=== PATIENT | female | born 2000 | race Caucasian/White ===

== ENCOUNTER 2025-01-06 15:44 | Emergency (ER) | payer MEDICAID, SELFPAY ==
[2025-01-06 15:45] VITALS: BP 147/84; PULSE 90; RESP 16; TEMP 36.6; O2SAT 100; BMI 34.5
--- NOTE | 2025-01-06 15:54 | EDS_ITS ---
HPI History of Present Illness Chief Complaint: Shortness of Breath PFSH PFSH Home Medications ?Medication ?Instructions ?Recorded ?Last Taken ?Type enoxaparin 40 mg/0.4 mL 40 mg (0.4 mL) subcut DAILY 30 01/06/25 Unknown Rx subcutaneous syringe (Lovenox) days #12 mL Allergy/AdvReac Type Severity Reaction Status Date / Time No Known Allergies Allergy Verified 01/06/25 15:45 Social History Smoking Status: Current every day smoker tobacco type: cigarettes and e- cigarettes EXAM Physical Exam Const Vital Signs: 01/06/25 15:45 01/06/25 16:28 01/06/25 16:30 Temperature 97.8 F Temperature Source Temporal Pulse Rate 90 75 Respiratory Rate 16 12 Respiratory Effort Normal Non-Labored Respiratory Depth Normal Respiratory Pattern Normal Blood Pressure 147/84 H 97/56 L Blood Pressure Mean 105 68 Pulse Ox 100 100 Oxygen Delivery Method Room Air Room Air 01/06/25 17:00 01/06/25 17:00 01/06/25 18:00 Temperature Temperature Source Pulse Rate 79 84 Respiratory Rate 21 H 14 Respiratory Effort Respiratory Depth Respiratory Pattern Blood Pressure 101/49 L 101/49 L Blood Pressure Mean 64 64 Pulse Ox 100 100 Oxygen Delivery Method 01/06/25 18:48 Temperature 97.5 F L Temperature Source Pulse Rate 72 Respiratory Rate 18 Respiratory Effort Respiratory Depth Respiratory Pattern Blood Pressure 98/62 Blood Pressure Mean 74 Pulse Ox 100 Oxygen Delivery Method MDM MDM MDM Narrative Medical decision making narrative: HISTORY OF PRESENT ILLNESS: Chief complaint: Shortness of breath 24-year-old female (G4, P3) who is approximately 6 weeks who presents with shortness of breath and dizziness for past 2 to 3 days. She notes shortness breath and dizziness is worse when she is at work. She notes symptoms are worse with exertion. She states has a history of a blood clot. She states has been prescribed Lovenox but has not taken it for last several days secondary to complication with refills. She denies chest pain. No leg swelling. No dizziness currently. Denies vaginal bleeding, passing tissue, leakage of fluid or severe abdominal pain. REVIEW OF SYSTEMS: Pertinent positives: Shortness of breath, dizziness Pertinent negatives: Vomiting, fever, bleeding diathesis PHYSICAL EXAM: Nursing triage notes reviewed, Vital signs reviewed Constitutional: please see mdm HENT: MMM Eyes: Pupils equal round and reactive to light, Extraocular muscles intact Neck: No stridor, no JVD, full neck ROM Lungs: Clear to auscultation, No wheezing or rales. No increased work of breathing, no conversational dyspnea, no accessory muscle use, no nasal flaring. No respiratory distress noted Heart: Regular rate and rhythm, No murmurs, No rubs and No gallops, 2+ distal pulses (radial, femoral, posterior tibial) in all extremities Abdomen: Soft, there is no tenderness, rigidity, rebound or guarding, no obvious peritoneal signs, no palpable pulsatile abdominal masses, no auscultated abdominal bruit : No CVAT Extremities: No edema Neuro: No n alert and oriented x3, neuro exam at baseline, cranial nerves II through XII are intact. No pain with extraocular muscle movement. There is negative test of skew. 5 of 5 strength in upper and lower extremities in flexion extension. Intact sensation to light touch in upper and lower extremity dermatomes. No truncal or extremity ataxia. No dysdiadochokinesia. Normal gait. 2+ reflexes in upper and lower extremities. No meningeal signs. Negative Babinski. NIH of 0. Skin: No rash or lesions noted MEDICAL DECISION MAKING: Chief Complaint: please see HPI External records reviewed: Reviewed prior imaging studies Factors affecting care: VTE, Social determinants of health: currently History obtained from others: Consults: none MDM Narrative: The patient was initially hemodynamically stable, afebrile and nontoxic- appearing. Exam without focal cardiopulmonary abnormalities. No focal neurologic deficits. While I considered posterior circulation CVA, cerebral vein thrombosis given report of dizziness the patient's neurologic exam was not consistent with intracranial emergency. I considered the following differential diagnosis: Viral illness, PE, arrhythmia, anemia, electrolyte disturbance, ACS I obtained a broad lab and imaging workup to further determine if the patient was suffering from a life-threatening etiology. ALL IMAGES (IF OBTAINED) HAVE BEEN PERSONALLY REVIEWED AND INTERPRETED BY MYSELF. EKG showed normal sinus rhythm rate of 68, normal axis, normal intervals, no STEMI, no obvious right heart strain, no right bundle branch block, right axis deviation or [id number]. CT of the chest showed no evidence of pneumonia or PE High-sensitivity troponin is negative, no evidence of myocardial ischemia (single troponin should suffice for ruling out ACS given patient's of having symptoms for 2 to 3 days and she had no chest pain) CBC with no leukocytosis, mild anemia, no thrombocytopenia CMP significant [place] abnormalities, no acute kidney injury, slight elevation in ALT and alk phos this is not clinically significant as patient had no upper quad abdominal pain scleral icterus or jaundice noted. The synthesis of the patient's history, physical exam, labs images suggest no acute life-limiting etiology specifically no sign of VTE, viral infection or bacterial infection. The etiology of patient's presentation is unclear however does not appear to be life-threatening. She is appropriate discharge home with close COMMISSIONS COORDINATOR follow-up. A dose of Lovenox was given here prior to the patient's discharge. Prescription for Lovenox was written. She is encouraged to fill this immediately and start taking medicine immediately. The patient and/or family, caregivers express understanding. The patient and/or family, caregivers agrees with the plan. Shared decision making: I will have a discussion with the patient and or visitors regarding risk/benefits of further testing or admission. They will be made aware of of the risk/benefits inherent in this decision they will be given the opportunity to voice understanding. Total critical care time today provided was at least 0 minutes. This excludes separately billable procedures. Critical care time (if documented) is secondary to the patient having high probability of clinically significant/life threatening deterioration in the patient's condition which required my urgent intervention. Impression: 1. Dyspnea 2. Dizziness 3. First trimester Dispo: Discharge home This note was generated with [employer] dictation software. It may contain incorrect words, spelling, and punctuation that were not noted in review of the chart prior to signing. Lab Data Labs: Laboratory Results - last 24 hr 01/06/25 16:02 WBC 11.6 H RBC 4.27 Hgb 12.8 Hct 37.1 MCV 86.9 MCH 30.0 MCHC 34.5 RDW Std Deviation 42.0 RDW Coeff of Maya 13.2 Plt Count 228 MPV 10.7 Immature Gran % (Auto) 0.400 Neut % (Auto) 78.7 H Lymph % (Auto) 14.7 L Humphreys % (Auto) 5.6 Eos % (Auto) 0.3 Baso % (Auto) 0.3 Absolute Neuts (auto) 9.1 H Absolute Lymphs (auto) 1.70 Nucleated RBC % 0 Sodium 134 Potassium 3.8 Chloride 104 Carbon Dioxide 17.3 L Anion Gap 13 BUN 10 Creatinine 0.57 L Estim Creat Clear Calc 146.11 Est GFR (MDRD) Non-Af 129 BUN/Creatinine Ratio 17.4 Glucose 94 Calcium 9.1 Total Bilirubin 0.20 AST 32 ALT 53 H Alkaline Phosphatase 113 H Troponin T High Sens < 6 Total Protein 6.5 Albumin 3.9 Globulin 2.6 Albumin/Globulin Ratio 1.5 Radiography Diagnostic Testing: Clinical Impression(s) from Imaging Studies Chest CTA 01/06/25 16:02 IMPRESSION: Negative exam Reading Location: [facility] Discharge Plan Triage Chief Complaint: Shortness of Breath ED Provider: Cecil Potts Dx/Rx/DC Orders Instructions: ED Dyspnea Prescriptions: New enoxaparin [Lovenox] 40 mg/0.4 mL syringe 40 mg subcut DAILY 30 Days Qty: 12 3RF Primary Care Provider: Amanda Roldan NP Referrals: Amanda Roldan NP, DIRECTOR OF [employer] [Primary Care Provider, Family Practice] Activity Restrictions/Additional Instructions: Thank you for trusting us with your care today! Your labs images are reassuring. Please take Tylenol (2 pills, 650 mg) every 6 hours as needed for pain and fever control. Please take Lovenox as prescribed. Please return to the emergency department if your symptoms change or worsen. Please follow with COMMISSIONS COORDINATOR for further outpatient evaluation and management. Print Language: Taiwanese Disposition Disposition: Home, Self Care Discharge Date/Time: 01/06/25 19:00
--- NOTE | 2025-01-06 16:02 | CT_ITS ---
PROCEDURE: CTA CHEST W/WO CONTRAST 01/06/2025 REASON FOR EXAM: SOB, HX OF PE TECHNIQUE: Procedure Code: [id number] Modality: CT Procedure: CTA CHEST W/WO CONTRAST Multiplanar Sagittal and Coronal images were obtained. 3D reconstructions CONTRAST: Isovue 370 VOLUME: 100 mL One or more dose reduction techniques were used (e.g., Automated exposure control, adjustment of the mA and/or kV according to patient size, use of iterative reconstruction technique). RADIATION DOSE SUMMARY: . FINDINGS: Normal aortic caliber. No aortic dissection. No coronary artery calcification. No visible pulmonary emboli. No mediastinal mass. No pericardial fluid. The upper abdomen is unremarkable. There is no pericardial effusion. There is no adenopathy. Inspection of the lung parenchyma demonstrates no mass, consolidation or fibrosis. CT/CTA Chest W/WO Contrast IMPRESSION: Negative exam Reading [facility]
--- NOTE | 2025-01-06 16:03 | EKG12_ITS ---
Test Reason : SOB Blood Pressure : */* mmHG Vent. Rate : 68 BPM Atrial Rate : 68 BPM P-R Int : 136 ms QRS Dur : 92 ms QT Int : 386 ms P-R-T Axes : 18 69 39 degrees QTcB Int : 410 ms Normal sinus rhythm with sinus arrhythmia RSR' or QR pattern in V1 suggests right ventricular conduction delay Borderline ECG Confirmed by SAMUEL ENCISO, PAULETTE ([id number]), order editor MACK FRAGOSO ([id number]) on 01/08/2025 8:35:03 AM Referred By: MOY Confirmed By: PAULETTE BAKER MD
[2025-01-06 16:17] LABS: Hematocrit 37.1 % (37-47); Hemoglobin 12.8 g/dL (12.0-15.0); Immature Granulocytes Count 0.050 X10^3/uL (0.0-0.0); Mean Corp Hgb Conc 34.5 g/dL (32-36); Mean Corpuscular Volume 86.9 fL (81-99); Mean Platelet Vol. 10.7 fl (6.2-12.0); NRBC Flagged by Analyzer 0 % (0-5); Platelet Count 228 K/mm3 (150-450); RBC Distribution Width CV 13.2 % (11.6-14.6); RBC Distribution Width SD 42.0 fl (35.1-43.9); Red Blood Count 4.27 M/mm3 (4.2-5.4); White Blood Count 11.6 K/mm3 (4.4-11.0)
--- OUTSIDE RECORDS SUMMARY | 2025-01-06 16:26 | XMS RPT_ITS | CCD ---
Author Organization [facility] Care Team Providers Care Flow Match Sofa Cutter Name Role Phone SHIVANI BARROS Unavailable Unavailable SHIVANI BARROS Unavailable Unavailable CONI EDEN Unavailable Unavailable [employer] MINER-TRANSPORTATION SOLUTIONS MANAGER, AMANDA S Primary Care Physicia n Amanda Roldan Primary Care Provider [phone] AMANDA ROLDAN S Primary Care Unavailable MARYBETH, CINTHYA E Referring Unavailable KELLEY POLK Attending Unavailable KELLEY POLK Attending Unavailable YULI, AMANDA S Primary Care Unavailable MARYBETH, CINTHYA E Referring Unavailable JAD CARBAJAL Attending Unavailable YULI, AMANDA S Primary Care Unavailable MARYBETH, CINTHYA E Referring Unavailable JAD CARBAJAL Attending Unavailable YULI, AMANDA S Primary Care Unavailable MARYBETH, CINTHYA E Referring Unavailable MARYBETH, CINTHYA E Referring Unavailable YULI, AMANDA S Primary Care Unavailable HANNAH PRABHCHARAN P Attending Unavailable MARYBETH, CINTHYA E Referring Unavailable YULI, AMANDA S Primary Care Unavailable HANNAH PRABHBREANNE P Attending Unavailable YULI, AMANDA S Primary Care Unavailable MARYBETH, CINTHYA E Referring Unavailable HANNAH PRABHBREANNE P Attending Unavailable [employer] MINER-TRANSPORTATION SOLUTIONS MANAGER, AMANDA S Primary Care Unava ilable Marybeth, Cinthya Attending Unavailable [employer] MINER-TRANSPORTATION SOLUTIONS MANAGER, AMANDA S Primary Care Unava ilable [employer] MINER-[employer], AMANDA R Attending Unav ailable [employer] MINER-TRANSPORTATION SOLUTIONS MANAGER, AMANDA S Primary Care Unava ilable [employer] MINER[employer], AMANDA R Attending Unav ailable [employer] MINER-TRANSPORTATION SOLUTIONS MANAGER, AMANDA S Primary Care Unava ilable Marybeth, Cinthya Attending Unavailable [employer] MINER-TRANSPORTATION SOLUTIONS MANAGER, AMANDA S Primary Care Unava ilable HANS ENCISO, DR MOON Attending Unavailabl e [employer] MINER-TRANSPORTATION SOLUTIONS MANAGER, AMANDA S Primary Care Unava ilable Marybeth, Cinthya Attending Unavailable [employer] MINER-TRANSPORTATION SOLUTIONS MANAGER, AMANDA S Primary Care Unava ilable [employer] MINER[employer], AMANDA R Attending Unav ailable [employer] MINER-TRANSPORTATION SOLUTIONS MANAGER, AMANDA S Primary Care Unava ilable [employer] MINER[employer], AMANDA R Attending Unav ailable [employer] MINER[employer], AMANDA R Attending Unav ailable [employer] MINER-TRANSPORTATION SOLUTIONS MANAGER, AMANDA S Primary Care Unava ilable [employer] MINER-TRANSPORTATION SOLUTIONS MANAGER, ZARINA Attending Unavail able [employer] MINER-TRANSPORTATION SOLUTIONS MANAGER, AMANDA S Primary Care Unava ilable [employer] MINER-TRANSPORTATION SOLUTIONS MANAGER, ZARINA Attending Unavail able [employer] MINER-TRANSPORTATION SOLUTIONS MANAGER, AMANDA S Primary Care Unava ilable [employer] MINER-TRANSPORTATION SOLUTIONS MANAGER, AMANDA S Primary Care Unava anayeli POLK MD, DR KELLEY Ortiz Attending Unavai lable [employer] MINER-TRANSPORTATION SOLUTIONS MANAGER, AMANDA S Primary Care Unava ilable CHRISTI ENCISO, SRI Tadeo Consulting Unavailable CHRISTI ENCISO, SRI Tadeo Attending Unavailable [employer] MINER[employer], AMANDA Bell Attending Unav ailable [employer] MINER-TRANSPORTATION SOLUTIONS MANAGER, AMANDA S Primary Care Unava ilable [employer] MINER[employer], AMANDA Bell Attending Unav ailable [employer] MINER-TRANSPORTATION SOLUTIONS MANAGER, AMANDA S Primary Care Unava ilable [employer] MINER[employer]M, AMANDA R Attending Unav ailable [employer] MINER-TRANSPORTATION SOLUTIONS MANAGER, AMANDA S Primary Care Unava ilable [employer] MINER-TRANSPORTATION SOLUTIONS MANAGER, AMANDA S Primary Care Unava ilable Marybeth, Cinthya Attending Unavailable [employer] MINER-TRANSPORTATION SOLUTIONS MANAGER, AMANDA S Primary Care Unava ilable Marybeth, Cinthya Attending Unavailable [employer] MINER-TRANSPORTATION SOLUTIONS MANAGER, AMANDA S Primary Care Unava ilable Marybeth, Cinthya Attending Unavailable [employer] MINER-TRANSPORTATION SOLUTIONS MANAGER, AMANDA S Primary Care Unava ilable Marybeth, Cinthya Attending Unavailable [employer] MINER[employer], AMANDA Bell Attending Unav ailable [employer] MINER-TRANSPORTATION SOLUTIONS MANAGER, AMANDA S Primary Care Unava ilable [employer] MINER-TRANSPORTATION SOLUTIONS MANAGER, ZARINA Attending Unavail able [employer] MINER-TRANSPORTATION SOLUTIONS MANAGER, AMANDA S Primary Care Unava ilable [employer] MINER-TRANSPORTATION SOLUTIONS MANAGER, AMANDA S Primary Care Unava ilable Marybeth, Cinthya Attending Unavailable [employer] MINER-TRANSPORTATION SOLUTIONS MANAGER, AMANDA S Primary Care Unava ilable [employer] MINER-TRANSPORTATION SOLUTIONS MANAGER, ZARINA Attending Unavail able CHRISTI ENCISO, SRI Tadeo Attending Unavailable CHRISTI ENCISO, SRI Tadeo Consulting Unavailable [employer] MINER-TRANSPORTATION SOLUTIONS MANAGER, AMANDA S Primary Care Unava ilable [employer] MINER[employer], AMANDA R Attending Unav ailable [employer] MINER-TRANSPORTATION SOLUTIONS MANAGER, AMANDA S Primary Care Unava ilable [employer] MINER[employer], AMANDA R Attending Unav ailable [employer] MINER-TRANSPORTATION SOLUTIONS MANAGER, AMANDA S Primary Care Unava ilable [employer] MINER-TRANSPORTATION SOLUTIONS MANAGER, AMANDA S Primary Care Unava ilable [employer] MINER[employer]CNM, AMANDA R Attending Unav ailable [employer] MINER[employer]CNM, AMANDA R Attending Unav ailable [employer] MINER-TRANSPORTATION SOLUTIONS MANAGER, AMANDA S Primary Care Unava ilable [employer] MINER-TRANSPORTATION SOLUTIONS MANAGER, AMANDA S Primary Care Unava ilable MARYAN PLUNKETT MD Attending Unavailable [employer] MINER[employer], AMANDA Ray Attending Unav ailable [employer] MINER-TRANSPORTATION SOLUTIONS MANAGER, AMANDA S Primary Care Unava ilable [employer] MINER[employer]CNM, AMANDA R Attending Unav ailable [employer] MINER-TRANSPORTATION SOLUTIONS MANAGER, AMANDA S Primary Care Unava ilable [employer] MINER-TRANSPORTATION SOLUTIONS MANAGER, AMANDA S Primary Care Unava ilable MARYAN PLUNKETT MD Attending Unavailable [employer] MINER[employer]CNM, AMANDA Ray Attending Unav ailable [employer] MINER-TRANSPORTATION SOLUTIONS MANAGER, AMANDA S Primary Care Unava ilable [employer] MINER[employer]CNM, AMANDA Ray Attending Unav ailable [employer] MINER-TRANSPORTATION SOLUTIONS MANAGER, AMANDA S Primary Care Unava ilable [employer] MINER[employer]CNM, AMANDA R Attending Unav ailable [employer] MINER-TRANSPORTATION SOLUTIONS MANAGER, AMANDA S Primary Care Unava ilable CHRISTI ENCISO, SRI Tadeo Attending Unavailable [employer] MINER-TRANSPORTATION SOLUTIONS MANAGER, AMANDA S Primary Care Unava ilable [employer] MINER-TRANSPORTATION SOLUTIONS MANAGER, AMANDA S Primary Care Unava ilable CHRISTI ENCISO, SRI Tadeo Attending Unavailable [employer] MINER-TRANSPORTATION SOLUTIONS MANAGER, AMANDA S Primary Care Unava ilable Cinthya Rueda Attending Unavailable [employer] MINER[employer]CNM, AMANDA R Admitting Unav ailable HENAO DO, DR MO Guidry Attending Unavailable [employer] MINER-TRANSPORTATION SOLUTIONS MANAGER, AMANDA S Primary Care Unava ilable [employer] MINER-TRANSPORTATION SOLUTIONS MANAGER, AMANDA S Primary Care Unava ilable [employer] MINER-TRANSPORTATION SOLUTIONS MANAGER, ZARINA Attending Unavail polo PLUNKETT MD, MARYAN Attending Unavailable [employer] MINER-TRANSPORTATION SOLUTIONS MANAGER, AMANDA S Primary Care Unava ilable HANNAH ENCISO, DR KELLEY Ortiz Attending Unavai lable [employer] MINER-TRANSPORTATION SOLUTIONS MANAGER, AMANDA S Primary Care Unava ilable [employer] MINER[employer]CNM, AMANDA Bell Attending Unav ailable [employer] MINER-TRANSPORTATION SOLUTIONS MANAGER, AMANDA S Primary Care Unava ilable [employer] MINER[employer]CNM, MAANDA R Attending Unav ailable [employer] MINER-TRANSPORTATION SOLUTIONS MANAGER, AMANDA S Primary Care Unava ilable [place] TRANSPORTATION SOLUTIONS MANAGER, Amanda S Primary Care Provider [place] [employer] WINDOW TINTER, Amanda Primary Care Unavailable Yuli AUTOMOTIVE WINDOW TINTER, Amanda Referring Unavailable Patricio Peters Attending Unavailable Patricio Peters Attending Unavailable Patricio Peters Attending Unavailable Patricio Peters Referring Unavailable [place] [employer]OM[employer] WINDOW TINTER, Amanda Primary Care Unavailable Patricio Peters Attending Unavailable Yuli AUTOMOTIVE WINDOW TINTER, Amanda Primary Care Unavailable Yuli AUTOMOTIVE WINDOW TINTER, Amanda Referring Unavailable Patricio Peters Attending Unavailable YULI, AMANDA S Primary Care Unavailable MARA DAVIS Attending Unavailable YULI, AMANDA S Primary Care Unavailable RUPERT MANSFIELD Attending Unavailable YULI, AMANDA S Primary Care Unavailable YULI, AMANDA S Primary Care Unavailable RUPERT MANSFIELD Referring Unavailable [employer] MINER-TRANSPORTATION SOLUTIONS MANAGER, AMANDA S Primary Care Unava ilable [employer] MINER-TRANSPORTATION SOLUTIONS MANAGER, AMANDA Dennis Attending Unava ilable [employer] MINER-TRANSPORTATION SOLUTIONS MANAGER, AMANDA S Primary Care Unava ilable [employer] MINER-TRANSPORTATION SOLUTIONS MANAGER, AMANDA Dennis Attending Krystyna HAYDEN, ZARINA Attending Ciara HAYDEN, AMANDA Dennis Primary Care Lupeva anayeli HAYDEN, ZARINA Attending Ciara HAYDEN, AMANDA Dennis Primary Care Unava ilpolo Medications Current Medications Medication Drug Class(es) Dates Sig (Normalized) Sig (Original) [id number] 200 actuat albuterol 0.09 mg/actuat metered dose inhaler (3 sources) beta2-Adrenergic Agonist Start: 10-27-2024 take 2 puff(s) by inhalation every four hours as needed for wheezing albuterol HFA (PROVENTIL HFA, VENTOLIN HFA) 90 mcg/actuation inhaler Inhale 2 puffs as instructed every 4 hours as needed for wheezing/shortnes s of breath. 6.7 g 10/27/2024 Active Alive Gummies oral tablet, chewable (20 sources) Start: 01-26-2023 take 1 tablet by mouth once daily Alive Gummies oral tablet, chewable Dose = 2 tab(s), Chewed, qDay, # 90 EA, 9 Refill(s), Pharmacy: [facility], 62.5, cm, 01/26/23 12:44:00 EDT, Height, kg, 01/26/23 12:42:00 EDT, Dosing Weight Start Date: 01/26/23 Status: Ordered Medication Dispense Status: Completed Quantity: 90.0 Unit: EA Total Allowed Fills: 10 Fills Dispensed: 0 Start: 01-26-2023 take 1 tablet by lori th once daily Alive Gummies oral tablet, chewable Dose = 2 tab(s), Chewed, qDay, # 90 EA, 9 Refill(s), Pharmacy: [facility], 62.5, cm, 01/26/23 12:44:00 EDT, Height, kg, 01/26/23 12:42:00 EDT, Dosing Weight Start Date: 01/26/23 Status: Ordered Quantity: 90.0 Unit: EA Repeat number: 10 Start: 01-26-2023 take 1 tablet by lori th once daily Alive Gummies oral tablet, chewable Dose = 2 tab(s), Chewed, qDay, # 90 EA, 9 Refill(s), Pharmacy: [facility], 62.5, cm, 01/26/23 12:44:00 EDT, Height, kg, 01/26/23 12:42:00 EDT, Dosing Weight Start Date: 01/26/23 Status: Ordered amoxicillin 875 mg oral tablet (2 sources) Penicillin-class Antibacterial Start: 11-16-2024 End: 11-23-2024 take 1 tablet by mouth twice daily amoxicillin (AMOXIL) 875 mg tablet Indications: Tooth pain Take 1 tablet by mouth two times a day for 7 days. 14 tablet 11/16/2024 11/23/2024 Active Start: 02-28-2024 End: 03-06-2024 take 2 capsules by mouth twice daily amoxicillin (AMOXIL) 500 mg capsule Indications: Acute otitis media, left Take 2 capsules by mouth two times a day for 7 days. 28 capsule 02/28/2024 03/06/2024 Active aspirin 81 mg oral tablet (20 sources) Platelet Aggregation Inhibitor, Nonsteroidal Anti-inflammatory Drug Start: 05-18-2023 take 1 tablet by mouth once daily Aspirin Low Dose 81 mg oral tablet 1 tab, qDay, 0 Refill(s) Start Date: 05/18/23 Status: Ordered Repeat number: 1 End: 02-28-2024 take 1 tablet by mouth once daily aspirin 81 mg chewable tablet Take 81 mg by mouth once daily. 02/28/2024 Discontinued Comment on above: Take 81 mg by mouth once daily. benzonatate 100 mg oral capsule (1 source) Non-narcotic Antitussive Start: End: take 1 capsule by mouth every eight hours as needed benzonatate (TESSALON PERLE) 100 mg capsule Take 1 capsule by mouth three times a day as needed for cough for up to 7 days. 21 capsule 10/27/2024 11/03/2024 Active betamethasone 3 mg/ml / betamethasone acetate 3 mg/ml injectable suspension (2 sources) Corticosteroid Start: 024 Celestone Soluspan 6 mg/mL injectable suspension 2 mL, Intramuscular, q24h, Total of 2 doses 24 hours apart, # 2 mL, 0 Refill(s) Start Date: 08/25/23 Status: Ordered cyclobenzaprine hydrochloride 10 mg oral tablet (1 source) Muscle Relaxant Start: End: cyclobenzaprine 10 mg oral tablet Dose : 10 mg = 1 tab(s), Oral, TID, PRN for muscle spasm, X 10 day(s), # 30 tab(s), 0 Refill(s), 09/14/21 14:52:00 EDT, Pharmacy: [facility], 158.5, cm, 09/04/21 8:53:00 EDT, Height Start Date: 09/04/21 Stop Date: 09/14/21 Status: Ordered diphenhydrAMINE hydrochloride 25 mg oral tablet (7 sources) Histamine-1 Receptor Antagonist Start: Unisom 25mg oral tablet Dose : 25 mg = 1 tab(s), Oral, qHS, PRN as needed for insomnia, # 30 tab(s), 5 Refill(s), Pharmacy: [facility], 62.5, cm, 01/26/23 12:44:00 EDT, Height, kg, 01/26/23 12:42:00 EDT, Dosing Weight Start Date: 01/26/23 Status: Ordered ferrous gluconate 324 mg oral tablet (6 sources) Start: End: ferrous gluconate 324 mg (38 mg elemental iron) oral tablet Dose : 324 mg = 1 tab(s), Oral, Daily, X 90 day(s), # 90 tab(s), 1 Refill(s), 05/16/22 12:09:00 EST, Pharmacy: [facility], 158.5, cm, 09/04/21 8:53:00 EDT, Height Start Date: 11/17/21 Stop Date: 05/16/22 Status: Ordered Start: 12-16-2020 End: 05-15-2021 ferrous gluconate 324 mg (37 .5 mg elemental iron) oral tablet Dose : 324 mg = 1 tab(s), Oral, BID, # 60 tab(s), 4 Refill(s), Pharmacy: [facility], 158, cm, 12/16/20 12:19:00 EDT, Height, kg, 10/17/20 7:08:00 EDT, Dosing Weight Start Date: 12/16/20 Stop Date: 05/15/21 Status: Ordered FLUoxetine 20 mg oral tablet (1 source) Serotonin Reuptake Inhibitor Start: 01-20-2022 FLUoxetine 20 mg oral tablet Dose : 20 mg = 1 tab(s), Oral, qDay, # 30 tab(s), 11 Refill(s), Pharmacy: [facility], 157, cm, 01/20/22 14:05:00 EDT, Height Start Date: 01/20/22 Status: Ordered heparin 5000 units/mL injectable solution (3 sources) Start: 01-09-2021 End: 03-10-2021 inject 1 dose by subcutaneous injection every twelve hours heparin 5000 units/mL injectable solution Dose : 5,000 unit(s) =, Subcutaneous, q12h, Please supply sufficient quantity of needles, syringes, alcohol swabs and a sharps container, # 60 mL, 1 Refill(s), 157, cm, 01/09/21 11:34:00 EDT, Height, kg, 12/19/20 11:48:00 EDT, Dosing Weight Start Date: 01/09/21 Stop Date: 03/10/21 Status: Ordered Start: 01-09-2021 End: 03-10-2021 inject 1 dose by subcutaneous injection every twelve hours heparin 5000 units/mL injectable solution Dose : 5,000 unit(s) =, Subcutaneous, q12h, Please supply sufficient quantity of needles, syringes, alcohol swabs and a sharps container, # 60 mL, 1 Refill(s), Pharmacy: [facility]/pharmacy #[id number], 157, cm, 01/09/21 11:34:00 EDT, Height, kg, 12/19/20 11:48:00... Start Date: 01/09/21 Stop Date: 03/10/21 Status: Ordered hydrOXYzine hydrochloride 25 mg oral tablet (7 sources) Antihistamine Start: 05-10-2023 End: 08-08-2023 hydrOXYzine hydrochloride 25 mg oral tablet Dose : 25 mg = 1 tab(s), Oral, QID, PRN as needed for anxiety, X 30 day(s), # 40 tab(s), 2 Refill(s), 08/08/23 10:51:00 AM EDT, Pharmacy: [facility], 157.5, cm, 05/10/23 10:23:00 EST, Height, kg, 01/26/23 12:42:00 EDT, Dosing Weight Start Date: 05/10/23 Stop Date: 08/08/23 Status: Ordered Start: 01-20-2022 hydrOXYzine hy drochloride 25 mg oral tablet Dose : 25 mg = 1 tab(s), Oral, QID, PRN as needed for anxiety, # 40 tab(s), 0 Refill(s), Pharmacy: [facility], 157, cm, 01/20/22 14:05:00 EDT, Height Start Date: 01/20/22 Status: Ordered Start: 12-20-2020 Vistaril 25 mg oral capsule Dose : 25 mg = 1 cap(s), Oral, qHS, PRN as needed for anxiety, # 40 cap(s), 0 Refill(s), Pharmacy: [facility], Third trimester Itching, 157, cm, 12/19/20 11:48:00 EDT, Height, kg, 12/19/20 11:48:00 EDT, Dosing Weight Start Date: 12/20/20 Status: Ordered ibuprofen 600 mg oral tablet (2 sources) Nonsteroidal Anti-inflammatory Drug Start: 09-02-2023 End: 10-06-2023 IBU 600 mg oral tablet Dose : 600 mg = 1 tab(s), Oral, QID, # 40 tab(s), 0 Refill(s), 10/06/23 7:29:00 AM EDT, Pharmacy: [facility], 155, cm, 09/01/23 5:56:00 EDT, Height, kg, 09/01/23 5:56:00 EDT, Dosing Weight Start Date: 09/02/23 Stop Date: 10/06/23 Status: Ordered Start: 01-27-2021 End: 02-06-2021 ibuprofen 600 mg oral tablet Dose : 600 mg = 1 tab(s), Oral, q6h, PRN for pain, Take with food or milk., X 10 day(s), # 40 tab(s), 0 Refill(s), 02/06/21 15:54:00 EDT, Pharmacy: [facility]/pharmacy #[id number], 155, cm, 01/27/21 6:04:00 EDT, Height, kg, 01/27/21 6:04:00 EDT, Dosing Weight Start Date: 01/27/21 Stop Date: 02/06/21 Status: Ordered lidocaine 0.05 mg/mg medicated patch (2 sources) Antiarrhythmic, Amide Local Anesthetic Start: 10-07-2023 End: 10-17-2023 lidocaine 5% topical patch Apply 1 patch(es), Topical, Daily, X 10 day(s), # 10 patch(es), 0 Refill(s), 78.9 Start Date: 10/07/23 Stop Date: 10/17/23 Status: Ordered Start: 07-07-2018 End: 06-14-2023 lidocaine viscous (LIDOCAINE VISCOUS) 2 % solution Indications: Aphthous ulcer of pharynx or hypopharynx Apply to oral ulcer as needed. 15 mL 0 07/07/2018 06/14/2023 Discontinued Comment on above: Apply to oral ulcer as needed. 24 hr nicotine 0.875 mg/hr transdermal system (1 source) Cholinergic Nicotinic Agonist Start: End: apply 1 dose transdermal route once daily NicoDerm CQ 21 mg/24 hr transdermal patch Dose = 1 patch(es), Transdermal, Daily, X 6 week(s), # 42 patch(es), 0 Refill(s), Pharmacy: [facility], 157.4, cm, 03/24/22 9:25:00 EST, Height Start Date: 03/24/22 Stop Date: 05/05/22 Status: Ordered pantoprazole 40 mg delayed release oral tablet (4 sources) Proton Pump Inhibitor Start: End: Protonix 40 mg oral enteric coated tablet Dose : 40 mg = 1 tab(s), Oral, qDay, # 30 tab(s), 3 Refill(s), Pharmacy: [facility], 157, cm, 12/26/20 10:03:00 EDT, Height, kg, 12/19/20 11:48:00 EDT, Dosing Weight Start Date: 12/26/20 Stop Date: 04/20/22 Status: Ordered predniSONE 10 mg oral tablet (1 source) Start: End: take 4 tablets by mouth once daily, then take 2 tablets by mouth once daily, then take 1 tablet by mouth once daily predniSONE (DELTASONE) 10 mg tablet Take 4 tablets by mouth once daily for 3 days, THEN 2 tablets once daily for 3 days, THEN 1 tablet once daily for 3 days. 21 tablet 10/27/2024 11/05/2024 Active Multivitamins with Vitamin B Complex, Vitamin C, Minerals and L-Methylfolate oral capsule (4 sources) Start: take 1 capsule by mouth once daily Multivitamins with Vitamin B Complex, Vitamin C, Minerals and L-Methylfolate oral capsule Dose = 1 cap(s), Oral, Daily, 0 Refill(s) Start Date: 10/31/20 Status: Ordered pyridoxine hydrochloride 25 mg oral tablet (7 sources) Start: pyridoxine 25 mg oral tablet Dose : 25 mg = 1 tab(s), Oral, q6hr, # 100 tab(s), 5 Refill(s), Pharmacy: [facility], 62.5, cm, 01/26/23 12:44:00 EDT, Height, kg, 01/26/23 12:42:00 EDT, Dosing Weight Start Date: 01/26/23 Status: Ordered traMADol hydrochloride 50 mg oral tablet (1 source) Opioid Agonist Start: 024 End: traMADol 50 mg oral tablet Dose : 50 mg = 1 tab(s), Oral, q6h, PRN for pain, X 7 day(s), # 20 tab(s), 0 Refill(s), 04/15/23 11:24:00 AM EST, Pharmacy: [facility], Sciatica, 157.5, cm, 04/08/23 10:52:00 EST, Height, 65.8, kg, 01/26/23 12:42:00 EDT, Dosing Weight Start Date: 04/08/23 Stop Date: 04/15/23 Status: Ordered ursodiol 300 mg oral capsule (14 sources) Bile Acid Start: ursodiol 300 mg oral capsule Dose : 300 mg = 1 cap(s), Oral, TID, # 45 cap(s), 2 Refill(s), Pharmacy: [facility], 155, cm, 07/22/23 10:02:00 EDT, Height, kg, 07/06/23 14:43:00 EDT, Dosing Weight Start Date: 08/03/23 Status: Ordered Start: 12-30-2020 End: 02-28-2021 ursodiol 300 mg oral capsule Dose : 300 mg = 1 cap(s), Oral, BID, # 120 cap(s), 0 Refill(s), Pharmacy: [facility], 157, cm, 12/26/20 10:03:00 EDT, Height, kg, 12/19/20 11:48:00 EDT, Dosing Weight Start Date: 12/30/20 Stop Date: 02/28/21 Status: Ordered zolpidem tartrate 5 mg oral tablet (3 sources) gamma-Aminobutyric Acid-ergic Agonist Start: 01-02-2021 End: 02-13-2021 Ambien 5 mg oral tablet Dose : 5 mg = 1 tab(s), Oral, qHS, PRN for sleep, X 14 day(s), # 12 tab(s), 2 Refill(s), 02/13/21 12:04:00 EST, Pharmacy: [facility], Insomnia, 157, cm, 01/02/21 10:57:00 EDT, Height, 82.2, kg, 12/19/20 11:48:00 EDT, Dosing Weight Start Date: 01/02/21 Stop Date: 02/13/21 Status: Ordered Completed/Discontinued Medications Medication Drug Class(es) Dates Sig (Normalized) Sig (Original) apixaban 5 mg oral tablet (1 source) Factor Xa Inhibitor Start: 04-13-2019 End: 06-14-2023 take 1 tablet by mouth twice daily ELIQUIS 5 mg tab(s) Take 5 mg by mouth twice daily. 0 04/13/2019 06/14/2023 Discontinued Comment on above: Take 5 mg by mouth t wice daily. docusate sodium 100 mg oral capsule (1 source) Start: 01-15-2018 End: 06-14-2023 docusate sodium (COLACE) 100 mg capsule DAILY 0 01/15/2018 06/14/2023 Discontinued Comment on above: DAILY 0.4 ml enoxaparin sodium 100 mg/ml prefilled syringe (20 sources) Low Molecular Weight Heparin Start: 12-11-2024 End: 02-09-2025 inject 0.4 mL by subcutaneous injection once daily Lovenox 40 mg/0.4 mL injectable solution Dose : 40 mg = 0.4 mL, Subcutaneous, qDay, X 30 day(s), # 12 mL, 1 Refill(s), 02/09/25 1:50:00 PM EST, Pharmacy: [facility], Secondary amenorrhea History of blood clots, 157.6, cm, 12/11/24 13:17:00 EDT, Height, kg, 12/11/24 13:17:00 EDT, Dosing Weight Start Date: 12/11/24 Stop Date: 02/09/25 Status: Ordered Medication Dispense Status: Completed Quantity: 12.0 Unit: mL Total Allowed Fills: 2 Fills Dispensed: 0 Indications: Personal history of other venous thrombosis and embolism; Secondary amenorrhea; Start: 01-26-2023 End: 08-04-2024 inject 0.4 mL by subcutaneous injection once daily Lovenox 40 mg/0.4 mL injectable solution Dose : 40 mg = 0.4 mL, Subcutaneous, qDay, X 6 week(s), # 16.8 mL, 8 Refill(s), 08/04/24 12:08:44 PM EDT, Pharmacy: [facility], 62.5, cm, 01/26/23 12:44:00 EDT, Height, kg, 01/26/23 12:42:00 EDT, Dosing Weight Start Date: 01/26/23 Stop Date: 08/04/24 Status: Ordered Quantity: 16.8 Unit: mL Repeat number: 9 Start: 02-13-2021 End: 03-15-2021 inject 0.4 mL by subcutaneous injection once daily Lovenox 40 mg/0.4 mL injectable solution Dose : 40 mg = 0.4 mL, Subcutaneous, qDay, X 30 day(s), # 12 mL, 0 Refill(s), 03/15/21 11:24:00 EST, Pharmacy: [facility], 155, cm, 01/27/21 6:04:00 EDT, Height, kg, 02/13/21 11:03:00 EST, Dosing Weight Start Date: 02/13/21 Stop Date: 03/15/21 Status: Ordered Start: 01-27-2021 End: 02-06-2021 inject 0.4 mL by subcutaneous injection once daily enoxaparin 40 mg/0.4 mL injectable solution Dose : 40 mg = 0.4 mL, Subcutaneous, qDay, X 10 day(s), # 4 mL, 0 Refill(s), 02/06/21 15:54:00 EDT, Pharmacy: [facility]/pharmacy #[id number], 155, cm, 01/27/21 6:04:00 EDT, Height, kg, 01/27/21 6:04:00 EDT, Dosing Weight Start Date: 01/27/21 Stop Date: 02/06/21 Status: Ordered End: 02-28-2024 enoxaparin sodium (LOVENOX SUBCUTANEOUS) Inject subcutaneously. 02/28/2024 Discontinued enoxaparin sodiu m (LOVENOX SUBCUTANEOUS) Inject subcutaneously. 0 Active Comment on above: Inject subcutaneousl y. Naproxen (1 source) Nonsteroidal Anti-inflammatory Drug End: 06-14-19 NAPROXEN ORAL Take by mouth. 0 06/14/2023 Discontinued Comment on above: Take by mouth. omeprazole 20 mg delayed release oral capsule (1 source) Proton Pump Inhibitor Start: 09-22-19 End: 06-14-19 take 1 capsule by mouth once daily before breakfast omeprazole (PRILOSEC) 20 mg capsule Take 1 capsule by mouth daily before breakfast. 1/2 hr before meal. 30 capsule 0 09/21/2017 06/14/2023 Discontinued Comment on above: Take 1 capsule by mo uth daily before breakfast. 1/2 hr before meal. [id number] ps-folate 1 29 mg iron- 1 mg chew (3 sources) Start: 09-27-19 End: 02-28-20 [id number] ps-folate 1 29 mg iron- 1 mg chew Indications: Amenorrhea , Incidental confirmed Take one tablet daily 1 Bottle 3 09/26/2017 02/28/2024 Discontinued Start: 09-26-2017 no13- iron ps-folate 1 29 mg iron- 1 mg chew Indications: Amenorrhea , Incidental confirmed Take one tablet daily 1 Bottle 3 09/26/2017 Active Comment on above: Take one tablet kameron y sucralfate 1000 mg oral tablet (1 source) Aluminum Complex Start: 09-21-2017 End: 06-14-2023 take 1 tablet by mouth at bedtime sucralfate (CARAFATE) 1 gram tablet Take 1 tablet by mouth before meals and at bedtime. 30 tablet 0 09/21/2017 06/14/2023 Discontinued Comment on above: Take 1 tablet by lori th before meals and at bedtime. Problems Active Problems Problem Classification Problem Date Documented Da te Episodic/Chronic Abdominal pain (20 sources) Abdominal pain 11-01-2019 Episodic Anxiety disorders (20 sources) Anxiety; Translations: [Mixed anxiety and depressive disorder] 12-09-2018 Chronic Asthma (20 sources) Asthma 12-09-2018 Chronic Chronic obstructive pulmonary disease and bronchiectasis (2 sources) Bronchitis; Translations: [Bronchitis, not specified as acute or chronic] Onset: 5 10-27-2024 Episodic Coagulation and hemorrhagic disorders (20 sources) Antiphospholipid syndrome; Translations: [Antiphospholipid syndrome] Onset: 4 05-11-2023 Chronic Contraceptive and procreative management (5 sources) Depot contraceptive status 02-07-2019 Episodic Deficiency and other anemia (20 sources) Anemia 03-24-2022 Episodic Developmental disorders (20 sources) 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 Disorders of teeth and jaw (20 sources) Dental caries; Translations: [Infection of tooth] Onset: 5 05-18-2019 Episodic Esophageal disorders (20 sources) Gastroesophageal reflux disease 12-09-2018 Chronic Headache; including migraine (20 sources) Migraine without aura 12-09-2018 Chronic Malaise and fatigue (20 sources) Fatigue 11-17-2021 Episodic Menstrual disorders (3 sources) Secondary physiologic amenorrhea; 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] Onset: 5 Chronic Mood disorders (20 sources) Depression 12-09-2018 Chronic Nonspecific chest pain (20 sources) Chest pain 09-04-2021 Episodic Other and unspecified benign neoplasm (20 sources) Hemangioma of liver 12-14-2019 Episodic Other bone disease and musculoskeletal deformities (6 sources) Mickey Schlatter disease; 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] Onset: 6 06-17-2015 Chronic Other circulatory disease (5 sources) Easy bruising 07-27-2024 Episodic Other complications of (2 sources) Liver disorder in ; Translations: [Liver and biliary tract disorders in , unspecified trimester] Onset: 1 Episodic Other complications of (6 sources) Cholestasis of ; Translations: [Intrahepatic cholestasis of , third trimester] Onset: 4 01-27-2021 Episodic Other complications of (1 source) Complication of , childbirth and/or the puerperium; Translations: [Other diseases of the blood and blood-forming organs and certain disorders involving the immune mechanism complicating , unspecified trimester] Onset: 4 Episodic Other gastrointestinal disorders (20 sources) Heartburn 12-26-2020 Episodic Other inflammatory condition of skin (20 sources) Itching of skin 12-19-2020 Episodic Other liver diseases (20 sources) Elevated liver enzymes level 03-24-2022 Episodic Other lower respiratory disease (20 sources) Dyspnea; Translations: [Shortness of breath] 09-04-2021 Episodic Other lower respiratory disease (1 source) Cough; Translations: [Acute cough] 11-16-2024 Episodic Other and delivery including normal (20 sources) Normal ; Translations: [] Onset: 1 10-31-2020 Episodic Comment on above: visit. Other upper respiratory infections (7 sources) Acute maxillary sinusitis; Translations: [Acute upper respiratory infection] 05-18-2019 Episodic Otitis media and related conditions (1 source) Acute left otitis media; Translations: [Otitis media, unspecified, left ear] 02-28-2024 Episodic Pulmonary heart disease (20 sources) H/O: pulmonary embolus; Translations: [Personal history of pulmonary embolism] Onset: 3 10-31-2020 Episodic Residual codes; unclassified (20 sources) Insomnia 12-09-2018 Episodic Residual codes; unclassified (2 sources) 21 weeks gestation of ; Translations: [21 weeks gestation of ] Onset: 4 Episodic Residual codes; unclassified (1 source) Gestation period, 32 weeks; Translations: [32 weeks gestation of ] Episodic Screening and history of mental health and substance abuse codes (20 sources) Tobacco use and exposure - finding 03-24-2022 Chronic Spondylosis; intervertebral disc disorders; other back problems (20 sources) Sciatica; Translations: [Dorsalgia, unspecified] Onset: 3 04-08-2023 Episodic Superficial injury; contusion (1 source) Contusion of chest; Translations: [Contusion of unspecified front wall of thorax, initial encounter] Onset: 4 Episodic Unclassified (20 sources) Patient encounter status 11-01-2019 Unclassified (1 source) Intrahepatic cholestasis of , third trimester; Translations: [Intrahepatic cholestasis of , third trimester] Onset: 4 Unclassified (5 sources) Residence and accommodation circumstances - finding 07-27-2024 Unclassified (1 source) Acute cough; Translations: [Acute cough] Onset: 5 Past or Other Problems Problem Classification Problem Date Documented Date Episodic/Chronic Administrative/social admission (1 source) Encounter for pre-employment examination; Translations: [Encounter for pre-employment examination] Onset: 01-13-2024 Episodic Immunizations and screening for infectious disease (2 sources) Encounter for screening for infections with a predominantly sexual mode of transmission; Translations: [Encounter for screening for infections with a predominantly sexual mode of transmission] Onset: 07-27-2024 Episodic Other female genital disorders (2 sources) Other specified noninflammatory disorders of vagina; Translations: [OTHER SPECIFIED NONINFLAMMATORY DISORDERS OF VAGINA] Onset: 10-15-2016 Episodic Residual codes; unclassified (2 sources) 30 weeks gestation of ; Translations: [30 weeks gestation of ] Onset: 07-22-2023 Episodic Residual codes; unclassified (2 sources) 12 weeks gestation of ; Translations: [12 weeks gestation of ] Onset: 03-15-2023 Episodic Unclassified (1 source) Intrahepatic cholestasis of , third trimester; Translations: [Intrahepatic cholestasis of , third trimester] Onset: 09-01-2023 Results Test Name Value Interpretation Reference Range Facility DRUGUon 12-11-2024 Amphetamine (u) Negative Normal Negative [facility] Comment on above: Performed By: #### A JADA, HIVRP, MORPH, ADIFF, CBC, GFR, CMP #### [place] [address] #### HBSAB, RPR #### [place] [id number] Barbiturate (u) Negative Normal Negative [facility] Comment on above: Performed By: #### A JADA, HIVRP, MORPH, ADIFF, CBC, GFR, CMP #### [place] [address] #### HBSAB, RPR #### [place] [id number] Benzodiazepine (u) Negative Normal Negative [facility] Comment on above: Performed By: #### A JADA, HIVRP, MORPH, ADIFF, CBC, GFR, CMP #### [place] [address] #### HBSAB, RPR #### [place] [id number] Cannabinoid (u) Negative [place] Negative [facility] Comment on above: Performed By: #### A JADA, HIVRP, MORPH, ADIFF, CBC, GFR, CMP #### [place] [address] #### HBSAB, RPR #### [place] [id number] Cocaine Ql (U) Negative Normal Negative [facility] Comment on above: Performed By: #### A JADA, HIVRP, MORPH, ADIFF, CBC, GFR, CMP #### [place] [address] #### HBSAB, RPR #### [place] [id number] Fentanyl (u) Negative Normal Negative [facility] Comment on above: Result Comment: Test ing has been performed FOR MEDICAL PURPOSES ONLY. Performed By: #### A JADA, HIVRP, MORPH, ADIFF, CBC, GFR, CMP #### [address] [address] #### HBSAB, RPR #### [address] [address] Methadone Ql (U) Negative Normal [facility] Comment on above: Performed By: #### A JADA, HIVRP, MORPH, ADIFF, CBC, GFR, CMP #### [place] [address] #### HBSAB, RPR #### [address] [address] Opiate (u) Negative [place] Negative [facility] Comment on above: Performed By: #### A JADA, HIVRP, MORPH, ADIFF, CBC, GFR, CMP #### [place] [address] #### HBSAB, RPR #### [place] [id number] Oxycodone (u) Negative [facility] Comment on above: Result Comment: Test ing has been performed FOR MEDICAL PURPOSES ONLY. Performed By: #### A JADA, HIVRP, MORPH, ADIFF, CBC, GFR, CMP #### [place] [address] #### HBSAB, RPR #### [address] [address] PCP (u) Negative [facility] Comment on above: Performed By: #### A JADA, HIVRP, MORPH, ADIFF, CBC, GFR, CMP #### [address] [address] #### HBSAB, RPR #### [place] [id number] Propoxyphene (u) Negative Normal [facility] Comment on above: Performed By: #### A JADA, HIVRP, MORPH, ADIFF, CBC, GFR, CMP #### [place] [address] #### HBSAB, RPR #### [address] [address] U pH Drug Scrn 6.5 Normal 5.0-8.0 [facility] Comment on above: Performed By: #### A JADA, HIVRP, MORPH, ADIFF, CBC, GFR, CMP #### [address] [address] #### HBSAB, RPR #### [place] [address] Urine Drugs screened: See Below Normal [facility] Comment on above: Result Comment: This drug screen is a presumptive screening only. No confirmation will be performed unless requested. Drugs screened include: Threshold Amphetamines/Methamphetamines 1,000 ng/mL Barbiturates 200 ng/mL Benzodiazepine metabolites 200 ng/mL Cannabinoids (THC metabolites) 50 ng/mL Benzoylecognine (Cocaine metab) 300 ng/mL Opiates 300 ng/mL Phencyclidine (PCP) 25 ng/mL Methadone 300 ng/mL Propoxyphene 300 ng/mL Fentanyl 1.0 ng/mL Oxycodone 100 ng/mL Testing has been performed FOR MEDICAL PURPOSES ONLY. Performed By: #### A JADA, HIVRP, MORPH, ADIFF, CBC, GFR, CMP #### [address] [address] #### HBSAB, RPR #### [place] [address] LABORATORYOrdered By: Gabbi Rucker on 12-11-2024 Amphetamines Screen Ql (U) Negative *NA* (12/11/24 3:59 PM) Invalid Interpretation Code Negative AH ADM SS Barbiturates Screen Ql (U) Negative *NA* (12/11/24 3:59 PM) Invalid Interpretation Code Negative AH ADM SS Benzodiazepines Ql (U) Negative *NA* (12/11/24 3:59 PM) Invalid Interpretation Code Negative AH ADM SS Benzoylecgonine Screen Ql (U) Negative *NA* (12/11/24 3:59 PM) Invalid Interpretation Code Negative AH ADM SS Cannabinoids Screen Ql (U) Negative *NA* (12/11/24 3:59 PM) Invalid Interpretation Code Negative AH ADM SS fentaNYL Screen Ql (U) Negative 1 *NA* (12/11/24 3:59 PM) Invalid Interpretation Code Negative AH ADM SS Comment on above: Interpretive Data: T esting has been performed FOR MEDICAL PURPOSES ONLY. Methadone Screen Ql (U) Negative *NA* (12/11/24 3:59 PM) Invalid Interpretation Code Negative AH ADM SS Opiates Screen Ql (U) Negative *NA* (12/11/24 3:59 PM) Invalid Interpretation Code Negative AH ADM SS oxyCODONE Ql (U) Negative 2 *NA* (12/11/24 3:59 PM) Invalid Interpretation Code Negative AH ADM SS Comment on above: Interpretive Data: T esting has been performed FOR MEDICAL PURPOSES ONLY. pH (U) 6.5 [pH] Normal 5.0 - 8.0 AH Chemistry S Phencyclidine Ql (U) Negative *NA* (12/11/24 3:59 PM) Invalid Interpretation Code Negative AH ADM SS Propoxyphene Screen Ql (U) Negative *NA* (12/11/24 3:59 PM) Invalid Interpretation Code Negative AH ADM SS Urine Drugs screened: See Below 3 (12/11/24 3:59 PM) Normal AH Chemistry S Comment on above: Interpretive Data: T his drug screen is a presumptive screening only. No confirmation will be performed unless requested. Drugs screened include: Threshold Amphetamines/Methamphetamines 1,000 ng/mL Barbiturates 200 ng/mL Benzodiazepine metabolites 200 ng/mL Cannabinoids (THC metabolites) 50 ng/mL Benzoylecognine (Cocaine metab) 300 ng/mL Opiates 300 ng/mL Phencyclidine (PCP) 25 ng/mL Methadone 300 ng/mL Propoxyphene 300 ng/mL Fentanyl 1.0 ng/mL Oxycodone 100 ng/mL Testing has been performed FOR MEDICAL PURPOSES ONLY. No Panel Informationon 12-11 Culture Urine 10,000 - 50,000 cfu/ ml Mixed growth consistent with normal urogenital wandy. [facility] Work Phone: CNOVon 11-16-2024 CNOV Office Visit ([facility]) SONIYA HAYS ([id number]) 2000 F Date Time Provider Department 11/16/24 8:15 AM RUPERT MANSFIELD During your visit today, we recorded the following information about you: Temperature Pulse Respiration Blood pressure 97.4 degrees 58/minute 18/minute 119/83 Weight 79.6 kg Rupert Mansfield APRN.TRANSPORTATION SOLUTIONS MANAGER 11/16/2024 10:03 AM Signed [facility] Subjective HPI HPI Soniya Hays is a 24 year old female who presents today for CC of tooth pain. This started 2 days ago. Has tried otc medication for relief. Symptoms are worsened by nothing. Risk factors has poor dental health. Cough for 1 month, seen in 10/27, steroids ordered, no improvement. Denies cp/sob. Current smoker. Denies possibility of being . .Patient presents with: Dental Problem: R lower tooth infection x2 days Cough: Has not resolved from 10/27, finished prednisone PAST MEDICAL HISTORY Diagnosis Date History of pulmonary embolus (PE) lups anticoagulant No past surgical history on file. ALLERGIES Patient has no known allergies. MEDICATIONS amoxicillin (AMOXIL) 875 mg tablet Take 1 tablet by mouth two times a day for 7 days. albuterol HFA (PROVENTIL HFA, VENTOLIN HFA) 90 mcg/actuation inhaler Inhale 2 puffs as instructed every 4 hours as needed for wheezing/shortness of breath. (Patient not taking: Reported on 11/16/2024) No family history on file. SOCIAL HISTORY[1] Review of Systems Constitutional: Negative for chills, fatigue and fever. HENT: Negative for ear discharge, ear pain, rhinorrhea, sinus pressure, sinus pain and sore throat. Eyes: Negative for discharge and redness. Respiratory: Positive for cough. Negative for shortness of breath and wheezing. Cardiovascular: Negative for chest pain. Skin: Negative for rash. Objective BP 119/83 Pulse (!) 58 Temp 36.3 ?C (97.4 ?F) Resp 18 Wt 79.6 kg (175 lb 7.8 oz) LMP 08/03/2017 (Approximate) SpO2 100% Physical Exam Constitutional: General: She is not in acute distress. Appearance: She is not toxic-appearing or diaphoretic. HENT: Head: Normocephalic and atraumatic. Right Ear: Hearing and external ear normal. Left Ear: Hearing and external ear normal. Mouth/Throat: Lips: [place]. Mouth: Mucous membranes are moist. Pharynx: Oropharynx is clear. Uvula midline. Cardiovascular: Rate and Rhythm: Normal rate and regular rhythm. Heart sounds: Normal heart sounds, S1 normal and S2 normal. Pulmonary: Effort: Pulmonary effort is normal. Breath sounds: Normal breath sounds. Lymphadenopathy: Cervical: No cervical adenopathy. Right cervical: No superficial cervical adenopathy. Left cervical: No superficial cervical adenopathy. Neurological: Mental Status: She is alert and oriented to person, place, and time. {ASSESSMENT/PLAN: 1. Tooth pain - ICD9: 525.9, ICD10: K08.89 (primary diagnosis) Take medication as ordered See dentist carlos enrique Follow up if signs of infection worsen - AMOXICILLIN 875 MG TABLET 2. Acute cough - ICD9: 786.2, ICD10: R05.1 Xray negative Suspect post viral cough Smoking cessation advised F/u with pcp for continued s/s -If you experience chest pain/shortness of breath go to ER - XR CHEST 2V FRONTAL/LAT IMPRESSION: No acute radiographic abnormality. 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 Disposition The patient was discharged. OTC Medications were advised: Otc pain relief. Procedures [1] Social History Tobacco Use Smoking status: Former Smokeless tobacco: Never Allergies As of Date: 11/16/2024 (No Known Allergies) Date Reviewed: 11/16/2024 Reviewed by: Ruth Knapp MA - Fully Assessed Reason for Visit: Dental Problem [31] Cmt: R lower tooth infection x2 days Cough [28] Cmt: Has not resolved from 10/27, finished prednisone Primary Visit Diagnosis:Tooth pain [K08.89] Other Visit Diagnosis:Acute cough [R05.1] Order(s):XR CHEST 2V FRONTAL/LAT [[id number]] Order #: [id number]. #:[id number] amoxicillin (AMOXIL) 875 mg tabletTake 1 tablet by mouth two times a day for 7 days.Disp: 14 tabletRfl: 0 Prescriptions as of 11/16/2024 - amoxicillin (AMOXIL) 875 mg tablet Take 1 tablet by mouth two times a day for 7 days. - albuterol HFA (PROVENTIL HFA, VENTOLIN HFA) 90 mcg/actuation inhaler Inhale 2 puffs as instructed every 4 hours as needed for wheezing/shortness of breath. Problem List As Of Date 11/16/2024 Noted Resolved Hamilton-Schlatter's disease [M92.529] 06/17/2015 Prescriptions ordered this encounter Disp Refills Start End AMOXICILLIN 875 MG TABLET 14 t* 0 11/16/2024 11/23/2024 Route: PO Sig: Take 1 tablet by mouth two times a day for 7 days. Encounter Status:Closed by RUPERT MANSFIELD on 11/16/24 Normal [facility] XR CHEST 2V FRONTAL/LATon XR CHEST 2V FRONTAL/LAT * * *Final Report* * * DATE OF EXAM: Nov 16 2024 8:38AM WOX [id number] - XR CHEST 2V FRONTAL/LAT / PROCEDURE REASON: Acute cough * * * * Physician Interpretation * * * * EXAMINATION: CHEST RADIOGRAPH (2 VIEW FRONTAL and LATERAL) CLINICAL HISTORY: Acute cough MQ: XC2_6 EXAM DATE/TIME: 11/16/2024 8:38 AM COMPARISON: No relevant prior studies available. RESULT: Lines, tubes, and devices: None. Lungs and pleura: No consolidation. No lung mass. No pleural effusion. No pneumothorax. Cardiomediastinal silhouette: Normal cardiomediastinal silhouette. Bones and soft tissues: Unremarkable. IMPRESSION: No acute radiographic abnormality. Systems Specialist: SALIMA Transcribe Date/Time: Nov 16 2024 8:39A Dictated by : DENG MCCLELLAN MD This examination was interpreted and the report reviewed and electronically signed by: DENG MCCLELLAN MD on Nov 16 2024 8:39AM EST [id number] Normal [facility] XR Chest PA and Lateralon IMPRESSION: No acute radiographic abnormality. Systems Specialist: PSCB Transcribe Date/Time: Nov 16 2024 8:39A Dictated by : DENG MCCLELLAN MD This examination was interpreted and the report reviewed and electronically signed by: DENG MCCLELLAN MD on Nov 16 2024 8:39AM EST DIVISION OF RADIOLOGY * * *Final Report* * * DATE OF EXAM: Nov 16 2024 8:38AM WOX [id number] - XR CHEST 2V FRONTAL/LAT / PROCEDURE REASON: Acute cough * * * * Physician Interpretation * * * * EXAMINATION: CHEST RADIOGRAPH (2 VIEW FRONTAL & LATERAL) CLINICAL HISTORY: Acute cough MQ: XC2_6 EXAM DATE/TIME: 11/16/2024 8:38 AM COMPARISON: No relevant prior studies available. RESULT: Lines, tubes, and devices: None. Lungs and pleura: No consolidation. No lung mass. No pleural effusion. No pneumothorax. Cardiomediastinal silhouette: Normal cardiomediastinal silhouette. Bones and soft tissues: Unremarkable. DIVISION OF RADIOLOGY Provider, [facility] - 11/16/2024 * * *Final Report* * * DATE OF EXAM: Nov 16 2024 8:38AM WOX [id number] - XR CHEST 2V FRONTAL/LAT / PROCEDURE REASON: Acute cough * * * * Physician Interpretation * * * * EXAMINATION: CHEST RADIOGRAPH (2 VIEW FRONTAL & LATERAL) CLINICAL HISTORY: Acute cough MQ: XC2_6 EXAM DATE/TIME: 11/16/2024 8:38 AM COMPARISON: No relevant prior studies available. RESULT: Lines, tubes, and devices: None. Lungs and pleura: No consolidation. No lung mass. No pleural effusion. No pneumothorax. Cardiomediastinal silhouette: Normal cardiomediastinal silhouette. Bones and soft tissues: Unremarkable. IMPRESSION IMPRESSION: No acute radiographic abnormality. Systems Specialist: [facility] Transcribe Date/Time: Nov 16 2024 8:39A Dictated by : DENG MCCLELLAN MD This examination was interpreted and the report reviewed and electronically signed by: DENG MCCLELLAN MD on Nov 16 2024 8:39AM EST [facility] Radiology Study observation (narrative) [facility] XR Chest PA and LateralOrder ed By: [facility] Provider on 11-16-2024 [facility] 10-27-2024 CNOV Office Visit ([facility]) SONIYA HAYS ([id number]) 2000 F Date Time Provider Department 10/27/24 10:30 AM MARA DAVIS [facility] During your visit today, we recorded the following information about you: Temperature Pulse Respiration Blood pressure 98.4 degrees 87/minute 18/minute 100/60 Weight 76.3 kg Mara Davis PA 10/27/2024 10:33 AM Signed [facility] Subjective Soniya Hays is a 24 year old female. Patient presents with: Cough: Chest congestion, wheezing x 1 week HPI Cough and Chest Congestion: - Had a cold x1 week; most symptoms have resolved except for cough and chest congestion. - Cough is constant, sometimes productive but often feels unable to expectorate. - Noticed wheezing, especially when lying down or going to sleep. - Denies current use of inhalers. - Denies chest pain, dyspnea, or fevers. - Took DayQuil and NyQuil for congestion, but reports they did not help with the cough. - Denies or . Review of Systems Constitutional: (-) fever Cardiovascular: (-) chest pain Respiratory: (+) chest congestion, (+) wheezing when supine, (+) cough, (+) sputum production, (-) shortness of breath Objective BP 100/60 Pulse 87 Temp 36.9 ?C (98.4 ?F) Resp 18 Wt 76.3 kg (168 lb 3.4 oz) LMP 08/03/2017 (Approximate) SpO2 97% Physical Exam Vitals and nursing note reviewed. Constitutional: General: She is not in acute distress. Appearance: Normal appearance. She is not toxic-appearing. HENT: Right Ear: Tympanic membrane and ear canal normal. Left Ear: Tympanic membrane and ear canal normal. Nose: Nose normal. Mouth/Throat: Mouth: Mucous membranes are moist. Pharynx: No oropharyngeal exudate or posterior oropharyngeal erythema. Eyes: Conjunctiva/sclera: Conjunctivae normal. Cardiovascular: Rate and Rhythm: Normal rate and regular rhythm. Pulmonary: Effort: Pulmonary effort is normal. Breath sounds: Wheezing present. No rhonchi or rales. Neurological: Mental Status: She is alert. General: No acute distress. HEENT: Oropharynx clear. Resp: Wheezing, no crackles. { 1. Bronchitis (J40) - Likely post-viral bronchitis; no evidence of pneumonia on exam. - Start inhaler: 2 puffs every 4 hours as needed. - Start steroid - Start cough suppressant TID. - Advised to return if symptoms do not improve; chest X-ray may be considered if no improvement. Recording using [employer] software for draft documentation of the visit was discussed with the patient/authorized safety representative; all questions welcomed and answered. Patient/authorized safety representative agreed to proceed History and Record Review External record(s) reviewed: prior outpatient record. Differential Diagnoses - Bronchitis is more likely for the following reason(s): suggested by HANDP - Pneumonia is less likely for the following reason(s): HANDP not suggestive Disposition The patient was discharged. Procedures Allergies As of Date: 10/27/2024 (No Known Allergies) Date Reviewed: 10/27/2024 Reviewed by: Martha Larsen MA - Fully Assessed Reason for Visit: Cough [28] Cmt: Chest congestion, wheezing x 1 week Primary Visit Diagnosis:Bronchitis [J40] Order(s):predniSONE (DELTASONE) 10 mg tabletTake 4 tablets by mouth once daily for 3 days, THEN 2 tablets once daily for 3 days, THEN 1 tablet once daily for 3 days.Disp: 21 tabletRfl: 0 benzonatate (TESSALON PERLE) 100 mg capsuleTake 1 capsule by mouth three times a day as needed for cough for up to 7 days.Disp: 21 capsuleRfl: 0 albuterol HFA (PROVENTIL HFA, VENTOLIN HFA) 90 mcg/actuation inhalerInhale 2 puffs as instructed every 4 hours as needed for wheezing/shortness of breath.Disp: 6.7 gRfl: 0 Prescriptions as of 10/27/2024 - predniSONE (DELTASONE) 10 mg tablet Take 4 tablets by mouth once daily for 3 days, THEN 2 tablets once daily for 3 days, THEN 1 tablet once daily for 3 days. - benzonatate (TESSALON PERLE) 100 mg capsule Take 1 capsule by mouth three times a day as needed for cough for up to 7 days. - albuterol HFA (PROVENTIL HFA, VENTOLIN HFA) 90 mcg/actuation inhaler Inhale 2 puffs as instructed every 4 hours as needed for wheezing/shortness of breath. Problem List As Of Date 10/27/2024 Noted Resolved Hamilton-Schlatter's disease [M92.529] 06/17/2015 Prescriptions ordered this encounter Disp Refills Start End PREDNISONE 10 MG TABLET 21 t* 0 10/27/2024 11/05/2024 Route: PO Sig: Take 4 tablets by mouth once daily for 3 days, THEN 2 tablets once daily for 3 days, THEN 1 tablet once daily for 3 days. BENZONATATE 100 MG CAPSULE 21 c* 0 10/27/2024 11/03/2024 Route: PO Sig: Take 1 capsule by mouth three times a day as needed for cough for up to 7 days. ALBUTEROL SULFATE HFA 90 MCG/ACTUATI* 6.7 g 0 10/27/2024 Cmt: Generic or brand: dispense inhaler preferred by moises (more content not included)... 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 It converts to positive generally within 2 weeks after the appearance of a lesion. This test is also useful for monitoring response to antibiotic therapy. A positive RPR screening test will be followed by the FTA ABS test. False positive RPR tests may occur in 1) patients with underlying autoimmune disorders, 2) elderly patients, 3) , and 4) other conditions with abnormal serum globulins. Performed By: #### A JADA, HIVRP, MORPH, ADIFF, CBC, GFR, CMP #### [place] [address] #### HBSAB, RPR #### [place] [address] CTPCRon 07-28-2024 C. trachomatis Interp Normal See CT Interp N [facility] Comment on above: Result Comment: C. t rachomatis DNA not detected. Specimen is presumptive negative for C. trachomatis. A negative result does not preclude C. trachomatis infection because results depend on adequate specimen collection, absence of inhibitors, and sufficient DNA to be detected. See CT Interp N Performed By: #### A JADA, HIVRP, MORPH, ADIFF, CBC, GFR, CMP #### [place] [address] #### HBSAB, RPR #### [place] [address] C.trachomatis PCR Negative Normal Negative [facility] Comment on above: Result Comment: Mole cular (PCR) assay performed on the Shyam Williams 4800 system. Performed By: #### A JADA, HIVRP, MORPH, ADIFF, CBC, GFR, CMP #### [place] [address] #### HBSAB, RPR #### [address] [address] Chlam Source Cervix Normal [facility] Comment on above: Result Comment: Stevenson sport tube received with two swabs. Review collection procedure. Inappropriate collection may cause aberrant results. Performed By: #### A JADA, HIVRP, MORPH, ADIFF, CBC, GFR, CMP #### [place] [address] #### HBSAB, RPR #### [place] [address] [id number] 07-28-2024 GC PCR Source Cervix Normal [facility] Comment on above: Result Comment: Stevenson sport tube received with two swabs. Review collection procedure. Inappropriate collection may cause aberrant results. Performed By: #### A JADA, HIVRP, MORPH, ADIFF, CBC, GFR, CMP #### [place] [address] #### HBSAB, RPR #### [place] [address] N. gonorrhoeae (PCR) Negative Normal Negative [facility] Comment on above: Result Comment: Mole cular (PCR) assay performed on the Shyam Williams 4800 System. Performed By: #### A JADA, HIVRP, MORPH, ADIFF, CBC, GFR, CMP #### [place] [address] #### HBSAB, RPR #### [place] [address] N. gonorrhoeae Interp Normal See NG Interp N [facility] Comment on above: Result Comment: N. g onorrhoeae DNA not detected. Specimen is presumptive negative for N. gonorrhoeae. A negative result does not preclude Neisseria gonorrhoeae infection because results depend on adequate specimen collection, absence of inhibitors, and sufficient DNA to be detected. See NG Interp N Performed By: #### A JADA, HIVRP, MORPH, ADIFF, CBC, GFR, CMP #### [place] [address] #### HBSAB, RPR #### [address] [address] .Auto Diffon 07-27-2024 Basophil, Absolute 0.0 10 3/mcL Normal 0.0-0.3 [facility] Comment on above: Performed By: #### A JADA, HIVRP, MORPH, ADIFF, CBC, GFR, CMP #### [address] [address] #### HBSAB, RPR #### [address] [address] Basophils/100 WBC (Bld) 0.3 % Normal 0.0-2.5 [facility] Comment on above: Performed By: #### A JADA, HIVRP, MORPH, ADIFF, CBC, GFR, CMP #### [address] [address] #### HBSAB, RPR #### [address] [address] Eosinophil, Absolute 0.1 10 3/mcL Normal 0.0-0.7 [facility] Comment on above: Performed By: #### A JADA, HIVRP, MORPH, ADIFF, CBC, GFR, CMP #### [address] [address] #### HBSAB, RPR #### [address] [address] Eosinophils/100 WBC (Bld) 0.6 % Normal 0.0-6.0 [facility] Comment on above: Performed By: #### A JADA, HIVRP, MORPH, ADIFF, CBC, GFR, CMP #### [address] [address] #### HBSAB, RPR #### [address] [address] Lymphocyte, Absolute 1.6 10 3/mcL Normal 0.9-4.3 [facility] Comment on above: Performed By: #### A JADA, HIVRP, MORPH, ADIFF, CBC, GFR, CMP #### [place] [address] #### HBSAB, RPR #### [address] [address] Lymphocytes/100 WBC (Bld) 16.6 % Low 20.0-40.0 [facility] Comment on above: Performed By: #### A JADA, HIVRP, MORPH, ADIFF, CBC, GFR, CMP #### [place] [address] #### HBSAB, RPR #### [address] [address] Monocyte, Absolute 0.5 10 3/mcL Normal 0.1-1.4 [facility] Comment on above: Performed By: #### A JADA, HIVRP, MORPH, ADIFF, CBC, GFR, CMP #### [place] [address] #### HBSAB, RPR #### [address] [address] Monocytes/100 WBC (Bld) 5.3 % Normal 2.0-13.0 [facility] Comment on above: Performed By: #### A JADA, HIVRP, MORPH, ADIFF, CBC, GFR, CMP #### [place] [address] #### HBSAB, RPR #### [address] [address] Neutrophils/100 WBC (Bld) 77.2 % High 50.0-75.0 [facility] Comment on above: Performed By: #### A JADA, HIVRP, MORPH, ADIFF, CBC, GFR, CMP #### [place] [address] #### HBSAB, RPR #### [address] [address] .GFRon 07-27-2024 Estimated Glomerular Filtration Rate 94 ml/min/1.73sqm Normal [facility] Comment on above: Result Comment: Stages of Chronic Kidney Disease (CKD) Stage Description eGFR(ml/min/1.73 sq.m.) CKD 1 Normal kidney function or >=90 normal kindney function with possible kidney damage (ex. Proteinuria) CKD 2 Kidney damage with mild loss 60-89 of kidney function CKD 3a Mild to moderate loss of kidney 45-59 function CKD 3b Moderate to severe loss of 30-44 of kindey function CKD 4 Severe loss of kidney function 15-29 CKD 5 Kidney failure <15 Note: (go live 2024) the eGFR calculation was updated to the 2020 CKD-EPI creatinine equation without a race factor to calculate the eGFR results. Performed By: #### A JADA, HIVRP, MORPH, ADIFF, CBC, GFR, CMP #### [place] [address] #### HBSAB, RPR #### [place] [address] .Morphon 07-27-2024 Platelet Estimate Normal Normal [facility] Comment on above: Performed By: #### A JADA, HIVRP, MORPH, ADIFF, CBC, GFR, CMP #### [place] [address] #### HBSAB, RPR #### [place] [address] .NEUABSon 07-27-2024 Neutrophil, Absolute 7.4 10 3/mcL Normal 2.3-8.1 [facility] Comment on above: Performed By: #### A JADA, HIVRP, MORPH, ADIFF, CBC, GFR, CMP #### [place] [address] #### HBSAB, RPR #### [place] [address] CBCon 07-27-2024 Erythrocyte distribution width (RBC) [Ratio] 13.8 % Normal 11.5-15.5 [facility] Comment on above: Performed By: #### A JADA, HIVRP, MORPH, ADIFF, CBC, GFR, CMP #### [place] [address] #### HBSAB, RPR #### [place] [address] Hematocrit (Bld) [Volume fraction] 41.3 % Normal 34.0-46.0 [facility] Comment on above: Performed By: #### A JADA, HIVRP, MORPH, ADIFF, CBC, GFR, CMP #### [place] [address] #### HBSAB, RPR #### [place] [address] Hgb 13.5 G/dL Normal 12.0-16.0 [facility] Comment on above: Performed By: #### A JADA, HIVRP, MORPH, ADIFF, CBC, GFR, CMP #### [place] [address] #### HBSAB, RPR #### [place] [address] MCH (RBC) [Entitic mass] 28.6 pg Normal 27.0-33.0 [facility] Comment on above: Performed By: #### A JADA, HIVRP, MORPH, ADIFF, CBC, GFR, CMP #### [place] [address] #### HBSAB, RPR #### [place] [address] MCHC 32.7 G/dL Normal 32.0-36.0 [facility] Comment on above: Performed By: #### A JADA, HIVRP, MORPH, ADIFF, CBC, GFR, CMP #### [place] [address] #### HBSAB, RPR #### [place] [address] MCV (RBC) [Entitic vol] 87.4 fL Normal 80.0-99.0 [facility] Comment on above: Performed By: #### A JADA, HIVRP, MORPH, ADIFF, CBC, GFR, CMP #### [place] [address] #### HBSAB, RPR #### [place] [address] Platelet 235 10 3/mcL Normal 150-450 [facility] Comment on above: Performed By: #### A JADA, HIVRP, MORPH, ADIFF, CBC, GFR, CMP #### [place] [address] #### HBSAB, RPR #### [place] [address] Platelet mean volume (Bld) [Entitic vol] 9.3 fL Normal 6.6-10.5 [facility] Comment on above: Performed By: #### A JADA, HIVRP, MORPH, ADIFF, CBC, GFR, CMP #### [place] [address] #### HBSAB, RPR #### [place] [address] RBC 4.72 10 6/mcL Normal 4.10-5.30 [facility] Comment on above: Performed By: #### A JADA, HIVRP, MORPH, ADIFF, CBC, GFR, CMP #### [place] [address] #### HBSAB, RPR #### [place] [address] WBC 9.6 10 3/mcL Normal 4.5-10.8 [facility] Comment on above: Performed By: #### A JADA, HIVRP, MORPH, ADIFF, CBC, GFR, CMP #### [place] [address] #### HBSAB, RPR #### [place] [address] CMPon 07-27-2024 Albumin Level 3.7 G/dL Normal 3.5-5.0 [facility] Comment on above: Performed By: #### A JADA, HIVRP, MORPH, ADIFF, CBC, GFR, CMP #### [place] [address] #### HBSAB, RPR #### [place] [address] Albumin/Globulin [Mass ratio] 1.0 {ratio} Low 1.1-2.5 [facility] Comment on above: Performed By: #### A JADA, HIVRP, MORPH, ADIFF, CBC, GFR, CMP #### [place] [address] #### HBSAB, RPR #### [place] [address] ALP [Catalytic activity/Vol] 118 U/L Normal 40-135 [facility] Comment on above: Performed By: #### A JADA, HIVRP, MORPH, ADIFF, CBC, GFR, CMP #### [place] [address] #### HBSAB, RPR #### [place] [address] ALT [Catalytic activity/Vol] 61 U/L High 14-59 [facility] Comment on above: Performed By: #### A JADA, HIVRP, MORPH, ADIFF, CBC, GFR, CMP #### [place] [address] #### HBSAB, RPR #### [place] [address] AST [Catalytic activity/Vol] 40 U/L Normal 10-40 [facility] Comment on above: Performed By: #### A JADA, HIVRP, MORPH, ADIFF, CBC, GFR, CMP #### [place] [address] #### HBSAB, RPR #### [place] [address] Bili Total 0.5 mg/dL Normal 0.2-1.0 [facility] Comment on above: Result Comment: Use of this assay is not recommended for patients undergoing treatment with eltrombopag due to the potential for falsely elevated results. Performed By: #### A JADA, HIVRP, MORPH, ADIFF, CBC, GFR, CMP #### [address] [place] [address] #### HBSAB, RPR #### [address] [address] BUN/Creatinine Ratio 11 ratio Normal 7-27 [facility] Comment on above: Performed By: #### A JADA, HIVRP, MORPH, ADIFF, CBC, GFR, CMP #### [address] [address] #### HBSAB, RPR #### [address] [address] Calcium [Mass/Vol] 9.2 mg/dL Normal 8.4-10.2 [facility] Comment on above: Performed By: #### A JADA, HIVRP, MORPH, ADIFF, CBC, GFR, CMP #### [place] [address] #### HBSAB, RPR #### [address] [address] Chloride [Moles/Vol] 102 mmol/L Normal 98-107 [facility] Comment on above: Performed By: #### A JADA, HIVRP, MORPH, ADIFF, CBC, GFR, CMP #### [place] [address] #### HBSAB, RPR #### [address] [address] CO2 [Moles/Vol] 27 mmol/L Normal 22-29 [facility] Comment on above: Performed By: #### A JADA, HIVRP, MORPH, ADIFF, CBC, GFR, CMP #### [place] [address] #### HBSAB, RPR #### [address] [address] Creatinine [Mass/Vol] 0.87 mg/dL Normal 0.51-0.95 [facility] Comment on above: Performed By: #### A JADA, HIVRP, MORPH, ADIFF, CBC, GFR, CMP #### [place] [address] #### HBSAB, RPR #### [address] [address] Electrolyte Balance 9.0 mEq/L Normal 4.0-15.0 [facility] Comment on above: Performed By: #### A JADA, HIVRP, MORPH, ADIFF, CBC, GFR, CMP #### [place] [address] #### HBSAB, RPR #### [place] [address] Globulin 3.6 G/dL Normal 1.5-3.8 [facility] Comment on above: Performed By: #### A JADA, HIVRP, MORPH, ADIFF, CBC, GFR, CMP #### [place] [address] #### HBSAB, RPR #### [place] [address] Glucose [Mass/Vol] 81 mg/dL Normal 70-105 [facility] Comment on above: Performed By: #### A JADA, HIVRP, MORPH, ADIFF, CBC, GFR, CMP #### [place] [address] #### HBSAB, RPR #### [place] [address] Potassium [Moles/Vol] 4.2 mmol/L Normal 3.5-5.1 [facility] Comment on above: Performed By: #### A JADA, HIVRP, MORPH, ADIFF, CBC, GFR, CMP #### [place] [address] #### HBSAB, RPR #### [place] [id number] Sodium [Moles/Vol] 138 mmol/L Normal 136-145 [facility] Comment on above: Performed By: #### A JADA, HIVRP, MORPH, ADIFF, CBC, GFR, CMP #### [place] [address] #### HBSAB, RPR #### [place] [address] Total Protein 7.3 G/dL Normal 6.4-8.2 [facility] Comment on above: Performed By: #### A JADA, HIVRP, MORPH, ADIFF, CBC, GFR, CMP #### [address] [address] #### HBSAB, RPR #### [place] [address] Urea nitrogen [Mass/Vol] 10 mg/dL Normal 7-18 [facility] Comment on above: Performed By: #### A JADA, HIVRP, MORPH, ADIFF, CBC, GFR, CMP #### [place] [address] #### HBSAB, RPR #### [place] [address] HBSABon 07-27-2024 Hep B Surf Ab <3.1 Low >=10.0 [facility] Comment on above: Result Comment: 0 to < 10.0 mIU/mL Nonreactive Patient is considered not to have protective immunity to HBV infection >/= 10.0 mIU/mL Reactive Patient is considered to have protective immunity to HBV infection. This assay is traceable to the World Health Organization (WHO) Hepatitis B Immunoglobulin 1st International Reference Preparation (1976). The accepted criteria for immunity to HBV is anti-HBs activity >/= 10.0 mIU/mL, as defined by the WHO International Reference Preparation. Performed By: #### A JADA, HIVRP, MORPH, ADIFF, CBC, GFR, CMP #### [place] [address] #### HBSAB, RPR #### [place] [address] HIVRPon 07-27-2024 HIV p24 Antigen Non-Reactive Normal Non-Reactive [facility] Comment on above: Result Comment: Dete ction of p24 may be inhibited by biotin in the sample, causing false negative results in acute infection. Therefore do not test samples from patients who are taking biotin. Performed By: #### A JADA, HIVRP, MORPH, ADIFF, CBC, GFR, CMP #### [place] [address] #### HBSAB, RPR #### [place] [address] HIV P24 Int Non-Reactive Invalid Interpretation Code [facility] Comment on above: Performed By: #### A JADA, HIVRP, MORPH, ADIFF, CBC, GFR, CMP #### [place] [address] #### HBSAB, RPR #### [place] [address] Rapid HIV 1/2 Antibody Non-Reactive Normal Non-Reactive [facility] Comment on above: Performed By: #### A JADA, HIVRP, MORPH, ADIFF, CBC, GFR, CMP #### [place] [address] #### HBSAB, RPR #### [place] [address] RHIV 1/2 Ab Int Non-Reactive Invalid Interpretation Code [facility] Comment on above: Performed By: #### A JADA, HIVRP, MORPH, ADIFF, CBC, GFR, CMP #### [place] [address] #### HBSAB, RPR #### [place] [address] LABORATORYOrdered By: Loreta Elder on 07-27-2024 C. trachomatis DNA DAHIANA+probe Ql (Unsp spec) Negative 2 (07/27/24 1:29 PM) Normal AH Auto Viro/Sero SS Comment on above: Interpretive Data: Honorio jones (PCR) assay performed on the Shyam Williams 4800 system. C. trachomatis DNA DAHIANA+probe Ql (Unsp spec) C. trachomatis DNA not detected. Specimen is presumptive negative for C. trachomatis. A negative result does not preclude C. trachomatis infection because results depend on adequate specimen collection, absence of inhibitors, and sufficient DNA to be detected. Normal See CT Interp N AH Auto Viro/Sero SS N. gonorrhoeae DNA DAHIANA+probe Ql (Unsp spec) Negative 1 (07/27/24 1:29 PM) Normal AH Auto Viro/Sero SS Comment on above: Interpretive Data: M olecular (PCR) assay performed on the Shyam Williams 4800 System. N. gonorrhoeae DNA DAHIANA+probe Ql (Unsp spec) N. gonorrhoeae DNA not detected. Specimen is presumptive negative for N. gonorrhoeae. A negative result does not preclude Neisseria gonorrhoeae infection because results depend on adequate specimen collection, absence of inhibitors, and sufficient DNA to be detected. Normal See NG Interp N AH Auto Viro/Sero SS Specimen source Nom (Unsp spec) Cervix 4 (07/27/24 1:29 PM) Normal AH Auto Viro/Sero SS Comment on above: Result Comment: Stevenson sport tube received with two swabs. Review collection procedure. Inappropriate collection may cause aberrant results. Specimen source Nom (Unsp spec) Cervix 3 (07/27/24 1:29 PM) Normal AH Auto Viro/Sero SS Comment on above: Result Comment: Stevenson sport tube received with two swabs. Review collection procedure. Inappropriate collection may cause aberrant results. LABORATORYOrdered By: SYSTEM SYSTEM on 07-27-2024 Albumin BCP dye [Mass/Vol] 3.7 G/dL Normal 3.5 - 5.0 G/dL AO ADM SS Albumin/Globulin [Mass ratio] 1.0 {ratio} Low 1.1 - 2.5 ratio AO ADM SS ALP [Catalytic activity/Vol] 118 U/L Normal 40 - 135 U/L AO ADM SS ALT With P-5'-P [Catalytic activity/Vol] 61 U/L High 14 - 59 U/L AO ADM SS AST With P-5'-P [Catalytic activity/Vol] 40 U/L Normal 10 - 40 U/L AO ADM SS Basophils (Bld) [#/Vol] 0.0 103/mcL Normal 0.0 - 0.3 10^3/mcL AO Workflow SS Basophils/100 WBC (Bld) 0.3 % Normal 0.0 - 2.5 % AO Workflow SS Bilirubin [Mass/Vol] 0.5 mg/dL Normal 0.2 - 1 .0 mg/dL AO ADM SS Comment on above: Interpretive Data: U se of this assay is not recommended for patients undergoing treatment with eltrombopag due to the potential for falsely elevated results. Calcium [Mass/Vol] 9.2 mg/dL Normal 8.4 - 10. 2 mg/dL AO ADM SS Chloride [Moles/Vol] 102 mmol/L Normal 98 - 10 7 mmol/L AO ADM SS CO2 [Moles/Vol] 27 mmol/L Normal 22 - 29 mmol/L AO ADM SS Creatinine [Mass/Vol] 0.87 mg/dL Normal 0.51 - 0.95 mg/dL AO ADM SS Electrolyte Balance 9.0 mEq/L Normal 4.0 - 15 .0 mEq/L AO ADM SS Eosinophil, Absolute 0.1 103/mcL Normal 0.0 - 0 .7 10^3/mcL AO Workflow SS Eosinophils/100 WBC (Bld) 0.6 % Normal 0.0 - 6.0 % AO Workflow SS Erythrocyte distribution width (RBC) [Ratio] 13.8 % Normal 11.5 - 15.5 % AO Workflow SS Estimated Glomerular Filtration Rate 94 ml/min/1.73sqm Invalid Interpretation Code AO Chemistry S Comment on above: Interpretive Data: Stages of Chronic Kidney Disease (CKD) Stage Description eGFR(ml/min/1.73 sq.m.) CKD 1 Normal kidney function or >=90 normal kindney function with possible kidney damage (ex. Proteinuria) CKD 2 Kidney damage with mild loss 60-89 of kidney function CKD 3a Mild to moderate loss of kidney 45-59 function CKD 3b Moderate to severe loss of 30-44 of kindey function CKD 4 Severe loss of kidney function 15-29 CKD 5 Kidney failure <15 Note: (go live 2024) the eGFR calculation was updated to the 2020 CKD-EPI creatinine equation without a race factor to calculate the eGFR results. Globulin 3.6 G/dL Normal 1.5 - 3.8 G/dL AO ADM SS Glucose [Mass/Vol] 81 mg/dL Normal 70 - 105 mg/dL AO ADM SS Hematocrit (Bld) [Volume fraction] 41.3 % Normal 34.0 - 46.0 % AO Workflow SS Hemoglobin (Bld) [Mass/Vol] 13.5 G/dL Normal 12.0 - 16.0 G/dL AO Workflow SS Lymphocytes (Bld) [#/Vol] 1.6 103/mcL Normal 0.9 - 4.3 10^3/mcL AO Workflow SS Lymphocytes/100 WBC (Bld) 16.6 % Low 20.0 - 40.0 % AO Workflow SS MCH (RBC) [Entitic mass] 28.6 pg Normal 27.0 - 33.0 pg AO Workflow SS MCHC 32.7 G/dL Normal 32.0 - 36.0 G/dL AO Workflow SS MCV (RBC) [Entitic vol] 87.4 fL Normal 80.0 - 99.0 fL AO Workflow SS Monocytes (Bld) [#/Vol] 0.5 103/mcL Normal 0.1 - 1.4 10^3/mcL AO Workflow SS Monocytes/100 WBC (Bld) 5.3 % Normal 2.0 - 13.0 % AO Workflow SS Neutrophils (Bld) [#/Vol] 7.4 103/mcL Normal 2.3 - 8.1 10^3/mcL AO Workflow SS Neutrophils/100 WBC (Bld) 77.2 % High 50.0 - 75.0 % AO Workflow SS Platelet mean volume (Bld) [Entitic vol] 9.3 fL Normal 6.6 - 10.5 fL AO Workflow SS Platelets (Bld) [#/Vol] 235 103/mcL Normal 150 - 450 10^3/mcL AO Workflow SS Potassium [Moles/Vol] 4.2 mmol/L Normal 3.5 - 5.1 mmol/L AO ADM SS Protein [Mass/Vol] 7.3 G/dL Normal 6.4 - 8.2 G/dL AO ADM SS RBC (Bld) [#/Vol] 4.72 106/mcL Normal 4.10 - 5.3 0 10^6/mcL AO Workflow SS Sodium [Moles/Vol] 138 mmol/L Normal 136 - 145 mmol/L AO ADM SS Urea nitrogen [Mass/Vol] 10 mg/dL Normal 7 - 18 mg/dL AO ADM SS Urea nitrogen/Creatinine [Mass ratio] 11 ratio Normal 7 - 27 ratio AO ADM SS WBC (Bld) [#/Vol] 9.6 103/mcL Normal 4.5 - 10.8 10^3/mcL AO Workflow SS LABORATORYOrdered By: Karan spears on 07-27-2024 HBV surface Ab Qn (S) mIU/mL Low >=10.0mIU/mL A H ADM SS Comment on above: Interpretive Data: 0 to < 10.0 mIU/mL Nonreactive Patient is considered not to have protective immunity to HBV infection >/= 10.0 mIU/mL Reactive Patient is considered to have protective immunity to HBV infection. This assay is traceable to the World Health Organization (WHO) Hepatitis B Immunoglobulin 1st International Reference Preparation (1976). The accepted criteria for immunity to HBV is anti-HBs activity >/= 10.0 mIU/mL, as defined by the WHO International Reference Preparation. LABORATORYOrdered By: Alyssa Eckert on 07-27-2024 HIV 1 p24 Ab Ql (S) Non-Reactive 3 (07/27/24 12:11 PM) Normal Non-Reactive AO Rapid Testing SS Comment on above: Interpretive Data: D etection of p24 may be inhibited by biotin in the sample, causing false negative results in acute infection. Therefore do not test samples from patients who are taking biotin. HIV 1 p24 Ab Ql (S) Non-Reactive Invalid Interpretation Code AO Rapid Testing SS HIV 1+2 Ab IA Ql Non-Reactive Invalid Interpretation Code AO Rapid Testing SS HIV 1+2 Ab IA.rapid Ql (Unsp spec) Non-Reactive (07/27/24 12:11 PM) Normal Non-Reactive AO Rapid Testing SS LABORATORYOrdered By: Radha Thorpe on 07-27-2024 Platelets LM Ql (Bld) Normal (07/27/24 12:11 PM) Normal AO Hematology S CNOVon 02-28-2024 CNOV Office Visit (UCTR ) SONIYA HAYS ([id number]) 2000 F Date Time Provider Department 02/28/24 10:00 AM ROBBY MCDANIELS [facility] During your visit today, we recorded the following information about you: Temperature Pulse Respiration Blood pressure 98.1 degrees 80/minute 16/minute 122/70 Weight 77 kg Robby Mcdaniels MD 02/28/2024 9:52 AM Signed Patient presents with: Ear Pain: bilateral left worse x 3 days HPI: Feeling left ear pain starting 3 days ago. Right side of the head/ear is starting to feel a little uncomfortable also. Positive symptoms: Earache, change in hearing, Negative symptoms: Cough, Sore throat, Nasal Congestion, Rhinorrhea, Fever, OTC: Tylenol Used a qtip in the meatus to remove wax without known injury. MEDICATIONS: ALLERGIES: ALLERGIES No Known Allergies VITALS: BP 122/70 Pulse 80 Temp 36.7 ?C (98.1 ?F) Resp 16 Wt 77 kg (169 lb 12.1 oz) LMP 08/03/2017 (Approximate) SpO2 97% PHYSICAL EXAM: GEN: Pleasant, in no acute distress. HEENT: PERRL, EOMI, conjunctiva clear Ears: canals clear. RTM without erythema, bulge, or effusion. LTM with erythema, bulge, and effusion. Sinuses: non-tender frontal sinus, non-tender maxillary sinuses Throat: moist mucous membranes, no erythema, no exudate Neck: supple, no thyromegaly, no lymphadenopathy HEART: regular rate and rhythm, no murmurs LUNGS: clear to auscultation, no wheezes or crackles, no increased WOB ASSESSMENT/PLAN: 1. Acute otitis media, left - ICD9: 382.9, ICD10: H66.92 - AMOXICILLIN 500 MG CAPSULE (has difficulty swallowing large capsules). Follow-up with worsening pain or failure to improve. Effusion may take a couple weeks to resolve. Robby Mcdaniels MD Allergies As of Date: 02/28/2024 (No Known Allergies) Date Reviewed: 02/28/2024 Reviewed by: Georgette Figueroa MA - Fully Assessed Reason for Visit: Ear Pain [817] Cmt: bilateral left worse x 3 days Primary Visit Diagnosis:Acute otitis media, left [H66.92] Order(s):amoxicillin (AMOXIL) 500 mg capsuleTake 2 capsules by mouth two times a day for 7 days.Disp: 28 capsuleRfl: 0 Prescriptions as of 02/28/2024 - amoxicillin (AMOXIL) 500 mg capsule Take 2 capsules by mouth two times a day for 7 days. Problem List As Of Date 02/28/2024 Noted Resolved Hamilton-Schlatter's disease [M92.529] 06/17/2015 Prescriptions ordered this encounter Disp Refills Start End AMOXICILLIN 500 MG CAPSULE 28 c* 0 02/28/2024 03/06/2024 Route: ORAL Sig: Take 2 capsules by mouth two times a day for 7 days. Medications Discontinued During This Encounter Prescriptions - aspirin 81 mg chewable tablet (Discontinued) Reported on 02/28/2024 - enoxaparin sodium (LOVENOX SUBCUTANEOUS) (Discontinued) Reported on 02/28/2024 - [id number] ps-folate 1 29 mg iron- 1 mg chew (Discontinued) Reported on 04/18/2019 Level of Service: OFFICE/OUTPATIENT ESTABLISHED MOD [facility] 30 MIN [[id number]] Encounter Status:Closed by ROBBY MCDANIELS on 02/28/24 Normal [facility] Office Visit Reporton 2023 Office Visit Report [facility] [address] [place] [address] OFFICE VISIT Date of Service: 01/13/24 MR#: [id number] Acct: [id number] Patient: SONIYA IGLESIAS Rep #: [id number] : 2000 Provider: TOBY Martinez Age/Sex: 23/F Location: [facility] Status: Signed Intake Intake Visit Reasons: QUANTIFERON, FIT TEST / [place] Office Procedures Now Clinic Billing Sheet Testing Respirator Fit Testing: Yes Occquant-Quantiferon: Yes 01/28/24 0749 Date Patricio LUIS [place] Signature: Date (if applicable) CC: Normal [facility] Quantiferon TB-Gold+on 01-17 QFT MITOGEN TONIO > 10.00 Normal . [facility]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 used to confirm the negative result. This test is not intended to differentiate carriers of Group B Streptococcus from those with Streptococcus disease. See Below Performed By: #### A DIFF, CBC, ABSGEL, ANEU, ABOGEL #### [address] [address] #### RPR #### [place] [id number] 08-20-2023 GC PCR Source Vaginal Normal [facility] ([place] Comment on above: Performed By: #### A DIFF, CBC, ABSGEL, ANEU, ABOGEL #### [place] [address] #### RPR #### [place] [address] N. gonorrhoeae (PCR) Negative Normal Negative [facility] ([place]) Comment on above: Result Comment: Mole cular (PCR) assay performed on the Shy[employer] Williams 4800 System. Performed By: #### A DIFF, CBC, ABSGEL, ANEU, ABOGEL #### [place] [address] #### RPR #### [place] [address] N. gonorrhoeae Interp Normal See NG Interp N [facility] ([place] Comment on above: Result Comment: N. g onorrhoeae DNA not detected. Specimen is presumptive negative for N. gonorrhoeae. A negative result does not preclude Neisseria gonorrhoeae infection because results depend on adequate specimen collection, absence of inhibitors, and sufficient DNA to be detected. See NG Interp N Performed By: #### A DIFF, CBC, ABSGEL, ANEU, ABOGEL #### [place] [address] #### RPR #### [place] [id number] LABORATORYOrdered By: Alexa Gallegos on 08-19-2023 C. trachomatis DNA DAHIANA+probe Ql (Unsp spec) Negative 2 (08/19/23 1:57 PM) Normal Negative AH Auto Viro/Sero SS Comment on above: Interpretive Data: M olecular (PCR) assay performed on the Shyam Williams 4800 system. C. trachomatis DNA DAHIANA+probe Ql (Unsp spec) C. trachomatis DNA not detected. Specimen is presumptive negative forC. trachomatis.A negative result does not preclude C. trachomatis infection becauseresults depend on adequate specimen collection, absence of inhibitors,and sufficient DNA to be detected. Normal See CT Interp N AH Auto Viro/Sero SS N. gonorrhoeae DNA DAHIANA+probe Ql (Unsp spec) Negative 1 (08/19/23 1:57 PM) Normal Negative AH Auto Viro/Sero SS Comment on above: Interpretive Data: M olecular (PCR) assay performed on the Shyam Williams 4800 System. N. gonorrhoeae DNA DAHIANA+probe Ql (Unsp spec) N. gonorrhoeae DNA not detected. Specimen is presumptive negative forN. gonorrhoeae. A negative result does not preclude Neisseria gonorrhoeaeinfection because results depend on adequate specimen collection, absenceof inhibitors, and sufficient DNA to be detected. Normal See NG Interp N AH Auto Viro/Sero SS LABORATORYOrdered By: Magdy Vela on 08-19-2023 Group B Strep PCR Int Group B Streptococ cus DNA not detected by Real-Time Polymerase Chain Reaction (PCR). A negative result does rule out the possibility of Group B Streptococcus concentration is below the level of detection. If the patient has signs or symptoms of infection, other laboratory tests and clinical information should be used to confirm the negative result. This test is not intended to differentiate carriers of Group B Streptococcus from those with Streptococcus disease. Invalid Interpretation Code AO Auto Urine SS S. agalactiae DNA DAHIANA+probe Ql (Vag+Rectum) Negative (08/19/23 1:57 PM) Normal Negative AO Auto Urine SS Laboratory - Specimen inform ationOrdered By: Dameon Gallegos on 08-19-2023 Specimen source Nom (Unsp spec) Vaginal (08/19/23 1:57 PM) Normal AH Auto Viro/Sero SS No Panel Informationon 08-18 Culture Urine 10,000 - 50,000 cfu/ ml Multiple bacterial morphotypes present. Probable Contamination. Suggest recollection if clinically indicated. [facility] Work Phone: BILEon 08-16-2023 Chenodeoxycholate 14 umol/l [facility] ([place]) Comment on above: Result Comment: Conf irmed by dilution. Reference Range: All Ages: <5.8 Performed By: #### G LU1P, CBC, ADIFF, ANEU #### [address] [address] #### RPR #### [address] [address] Cholate 41 umol/l [facility] ([place]) Comment on above: Result Comment: Conf irmed by dilution. Reference Range: All Ages: <2.2 Performed By: #### G LU1P, CBC, ADIFF, ANEU #### [address] [address] #### RPR #### [address] [address] Deoxycholate 2.4 umol/l [facility] ([place]) Comment on above: Result Comment: Refe rence Range: All Ages: <3.3 Performed By: #### G LU1P, CBC, ADIFF, ANEU #### [address] [address] #### RPR #### [address] [address] Total Bile Acids 58 umol/l [facility] ([place]) Comment on above: Result Comment: This test was developed and its performance characteristics determined by [facility]. It has not been cleared or approved by the Food and Drug Administration. Reference Range: All Ages: <9.2 Performed At: [employer] [address] [place] [address] [id number] Nam Crook MD Ph:[phone] Performed By: #### G LU1P, CBC, ADIFF, ANEU #### [address] [address] #### RPR #### [address] [address] Ursodeoxycholate 0.20 umol/l Normal [facility] ([place]) Comment on above: Result Comment: Refe rence Range: All Ages: <1.9 Performed By: #### G LU1P, CBC, ADIFF, ANEU #### Kayla [address] [address] #### RPR #### [address] [address] LABORATORYOrdered By: LABCOR P CONTRIBUTOR_SYSTEM on 08-11-2023 Chenodeoxycholate (LC) 14 umol/l High AO Sendouts SS Comment on above: Result Comment: Conf irmed by dilution. Reference Range: All Ages: <5.8 Cholate (LC) 41 umol/l High AO Sendouts SS Comment on above: Result Comment: Conf irmed by dilution. Reference Range: All Ages: <2.2 Deoxycholate (LC) 2.4 umol/l Invalid Interpretation Code AO Sendouts SS Comment on above: Result Comment: Refe rence Range: All Ages: <3.3 Total Bile Acids (LC) 58 umol/l High AO Sendouts SS Comment on above: Result Comment: This test was developed and its performance characteristics determined by [facility]. It has not been cleared or approved by the Food and Drug Administration. Reference Range: All Ages: <9.2 Performed At: [facility] [address] [place] [address] [id number] Nam Crook MD Ph:[phone] Ursodeoxycholate (LC) 0.20 umol/l Invalid Interpretation Code AO Sendouts SS Comment on above: Result Comment: Refe rence Range: All Ages: <1.9 BILEon 08-01-2023 Chenodeoxycholate 7.5 umol/l High [facility] ([place]) Comment on above: Result Comment: Refe rence Range: All Ages: <5.8 Performed By: #### A DIFF, CBC, ABSGEL, ANEU, ABOGEL #### Kayla [address] [address] #### RPR #### [place] [id number] Cholate 10 umol/l [facility] ([place]) Comment on above: Result Comment: Refe rence Range: All Ages: <2.2 Performed By: #### A DIFF, CBC, ABSGEL, ANEU, ABOGEL #### [address] [address] #### RPR #### [address] [address] Deoxycholate 1.2 umol/l [facility] ([place]) Comment on above: Result Comment: Refe rence Range: All Ages: <3.3 Performed By: #### A DIFF, CBC, ABSGEL, ANEU, ABOGEL #### [place] [address] #### RPR #### [place] [address] Total Bile Acids 19 umol/l [facility] ([place]) Comment on above: Result Comment: This test was developed and its performance characteristics determined by [facility]. It has not been cleared or approved by the Food and Drug Administration. Reference Range: All Ages: <9.2 Performed At: [facility] [address] [place] [address] [id number] Nam Crook MD Ph:[phone] Performed By: #### A DIFF, CBC, ABSGEL, ANEU, ABOGEL #### [address] [address] #### RPR #### [place] [address] Ursodeoxycholate <0.10 [facility] ([place]) Comment on above: Result Comment: Refe rence Range: All Ages: <1.9 Performed By: #### A DIFF, CBC, ABSGEL, ANEU, ABOGEL #### [place] [address] #### RPR #### [address] [address] .GFRon 07-26-2023 GFR 154 ml/min/1.73sqm [facility] ([place]) Comment on above: Result Comment: GFR Population mean for , Non- Americans Ages 20-29 = 116 mL/min/1.73 sq.m. Ages 30-39 = 107 mL/min/1.73 sq.m. Ages 40-49 = 99 mL/min/1.73 sq.m. Ages 50-59 = 93 mL/min/1.73 sq.m. Ages 60-69 = 85 mL/min/1.73 sq.m. Ages 70+ = 75 mL/min/1.73 sq.m. Chronic Kidney Disease: Less than 60 mL/min/1.73 square meters End Stage Renal Disease: Less than 15 mL/min/1.73 square meters Performed By: #### G LU1P, CBC, ADIFF, ANEU #### [address] [address] #### RPR #### [address] [address] GFR Non- 127 ml/min/1.73sqm Normal [facility] ([place] Comment on above: Result Comment: GFR Population mean for , Non- Americans Ages 20-29 = 116 mL/min/1.73 sq.m. Ages 30-39 = 107 mL/min/1.73 sq.m. Ages 40-49 = 99 mL/min/1.73 sq.m. Ages 50-59 = 93 mL/min/1.73 sq.m. Ages 60-69 = 85 mL/min/1.73 sq.m. Ages 70+ = 75 mL/min/1.73 sq.m. Chronic Kidney Disease: Less than 60 mL/min/1.73 square meters End Stage Renal Disease: Less than 15 mL/min/1.73 square meters Performed By: #### G LU1P, CBC, ADIFF, ANEU #### [address] [address] #### RPR #### [address] [address] [facility] Albumin Level 2.4 G/dL Low 3.5-5.0 [facility] ([place] Comment on above: Performed By: #### G LU1P, CBC, ADIFF, ANEU #### [place] [address] #### RPR #### [address] [address] Albumin/Globulin [Mass ratio] 0.6 {ratio} Low 1.1-2.5 [facility] ([place] Comment on above: Performed By: #### G LU1P, CBC, ADIFF, ANEU #### [place] [address] #### RPR #### [address] [address] ALP [Catalytic activity/Vol] 248 U/L High 40-135 [facility] ([place]) Comment on above: Performed By: #### G LU1P, CBC, ADIFF, ANEU #### [place] [address] #### RPR #### [address] [address] ALT [Catalytic activity/Vol] 37 U/L Normal 14-59 [facility] ([place]) Comment on above: Performed By: #### G LU1P, CBC, ADIFF, ANEU #### [place] [address] #### RPR #### [address] [address] AST [Catalytic activity/Vol] 27 U/L Normal 10-40 [facility] ([place] Comment on above: Performed By: #### G LU1P, CBC, ADIFF, ANEU #### [place] [address] #### RPR #### [address] [address] Bili Total 0.4 mg/dL Normal 0.2-1.0 [facility] ([place]) Comment on above: Result Comment: Use of this assay is not recommended for patients undergoing treatment with eltrombopag due to the potential for falsely elevated results. Performed By: #### G LU1P, CBC, ADIFF, ANEU #### [place] [id number] #### RPR #### [address] [address] BUN/Creatinine Ratio 9 ratio Normal 7-27 [facility] ([place] Comment on above: Performed By: #### G LU1P, CBC, ADIFF, ANEU #### [address] [address] #### RPR #### [address] [address] Calcium [Mass/Vol] 8.3 mg/dL Low 8.4-10.2 [facility] ([place]) Comment on above: Performed By: #### G LU1P, CBC, ADIFF, ANEU #### [place] [address] #### RPR #### [address] [address] Chloride [Moles/Vol] 104 mmol/L Normal 98-107 [facility] ([place] Comment on above: Performed By: #### G LU1P, CBC, ADIFF, ANEU #### [place] [address] #### RPR #### [address] [address] CO2 [Moles/Vol] 22 mmol/L Normal 22-29 [facility] ([place] Comment on above: Performed By: #### G LU1P, CBC, ADIFF, ANEU #### [place] [address] #### RPR #### [address] [address] Creatinine [Mass/Vol] 0.58 mg/dL Normal 0.55-1.02 [facility] ([place]) Comment on above: Performed By: #### G LU1P, CBC, ADIFF, ANEU #### [address] [address] #### RPR #### [address] [address] Electrolyte Balance 11.0 mEq/L Normal 4.0-15.0 [facility] ([place]) Comment on above: Performed By: #### G LU1P, CBC, ADIFF, ANEU #### [address] [address] #### RPR #### [address] [address] Globulin 3.7 G/dL Normal [facility] ([place] Comment on above: Performed By: #### G LU1P, CBC, ADIFF, ANEU #### [address] [address] #### RPR #### [address] [address] Glucose [Mass/Vol] 101 mg/dL Normal 70-105 [facility] ([place] Comment on above: Performed By: #### G LU1P, CBC, ADIFF, ANEU #### [address] [address] #### RPR #### [address] [address] Potassium [Moles/Vol] 4.1 mmol/L Normal 3.5-5.1 [facility] ([place]) Comment on above: Performed By: #### G LU1P, CBC, ADIFF, ANEU #### [address] [address] #### RPR #### [address] [address] Sodium [Moles/Vol] 137 mmol/L Normal 136-145 [facility] ([place] Comment on above: Performed By: #### G LU1P, CBC, ADIFF, ANEU #### [address] [address] #### RPR #### [address] [address] Total Protein 6.1 G/dL Low 6.4-8.2 [facility] ([place] Comment on above: Performed By: #### G LU1P, CBC, ADIFF, ANEU #### [place] [id number] #### RPR #### [place] [id number] [address] [place] [address] Urea nitrogen [Mass/Vol] 5 mg/dL Low 7-18 [facility] ([place] Comment on above: Performed By: #### G LU1P, CBC, ADIFF, ANEU #### [place] [address]2292 [place], [place] [address] #### RPR #### [address] [address] LABORATORYOrdered By: SYSTEM SYSTEM on 07-26-2023 Albumin BCP dye [Mass/Vol] 2.4 G/dL Low 3.5 - 5.0 G/dL AO ADM SS Albumin/Globulin [Mass ratio] 0.6 {ratio} Low 1.1 - 2.5 ratio AO ADM SS ALP [Catalytic activity/Vol] 248 U/L High 40 - 135 U/L AO ADM SS ALT With P-5'-P [Catalytic activity/Vol] 37 U/L Normal 14 - 59 U/L AO ADM SS AST With P-5'-P [Catalytic activity/Vol] 27 U/L Normal 10 - 40 U/L AO ADM SS Bilirubin [Mass/Vol] 0.4 mg/dL Normal 0.2 - 1 .0 mg/dL AO ADM SS Comment on above: Interpretive Data: U se of this assay is not recommended for patients undergoing treatment with eltrombopag due to the potential for falsely elevated results. Calcium [Mass/Vol] 8.3 mg/dL Low 8.4 - 10. 2 mg/dL AO ADM SS Chloride [Moles/Vol] 104 mmol/L Normal 98 - 10 7 mmol/L AO ADM SS CO2 [Moles/Vol] 22 mmol/L Normal 22 - 29 mmol/L AO ADM SS Creatinine [Mass/Vol] 0.58 mg/dL Normal 0.55 - 1.02 mg/dL AO ADM SS Electrolyte Balance 11.0 mEq/L Normal 4.0 - 15 .0 mEq/L AO ADM SS GFR/1.73 sq M.predicted among blacks MDRD (S/P/Bld) [Vol rate/Area] 154 ml/min/1.73sqm Invalid Interpretation Code AO Chemistry S Comment on above: Interpretive Data: GFR Population mean for , Non- Americans Ages 20-29 = 116 mL/min/1.73 sq.m. Ages 30-39 = 107 mL/min/1.73 sq.m. Ages 40-49 = 99 mL/min/1.73 sq.m. Ages 50-59 = 93 mL/min/1.73 sq.m. Ages 60-69 = 85 mL/min/1.73 sq.m. Ages 70+ = 75 mL/min/1.73 sq.m. Chronic Kidney Disease: Less than 60 mL/min/1.73 square meters End Stage Renal Disease: Less than 15 mL/min/1.73 square meters GFR/1.73 sq M.predicted among non-blacks MDRD (S/P/Bld) [Vol rate/Area] 127 ml/min/1.73sqm Invalid Interpretation Code AO Chemistry S Comment on above: Interpretive Data: GFR Population mean for , Non- Americans Ages 20-29 = 116 mL/min/1.73 sq.m. Ages 30-39 = 107 mL/min/1.73 sq.m. Ages 40-49 = 99 mL/min/1.73 sq.m. Ages 50-59 = 93 mL/min/1.73 sq.m. Ages 60-69 = 85 mL/min/1.73 sq.m. Ages 70+ = 75 mL/min/1.73 sq.m. Chronic Kidney Disease: Less than 60 mL/min/1.73 square meters End Stage Renal Disease: Less than 15 mL/min/1.73 square meters Globulin 3.7 G/dL Invalid Interpretation Code AO ADM SS Glucose [Mass/Vol] 101 mg/dL Normal 70 - 105 mg/dL AO ADM SS Potassium [Moles/Vol] 4.1 mmol/L Normal 3.5 - 5.1 mmol/L AO ADM SS Protein [Mass/Vol] 6.1 G/dL Low 6.4 - 8.2 G/dL AO ADM SS Sodium [Moles/Vol] 137 mmol/L Normal 136 - 145 mmol/L AO ADM SS Urea nitrogen [Mass/Vol] 5 mg/dL Low 7 - 18 mg/dL AO ADM SS Urea nitrogen/Creatinine [Mass ratio] 9 ratio Normal 7 - 27 ratio AO ADM SS No Panel InformationOrdered By: Douglas Raygoza on 07-22-2023 Affirm Pathogens DNA Direct Probe Gardnerella vaginalis DNA Probe Negative Trichomonas vaginalis DNA Probe Negative Beatriz species DNA Probe Negative [facility] BILEon 07-15-2023 Chenodeoxycholate 5.8 umol/l [facility] ([place]) Comment on above: Result Comment: Refe rence Range: All Ages: <5.8 Performed By: #### A DIFF, CBC, ABSGEL, ANEU, ABOGEL #### [place] [address] #### RPR #### [place] [address] Cholate 14 umol/l [facility] ([place]) Comment on above: Result Comment: Refe rence Range: All Ages: <2.2 Performed By: #### A DIFF, CBC, ABSGEL, ANEU, ABOGEL #### [place] [address] #### RPR #### [place] [address] Deoxycholate 1.6 umol/l [facility] ([place]) Comment on above: Result Comment: Refe rence Range: All Ages: <3.3 Performed By: #### A DIFF, CBC, ABSGEL, ANEU, ABOGEL #### [place] [address] #### RPR #### [place] [address] Total Bile Acids 21 umol/l [facility] ([place]) Comment on above: Result Comment: This test was developed and its performance characteristics determined by [facility]. It has not been cleared or approved by the Food and Drug Administration. Reference Range: All Ages: <9.2 Performed At: [facility] [address] [place] [address] [id number] Nam Crook MD Ph:[phone] Performed By: #### A DIFF, CBC, ABSGEL, ANEU, ABOGEL #### [place] [address] #### RPR #### [place] [address] Ursodeoxycholate <0.10 Normal [facility] ([place]) Comment on above: Result Comment: Luis vázquez Range: All Ages: <1.9 Performed By: #### A DIFF, CBC, ABSGEL, ANEU, ABOGEL #### [place] [address] #### RPR #### [place] [address] RPRon 07-10-2023 Reagin Ab RPR Ql (S) Non-Reactive Normal Non-Reactive [facility] ([place]) Comment on above: Result Comment: The RPR test is a non-treponemal assay useful as an aid in the diagnosis of primary and secondary syphilis. It converts to positive generally within 2 weeks after the appearance of a lesion. This test is also useful for monitoring response to antibiotic therapy. A positive RPR screening test will be followed by the FTA ABS test. False positive RPR tests may occur in 1) patients with underlying autoimmune disorders, 2) elderly patients, 3) , and 4) other conditions with abnormal serum globulins. Performed By: #### G LU1P, CBC, ADIFF, ANEU #### [place] [address] #### RPR #### [place] [address] .Auto Diffon 07-09-2023 Basophil, Absolute 0.0 10 3/mcL Normal 0.0-0.2 [facility] ([place] Comment on above: Performed By: #### G LU1P, CBC, ADIFF, ANEU #### [place] [address] #### RPR #### [place] [address] Basophils/100 WBC (Bld) 0.2 % Normal 0.0-2.5 [facility] ([place]) Comment on above: Performed By: #### G LU1P, CBC, ADIFF, ANEU #### [place] [address] #### RPR #### [address] [address] Eosinophil, Absolute 0.0 10 3/mcL Normal 0.0-0.4 [facility] ([place]) Comment on above: Performed By: #### G LU1P, CBC, ADIFF, ANEU #### [address] [address] #### RPR #### [address] [address] Eosinophils/100 WBC (Bld) 0.5 % Normal 0.0-7.0 [facility] ([place]) Comment on above: Performed By: #### G LU1P, CBC, ADIFF, ANEU #### [address] [address] #### RPR #### [address] [address] Lymphocyte, Absolute 1.3 10 3/mcL Normal 0.8-3.9 [facility] ([place]) Comment on above: Performed By: #### G LU1P, CBC, ADIFF, ANEU #### [address] [address] #### RPR #### [address] [address] Lymphocytes/100 WBC (Bld) 13.6 % Normal 10.0-50.0 [facility] ([place]) Comment on above: Performed By: #### G LU1P, CBC, ADIFF, ANEU #### [address] [address] #### RPR #### [address] [address] Monocyte, Absolute 0.5 10 3/mcL Normal 0.2-1.0 [facility], [facility] ([place]) Comment on above: Performed By: #### G LU1P, CBC, ADIFF, ANEU #### [address] [address] #### RPR #### [address] [address] Monocytes/100 WBC (Bld) 5.1 % Normal 1.7-13.0 [facility] ([place] Comment on above: Performed By: #### G LU1P, CBC, ADIFF, ANEU #### [address] [address] #### RPR #### [address] [address] Neutrophils/100 WBC (Bld) 80.6 % High 37.0-80.0 [facility] ([place] Comment on above: Performed By: #### G LU1P, CBC, ADIFF, ANEU #### [place] [address] #### RPR #### [address] [address] .NEUABSon 07-09-2023 Neutrophil, Absolute 7.7 10 3/mcL High 2.9-6.2 [facility] ([place] Comment on above: Performed By: #### Ric LU1P, CBC, ADIFF, ANEU #### [place] [address] #### RPR #### [address] [address] CBCon 07-09-2023 Erythrocyte distribution width (RBC) [Ratio] 12.9 % Normal 11.5-14.5 [facility] ([place] Comment on above: Performed By: #### G LU1P, CBC, ADIFF, ANEU #### [place] [address] #### RPR #### [address] [address] Hematocrit (Bld) [Volume fraction] 30.3 % Low 37.0-47.0 [facility] ([place] Comment on above: Performed By: #### G LU1P, CBC, ADIFF, ANEU #### [place] [address] #### RPR #### [place] [address] Hgb 10.3 G/dL Low 12.0-16.0 [facility] ([place] Comment on above: Performed By: #### G LU1P, CBC, ADIFF, ANEU #### [place] [address] #### RPR #### [address] [address] MCH (RBC) [Entitic mass] 28.3 pg Normal 27.0-31.2 [facility] ([place] Comment on above: Performed By: #### G LU1P, CBC, ADIFF, ANEU #### [place] [address] #### RPR #### [place] [address] MCHC 34.0 G/dL Normal 33.0-37.0 [facility] ([place] Comment on above: Performed By: #### G LU1P, CBC, ADIFF, ANEU #### [place] [address] #### RPR #### [address] [address] MCV (RBC) [Entitic vol] 83.2 fL Normal 80.0-94.0 [facility] ([place] Comment on above: Performed By: #### G LU1P, CBC, ADIFF, ANEU #### [place] [address] #### RPR #### [place] [address] Platelet 240 10 3/mcL Normal 130-400 [facility] ([place] Comment on above: Performed By: #### G LU1P, CBC, ADIFF, ANEU #### [place] [address] #### RPR #### [address] [address] Platelet mean volume (Bld) [Entitic vol] 8.7 fL Normal 7.4-10.4 [facility] ([place] Comment on above: Performed By: #### G LU1P, CBC, ADIFF, ANEU #### [address] [address] #### RPR #### [address] [address] RBC 3.64 10 6/mcL Low 4.20-5.40 [facility] ([place] Comment on above: Performed By: #### G LU1P, CBC, ADIFF, ANEU #### [address] [address] #### RPR #### [address] [address] WBC 9.6 10 3/mcL Normal 4.6-10.8 [facility] ([place]) Comment on above: Performed By: #### G LU1P, CBC, ADIFF, ANEU #### [address] [address] #### RPR #### [address] [address] MLY4Avs 07-09-2023 Glucose [Mass/Vol] 99 mg/dL Normal 70-140 [facility] ([place]) Comment on above: Performed By: #### G LU1P, CBC, ADIFF, ANEU #### [place] [address] #### RPR #### [address] [address] STREP A MOLECULAR (POC)on Procedural Control Valid [facility] Strep A (POCT) Negative Negative [facility] Progress Noteon 05-12-2023 [employer] Authentication Interface Message Text Pt called in concerning questions about labs results she was notified about on 05/11. 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 She is POS for lupus anticoagulant. She was informed of APLS. I discussed that this can increase risk for blood clots. We discussed Dr Polk recommending she continue with the Lovenox and to add ASA 81mg daily. I called this into the pharmacy for pt as she was concerned what to purchase over the counter. I also told her that smoking increasing her risk and with the , and APLS that she should discontinue immediately. She statesshe google searched her results and it scared her and that she will no longer be smoking. I updated her chart. We discussed she will need ultrasound for growth @ 28/32/36 wks and well as twice weekly testing. She stated understanding. She is also aware she can call in with further questions or can send a message through my chart. Normal [facility] MISCon 05-10-2023 Misc. Send Out See Comments Normal [facility] ([place]) Comment on above: Order Comment: Total Protein S [facility] Result Comment: Comp lete reference lab report scanned to EMR. Performed By: #### G LU1P, CBC, ADIFF, ANEU #### [place] [address] #### RPR #### [place] [address] CIRANon 05-05-2023 Dil Mak Viper Venom 42.4 seconds High 30.0-42.0 [facility] ([place]) Comment on above: Result Comment: DRVV T Confirmation Test Performed: POSITIVE Performed By: #### G LU1P, CBC, ADIFF, ANEU #### [place] [address] #### RPR #### [place] [address] [place] Interpretation See Below [facility] ([place]) Comment on above: Result Comment: Lupu s anticoagulant detected by DRVVT method Performed By: #### G LU1P, CBC, ADIFF, ANEU #### [place] [address] #### RPR #### [place] [address] Platelet neutraliz. Not Done Normal [facility] ([place]) Comment on above: Performed By: #### G LU1P, CBC, ADIFF, ANEU #### [place] [address] #### RPR #### [place] [id number] Progress Noteon 05-05-2023 [employer] Authentication Interface Message Text [facility] - at [address] POLK OFFICE VISIT NOTE DOS: 05/05/2023 05/05/2023 Chief Complaint She presents for review of progress in thus far and for comprehensive review of her maternal -obstetric- risks in this . The reasons for the visit are as highlighted in the concluding summary communication to sourcing engineer which is my problem-based office review. History of Present Illness Soniya is a 23 y.o. female at 19w5d. Here for an office visit with was multifaceted and the history of present illness is itemized/organized under applicable individualized problem list assessments as listed below. Obstetric History OB History Para Term AB Living 3 2 2 2 SAB IAB Ectopic Multiple Live Births 2 # Outcome Date GA Lbr Eliseo/2nd Weight Sex Delivery Anes PTL Lv 3 Current 2 Term 01/27/21 37w0d 3.11 kg M Vag-Spont EPI YENI Comments: iol due to cholestasis, nicu in [place] x 3 days 1 Term 04/18/18 40w0d 3.714 kg M Vag-Spont EPI YENI Comments: [facility] - I reviewed it at patient encounter and pertinent aspects are integrated into the below problem list-based assessment Past Medical History Past Medical History: Diagnosis Date Pulmonary embolism Uncomplicated asthma - I reviewed it at patient encounter and pertinent aspects are integrated into the below problem list-based assessment Social History - I reviewed it at patient encounter and pertinent aspects are integrated into the below problem list-based assessment Family History - I reviewed it at patient encounter, including screening genetic pedigree as available, and pertinent aspects are integrated into the below problem list-based assessment Medications and Allergies . No Known Allergies - I reviewed it at patient encounter and are integrated into the below problem list-based assessment. Allergies were reviewed Laboratory Studies and Imaging studies - I reviewed it at patient encounter and pertinent aspects are integrated into assessments. Vitals BP (!) 88/49 Pulse 69 Resp 18 Wt 75.6 kg (166 lb 9.6 oz) LMP 12/18/2022 SpO2 98% BMI 31.48 kg/m - heart rate as per imaging report today, as applicable and available. ASSESSMENT AND PLAN After integrating maternal and obstetric and considerations, my recommendations are as assembled. Active Non-Hospital Problems Diagnosis Date Noted Pulmonary embolism 03/24/2023 History of bilateral pulmonary embolism- Today we reviewed and discussed: History-in February 2019 approximately 9 months after her delivery she developed bilateral pulmonary embolism and was on Depo-Provera at the time and had smoking as an additional risk factor. She was in ICU setting for 24 hours and thereafter discharged on medications. In the current she was started appropriately on 40 mg of Lovenox daily. I reviewed the thrombophilia workup thus far concluded and it is incomplete for some elements for congenital and acquired thrombophilia which were ordered today as per care plan. 05/05/2023 - Office Visit - MD Elder: 19w5d . History of pulmonary embolism- Today we reviewed and discussed: She remains compliant with 40 mg Lovenox daily. I reviewed her serum failure workup and is concluded as negative except for lupus anticoagulant which unfortunately did not get drawn. Recommendations for Lovenox and delivery are as per care plan. care, antepartum 03/24/2023 Care: = Maternal aspects- BMI 29. She smokes 6 cigarettes a day and is making an effort to discontinue. She is in excellent general health. = Obstetric Aspects- Her BP is 101/62. Labs-blood type O+. Hemoglobin 12.9 g/dL. Low risk NIPT. Negative Horizon 14 screening.. She presently has no complaint. She provides no history of cramping, bleeding, excessive nausea or vomiting. 05/05/2023 - Office Visit - MD Elder: 19w5d . Care: Her BP is 88/49. She presently has no complaint. She provides no history of uterine contractions/cramping, leakage of fluid, or vaginal bleeding. At high risk for infection 03/24/2023 Risk for Infectious Diseases: We reviewed prevention strategies for maternal- protection against infectious illnesses. Covid infection risk- vaccination, including Boosters if not already concluded is recommended. She decided against it. Seasonal Flu: Vaccination in available in Dec-May window and is recommended. She decided against it. We reviewed that an early diagnosis for these viral illnesses should be sought, as a brief outpatient oral treatment enables recovery and reduces hospitalization risk. High risk , antepartum 03/24/20232020 she was delivered at 37 weeks due to cholestasis of and was on ursodiol and was in NICU for 3 days. = Summary Risks: Is a recurrence risk for cholestasis of and thus far she is doing w (more content not included)... Normal [facility] AT3on 05-04-2023 Anti-Thrombin III 90 % Normal 84-126 [facility] ([place]) Comment on above: Performed By: #### G LU1P, CBC, ADIFF, ANEU #### [address] [address] #### RPR #### [place] [address] PROTCon 05-04-2023 Protein C 135 % Normal >=80 [facility] ([place]) Comment on above: Performed By: #### G LU1P, CBC, ADIFF, ANEU #### [place] [address] #### RPR #### [place] [address] PRSFAon 05-04-2023 Protein S Free Antigen 54 % Low 55-124 [facility] ([place]) Comment on above: Performed By: #### G LU1P, CBC, ADIFF, ANEU #### [place] [address] #### RPR #### [place] [address] BILEon 05-02-2023 Chenodeoxycholate 1.1 umol/l Normal [facility] ([place]) Comment on above: Result Comment: Refe rence Range: All Ages: <5.8 Performed By: #### G LU1P, CBC, ADIFF, ANEU #### [place] [address] #### RPR #### [place] [address] Cholate 0.90 umol/l Normal [facility] ([place]) Comment on above: Result Comment: Refe rence Range: All Ages: <2.2 Performed By: #### G LU1P, CBC, ADIFF, ANEU #### [place] [address] #### RPR #### [place] [address] Deoxycholate 1.3 umol/l Normal [facility] ([place]) Comment on above: Result Comment: Refe rence Range: All Ages: <3.3 Performed By: #### G LU1P, CBC, ADIFF, ANEU #### [place] [address] #### RPR #### [place] [address] Total Bile Acids 3.3 umol/l Normal [facility] ([place]) Comment on above: Result Comment: This test was developed and its performance characteristics determined by [facility]. It has not been cleared or approved by the Food and Drug Administration. Reference Range: All Ages: <9.2 Performed At: [facility] [address] [place] [id number] Nam Crook MD Ph:[phone] Performed By: #### G LU1P, CBC, ADIFF, ANEU #### [place] [address] #### RPR #### [place] [address] Ursodeoxycholate <0.10 Normal [facility] ([place]) Comment on above: Result Comment: Refe rence Range: All Ages: <1.9 Performed By: #### G LU1P, CBC, ADIFF, ANEU #### [place] [address] #### RPR #### [place] [address] [id number] 04-30-2023 B2 Glyco I IgG Ab <9 Normal 0-20 [facility] ([place]) Comment on above: Result Comment: The reference interval reflects a 3SD or 99th percentile interval, which is thought to represent a potentially clinically significant result in accordance with the International Consensus Statement on the classification criteria for definitive antiphospholipid syndrome (APS). J Thromb Haem 2006;4:295-306. Performed By: #### G LU1P, CBC, ADIFF, ANEU #### [place] [address] #### RPR #### [address] [address] B2 Glyco I IgM Ab <9 Normal 0-32 [facility] ([place]) Comment on above: Result Comment: The reference interval reflects a 3SD or 99th percentile interval, which is thought to represent a potentially clinically significant result in accordance with the International Consensus Statement on the classification criteria for definitive antiphospholipid syndrome (APS). J Thromb Haem 2006;4:295-306. Performed At: [address] [id number] Matias Hanson MD Ph:[phone] Performed By: #### G CHRISTIANO1P, CBC, ADIFF, ANEU #### [address] [address] #### RPR #### [place] [address] BETAAon 04-30-2023 B2 Glyco I IgA <9 Normal 0-25 [facility] ([place]) Comment on above: Result Comment: The reference interval reflects a 3SD or 99th percentile interval, which is thought to represent a potentially clinically significant result in accordance with the International Consensus Statement on the classification criteria for definitive antiphospholipid syndrome (APS). J Thromb Haem 2006;4:295-306. Performed At: [address] [id number] Matias Hanson MD Ph:[phone] Performed By: #### Ric ALVARADO1P, CBC, ADIFF, ANEU #### [address] [address] #### RPR #### [place] [address] CARDIGon 04-29-2023 Cardiolipin IgG <9 Normal 0-14 [facility] ([place]) Comment on above: Result Comment: Nega tive: <15 Indeterminate: 15 - 20 Low-Med Positive: >20 - 80 High Positive: >80 Performed At: [address] [id number] Fab Salcedo PhD Ph:[phone] Performed By: #### G LU1P, CBC, ADIFF, ANEU #### [address] [address] #### RPR #### [address] [address] CARDIMon 04-29-2023 Cardiolipin IgM <9 Normal 0-12 [facility] ([place]) Comment on above: Result Comment: Nega tive: <13 Indeterminate: 13 - 20 Low-Med Positive: >20 - 80 High Positive: >80 Performed At: [facility] [address] [id number] Fab Salcedo PhD Ph:[phone] Performed By: #### G LU1P, CBC, ADIFF, ANEU #### [address] [address] #### RPR #### [address] [address] .GFRon 04-28-2023 GFR Non- 147 ml/min/1.73sqm Normal [facility] ([place]) Comment on above: Result Comment: GFR Population mean for , Non- Americans Ages 20-29 = 116 mL/min/1.73 sq.m. Ages 30-39 = 107 mL/min/1.73 sq.m. Ages 40-49 = 99 mL/min/1.73 sq.m. Ages 50-59 = 93 mL/min/1.73 sq.m. Ages 60-69 = 85 mL/min/1.73 sq.m. Ages 70+ = 75 mL/min/1.73 sq.m. Chronic Kidney Disease: Less than 60 mL/min/1.73 square meters End Stage Renal Disease: Less than 15 mL/min/1.73 square meters Performed By: #### G LU1P, CBC, ADIFF, ANEU #### [address] [address] #### RPR #### [address] [address] GFR 178 ml/min/1.73sqm Normal [facility] ([place]) Comment on above: Result Comment: GFR Population mean for , Non- Americans Ages 20-29 = 116 mL/min/1.73 sq.m. Ages 30-39 = 107 mL/min/1.73 sq.m. Ages 40-49 = 99 mL/min/1.73 sq.m. Ages 50-59 = 93 mL/min/1.73 sq.m. Ages 60-69 = 85 mL/min/1.73 sq.m. Ages 70+ = 75 mL/min/1.73 sq.m. Chronic Kidney Disease: Less than 60 mL/min/1.73 square meters End Stage Renal Disease: Less than 15 mL/min/1.73 square meters Performed By: #### G LU1P, CBC, ADIFF, ANEU #### [place] [address] #### RPR #### [place] [address] CMPon 04-28-2023 Albumin Level 2.7 G/dL Low 3.5-5.0 [facility] ([place]) Comment on above: Performed By: #### Ric LU1P, CBC, ADIFF, ANEU #### [place] [address] #### RPR #### [place] [id number] Albumin/Globulin [Mass ratio] 0.7 {ratio} Low 1.1-2.5 [facility] ([place]) Comment on above: Performed By: #### Ric LU1P, CBC, ADIFF, ANEU #### [place] [address] #### RPR #### [address] [address] ALP [Catalytic activity/Vol] 82 U/L Normal 40-135 [facility] ([place]) Comment on above: Performed By: #### Ric LU1P, CBC, ADIFF, ANEU #### [place] [address] #### RPR #### [address] [address] ALT [Catalytic activity/Vol] 19 U/L Normal 14-59 [facility] ([place]) Comment on above: Performed By: #### G LU1P, CBC, ADIFF, ANEU #### [place] [address] #### RPR #### [address] [address] AST [Catalytic activity/Vol] 14 U/L Normal 10-40 [facility] ([place]) Comment on above: Performed By: #### G LU1P, CBC, ADIFF, ANEU #### [place] [address] #### RPR #### [address] [address] Bili Total 0.3 mg/dL Normal 0.2-1.0 [facility] ([place]) Comment on above: Result Comment: Use of this assay is not recommended for patients undergoing treatment with eltrombopag due to the potential for falsely elevated results. Performed By: #### Ric LU1P, CBC, ADIFF, ANEU #### [place] [address] #### RPR #### [address] [address] BUN/Creatinine Ratio 12 ratio Normal 7-27 [facility] ([place]) Comment on above: Performed By: #### Ric LU1P, CBC, ADIFF, ANEU #### [place] [address] #### RPR #### [address] [address] Calcium [Mass/Vol] 9.0 mg/dL Normal 8.4-10.2 [facility] ([place]) Comment on above: Performed By: #### G LU1P, CBC, ADIFF, ANEU #### [place] [address] #### RPR #### [place] [id number] Chloride [Moles/Vol] 105 mmol/L Normal 98-107 [facility] ([place] Comment on above: Performed By: #### G LU1P, CBC, ADIFF, ANEU #### [address] [address] #### RPR #### [address] [address] CO2 [Moles/Vol] 24 mmol/L Normal 22-29 [facility] ([place]) Comment on above: Performed By: #### G LU1P, CBC, ADIFF, ANEU #### [address] [address] #### RPR #### [address] [address] Creatinine [Mass/Vol] 0.51 mg/dL Low 0.55-1.02 [facility] ([place]) Comment on above: Performed By: #### G LU1P, CBC, ADIFF, ANEU #### [address] [address] #### RPR #### [address] [address] Electrolyte Balance 10.0 mEq/L Normal 4.0-15.0 [facility] ([place]) Comment on above: Performed By: #### G LU1P, CBC, ADIFF, ANEU #### [address] [address] #### RPR #### [address] [address] Globulin 3.7 G/dL Normal [facility] ([place]) Comment on above: Performed By: #### G LU1P, CBC, ADIFF, ANEU #### [address] [address] #### RPR #### [address] [address] Glucose [Mass/Vol] 86 mg/dL Normal 70-105 [facility] ([place]) Comment on above: Performed By: #### G LU1P, CBC, ADIFF, ANEU #### [address] [address] #### RPR #### [address] [address] Potassium [Moles/Vol] 3.8 mmol/L Normal 3.5-5.1 [facility] ([place]) Comment on above: Performed By: #### G LU1P, CBC, ADIFF, ANEU #### [address] [address] #### RPR #### [facility] [address] [place] [address] Sodium [Moles/Vol] 139 mmol/L Normal 136-145 [facility] ([place] Comment on above: Performed By: #### G LU1P, CBC, ADIFF, ANEU #### [address] [address] #### RPR #### [address] [address] Total Protein 6.4 G/dL Normal 6.4-8.2 [facility] ([place]) Comment on above: Performed By: #### G LU1P, CBC, ADIFF, ANEU #### [address] [address] #### RPR #### [address] [address] Urea nitrogen [Mass/Vol] 6 mg/dL Low 7-18 [facility] ([place] Comment on above: Performed By: #### G LU1P, CBC, ADIFF, ANEU #### [address] [address] #### RPR #### [address] [address] LABORATORYOrdered By: SYSTEM SYSTEM on 04-28-2023 Albumin BCP dye [Mass/Vol] 2.7 G/dL Low 3.5 - 5.0 G/dL AO ADM SS Albumin/Globulin [Mass ratio] 0.7 {ratio} Low 1.1 - 2.5 ratio AO ADM SS ALP [Catalytic activity/Vol] 82 U/L Normal 40 - 135 U/L AO ADM SS ALT With P-5'-P [Catalytic activity/Vol] 19 U/L Normal 14 - 59 U/L AO ADM SS AST With P-5'-P [Catalytic activity/Vol] 14 U/L Normal 10 - 40 U/L AO ADM SS Bilirubin [Mass/Vol] 0.3 mg/dL Normal 0.2 - 1 .0 mg/dL AO ADM SS Comment on above: Interpretive Data: U se of this assay is not recommended for patients undergoing treatment with eltrombopag due to the potential for falsely elevated results. Calcium [Mass/Vol] 9.0 mg/dL Normal 8.4 - 10. 2 mg/dL AO ADM SS Chloride [Moles/Vol] 105 mmol/L Normal 98 - 10 7 mmol/L AO ADM SS CO2 [Moles/Vol] 24 mmol/L Normal 22 - 29 mmol/L AO ADM SS Creatinine [Mass/Vol] 0.51 mg/dL Low 0.55 - 1.02 mg/dL AO ADM SS Electrolyte Balance 10.0 mEq/L Normal 4.0 - 15 .0 mEq/L AO ADM SS GFR/1.73 sq M.predicted among blacks MDRD (S/P/Bld) [Vol rate/Area] 178 ml/min/1.73sqm Invalid Interpretation Code AO Chemistry S Comment on above: Interpretive Data: GFR Population mean for , Non- Americans Ages 20-29 = 116 mL/min/1.73 sq.m. Ages 30-39 = 107 mL/min/1.73 sq.m. Ages 40-49 = 99 mL/min/1.73 sq.m. Ages 50-59 = 93 mL/min/1.73 sq.m. Ages 60-69 = 85 mL/min/1.73 sq.m. Ages 70+ = 75 mL/min/1.73 sq.m. Chronic Kidney Disease: Less than 60 mL/min/1.73 square meters End Stage Renal Disease: Less than 15 mL/min/1.73 square meters GFR/1.73 sq M.predicted among non-blacks MDRD (S/P/Bld) [Vol rate/Area] 147 ml/min/1.73sqm Invalid Interpretation Code AO Chemistry S Comment on above: Interpretive Data: GFR Population mean for , Non- Americans Ages 20-29 = 116 mL/min/1.73 sq.m. Ages 30-39 = 107 mL/min/1.73 sq.m. Ages 40-49 = 99 mL/min/1.73 sq.m. Ages 50-59 = 93 mL/min/1.73 sq.m. Ages 60-69 = 85 mL/min/1.73 sq.m. Ages 70+ = 75 mL/min/1.73 sq.m. Chronic Kidney Disease: Less than 60 mL/min/1.73 square meters End Stage Renal Disease: Less than 15 mL/min/1.73 square meters Globulin 3.7 G/dL Invalid Interpretation Code AO ADM SS Glucose [Mass/Vol] 86 mg/dL Normal 70 - 105 mg/dL AO ADM SS Potassium [Moles/Vol] 3.8 mmol/L Normal 3.5 - 5.1 mmol/L AO ADM SS Protein [Mass/Vol] 6.4 G/dL Normal 6.4 - 8.2 G/dL AO ADM SS Sodium [Moles/Vol] 139 mmol/L Normal 136 - 145 mmol/L AO ADM SS Urea nitrogen [Mass/Vol] 6 mg/dL Low 7 - 18 mg/dL AO ADM SS Urea nitrogen/Creatinine [Mass ratio] 12 ratio Normal 7 - 27 ratio AO ADM SS Progress Noteon 03-24-2023 [employer] Authentication Interface Message Text [facility] - at [address] [address] POLK OFFICE VISIT NOTE DOS: 03/24/2023 03/24/2023 Chief Complaint She presents for review of progress in thus far and for comprehensive review of her maternal -obstetric- risks in this . The reasons for the visit are as highlighted in the concluding summary communication to sourcing engineer which is my problem-based office review. History of Present Illness Soniya is a 22 y.o. female at 13w5d. Here for an office visit with was multifaceted and the history of present illness is itemized/organized under applicable individualized problem list assessments as listed below. Obstetric History OB History Para Term AB Living 3 2 2 2 SAB IAB Ectopic Multiple Live Births 2 # Outcome Date GA Lbr Eliseo/2nd Weight Sex Delivery Anes PTL Lv 3 Current 2 Term 01/27/21 37w0d 3.11 kg M Vag-Spont EPI YENI Comments: iol due to cholestasis, nicu in [place] x 3 days 1 Term 04/18/18 40w0d 3.714 kg M Vag-Spont EPI YENI Comments: [facility] - I reviewed it at patient encounter and pertinent aspects are integrated into the below problem list-based assessment Past Medical History No past medical history on file. - I reviewed it at patient encounter and pertinent aspects are integrated into the below problem list-based assessment Social History - I reviewed it at patient encounter and pertinent aspects are integrated into the below problem list-based assessment Family History - I reviewed it at patient encounter, including screening genetic pedigree as available, and pertinent aspects are integrated into the below problem list-based assessment Medications and Allergies . No Known Allergies - I reviewed it at patient encounter and are integrated into the below problem list-based assessment. Allergies were reviewed Laboratory Studies and Imaging studies - I reviewed it at patient encounter and pertinent aspects are integrated into assessments. Vitals BP 101/62 Pulse 87 Resp 18 Ht (!) 154.9 cm Wt 71 kg (156 lb 8 oz) LMP 12/18/2022 SpO2 98% BMI 29.57 kg/m - heart rate as per imaging report today, as applicable and available. ASSESSMENT AND PLAN After integrating maternal and obstetric and considerations, my recommendations are as assembled. Active Non-Hospital Problems Diagnosis Date Noted Pulmonary embolism 03/24/2023 History of bilateral pulmonary embolism- Today we reviewed and discussed: History-in February 2019 approximately 9 months after her delivery she developed bilateral pulmonary embolism and was on Depo-Provera at the time and had smoking as an additional risk factor. She was in ICU setting for 24 hours and thereafter discharged on medications. In the current she was started appropriately on 40 mg of Lovenox daily. I reviewed the thrombophilia workup thus far concluded and it is incomplete for some elements for congenital and acquired thrombophilia which were ordered today as per care plan. care, antepartum 03/24/2023 Care: = Maternal aspects- BMI 29. She smokes 6 cigarettes a day and is making an effort to discontinue. She is in excellent general health. = Obstetric Aspects- Her BP is 101/62. Labs-blood type O+. Hemoglobin 12.9 g/dL. Low risk NIPT. Negative Horizon 14 screening.. She presently has no complaint. She provides no history of cramping, bleeding, excessive nausea or vomiting. At high risk for infection 03/24/2023 Risk for Infectious Diseases: We reviewed prevention strategies for maternal- protection against infectious illnesses. Covid infection risk- vaccination, including Boosters if not already concluded is recommended. She decided against it. Seasonal Flu: Vaccination in available in Dec-May window and is recommended. She decided against it. We reviewed that an early diagnosis for these viral illnesses should be sought, as a brief outpatient oral treatment enables recovery and reduces hospitalization risk. High risk , antepartum 03/24/20232020 she was delivered at 37 weeks due to cholestasis of and was on ursodiol and infant was in NICU for 3 days. = Summary Risks: Is a recurrence risk for cholestasis of and thus far she is doing well. Baseline AST/ALT are normal at . Care plan discussed with patient 03/24/2023 CARE PLAN Medications: She is on daily PNV and Lovenox 40 mg daily. Option to switch it to SQ heparin 10,000 units twice daily at 36 weeks or he may stay on Lovenox 40 mg daily. Labs ordered today by us: She will skip her evening dose of Lovenox today on March 24, 2023 and first thing in the morning on Wednesday, March 26, 2023 he will obtain the listed labs at [facility] and take her morning dose of Lovenox 40 mg daily and thereafter stick to a morning daily dose with option to a p.m. schedule after (more content not included)... Normal [facility] No Panel Informationon 03-22 Culture Urine >100,000 cfu/ml Mixe d growth consistent with normal urogenital wandy. [facility] Work Phone: No Panel Informationon 03-15 Culture Urine 10,000 - 50,000 cfu/ ml Mixed growth consistent with normal urogenital wandy. [facility] Work Phone: RPRon 03-02-2023 Reagin Ab RPR Ql (S) Non-Reactive Normal Non-Reactive [facility] ([place]) Comment on above: Result Comment: The RPR test is a non-treponemal assay useful as an aid in the diagnosis of primary and secondary syphilis. It converts to positive generally within 2 weeks after the appearance of a lesion. This test is also useful for monitoring response to antibiotic therapy. A positive RPR screening test will be followed by the FTA ABS test. False positive RPR tests may occur in 1) patients with underlying autoimmune disorders, 2) elderly patients, 3) , and 4) other conditions with abnormal serum globulins. Performed By: #### G LU1P, CBC, ADIFF, ANEU #### [address] [address] #### RPR #### [address] [address] RUBISon 03-02-[address] Positive Normal Positive [facility] ([place]) Comment on above: Result Comment: This immune status assay detects IgM and/or IgG antibody to Rubella. Interpret results in conjunction with clinical history. POS: Antibody detected; exposure at undetermined recent or distant time. If clinically indicated, order Rubella IGM to rule out recent infection. NEG: No antibody detected. Performed By: #### G LU1P, CBC, ADIFF, ANEU #### [place] [address] #### RPR #### [place] [id number] VARISon 03-02-[address] Negative Normal [facility] ([place]) Comment on above: Result Comment: INTE RPRETATION OF VARICELLA IMMUNE STATUS IgG BY EIA: Negative: No detectable VZV IgG antibody. Positive: VZV IgG antibody Detected. If clinically indicated, order Varicella IgM to rule out recent infection. Equivocal: Equivocal for antibodies to VZV. Suggest repeat testing in 10-14 days. Performed By: #### G LU1P, CBC, ADIFF, ANEU #### [place] [address] #### RPR #### [address] [address] .Auto Diffon 03-01-2023 Basophil, Absolute 0.0 10 3/mcL Normal 0.0-0.2 [facility] ([place]) Comment on above: Performed By: #### G LU1P, CBC, ADIFF, ANEU #### [place] [address] #### RPR #### [place] [id number] Basophils/100 WBC (Bld) 0.4 % Normal 0.0-2.5 [facility] ([place] Comment on above: Performed By: #### G LU1P, CBC, ADIFF, ANEU #### [address] [address] #### RPR #### [address] [address] Eosinophil, Absolute 0.1 10 3/mcL Normal 0.0-0.4 [facility] ([place]) Comment on above: Performed By: #### G LU1P, CBC, ADIFF, ANEU #### [address] [address] #### RPR #### [address] [address] Eosinophils/100 WBC (Bld) 0.5 % Normal 0.0-7.0 [facility] ([place] Comment on above: Performed By: #### G LU1P, CBC, ADIFF, ANEU #### [place] [address] #### RPR #### [address] [address] Lymphocyte, Absolute 1.3 10 3/mcL Normal 0.8-3.9 [facility] ([place] Comment on above: Performed By: #### G LU1P, CBC, ADIFF, ANEU #### [address] [address] #### RPR #### [address] [address] Lymphocytes/100 WBC (Bld) 12.9 % Normal 10.0-50.0 [facility] ([place] Comment on above: Performed By: #### G LU1P, CBC, ADIFF, ANEU #### [address] [address] #### RPR #### [address] [address] Monocyte, Absolute 0.5 10 3/mcL Normal 0.2-1.0 [facility] ([place] Comment on above: Performed By: #### G LU1P, CBC, ADIFF, ANEU #### [address] [address] #### RPR #### [address] [address] Monocytes/100 WBC (Bld) 4.7 % Normal 1.7-13.0 [facility] ([place] Comment on above: Performed By: #### G LU1P, CBC, ADIFF, ANEU #### [address] [address] #### RPR #### [address] [address] Neutrophils/100 WBC (Bld) 81.5 % High 37.0-80.0 [facility] ([place]) Comment on above: Performed By: #### G LU1P, CBC, ADIFF, ANEU #### [address] [address] #### RPR #### [address] [address] .GFRon 03-01-2023 GFR Non- 142 ml/min/1.73sqm Normal [facility] ([place]) Comment on above: Result Comment: GFR Population mean for , Non- Americans Ages 20-29 = 116 mL/min/1.73 sq.m. Ages 30-39 = 107 mL/min/1.73 sq.m. Ages 40-49 = 99 mL/min/1.73 sq.m. Ages 50-59 = 93 mL/min/1.73 sq.m. Ages 60-69 = 85 mL/min/1.73 sq.m. Ages 70+ = 75 mL/min/1.73 sq.m. Chronic Kidney Disease: Less than 60 mL/min/1.73 square meters End Stage Renal Disease: Less than 15 mL/min/1.73 square meters Performed By: #### G LU1P, CBC, ADIFF, ANEU #### [address] [address] #### RPR #### [address] [address] GFR 172 ml/min/1.73sqm Normal [facility] ([place] Comment on above: Result Comment: GFR Population mean for , Non- Americans Ages 20-29 = 116 mL/min/1.73 sq.m. Ages 30-39 = 107 mL/min/1.73 sq.m. Ages 40-49 = 99 mL/min/1.73 sq.m. Ages 50-59 = 93 mL/min/1.73 sq.m. Ages 60-69 = 85 mL/min/1.73 sq.m. Ages 70+ = 75 mL/min/1.73 sq.m. Chronic Kidney Disease: Less than 60 mL/min/1.73 square meters End Stage Renal Disease: Less than 15 mL/min/1.73 square meters Performed By: #### G LU1P, CBC, ADIFF, ANEU #### [place] [address] #### RPR #### [place] [address] .NEUABSon 03-01-2023 Neutrophil, Absolute 8.4 10 3/mcL High 2.9-6.2 [facility] ([place] Comment on above: Performed By: #### Ric LU1P, CBC, ADIFF, ANEU #### [place] [address] #### RPR #### [place] [address] A1Con 03-01-2023 HbA1c (Bld) [Mass fraction] 4.9 % Normal 4.3-6.4 [facility] ([place] Comment on above: Performed By: #### G LU1P, CBC, ADIFF, ANEU #### [place] [address] #### RPR #### [place] [address] CBC 03-01-2023 Erythrocyte distribution width (RBC) [Ratio] 13.2 % Normal 11.5-14.5 [facility] ([place] Comment on above: Performed By: #### G LU1P, CBC, ADIFF, ANEU #### [address] [address] #### RPR #### [address] [address] Hematocrit (Bld) [Volume fraction] 38.1 % Normal 37.0-47.0 [facility] ([place] Comment on above: Performed By: #### G LU1P, CBC, ADIFF, ANEU #### [place] [address] #### RPR #### [address] [address] Hgb 12.9 G/dL Normal 12.0-16.0 [facility] ([place] Comment on above: Performed By: #### G LU1P, CBC, ADIFF, ANEU #### [place] [address] #### RPR #### [address] [address] MCH (RBC) [Entitic mass] 30.2 pg Normal 27.0-31.2 [facility] ([place] Comment on above: Performed By: #### G LU1P, CBC, ADIFF, ANEU #### [place] [address] #### RPR #### [address] [address] MCHC 33.8 G/dL Normal 33.0-37.0 [facility] ([place] Comment on above: Performed By: #### G LU1P, CBC, ADIFF, ANEU #### [place] [address] #### RPR #### [address] [address] MCV (RBC) [Entitic vol] 89.2 fL Normal 80.0-94.0 [facility] ([place] Comment on above: Performed By: #### G LU1P, CBC, ADIFF, ANEU #### [place] [address] #### RPR #### [address] [address] Platelet 196 10 3/mcL Normal 130-400 [facility] ([place] Comment on above: Performed By: #### Ric LU1P, CBC, ADIFF, ANEU #### [address] [address] #### RPR #### [address] [address] Platelet mean volume (Bld) [Entitic vol] 9.4 fL Normal 7.4-10.4 [facility] ([place] Comment on above: Performed By: #### Ric LU1P, CBC, ADIFF, ANEU #### [place] [address] #### RPR #### [place] [address] RBC 4.27 10 6/mcL Normal 4.20-5.40 [facility] ([place] Comment on above: Performed By: #### Ric LU1P, CBC, ADIFF, ANEU #### [place] [address] #### RPR #### [place] [address] WBC 10.3 10 3/mcL Normal 4.6-10.8 [facility] ([place] Comment on above: Performed By: #### Ric LU1P, CBC, ADIFF, ANEU #### [place] [address] #### RPR #### [place] [address] CMPon 03-01-2023 Albumin Level 3.3 G/dL Low 3.5-5.0 [facility] ([place] Comment on above: Performed By: #### Ric LU1P, CBC, ADIFF, ANEU #### [place] [address] #### RPR #### [place] [address] Albumin/Globulin [Mass ratio] 0.9 {ratio} Low 1.1-2.5 [facility] ([place] Comment on above: Performed By: #### G LU1P, CBC, ADIFF, ANEU #### [address] [address] #### RPR #### [address] [address] ALP [Catalytic activity/Vol] 92 U/L Normal 40-135 [facility] ([place] Comment on above: Performed By: #### G LU1P, CBC, ADIFF, ANEU #### [place] [address] #### RPR #### [address] [address] ALT [Catalytic activity/Vol] 26 U/L Normal 14-59 [facility] ([place] Comment on above: Performed By: #### G LU1P, CBC, ADIFF, ANEU #### [place] [address] #### RPR #### [place] [address] AST [Catalytic activity/Vol] 21 U/L Normal 10-40 [facility] ([place] Comment on above: Performed By: #### Ric LU1P, CBC, ADIFF, ANEU #### [place] [address] #### RPR #### [address] [address] Bili Total 0.2 mg/dL Normal 0.2-1.0 [facility] ([place] Comment on above: Result Comment: Use of this assay is not recommended for patients undergoing treatment with eltrombopag due to the potential for falsely elevated results. Performed By: #### G LU1P, CBC, ADIFF, ANEU #### [place] [address] #### RPR #### [address] [address] BUN/Creatinine Ratio 11 ratio Normal 7-27 [facility] ([place] Comment on above: Performed By: #### G LU1P, CBC, ADIFF, ANEU #### [address] [address] #### RPR #### [address] [address] Calcium [Mass/Vol] 9.0 mg/dL Normal 8.4-10.2 [facility] ([place]) Comment on above: Performed By: #### G LU1P, CBC, ADIFF, ANEU #### [place] [address] #### RPR #### [address] [address] Chloride [Moles/Vol] 100 mmol/L Normal 98-107 [facility] ([place] Comment on above: Performed By: #### G LU1P, CBC, ADIFF, ANEU #### [address] [address] #### RPR #### [address] [address] CO2 [Moles/Vol] 23 mmol/L Normal 22-29 [facility] ([place] Comment on above: Performed By: #### G LU1P, CBC, ADIFF, ANEU #### [place] [address] #### RPR #### [address] [address] Creatinine [Mass/Vol] 0.53 mg/dL Low 0.55-1.02 [facility] ([place]) Comment on above: Performed By: #### G LU1P, CBC, ADIFF, ANEU #### [address] [address] #### RPR #### [address] [address] Electrolyte Balance 13.0 mEq/L Normal 4.0-15.0 [facility] ([place]) Comment on above: Performed By: #### G LU1P, CBC, ADIFF, ANEU #### [place] [address] #### RPR #### [address] [address] Globulin 3.7 G/dL Normal [facility] ([place] Comment on above: Performed By: #### G LU1P, CBC, ADIFF, ANEU #### [address] [address] #### RPR #### [address] [address] Glucose [Mass/Vol] 82 mg/dL Normal 70-105 [facility] ([place] Comment on above: Performed By: #### G LU1P, CBC, ADIFF, ANEU #### [address] [address] #### RPR #### [address] [address] Potassium [Moles/Vol] 4.1 mmol/L Normal 3.5-5.1 [facility] ([place]) Comment on above: Performed By: #### G LU1P, CBC, ADIFF, ANEU #### [address] [address] #### RPR #### [address] [address] Sodium [Moles/Vol] 136 mmol/L Normal 136-145 [facility] ([place] Comment on above: Performed By: #### G LU1P, CBC, ADIFF, ANEU #### [address] [address] #### RPR #### [address] [address] Total Protein 7.0 G/dL Normal 6.4-8.2 [facility] ([place] Comment on above: Performed By: #### G LU1P, CBC, ADIFF, ANEU #### [address] [address] #### RPR #### [address] [address] Urea nitrogen [Mass/Vol] 6 mg/dL Low 7-18 [facility] ([place] Comment on above: Performed By: #### G LU1P, CBC, ADIFF, ANEU #### [address] [address] #### RPR #### [address] [address] Gel ABOon 03-01-2023 ABO/Rh Interp Positive Invalid Interpretation Code [facility] ([place] Comment on above: Performed By: #### G LU1P, CBC, ADIFF, ANEU #### [address] [address] #### RPR #### [address] [address] Gel ABSon 03-01-2023 Antibody Screen Gel Negative Normal [facility] ([place]) Comment on above: Performed By: #### G LU1P, CBC, ADIFF, ANEU #### [address] [address] #### RPR #### [place] [id number] HBSAGon 03-01-2023 Hep B Surf Ag Non-Reactive Normal Non-Reactive [facility] ([place] Comment on above: Performed By: #### G LU1P, CBC, ADIFF, ANEU #### [address] [address] #### RPR #### [place] [id number] HCVon 03-01-2023 Hep C Ab Non-Reactive Normal Non-Reactive [facility] ([place] Comment on above: Performed By: #### G LU1P, CBC, ADIFF, ANEU #### [address] [address] #### RPR #### [place] [address] Hep C Ab Int Normal [facility] ([place] Comment on above: Result Comment: Nonr eactive: Samples with a value < 0.80 are considered nonreactive (negative) for antibodies to HCV. A negative test result does not exclude the possibility of exposure to or infection with HCV. HCV antibodies may be undetectable in some stages of the infection and in some clinical conditions. See Interp Performed By: #### G LU1P, CBC, ADIFF, ANEU #### [place] [address] #### RPR #### [place] [id number] HIVRPon 03-01-2023 HIV p24 Antigen Non-Reactive Normal Non-Reactive [facility] ([place]) Comment on above: Result Comment: Dete ction of p24 may be inhibited by biotin in the sample, causing false negative results in acute infection. Therefore do not test samples from patients who are taking biotin. Performed By: #### G LU1P, CBC, ADIFF, ANEU #### [place] [address] #### RPR #### [place] [address] HIV P24 Int Non-Reactive Invalid Interpretation Code [facility] ([place] Comment on above: Performed By: #### G LU1P, CBC, ADIFF, ANEU #### [place] [address] #### RPR #### [place] [address] Rapid HIV 1/2 Antibody Non-Reactive Normal Non-Reactive [facility] ([place] Comment on above: Performed By: #### G LU1P, CBC, ADIFF, ANEU #### [place] [address] #### RPR #### [place] [address] RHIV 1/2 Ab Int Non-Reactive Invalid Interpretation Code [facility] ([place] Comment on above: Performed By: #### G LU1P, CBC, ADIFF, ANEU #### [place] [address] #### RPR #### [place] [address] LABORATORYOrdered By: Alison Griffith on 03-01-2023 ABO/Rh Interp Positive Invalid Interpretation Code AO BB SS Antibody Screen Gel Negative ABSC (03/01/23 10:11 AM) Normal AO BB SS LABORATORYOrdered By: Magdy Vela on 03-01-2023 HIV 1 p24 Ab Ql (S) Non-Reactive 2 (03/01/23 10:11 AM) Normal Non-Reactive AO Rapid Testing SS Comment on above: Interpretive Data: D etection of p24 may be inhibited by biotin in the sample, causing false negative results in acute infection. Therefore do not test samples from patients who are taking biotin. HIV 1 p24 Ab Ql (S) Non-Reactive Invalid Interpretation Code AO Rapid Testing SS HIV 1+2 Ab IA Ql Non-Reactive Invalid Interpretation Code AO Rapid Testing SS HIV 1+2 Ab IA.rapid Ql (Unsp spec) Non-Reactive (03/01/23 10:11 AM) Normal Non-Reactive AO Rapid Testing SS LABORATORYOrdered By: [employer] on 03-01-2023 Albumin BCP dye [Mass/Vol] 3.3 G/dL Low 3.5 - 5.0 G/dL AO ADM SS Albumin/Globulin [Mass ratio] 0.9 {ratio} Low 1.1 - 2.5 ratio AO ADM SS ALP [Catalytic activity/Vol] 92 U/L Normal 40 - 135 U/L AO ADM SS ALT With P-5'-P [Catalytic activity/Vol] 26 U/L Normal 14 - 59 U/L AO ADM SS AST With P-5'-P [Catalytic activity/Vol] 21 U/L Normal 10 - 40 U/L AO ADM SS Basophil, Absolute 0.0 103/mcL Normal 0.0 - 0.2 10^3/mcL AO Workflow SS Basophils/100 WBC (Bld) 0.4 % Normal 0.0 - 2.5 % AO Workflow SS Bilirubin [Mass/Vol] 0.2 mg/dL Normal 0.2 - 1 .0 mg/dL AO ADM SS Comment on above: Interpretive Data: U se of this assay is not recommended for patients undergoing treatment with eltrombopag due to the potential for falsely elevated results. Calcium [Mass/Vol] 9.0 mg/dL Normal 8.4 - 10. 2 mg/dL AO ADM SS Chloride [Moles/Vol] 100 mmol/L Normal 98 - 10 7 mmol/L AO ADM SS CO2 [Moles/Vol] 23 mmol/L Normal 22 - 29 mmol/L AO ADM SS Creatinine [Mass/Vol] 0.53 mg/dL Low 0.55 - 1.02 mg/dL AO ADM SS Electrolyte Balance 13.0 mEq/L Normal 4.0 - 15 .0 mEq/L AO ADM SS Eosinophil, Absolute 0.1 103/mcL Normal 0.0 - 0 .4 10^3/mcL AO Workflow SS Eosinophils/100 WBC (Bld) 0.5 % Normal 0.0 - 7.0 % AO Workflow SS Erythrocyte distribution width (RBC) [Ratio] 13.2 % Normal 11.5 - 14.5 % AO Workflow SS GFR/1.73 sq M.predicted among blacks MDRD (S/P/Bld) [Vol rate/Area] 172 ml/min/1.73sqm Invalid Interpretation Code AO Chemistry S Comment on above: Interpretive Data: GFR Population mean for , Non- Americans Ages 20-29 = 116 mL/min/1.73 sq.m. Ages 30-39 = 107 mL/min/1.73 sq.m. Ages 40-49 = 99 mL/min/1.73 sq.m. Ages 50-59 = 93 mL/min/1.73 sq.m. Ages 60-69 = 85 mL/min/1.73 sq.m. Ages 70+ = 75 mL/min/1.73 sq.m. Chronic Kidney Disease: Less than 60 mL/min/1.73 square meters End Stage Renal Disease: Less than 15 mL/min/1.73 square meters GFR/1.73 sq M.predicted among non-blacks MDRD (S/P/Bld) [Vol rate/Area] 142 ml/min/1.73sqm Invalid Interpretation Code AO Chemistry S Comment on above: Interpretive Data: GFR Population mean for , Non- Americans Ages 20-29 = 116 mL/min/1.73 sq.m. Ages 30-39 = 107 mL/min/1.73 sq.m. Ages 40-49 = 99 mL/min/1.73 sq.m. Ages 50-59 = 93 mL/min/1.73 sq.m. Ages 60-69 = 85 mL/min/1.73 sq.m. Ages 70+ = 75 mL/min/1.73 sq.m. Chronic Kidney Disease: Less than 60 mL/min/1.73 square meters End Stage Renal Disease: Less than 15 mL/min/1.73 square meters Globulin 3.7 G/dL Invalid Interpretation Code AO ADM SS Glucose [Mass/Vol] 82 mg/dL Normal 70 - 105 mg/dL AO ADM SS HbA1c (Bld) [Mass fraction] 4.9 % Normal 4.3 - 6.4 % AO ADM SS HBV surface Ag IA Ql Non-Reactive (03/01/23 10:10 AM) Normal Non-Reactive AH ADM SS Hematocrit (Bld) [Volume fraction] 38.1 % Normal 37.0 - 47.0 % AO Workflow SS Hemoglobin (Bld) [Mass/Vol] 12.9 G/dL Normal 12.0 - 16.0 G/dL AO Workflow SS Lymphocyte, Absolute 1.3 103/mcL Normal 0.8 - 3 .9 10^3/mcL AO Workflow SS Lymphocytes/100 WBC (Bld) 12.9 % Normal 10.0 - 50.0 % AO Workflow SS MCH (RBC) [Entitic mass] 30.2 pg Normal 27.0 - 31.2 pg AO Workflow SS MCHC 33.8 G/dL Normal 33.0 - 37.0 G/dL AO Workflow SS MCV (RBC) [Entitic vol] 89.2 fL Normal 80.0 - 94.0 fL AO Workflow SS Monocyte, Absolute 0.5 103/mcL Normal 0.2 - 1.0 10^3/mcL AO Workflow SS Monocytes/100 WBC (Bld) 4.7 % Normal 1.7 - 13.0 % AO Workflow SS Neutrophil, Absolute 8.4 103/mcL High 2.9 - 6 .2 10^3/mcL AO Workflow SS Neutrophils/100 WBC (Bld) 81.5 % High 37.0 - 80.0 % AO Workflow SS Platelet mean volume (Bld) [Entitic vol] 9.4 fL Normal 7.4 - 10.4 fL AO Workflow SS Platelets (Bld) [#/Vol] 196 103/mcL Normal 130 - 400 10^3/mcL AO Workflow SS Potassium [Moles/Vol] 4.1 mmol/L Normal 3.5 - 5.1 mmol/L AO ADM SS Protein [Mass/Vol] 7.0 G/dL Normal 6.4 - 8.2 G/dL AO ADM SS RBC (Bld) [#/Vol] 4.27 106/mcL Normal 4.20 - 5.4 0 10^6/mcL AO Workflow SS Sodium [Moles/Vol] 136 mmol/L Normal 136 - 145 mmol/L AO ADM SS Urea nitrogen [Mass/Vol] 6 mg/dL Low 7 - 18 mg/dL AO ADM SS Urea nitrogen/Creatinine [Mass ratio] 11 ratio Normal 7 - 27 ratio AO ADM SS WBC (Bld) [#/Vol] 10.3 103/mcL Normal 4.6 - 10.8 10^3/mcL AO Workflow SS LABORATORYOrdered By: Rashel Loredo on 03-01-2023 HCV Ab IA Ql Non-Reactive (03/01/23 10:10 AM) Normal Non-Reactive ADM SS HCV Ab IA Ql Nonreactive: Samples with a value < 0.80 are considered nonreactive (negative) for antibodies to HCV.A negative test result does not exclude the possibility of exposure to or infection with HCV. HCV antibodies may be undetectable in some stages of the infection and in some clinical conditions. Invalid Interpretation Code Chemistry S CTPCRon 02-24-2023 C. trachomatis Interp Normal See CT Interp N [facility] ([place]) Comment on above: Result Comment: C. t rachomatis DNA not detected. Specimen is presumptive negative for C. trachomatis. A negative result does not preclude C. trachomatis infection because results depend on adequate specimen collection, absence of inhibitors, and sufficient DNA to be detected. See CT Interp N Performed By: #### A DIFF, CBC, ABSGEL, ANEU, ABOGEL #### [place] [address] #### RPR #### [place] [address] C.trachomatis PCR Negative Normal Negative [facility] ([place]) Comment on above: Result Comment: Mole cular (PCR) assay performed on the Shyam Williams 4800 system. Performed By: #### A DIFF, CBC, ABSGEL, ANEU, ABOGEL #### [address] [address] #### RPR #### [address] [address] Chlam Source Cervix Normal [facility] ([place]) Comment on above: Performed By: #### A DIFF, CBC, ABSGEL, ANEU, ABOGEL #### [address] [address] #### RPR #### [address] [address] [id number] 02-24-2023 GC PCR Source Cervix Normal [facility] ([place]) Comment on above: Performed By: #### A DIFF, CBC, ABSGEL, ANEU, ABOGEL #### [place] [address] #### RPR #### [place] [address] N. gonorrhoeae (PCR) Negative Normal Negative [facility] ([place]) Comment on above: Result Comment: Danae ojeda (PCR) assay performed on the Shy[employer] Williams 4800 System. Performed By: #### A DIFF, CBC, ABSGEL, ANEU, ABOGEL #### [place] [address] #### RPR #### [place] [address] N. gonorrhoeae Interp Normal See NG Interp N [facility] ([place]) Comment on above: Result Comment: N. g onorrhoeae DNA not detected. Specimen is presumptive negative for N. gonorrhoeae. A negative result does not preclude Neisseria gonorrhoeae infection because results depend on adequate specimen collection, absence of inhibitors, and sufficient DNA to be detected. See NG Interp N Performed By: #### A DIFF, CBC, ABSGEL, ANEU, ABOGEL #### [place] [address] #### RPR #### [place] [id number] LABORATORYOrdered By: Loreta Elder on 02-23-2023 C. trachomatis DNA DAHIANA+probe Ql (Unsp spec) Negative 2 (02/23/23 1:54 PM) Normal Negative [facility] Auto Viro/Sero SS Comment on above: Interpretive Data: M robert (PCR) assay performed on the Shy[employer] Williams 4800 system. C. trachomatis DNA DAHIANA+probe Ql (Unsp spec) C. trachomatis DNA not detected. Specimen is presumptive negative forC. trachomatis.A negative result does not preclude C. trachomatis infection becauseresults depend on adequate specimen collection, absence of inhibitors,and sufficient DNA to be detected. Normal See CT Interp N AH Auto Viro/Sero SS N. gonorrhoeae DNA DAHIANA+probe Ql (Unsp spec) Negative 1 (02/23/23 1:54 PM) Normal Negative AH Auto Viro/Sero SS Comment on above: Interpretive Data: M robert (PCR) assay performed on the [employer] 4800 System. N. gonorrhoeae DNA DAHIANA+probe Ql (Unsp spec) N. gonorrhoeae DNA not detected. Specimen is presumptive negative forN. gonorrhoeae. A negative result does not preclude Neisseria gonorrhoeaeinfection because results depend on adequate specimen collection, absenceof inhibitors, and sufficient DNA to be detected. Normal See NG Interp N AH Auto Viro/Sero SS Laboratory - Specimen inform ationOrdered By: Loreta Elder on 02-23-2023 Specimen source Nom (Unsp spec) Cervix (02/23/23 1:54 PM) Normal Auto Viro/Sero SS HCGQon 01-21-2023 hCG, quantitative 812.8 mIU/mL Normal [facility] ([place]) Comment on above: Result Comment: HCG Levels with Gestation age: 0.2- 1 week. . . . . . . . . . . . . . . 5 - 50 mIU/mL 1-2 weeks . . . . . . . . . . . . . . . 50 - 500 mIU/mL 2-3 weeks . . . . . . . . . . . . . . . 100 - 5,000 mIU/ml 3-4 weeks . . . . . . . . . . . . . . . 500 - 10,000 mIU/mL 4-5 weeks . . . . . . . . . . . . . . . 1,000 - 5,000 mIU/mL 5-6 weeks . . . . . . . . . . . . . . . 10,000 - 100,000 mIU/mL 6-8 weeks . . . . . . . . . . . . . . . 15,000 - 200,000 mIU/mL 2-3 months . . . . . . . . . . . . . . . 10,000 - 100,000 mIU/mL Performed By: #### G LU1P, CBC, DEVORAH JAMIL #### [address] [place] [address] [place], [place] [address] #### RPR #### [facility] [address] [place] [id number] LABORATORYOrdered By: SYSTEM SYSTEM on 01-21-2023 HCG Qn 812.8 m[IU]/mL Invalid Interpretation Code AO ADM SS Comment on above: Interpretive Data: H CG Levels with Gestation age: 0.2- 1 week. . . . . . . . . . . . . . . 5 - 50 mIU/mL 1-2 weeks . . . . . . . . . . . . . . . 50 - 500 mIU/mL 2-3 weeks . . . . . . . . . . . . . . . 100 - 5,000 mIU/ml 3-4 weeks . . . . . . . . . . . . . . . 500 - 10,000 mIU/mL 4-5 weeks . . . . . . . . . . . . . . . 1,000 - 5,000 mIU/mL 5-6 weeks . . . . . . . . . . . . . . . 10,000 - 100,000 mIU/mL 6-8 weeks . . . . . . . . . . . . . . . 15,000 - 200,000 mIU/mL 2-3 months . . . . . . . . . . . . . . . 10,000 - 100,000 mIU/mL HCGQon 01-18-2023 hCG, quantitative 290.8 mIU/mL Normal [facility] ([place]) Comment on above: Result Comment: HCG Levels with Gestation age: 0.2- 1 week. . . . . . . . . . . . . . . 5 - 50 mIU/mL 1-2 weeks . . . . . . . . . . . . . . . 50 - 500 mIU/mL 2-3 weeks . . . . . . . . . . . . . . . 100 - 5,000 mIU/ml 3-4 weeks . . . . . . . . . . . . . . . 500 - 10,000 mIU/mL 4-5 weeks . . . . . . . . . . . . . . . 1,000 - 5,000 mIU/mL 5-6 weeks . . . . . . . . . . . . . . . 10,000 - 100,000 mIU/mL 6-8 weeks . . . . . . . . . . . . . . . 15,000 - 200,000 mIU/mL 2-3 months . . . . . . . . . . . . . . . 10,000 - 100,000 mIU/mL Performed By: #### G LU1P, CBC, ADIFF, ANEU #### [address] [address] #### RPR #### [facility] [address] [place] [id number] LABORATORYOrdered By: SYSTEM SYSTEM on 01-18-2023 HCG Qn 290.8 m[IU]/mL Invalid Interpretation Code AO ADM SS Comment on above: Interpretive Data: H CG Levels with Gestation age: 0.2- 1 week. . . . . . . . . . . . . . . 5 - 50 mIU/mL 1-2 weeks . . . . . . . . . . . . . . . 50 - 500 mIU/mL 2-3 weeks . . . . . . . . . . . . . . . 100 - 5,000 mIU/ml 3-4 weeks . . . . . . . . . . . . . . . 500 - 10,000 mIU/mL 4-5 weeks . . . . . . . . . . . . . . . 1,000 - 5,000 mIU/mL 5-6 weeks . . . . . . . . . . . . . . . 10,000 - 100,000 mIU/mL 6-8 weeks . . . . . . . . . . . . . . . 15,000 - 200,000 mIU/mL 2-3 months . . . . . . . . . . . . . . . 10,000 - 100,000 mIU/mL HCGQon 11-24-2022 hCG, quantitative <1.0 Normal [facility] ([place]) Comment on above: Result Comment: HCG Levels with Gestation age: 0.2- 1 week. . . . . . . . . . . . . . . 5 - 50 mIU/mL 1-2 weeks . . . . . . . . . . . . . . . 50 - 500 mIU/mL 2-3 weeks . . . . . . . . . . . . . . . 100 - 5,000 mIU/ml 3-4 weeks . . . . . . . . . . . . . . . 500 - 10,000 mIU/mL 4-5 weeks . . . . . . . . . . . . . . . 1,000 - 5,000 mIU/mL 5-6 weeks . . . . . . . . . . . . . . . 10,000 - 100,000 mIU/mL 6-8 weeks . . . . . . . . . . . . . . . 15,000 - 200,000 mIU/mL 2-3 months . . . . . . . . . . . . . . . 10,000 - 100,000 mIU/mL Performed By: #### G LU1P, CBC, ADIFF, ANEU #### [address] [address] #### RPR #### [place] [address] LABORATORYOrdered By: Jasiel Nava on 09-01-2022 Fibrin D-dimer DDU (PPP) [Mass/Vol] ng/mL D-DU Invalid Interpretation Code 0 - 230 ng/mL D-DU AO [employer] SS LABORATORYOrdered By: SYSTEM SYSTEM on 03-24-2022 Albumin BCP dye [Mass/Vol] 3.8 G/dL Invalid Interpretation Code 3.5 - 5.0 G/dL AO ADM SS Albumin/Globulin [Mass ratio] 1.2 {ratio} Invalid Interpretation Code 1.1 - 2.5 ratio AO ADM SS ALP [Catalytic activity/Vol] 148 U/L Invalid Interpretation Code 40 - 135 U/L AO ADM SS ALT With P-5'-P [Catalytic activity/Vol] 58 U/L Invalid Interpretation Code 14 - 59 U/L AO ADM SS AST With P-5'-P [Catalytic activity/Vol] 25 U/L Invalid Interpretation Code 10 - 40 U/L AO ADM SS Bilirubin [Mass/Vol] 0.3 mg/dL Invalid Interpretation Code 0.2 - 1.0 mg/dL AO ADM SS Calcium [Mass/Vol] 9.5 mg/dL Invalid Interpretation Code 8.4 - 10.2 mg/dL AO ADM SS Chloride [Moles/Vol] 103 mmol/L Invalid Interpretation Code 98 - 107 mmol/L AO ADM SS CO2 [Moles/Vol] 26 mmol/L Invalid Interpretation Code 22 - 29 mmol/L AO ADM SS Creatinine [Mass/Vol] 0.68 mg/dL Invalid Interpretation Code 0.55 - 1.02 mg/dL AO ADM SS Electrolyte Balance 10.0 mEq/L Invalid Interpretation Code 4.0 - 15.0 mEq/L AO ADM SS Free T4 [Mass/Vol] 1.02 ng/dL Invalid Interpretation Code 0.76 - 1.46 ng/dL AO ADM SS GFR 130 ml/min/1.73sqm Invalid Interpretation Code AO Chemistry S GFR Non- 107 ml/min/1.73sqm Invalid Interpretation Code AO Chemistry S Globulin 3.1 G/dL Invalid Interpretation Code AO ADM SS Glucose [Mass/Vol] 88 mg/dL Invalid Interpretation Code 70 - 105 mg/dL AO ADM SS Iron [Mass/Vol] 50 ug/dL Invalid Interpretation Code 50 - 170 mcg/dL AO ADM SS Potassium [Moles/Vol] 4.5 mmol/L Invalid Interpretation Code 3.5 - 5.1 mmol/L AO ADM SS Protein [Mass/Vol] 6.9 G/dL Invalid Interpretation Code 6.4 - 8.2 G/dL AO ADM SS Sodium [Moles/Vol] 139 mmol/L Invalid Interpretation Code 136 - 145 mmol/L AO ADM SS TSH Qn 1.64 m[IU]/L Invalid Interpretation Code 0.36 - 3.74 mcIU/mL AO ADM SS Urea nitrogen [Mass/Vol] 8 mg/dL Invalid Interpretation Code 7 - 18 mg/dL AO ADM SS Urea nitrogen/Creatinine [Mass ratio] 12 ratio Invalid Interpretation Code 7 - 27 ratio AO ADM SS Vit. D 25-Hydroxy 35.5 ng/mL Invalid Interpretation Code AO ADM SS LABORATORYOrdered By: Jasiel Nava on 03-24-2022 Basophil, Absolute 0.0 103/mcL Invalid Interpretation Code 0.0 - 0.2 10^3/mcL AO Workflow SS Basophils/100 WBC (Bld) 0.2 % Invalid Interpretation Code 0.0 - 2.5 % AO Workflow SS Eosinophil, Absolute 0.0 103/mcL Invalid Interpretation Code 0.0 - 0.4 10^3/mcL AO Workflow SS Eosinophils/100 WBC (Bld) 0.6 % Invalid Interpretation Code 0.0 - 7.0 % AO Workflow SS Erythrocyte distribution width (RBC) [Ratio] 13.4 % Invalid Interpretation Code 11.5 - 14.5 % AO Workflow SS Hematocrit (Bld) [Volume fraction] 39.5 % Invalid Interpretation Code 37.0 - 47.0 % AO Workflow SS Hemoglobin (Bld) [Mass/Vol] 13.3 G/dL Invalid Interpretation Code 12.0 - 16.0 G/dL AO Workflow SS Lymphocyte, Absolute 1.7 103/mcL Invalid Interpretation Code 0.8 - 3.9 10^3/mcL AO Workflow SS Lymphocytes/100 WBC (Bld) 23.2 % Invalid Interpretation Code 10.0 - 50.0 % AO Workflow SS MCH (RBC) [Entitic mass] 29.4 pg Invalid Interpretation Code 27.0 - 31.2 pg AO Workflow SS MCHC 33.6 G/dL Invalid Interpretation Code 33.0 - 37.0 G/dL AO Workflow SS MCV (RBC) [Entitic vol] 87.5 fL Invalid Interpretation Code 80.0 - 94.0 fL AO Workflow SS Monocyte, Absolute 0.4 103/mcL Invalid Interpretation Code 0.2 - 1.0 10^3/mcL AO Workflow SS Monocytes/100 WBC (Bld) 5.7 % Invalid Interpretation Code 1.7 - 13.0 % AO Workflow SS Neutrophil, Absolute 5.2 103/mcL Invalid Interpretation Code 2.9 - 6.2 10^3/mcL AO Workflow SS Neutrophils/100 WBC (Bld) 70.3 % Invalid Interpretation Code 37.0 - 80.0 % AO Workflow SS Platelet mean volume (Bld) [Entitic vol] 9.2 fL Invalid Interpretation Code 7.4 - 10.4 fL AO Workflow SS Platelets (Bld) [#/Vol] 220 103/mcL Invalid Interpretation Code 130 - 400 10^3/mcL AO Workflow SS RBC (Bld) [#/Vol] 4.51 106/mcL Invalid Interpretation Code 4.20 - 5.40 10^6/mcL AO Workflow SS WBC (Bld) [#/Vol] 7.5 103/mcL Invalid Interpretation Code 4.6 - 10.8 10^3/mcL AO Workflow SS LABORATORYOrdered By: Alison Griffith on 02-05-2022 HCG Qn mIU/mL Invalid Interpretation Code AO ADM SS LABORATORYOrdered By: Alison Griffith on 09-04-2021 Basophil, Absolute 0.0 103/mcL Invalid Interpretation Code 0.0 - 0.2 10^3/mcL AO Workflow SS Basophils/100 WBC (Bld) 0.2 % Invalid Interpretation Code 0.0 - 2.5 % AO Workflow SS Eosinophil, Absolute 0.1 103/mcL Invalid Interpretation Code 0.0 - 0.4 10^3/mcL AO Workflow SS Eosinophils/100 WBC (Bld) 1.1 % Invalid Interpretation Code 0.0 - 7.0 % AO Workflow SS Erythrocyte distribution width (RBC) [Ratio] 13.8 % Invalid Interpretation Code 11.5 - 14.5 % AO Workflow SS Hematocrit (Bld) [Volume fraction] 40.4 % Invalid Interpretation Code 37.0 - 47.0 % AO Workflow SS Hgb 13.3 G/dL Invalid Interpretation Code 12.0 - 16.0 G/dL AO Workflow SS Lymphocyte, Absolute 1.9 103/mcL Invalid Interpretation Code 0.8 - 3.9 10^3/mcL AO Workflow SS Lymphocytes/100 WBC (Bld) 21.4 % Invalid Interpretation Code 10.0 - 50.0 % AO Workflow SS MCH (RBC) [Entitic mass] 27.8 pg Invalid Interpretation Code 27.0 - 31.2 pg AO Workflow SS MCHC 32.9 G/dL Invalid Interpretation Code 33.0 - 37.0 G/dL AO Workflow SS MCV (RBC) [Entitic vol] 84.7 fL Invalid Interpretation Code 80.0 - 94.0 fL AO Workflow SS Monocyte, Absolute 0.5 103/mcL Invalid Interpretation Code 0.2 - 1.0 10^3/mcL AO Workflow SS Monocytes/100 WBC (Bld) 5.9 % Invalid Interpretation Code 1.7 - 13.0 % AO Workflow SS Neutrophil, Absolute 6.3 103/mcL Invalid Interpretation Code 2.9 - 6.2 10^3/mcL AO Workflow SS Neutrophils/100 WBC (Bld) 71.4 % Invalid Interpretation Code 37.0 - 80.0 % AO Workflow SS Platelet 252 103/mcL Invalid Interpretation Code 130 - 400 10^3/mcL AO Workflow SS Platelet mean volume (Bld) [Entitic vol] 9.2 fL Invalid Interpretation Code 7.4 - 10.4 fL AO Workflow SS RBC 4.78 106/mcL Invalid Interpretation Code 4.20 - 5.40 10^6/mcL AO Workflow SS WBC 8.8 103/mcL Invalid Interpretation Code 4.6 - 10.8 10^3/mcL AO Workflow SS LABORATORYOrdered By: Tonja Dos Santos on 09-04-2021 Fibrin D-dimer DDU (PPP) [Mass/Vol] ng/mL D-DU Invalid Interpretation Code 0 - 230 ng/mL D-DU AO Coag SS LABORATORYOrdered By: SYSTEM SYSTEM on 09-04-2021 Monocyte distribution width Auto (Bld) [Entitic vol] Not Performed 1 *NA* (09/04/21 9:51 AM) Invalid Interpretation Code 0.00 - 20.00 AO Hematology S Comment on above: Result Comment: MDW testing performed only on adult ER patients between the ages of 18-89 years. No Panel Informationon 03-06 Culture Urine 10,000 - 50,000 cfu/ ml Mixed growth consistent with normal urogenital wandy. [facility] Work Phone: LABORATORYOrdered By: Viridiana Ring on 01-27-2021 ABO/Rh Interp Positive Invalid Interpretation Code AO BB SS Antibody Screen Gel Negative ABSC (01/27/21 6:23 AM) Invalid Interpretation Code AO BB SS Basophil, Absolute 0.00 103/mcL Invalid Interpretation Code 0.00 - 0.19 10^3/mcL AO Auto Heme SS Basophils/100 WBC (Bld) 0.4 % Invalid Interpretation Code 0.0 - 2.5 % AO Auto Heme SS Eosinophil, Absolute 0.00 103/mcL Invalid Interpretation Code 0.00 - 0.40 10^3/mcL AO Auto Heme SS Eosinophils/100 WBC (Bld) 0.3 % Invalid Interpretation Code 0.0 - 7.0 % AO Auto Heme SS Erythrocyte distribution width (RBC) [Ratio] 14.2 % Invalid Interpretation Code 11.5 - 14.5 % AO Auto Heme SS Hematocrit (Bld) [Volume fraction] 29.9 % Invalid Interpretation Code 37.0 - 47.0 % AO Auto Heme SS Hemoglobin (Bld) [Mass/Vol] 10.0 G/dL Invalid Interpretation Code 12.0 - 16.0 G/dL AO Auto Heme SS Lymphocyte, Absolute 1.80 103/mcL Invalid Interpretation Code 0.77 - 3.85 10^3/mcL AO Auto Heme SS Lymphocytes/100 WBC (Bld) 19.6 % Invalid Interpretation Code 10.0 - 50.0 % AO Auto Heme SS MCH (RBC) [Entitic mass] 26.3 pg Invalid Interpretation Code 27.0 - 31.2 pg AO Auto Heme SS MCHC (RBC) [Mass/Vol] 33.4 G/dL Invalid Interpretation Code 33.0 - 37.0 G/dL AO Auto Heme SS MCV (RBC) [Entitic vol] 78.7 fL Invalid Interpretation Code 80.0 - 94.0 fL AO Auto Heme SS Monocyte, Absolute 0.40 103/mcL Invalid Interpretation Code 0.15 - 1.00 10^3/mcL AO Auto Heme SS Monocytes/100 WBC (Bld) 4.3 % Invalid Interpretation Code 1.7 - 13.0 % AO Auto Heme SS Neutrophil, Absolute 6.80 103/mcL Invalid Interpretation Code 2.85 - 6.16 10^3/mcL AO Auto Heme SS Neutrophils/100 WBC (Bld) 75.4 % Invalid Interpretation Code 37.0 - 80.0 % AO Auto Heme SS Platelet mean volume (Bld) [Entitic vol] 8.7 fL Invalid Interpretation Code 7.4 - 10.4 fL AO Auto Heme SS Platelets (Bld) [#/Vol] 241 103/mcL Invalid Interpretation Code 130 - 400 10^3/mcL AO Auto Heme SS RBC (Bld) [#/Vol] 3.79 106/mcL Invalid Interpretation Code 4.20 - 5.40 10^6/mcL AO Auto Heme SS WBC (Bld) [#/Vol] 9.00 103/mcL Invalid Interpretation Code 4.60 - 10.80 10^3/mcL AO Auto Heme SS LABORATORYOrdered By: Jasiel Nava on 01-24-2021 Albumin BCP dye [Mass/Vol] 2.3 G/dL Invalid Interpretation Code 3.5 - 5.0 G/dL AO ADM SS Albumin/Globulin [Mass ratio] 0.6 {ratio} Invalid Interpretation Code 1.1 - 2.5 ratio AO ADM SS ALP [Catalytic activity/Vol] 329 U/L Invalid Interpretation Code 40 - 135 U/L AO ADM SS ALT With P-5'-P [Catalytic activity/Vol] 49 U/L Invalid Interpretation Code 14 - 59 U/L AO ADM SS AST With P-5'-P [Catalytic activity/Vol] 27 U/L Invalid Interpretation Code 10 - 40 U/L AO ADM SS Bilirubin [Mass/Vol] 0.4 mg/dL Invalid Interpretation Code 0.2 - 1.0 mg/dL AO ADM SS Calcium [Mass/Vol] 8.3 mg/dL Invalid Interpretation Code 8.4 - 10.2 mg/dL AO ADM SS Chloride [Moles/Vol] 104 mmol/L Invalid Interpretation Code 98 - 107 mmol/L AO ADM SS CO2 [Moles/Vol] 21 mmol/L Invalid Interpretation Code 22 - 29 mmol/L AO ADM SS Creatinine [Mass/Vol] 0.51 mg/dL Invalid Interpretation Code 0.55 - 1.02 mg/dL AO ADM SS Electrolyte Balance 11.0 mEq/L Invalid Interpretation Code AO ADM SS Globulin 3.8 G/dL Invalid Interpretation Code AO ADM SS Glucose [Mass/Vol] 63 mg/dL Invalid Interpretation Code 70 - 105 mg/dL AO ADM SS Potassium [Moles/Vol] 4.5 mmol/L Invalid Interpretation Code 3.5 - 5.1 mmol/L AO ADM SS Protein [Mass/Vol] 6.1 G/dL Invalid Interpretation Code 6.4 - 8.2 G/dL AO ADM SS Sodium [Moles/Vol] 136 mmol/L Invalid Interpretation Code 136 - 145 mmol/L AO ADM SS Urea nitrogen [Mass/Vol] 5 mg/dL Invalid Interpretation Code 7 - 18 mg/dL AO ADM SS Urea nitrogen/Creatinine [Mass ratio] 10 ratio Invalid Interpretation Code 7 - 27 ratio AO ADM SS LABORATORYOrdered By: SYSTEM SYSTEM on 01-24-2021 GFR 183 ml/min/1.73sqm Invalid Interpretation Code AO Chemistry S GFR Non- 151 ml/min/1.73sqm Invalid Interpretation Code AO Chemistry S Chart Updateon 01-29-2020 Chart Update Chart Update The patient was a no-show for her scheduled telemedicine today Signatures Electronically signed by : Alanna Velasco DO; Jan 29 2020 8:40AM EST (Author) Normal [facility] Chlamydia trachomatis PCRon 10-15-2016 Chlamydia trachomatis PCR Name: SONIYA HAYS Haylee Knight: 2000 Sex: Rodas# Loc [facility] Site [id number] [facility] GENTF 10/15/16NTIBIOTICS AT COL.:[facility] [address] [place], [place] [id number] trachomatis PCR FINALC. trachomatis DNA not detected. Specimen is presumptivenegative for C. trachomatis. A negative result does notpreclude C. trachomatis infection because results dependon adequate specimen collection, absence of inhibitors, andsufficient DNA to be detected.OCHOA FOR RESULTS: - NEW RESULTATT.PHYS.: SHIVANI BARROS LOCATION: [facility].DATE: 10/15/16 PATIENT : SONIYA HAYS LEONACROBIOLOGYPRINTED: 10/16/16 06:56 REGULAR 2 PAGE: 2 of 1 1 Normal [facility] Culture Genital Femaleon Culture Genital Female Name: SAÚL SONIYAJOSE E Leach D.o.b.: 2000 Sex: Rodas# Loc [facility] Site [id number] [facility] GENTF 10/15/16NTIBIOTICS AT COL.:[facility] [address] [place], [place] [id number] Microscopic FINALTrichomonas: NegativeYeast: NegativeCulture Genital Female FINALTESTING CURRENTLY IN PROGRESS.THIS ORDER FINALIZED DUE TO CONVERSION TO NEWDataiumORATORY INFORMATION SYSTEM.TEST WILL BE REORDERED AND RESULTED IN NEWLABORATORY INFORMATION SYSTEM.PATIENT WILL NOT INCUR DUPLICATE CHARGING.OCHOA FOR RESULTS: - NEW RESULTATT.PHYS.: SHIVANI BARROS LOCATION: [facility].DATE: 10/15/16 PATIENT : SONIYA HAYSCROBIOLOGYPRINTED: 10/16/16 17:41 REGULAR 2 PAGE: 2 of 1 1 Normal [facility] N. gonorrhoeae PCRon 017 N. gonorrhoeae PCR Name : SAÚLSONIYA D.o.b.: 2000 Sex: Rodas# Loc [facility] Site [id number] [facility] GENTF 10/15/16NTIBIOTICS AT COL.:[facility] [address], [place] [address]Y. gonorrhoeae PCR FINALN. gonorrhoeae DNA not detected. Specimen is presumptivenegative for N. gonorrhoeae. A negative result does notpreclude Neisseria gonorrhoeae infection because resultsdepend on adequate specimen collection, absence ofinhibitors, and sufficient DNA to be detected.OCHOA FOR RESULTS: - NEW RESULTATT.PHYS.: SHIVANI BARROS LOCATION: [facility]--ADM.DATE: 10/15/16 PATIENT : SONIYA HAYS AMICROBIOLOGYPRINTED: 10/16/16 06:57 REGULAR 2 PAGE: 2 of 1 1 [facility] Vital Signs Date Time Vital Sign Value Performing Clinician Facility 11-16-2024 08:13-0400 Body temperature 97.39 [degF] Rupert Mansfield APRN.TRANSPORTATION SOLUTIONS MANAGER Work Phone: [facility] 11-16-2024 08:13-0400 Body weight 79.6 kg Rupert Mansfield APRN.TRANSPORTATION SOLUTIONS MANAGER Work Phone: [facility] 11-16-2024 08:13-0400 Diastolic blood pressure 83 mm[Hg] Rupert Mansfield APRN.TRANSPORTATION SOLUTIONS MANAGER Work Phone: [facility] 11-16-2024 08:13-0400 Heart rate 58 /min Rupert Mansfield APRN.TRANSPORTATION SOLUTIONS MANAGER Work Phone: [facility] 11-16-2024 08:13-0400 Respiratory rate 18 /min Rupert Mansfield APRN.TRANSPORTATION SOLUTIONS MANAGER Work Phone: [facility] 11-16-2024 08:13-0400 SaO2% (BldA) [Mass fraction] 100 % Rupert Mansfield APRN.TRANSPORTATION SOLUTIONS MANAGER Work Phone: [facility] 11-16-2024 08:13-0400 Systolic blood pressure 119 mm[Hg] Rupert Mansfield APRN.TRANSPORTATION SOLUTIONS MANAGER Work Phone: [facility] 10-27-2024 10:20-0400 Body temperature 98.4 [degF] Krislyn Aberegg PA Work Phone: [facility] 10-27-2024 10:20-0400 Body weight 76.3 kg Krislyn Aberegg PA Work Phone: [facility] 10-27-2024 10:20-0400 Diastolic blood pressure 60 mm[Hg] Krislyn Aberegg PA Work Phone: [facility] 10-27-2024 10:20-0400 Heart rate 87 /min Krislyn Aberegg PA Work Phone: [facility] 10-27-2024 10:20-0400 Respiratory rate 18 /min Krislyn Aberegg PA Work Phone: [facility] 10-27-2024 10:20-0400 SaO2% (BldA) [Mass fraction] 97 % Krislyn Aberegg PA Work Phone: [facility] 10-27-2024 10:20-0400 Systolic blood pressure 100 mm[Hg] Krislyn Aberegg PA Work Phone: [facility] 02-28-2024 09:35-0500 Body temperature 98.1 [degF] Robby Mcdaniels MD Work Phone: [facility] 02-28-2024 09:35-0500 Body weight 77 kg Robby Mcdaniels MD Work Phone: [facility] 02-28-2024 09:35-0500 Diastolic blood pressure 70 mm[Hg] Robby Mcdaniels MD Work Phone: [facility] 02-28-2024 09:35-0500 Heart rate 80 /min Robby Mcdaniels MD Work Phone: [facility] 02-28-2024 09:35-0500 Respiratory rate 16 /min Robby Mcdaniels MD Work Phone: [facility] 02-28-2024 09:35-0500 SaO2% (BldA) [Mass fraction] 97 % Robby Mcadniels MD Work Phone: [facility] 02-28-2024 09:35-0500 Systolic blood pressure 122 mm[Hg] Robby Mcdaniels MD Work Phone: [facility] 10-07-2023 20:57-0400 Diastolic Blood Pressure Non-Invasive 61 mm[Hg] DR SARAI MAXWELL MD [facility] 10-07-2023 20:57-0400 Heart rate 54 /min DR SARAI MAXWELL MD [facility] 10-07-2023 20:57-0400 Mean blood pressure 74 mm[Hg] DR SARAI MAXWELL MD [facility] 10-07-2023 20:57-0400 Respiratory rate 16 /min DR SARAI MAXWELL MD [facility] 10-07-2023 20:57-0400 Systolic Blood Pressure Non-Invasive 101 mm[Hg] DR SARAI MAXWELL MD [facility] 10-07-2023 18:29-0400 Body height [address] SARAI MAXWELL MD [facility] 10-07-2023 18:29-0400 Body temperature 97.16 [degF] DR SARAI MAXWELL MD [facility] 10-07-2023 18:29-0400 Body weight 78.[address] SARAI MAXWELL MD [facility] 10-07-2023 18:29-0400 Diastolic Blood Pressure Non-Invasive 74 mm[Hg] DR SARAI MAXWELL MD [facility] 10-07-2023 18:29-0400 Heart rate 74 /min DR SARAI MAXWELL MD [facility] 10-07-2023 18:29-0400 Respiratory rate 18 /min DR SARAI MAXWELL MD [facility] 10-07-2023 18:29-0400 Systolic Blood Pressure Non-Invasive 104 mm[Hg] DR SARAI MAXWELL MD [facility] 09-03-2023 08:41-0400 Body temperature 98.42 [degF] AMANDA BEITLER [employer] [facility] 09-03-2023 08:41-0400 Diastolic Blood Pressure Non-Invasive 63 mm[Hg] AMANDA BEITLER [employer] [facility] 09-03-2023 08:41-0400 Heart rate 66 /min AMANDA BEITLER [employer] [facility] 09-03-2023 08:41-0400 Respiratory rate 18 /min AMANDA BEITLER [employer] [facility] 09-03-2023 08:41-0400 Systolic Blood Pressure Non-Invasive 103 mm[Hg] AMANDA BEITLER [employer] [facility] 09-02-2023 23:38-0400 Body temperature 98.06 [degF] AMANDA BEITLER [employer] [facility] 09-02-2023 23:38-0400 Diastolic Blood Pressure Non-Invasive 60 mm[Hg] AMANDA BEITLER [employer] [facility] 09-02-2023 23:38-0400 Heart rate 72 /min AMANDA BEITLER [employer] [facility] 09-02-2023 23:38-0400 Respiratory rate 18 /min AMANDA BEITLER [employer] [facility] 09-02-2023 23:38-0400 Systolic Blood Pressure Non-Invasive 113 mm[Hg] AMANDA BEITLER [employer] [facility] 09-02-2023 18:00-0400 Body temperature 97.7 [degF] AMANDA BEITLER [employer] [facility] 09-02-2023 18:00-0400 Diastolic Blood Pressure Non-Invasive 55 mm[Hg] AMANDA BEITLER [employer] [facility] 09-02-2023 18:00-0400 Respiratory rate 16 /min AMANDA BEITLER [employer] [facility] 09-01-2023 23:22-0400 Body temperature 98.24 [degF] AMANDA BEITLER [employer] [facility] 09-01-2023 18:00-0400 Body temperature 98.06 [degF] AMANDA BEIT[employer]ER [employer] [facility] 09-01-2023 16:45-0400 Body temperature 97.88 [degF] AMANDA BEITLER [employer] [facility] 09-01-2023 06:01-0400 Reason For Taking VItal Signs AMANDA BEITLER [employer] [facility] 09-01-2023 05:56-0400 Body height 155 cm AMANDA BEITLER [employer] [facility] 09-01-2023 05:56-0400 Body weight 89 kg AMANDA BEITLER [employer] [facility] 09-01-2023 05:56-0400 Body weight 37.04 kg/m2 AMANDA BEITLER [employer] [facility] 08-26-2023 12:54-0400 Body temperature 97.88 [degF] AMANDA BEITLER [employer] [facility] 08-26-2023 12:54-0400 Diastolic Blood Pressure Non-Invasive 71 mm[Hg] AMANDA BEITLER [employer] [facility] 08-26-2023 12:54-0400 Heart rate 91 /min AMANDA BEITLER [employer] [facility] 08-26-2023 12:54-0400 Reason For Taking VItal Signs AMANDA BEITLER [employer] [facility] 08-26-2023 12:54-0400 Respiratory rate 16 /min AMANDA BEITLER [employer] [facility] 08-26-2023 12:54-0400 Systolic Blood Pressure Non-Invasive 106 mm[Hg] AMANDA BEIT[employer]ER [employer] [facility] 08-25-2023 12:55-0400 Body temperature 97.52 [degF] AMANDA BEIT[employer]ER [employer] [facility] 08-25-2023 12:55-0400 Diastolic Blood Pressure Non-Invasive 79 mm[Hg] AMANDA BEITLER [employer] [facility] 08-25-2023 12:55-0400 Heart rate 99 /min AMANDA BEITLER [employer] [facility] 08-25-2023 12:55-0400 Respiratory rate 18 /min AMANDA BEITLER [employer] [facility] 08-25-2023 12:55-0400 Systolic Blood Pressure Non-Invasive 117 mm[Hg] AMANDA BEITLER [employer] [facility] 08-25-2023 12:03-0400 Body temperature 97.88 [degF] AMANDA BEIT[employer]ER [employer] [facility] 08-25-2023 12:03-0400 Diastolic Blood Pressure Non-Invasive 77 mm[Hg] AMANDA BEITLER [employer] [facility] 08-25-2023 12:03-0400 Heart rate 96 /min AMANDA BEITLER [employer] [facility] 08-25-2023 12:03-0400 Respiratory rate 16 /min AMANDA BEITLER [employer] [facility] 08-25-2023 12:03-0400 Systolic Blood Pressure Non-Invasive 118 mm[Hg] AMANDA [employer]IT[employer]ER [employer] [facility] 08-24-2023 10:59-0400 Body temperature 97.7 [degF] AMANDA [employer]IT[employer]ER [employer] [facility] 08-24-2023 10:59-0400 Diastolic Blood Pressure Non-Invasive 70 mm[Hg] AMANDA BEIT[employer]ER [employer] [facility] 08-24-2023 10:59-0400 Heart rate 89 /min AMANDA BEITLER [employer] [facility] 08-24-2023 10:59-0400 Respiratory rate 16 /min AMANDA BEITLER [employer] [facility] 08-24-2023 10:59-0400 Systolic Blood Pressure Non-Invasive 116 mm[Hg] AMANDA [employer]IT[employer]ER [employer] [facility] 08-17-2023 10:17-0400 Body temperature 98.6 [degF] AMANDA BEIT[employer]ER [employer] [facility] 08-17-2023 10:17-0400 Diastolic Blood Pressure Non-Invasive 66 mm[Hg] AMANDA BEIT[employer]ER [employer] [facility] 08-17-2023 10:17-0400 Heart rate 89 /min AMANDA BEITLER [employer] [facility] 08-17-2023 10:17-0400 Respiratory rate 16 /min AMANDA BEITLER [employer] [facility] 08-17-2023 10:17-0400 Systolic Blood Pressure Non-Invasive 102 mm[Hg] AMANDA BEIT[employer]ER [employer] [facility] 08-13-2023 09:40-0400 Body temperature 98.06 [degF] AMANDA BEIT[employer]ER [employer] [facility] 08-13-2023 09:40-0400 Diastolic Blood Pressure Non-Invasive 63 mm[Hg] AMANDA BEIT[employer]ER [employer] [facility] 08-13-2023 09:40-0400 Heart rate 100 /min AMANDA BEITLER [employer] [facility] 08-13-2023 09:40-0400 Respiratory rate 14 /min AMANDA BEITLER [employer] [facility] 08-13-2023 09:40-0400 Systolic Blood Pressure Non-Invasive 97 mm[Hg] AMANDA [employer]IT[employer]ER [employer] [facility] 08-03-2023 11:26-0400 Body temperature 98.24 [degF] AMANDA [employer] [facility] 08-03-2023 11:26-0400 Diastolic Blood Pressure Non-Invasive 62 mm[Hg] AMANDA [employer]IT[employer]ER [employer] [facility] 08-03-2023 11:26-0400 Heart rate 101 /min AMANDA BEITLER [employer] [facility] 08-03-2023 11:26-0400 Respiratory rate 18 /min AMANDA BEITLER [employer] [facility] 08-03-2023 11:26-0400 Systolic Blood Pressure Non-Invasive 99 mm[Hg] AMANDA [employer] [facility] 07-30-2023 13:10-0400 Body temperature 97.88 [degF] MARYAN PLUNKETT MD [facility] 07-30-2023 13:10-0400 Diastolic Blood Pressure Non-Invasive 61 mm[Hg] MARYAN PLUNKETT MD [facility] 07-30-2023 13:10-0400 Heart rate 91 /min MARYAN PLUNKETT MD [facility] 07-30-2023 13:10-0400 Respiratory rate 16 /min MARYAN PLUNKETT MD [facility] 07-30-2023 13:10-0400 Systolic Blood Pressure Non-Invasive 110 mm[Hg] MARYAN PLUNKETT MD [facility] 07-27-2023 13:35-0400 Body temperature 97.7 [degF] AMANDA [employer] [facility] 07-27-2023 13:35-0400 Diastolic Blood Pressure Non-Invasive 55 mm[Hg] AMANDA [employer] [facility] 07-27-2023 13:35-0400 Heart rate 78 /min AMANDA [employer]IT[employer]ER [employer] [facility] 07-27-2023 13:35-0400 Respiratory rate 16 /min AMANDA BEIT[employer]ER [employer] [facility] 07-27-2023 13:35-0400 Systolic Blood Pressure Non-Invasive 96 mm[Hg] AMANDA [employer]IT[employer] [facility] 07-23-2023 12:40-0400 Body temperature 98.06 [degF] AMANDA [employer] [facility] 07-23-2023 12:40-0400 Diastolic Blood Pressure Non-Invasive 61 mm[Hg] AMANDA [employer] [facility] 07-23-2023 12:40-0400 Heart rate 98 /min AMANDA [employer]IT[employer]ER [employer] [facility] 07-23-2023 12:40-0400 Reason For Taking VItal Signs AMANDA [employer]IT[employer]ER [employer] [facility] 07-23-2023 12:40-0400 Respiratory rate 18 /min AMANDA BEIT[employer]ER [employer] [facility] 07-23-2023 12:40-0400 Systolic Blood Pressure Non-Invasive 100 mm[Hg] AMANDA [employer] [facility] 07-20-2023 12:07-0400 Body temperature 98.06 [degF] AMANDA [employer] [facility] 07-20-2023 12:07-0400 Diastolic Blood Pressure Non-Invasive 61 mm[Hg] AMANDA [employer] [facility] 07-20-2023 12:07-0400 Heart rate 77 /min AMANDA [employer]IT[employer] [facility] 07-20-2023 12:07-0400 Reason For Taking VItal Signs AMANDA [employer]IT[employer] [facility] 07-20-2023 12:07-0400 Respiratory rate 18 /min AMANDA [employer]IT[employer]ER [employer] [facility] 07-20-2023 12:07-0400 Systolic Blood Pressure Non-Invasive 106 mm[Hg] AMANDA GREENWOOD [employer] [facility] 07-16-2023 16:39-0400 Body temperature 98.6 [degF] MARYAN PLUNKETT MD [facility] 07-16-2023 16:39-0400 Diastolic Blood Pressure Non-Invasive 60 mm[Hg] MARYAN PLUNKETT MD [facility] 07-16-2023 16:39-0400 Heart rate 73 /min MARYAN PLUNKETT MD [facility] 07-16-2023 16:39-0400 Respiratory rate 16 /min MARYAN PLUNKETT MD [facility] 07-16-2023 16:39-0400 Systolic Blood Pressure Non-Invasive 103 mm[Hg] MARYAN PLUNKETT MD [facility] 06-14-2023 09:35-0400 Body temperature 97.9 [degF] Robby Mcdaniels MD Work Phone: [facility] 06-14-2023 09:35-0400 Body weight 82.7 kg Robby Mcdaniels MD Work Phone: [facility] 06-14-2023 09:35-0400 Diastolic blood pressure 82 mm[Hg] Robby Mcdaniels MD Work Phone: [facility] 06-14-2023 09:35-0400 Heart rate 78 /min Robby Mcdaniels MD Work Phone: [facility] 06-14-2023 09:35-0400 Respiratory rate 18 /min Robby Mcdaniels MD Work Phone: [facility] 06-14-2023 09:35-0400 SaO2% (BldA) [Mass fraction] 97 % Robby Mcdaniels MD Work Phone: [facility] 06-14-2023 09:35-0400 Systolic blood pressure 130 mm[Hg] Robby Mcdaniels MD Work Phone: [facility] 06-02-2023 14:08-0500 Body height 155 cm CINTHYA RUEDA MD [facility] 06-02-2023 14:08-0500 Body temperature 97.88 [degF] CINTHYA RUEDA MD [facility] 06-02-2023 14:08-0500 Body weight 72.7 kg CINTHYA RUEDA MD [facility] 06-02-2023 14:08-0500 Body weight 30.26 kg/m2 CINTHYA RUEDA MD [facility] 06-02-2023 14:08-0500 Diastolic Blood Pressure Non-Invasive 56 mm[Hg] CINTHYA RUEDA MD [facility] 06-02-2023 14:08-0500 Heart rate 74 /min CINTHYA RUEDA MD [facility] 06-02-2023 14:08-0500 Respiratory rate 16 /min CINTHYA RUEDA MD [facility] 06-02-2023 14:08-0500 Systolic Blood Pressure Non-Invasive 107 mm[Hg] CINTHYA RUEDA MD [facility] 01-28-2021 00:47-0400 Body temperature 97.7 [degF] SRI BARRAZA MD [facility] 01-28-2021 00:47-0400 Diastolic blood pressure 61 mm[Hg] SRI BARRAZA MD [facility] 01-28-2021 00:47-0400 Heart rate 82 /min SRI BARRAZA MD [facility] 01-28-2021 00:47-0400 Reason For Taking VItal Signs SRI BARRAZA MD [facility] 01-28-2021 00:47-0400 Respiratory rate 16 /min SRI BARRAZA MD [facility] 01-28-2021 00:47-0400 Systolic blood pressure 98 mm[Hg] SRI BARRAZA MD [facility] 01-27-2021 21:36-0400 Body temperature 98.24 [degF] SRI BARRAZA MD [facility] 01-27-2021 21:36-0400 Diastolic blood pressure 65 mm[Hg] SRI BARRAZA MD [facility] 01-27-2021 21:36-0400 Heart rate 90 /min SRI BARRAZA MD [facility] 01-27-2021 21:36-0400 Reason For Taking VItal Signs SRI BARRAZA MD [facility] 01-27-2021 21:36-0400 Systolic blood pressure 101 mm[Hg] SRI BARRAZA MD [facility] 01-27-2021 16:30-0400 Diastolic blood pressure 67 mm[Hg] SRI BARRAZA MD [facility] 01-27-2021 16:30-0400 Heart rate 85 /min SRI BARRAZA MD [facility] 01-27-2021 16:30-0400 Mean blood pressure 72 mm[Hg] SRI BARRAZA MD [facility] 01-27-2021 16:30-0400 Respiratory rate 18 /min SRI BARRAZA MD [facility] 01-27-2021 16:30-0400 Systolic blood pressure 82 mm[Hg] SRI BARRAZA MD [facility] 01-27-2021 16:15-0400 Mean blood pressure 63 mm[Hg] SRI BARRAZA MD [facility] 01-27-2021 16:15-0400 Respiratory rate 20 /min SRI BARRAZA MD [facility] 01-27-2021 16:00-0400 Mean blood pressure 67 mm[Hg] SRI BARRAZA MD [facility] 01-27-2021 15:00-0400 Body temperature 97.88 [degF] SRI BARRAZA MD [facility] 01-27-2021 13:30-0400 Body temperature 97.7 [degF] SRI BARRAZA MD [facility] 01-27-2021 06:04-0400 Body height 155 cm SRI BARRAZA MD [facility] 01-27-2021 06:04-0400 Body temperature 96.98 [degF] SRI BARRAZA MD [facility] 01-27-2021 06:04-0400 Body weight 85 kg SRI BARRAZA MD [facility] 01-27-2021 06:04-0400 Body weight 35.38 kg/m2 SRI BARRAZA MD [facility] Encounters Encounter Date Encounter Type Care Provider Facility Start: 01-02-2025 End: 01-02-2025 Patient encounter procedure ZARINA RUSSELL [employer] MANAGER [facility] Start: 12-11-2024 End: 12-15-2024 ambulatory ZARINA RUSSELL [employer] MANAGER Facility:[facility] Start: 12-11-2024 End: 12-15-2024 Outreach Lab ZARINA RUSSELL [employer] MANAGER [facility] Start: 12-11-2024 ambulatory ZARINA RUSSELL [employer]ATION [employer]UT[employer] MANAGER Facility:[facility] Start: 11-16-2024 End: 11-16-2024 Subsequent hospital visit by physician Tejal [facility] Work Phone: Radiology Comment on above: Acute cough [R05.1] Start: 11-16-2024 End: 11-16-2024 Patient encounter procedure Rupert Mansfield APRN.TRANSPORTATION SOLUTIONS MANAGER Work Phone: [facility] Comment on above: Tooth pain (Primary Dx); Acute cough Start: 11-16-2024 End: 11-16-2024 ambulatory RUPERT MANSFIELD Facility:[facility] Start: 10-27-2024 End: 10-27-2024 Patient encounter procedure Mara Davis PA Work Phone: [facility] Comment on above: Bronchitis (Primary Dx) Start: 10-27-2024 End: 10-27-2024 ambulatory MARA Ortiz ABSANTANA Facility:[facility] Start: 08-04-2024 End: 08-04-2024 ambulatory Amanda Roldan [employer] Facility:[facility] Start: 07-27-2024 End: 07-31-2024 ambulatory AMANDAJAX RODLAN [employer]ATION [employer] MANAGER Facility:[facility] Start: 07-27-2024 End: 07-31-2024 Outreach Lab AMANDA Dennis YULI [employer]ATION [employer]UT[employer] MANAGER [facility] Start: 07-27-2024 End: 07-27-2024 ambulatory AMANDA Jeannie YULI [employer]SP[employer]ATION [employer]UT[employer] MANAGER Facility:[facility] Start: 07-27-2024 End: 07-27-2024 Patient encounter procedure AMANDA ZHONGMER [employer]UT[employer] MANAGER [facility] Start: 02-28-2024 End: 02-28-2024 Office outpatient visit 25 minutes Robby Mcdaniels MD Work Phone: [facility] Comment on above: Acute otitis media, left (Primary Dx) Start: 02-28-2024 End: 02-28-2024 ambulatory AMANDA ROLDAN Facility:[facility] Start: 01-13-2024 ambulatory Patricio Avila PA Facility :[facility] Start: 01-13-2024 End: 01-13-2024 ambulatory Patricio ULIS Facility:[facility] Start: 10-07-2023 End: 10-07-2023 Emergency department patient visit DR SARAI MAXWELL MD [facility] Start: 09-03-2023 ambulatory AMANDA SAL ER [employer] MANAGER Facility:[facility] Start: 09-01-2023 End: 09-03-2023 Evaluation and management of inpatient AMANDA Ray MARLINITROHAN [employer] [facility] Start: 08-31-2023 End: 08-31-2023 ambulatory AMANDA ZHONGMER [facility] Start: 08-26-2023 End: 08-26-2023 SAME DAY STAY AMANDA Ray MARLINITLER [employer] [facility] Start: 08-26-2023 End: 08-26-2023 ambulatory MARYAN PLUNKETT MD Facility:[facility] Start: 08-25-2023 End: 08-25-2023 ambulatory AMANDA Ray ISAACITROHAN [employer] Facility:[facility] Start: 08-25-2023 End: 08-25-2023 SAME DAY STAY AMANDA Ray MARLINITLER [employer] [facility] Start: 08-24-2023 End: 08-24-2023 SAME DAY STAY AMANDA Ray MARLINITLER [employer] [facility] Start: 08-24-2023 End: 08-24-2023 ambulatory AMANDA Ray BEIT[employer]ER [employer] Facility:[facility] Start: 08-24-2023 End: 08-24-2023 Patient encounter procedure AMANDA Ray MARLINITROHAN [employer] [facility] Start: 08-19-2023 End: 08-23-2023 ambulatory AMANDA R [employer]IT[employer] Facility:[facility] Start: 08-19-2023 End: 08-23-2023 Outreach Lab AMANDA Ray ISAACITROHAN [employer] [facility] Start: 08-17-2023 End: 08-17-2023 SAME DAY STAY AMANDA Ray ISAACITLER [employer] [facility] Start: 08-17-2023 End: 08-17-2023 ambulatory AMANDA Ray [employer] Facility:[facility] Start: 08-17-2023 End: 08-17-2023 Patient encounter procedure AMANDA Ray BEIT[employer] [facility] Start: 08-13-2023 End: 08-13-2023 ambulatory AMANDA Ray [employer]IT[employer] Facility:[facility] Start: 08-13-2023 End: 08-13-2023 SAME DAY STAY AMANDAJAX ISAACITLER [employer] [facility] Start: 08-11-2023 ambulatory AMANDA S WITM ER [employer]SP[employer]ATION [employer]UT[employer] MANAGER Facility:[facility] Start: 08-11-2023 End: 09-04-2024 Lab-Standing Order CINTHYA RUEDA MD [facility] Start: 08-10-2023 End: 08-10-2023 ambulatory AMANDA Ray [employer]IT[employer] Facility:[facility] Start: 08-10-2023 End: 08-10-2023 Patient encounter procedure AMANDA Bell [employer]IT[employer] [facility] Start: 08-05-2023 ambulatory AMANDA S WITM ER [employer]SP[employer]ATION [employer]UT[employer] MANAGER Facility:[facility] Start: 08-03-2023 End: 08-03-2023 SAME DAY STAY AMANDA Ray [employer] [facility] Start: 08-03-2023 End: 08-03-2023 ambulatory AMANDA ROLDAN [employer]SP[employer]ATION [employer]UTIONS MANAGER Facility:[facility] Start: 08-03-2023 End: 08-03-2023 Patient encounter procedure CINTHYA RUEDA MD [facility] Start: 08-02-2023 End: 08-02-2023 ambulatory JAD Leach [facility] Start: 07-30-2023 End: 07-30-2023 ambulatory AMANDA ROLDAN [employer]SP[employer]ATION [employer]UTIONS MANAGER Facility:[facility] Start: 07-30-2023 End: 07-30-2023 SAME DAY STAY MARYAN PLUNKETT MD [facility] Start: 07-29-2023 ambulatory AMANDACHINA SAL ER [employer]SP[employer]ATION [employer]UTIONS MANAGER Facility:[facility] Start: 07-27-2023 End: 07-27-2023 ambulatory AMANDA Ray [employer]IT[employer] Facility:[facility] Start: 07-27-2023 End: 07-27-2023 SAME DAY STAY AMANDA R [employer]IT[employer] [facility] Start: 07-27-2023 End: 07-27-2023 ambulatory AMANDA Dennis YULI [employer]SP[employer]ATION SOLUTIONS MANAGER Facility:[facility] Start: 07-26-2023 End: 07-26-2023 ambulatory ZARINA RUSSELL [employer]TRANSP[employer]ATION SOLUTIONS MANAGER Facility:[facility] Start: 07-26-2023 End: 07-26-2023 Patient encounter procedure ZARINA RUSSELL [employer]TRANSP[employer]ATION [employer]UTIONS MANAGER [facility] Start: 07-23-2023 End: 07-23-2023 ambulatory AMANDA Dennis YULI [employer]TRANSP[employer]ATION SOLUTIONS MANAGER Facility:[facility] Start: 07-23-2023 End: 07-23-2023 SAME DAY STAY AMANDA Ray [employer] [facility] Start: 07-22-2023 End: 07-26-2023 ambulatory ZARINA RUSSELL [employer]ATION SOLUTIONS MANAGER Facility:B Start: 07-22-2023 End: 07-26-2023 Outreach Lab ZARINA RUSSELL [employer]SPORTATION SOLUTIONS MANAGER [facility] Start: 07-20-2023 End: 07-20-2023 SAME DAY STAY AMANDA ABDIROHAN [employer] [facility] Start: 07-20-2023 End: 07-20-2023 ambulatory AMANDA ZHONGMER [employer]SPORTATION SOLUTIONS MANAGER Facility:B Start: 07-20-2023 End: 07-20-2023 Patient encounter procedure CINTHYA RUEDA MD [facility] Start: 07-16-2023 End: 07-16-2023 ambulatory AMANDA Dennis YULI [employer]SPORTATION SOLUTIONS MANAGER Facility:B Start: 07-16-2023 End: 07-16-2023 SAME DAY STAY MARYAN PLUNKETT MD [facility] Start: 07-09-2023 End: 07-09-2023 ambulatory AMANDA ROLDAN [employer]-TRANSPORTATION SOLUTIONS MANAGER Facility:B Start: 07-05-2023 End: 07-05-2023 ambulatory ENRIQUE [facility] Start: 06-15-2023 Telephone encounter Mara LUIS Work Phone: [facility] Comment on above: Results Start: 06-14-2023 End: 06-14-2023 Patient encounter procedure Robby Mcdaniels MD Work Phone: [facility] Comment on above: URI, acute (Primary Dx); Sore throat Start: 06-02-2023 End: 06-02-2023 ambulatory AMANDA ZHONGMER [employer]-TRANSPORTATION SOLUTIONS MANAGER Facility:B Start: 06-02-2023 End: 06-02-2023 SAME DAY STAY CINTHYA RUEDA MD [facility] Start: 05-21-2023 ambulatory AMANDA Jeannie CRENSHAW [employer]-TRANSPORTATION SOLUTIONS MANAGER Facility:B Start: 05-05-2023 End: 05-05-2023 ambulatory CINTHYA Tadeo MARYBETH [facility] Start: 04-28-2023 End: 04-28-2023 ambulatory ZARINA MORELKINSON [employer]SPORTATION SOLUTIONS MANAGER Facility:B Start: 04-28-2023 End: 04-28-[address] KELLEY POLK MD [facility] Start: 04-09-2023 End: 04-09-2023 ambulatory AMANDA S YULI [employer]SPORTATION SOLUTIONS MANAGER Facility:B Start: 04-09-2023 End: 04-09-2023 Patient encounter procedure AMANDA GREENWOOD [employer] [facility] Start: 03-24-2023 End: 03-24-2023 ambulatory CINTHYA Tadeo MARYBETH [facility] Start: 03-22-2023 End: 03-26-2023 ambulatory AMANDA S YULI [employer]SPORTATION SOLUTIONS MANAGER Facility:B Start: 03-22-2023 End: 03-26-2023 Outreach Lab SRI BARRAZA MD [facility] Start: 03-15-2023 End: 03-19-2023 ambulatory AMANDA S YULI [employer]SPORTATION SOLUTIONS MANAGER Facility:B Start: 03-15-2023 End: 03-19-2023 Outreach Lab ZARINA RUSSELL [employer]TRANSPORTATION SOLUTIONS MANAGER [facility] Start: 03-12-2023 End: 03-12-2023 ambulatory AMANDA GREENWOOD [employer]CNM Facility:B Start: 03-01-2023 End: 03-01-2023 ambulatory AMANDA S YULI [employer]-TRANSPORTATION SOLUTIONS MANAGER Facility:B Start: 03-01-2023 End: 03-01-2023 Patient encounter procedure AMANDA GREENWOOD [employer] [facility] Start: 02-23-2023 End: 02-27-2023 ambulatory AMANDA GREENWOOD [employer]CNM Facility:B Start: 02-23-2023 End: 02-27-2023 Outreach Lab AMANDA GREENWOOD [employer] [facility] Start: 02-08-2023 End: 02-08-2023 ambulatory AMANDA GREENWOOD [employer]CNM Facility:B Start: 01-21-2023 End: 01-21-2023 ambulatory SRI BARRAZA MD Facility:B Start: 01-21-2023 End: 01-21-2023 Patient encounter procedure SRI BARRAZA MD [facility] Start: 01-18-2023 End: 01-18-2023 ambulatory SRI BARRAZA MD Facility:B Start: 01-18-2023 End: 01-18-2023 Patient encounter procedure SRI BARRAZA MD [facility] Start: 11-24-2022 End: 11-24-2022 ambulatory AMANDA ROLDAN [employer]-TRANSPORTATION SOLUTIONS MANAGER Facility:B Start: 09-01-2022 End: 09-01-2022 Patient encounter procedure ALEKSANDRA VINES [employer]TRANSPORTATION SOLUTIONS MANAGER [facility] Start: 03-24-2022 End: 03-24-2022 Patient encounter procedure WAN LELIOTT [employer]TRANSPORTATION SOLUTIONS MANAGER [facility] Start: 02-05-2022 End: 02-05-2022 Patient encounter procedure ZARINA RUSSELL [employer]SP[employer]ATION SOLUTIONS MANAGER [facility] Start: 11-17-2021 End: 11-21-2021 Outreach Lab SRI BARRAZA MD [facility] Start: 09-04-2021 End: 09-04-2021 Patient encounter procedure AMANDA Dennis YULI [employer]TRANSPORTATION SOLUTIONS MANAGER [facility] Start: 03-06-2021 End: 03-10-2021 Outreach Lab SRI BARRAZA MD [facility] Start: 01-27-2021 End: 01-28-2021 Evaluation and management of inpatient SRI BARRAZA MD [facility] Start: 01-24-2021 End: 01-24-2021 Patient encounter procedure SRI BARRAZA MD [facility] Start: 01-20-2021 End: 01-20-2021 Patient encounter procedure ZARINA RUSSELL [employer]TRANSPORTATION SOLUTIONS MANAGER [facility] Start: 01-13-2021 End: 01-13-2021 Patient encounter procedure ZARINA RUSSELL [employer]SPORTATION SOLUTIONS MANAGER [facility] Start: 10-15-2016 Ambulatory SHIVANI Delgado y:[facility] Procedures Date Procedure Procedure Detail Performing Clinician Start: 11-16-2024 Radiologic exam ches t 2 views Rupert Mansfield [employer]SPORTATION SOLUTIONS MANAGER Work Phone: Start: 06-14-2023 STREP A MOLECULAR (POC) Robby Mcdaniels MD Work Phone: Start: 04-05-2011 Tonsillectomy ZARINA PHAN [employer]SP[employer]ATION [employer]UTIONS MANAGER Plan of Treatment Date Care Activity Detail Author Start: 12-04-2024 Influenza vaccination Influenza Vaccine (#1) [facility] Start: 12-05-2023 Covid-19 Vaccine ( season) Covid-19 Vaccine () [facility] Start: 12-05-2023 Influenza vaccination Influenza Vaccine (#1) [facility] Start: 04-05-2023 Depression Assessment Depression Assessment [facility] Start: 12-04-2022 Covid-19 Vaccine ( season) Covid-19 Vaccine () [facility] Start: 12-04-2022 Influenza vaccination Influenza Vaccine (#1) [facility] Start: 12-22-2020 Urine microalbumin profile DTaP,Tdap,Td Vaccine (6 - Td or Tdap) [facility] Start: 2019 Screening for malignant neoplasm of cervix [facility] Start: 2016 Anxiety Screening Anxiety Screening [facility] Start: 2016 Depression Screening Depression Screening [facility] Start: 2016 Hepatitis C screening Hepatitis C Screening [facility] Start: 2016 HIV screening HIV Screening [facility] Start: 02-18-2016 HPV Vaccine (2 - 3-dose series) HPV Vaccine (2 - 3-dose series) [facility] Start: 2012 Peds To Adult Transition Annual Assessment Peds To Adult Transition Annual Assessment [facility] Start: 2010 Peds To Adult Transition Initial Discussion Peds To Adult Transition Initial Discussion [facility] COVID & INFLUENZA A/ B & RSV NAAT, ROUTINE COVID & INFLUENZA A/B & RSV NAAT, ROUTINE Microbiology Routine URI, acute Sore throat 06/14/2023 10:25 AM EDT [facility] Work Phone: Immunizations Immunization Date Immunization Notes Care Provider Estefanía barber 01-21-2016 Human Papillomavirus Quadval ZARINA RUSSELL [employer]SP[employer]ATION [employer]UT[employer] MANAGER [facility] 01-21-2016 influenza virus vacc ine, unspecified formulation ZARINA RUSSELL [employer] [facility] 12-25-2015 meningococcal polysaccharide (groups A, C, Y and W-135) diphtheria toxoid conjugate vaccine (MCV4P) ZARINA RUSSELL [employer] [facility]-[facility] 12-22-2010 tetanus toxoid, redu shade diphtheria toxoid, and acellular pertussis vaccine, adsorbed ZARINA MORELKINSON [employer] [facility]-[facility] 01-02-2004 measles/mumps/rubell a virus vaccine ZARINATERESA RUSSELL [employer] MINER-[facility] 01-02-2004 poliovirus vaccine, inactivated [facility] 12-13-2002 diphtheria, tetanus toxoids and acellular pertussis vaccine, unspecified formulation [facility] 12-13-2002 haemophilus influenz ae type b vaccine, PRP-T conjugate [facility] 12-13-2002 measles/mumps/rubell a virus vaccine [facility] 05-26-1999 diphtheria, tetanus toxoids and acellular pertussis vaccine, unspecified formulation [facility] 05-26-1999 haemophilus influenz ae type b vaccine, PRP-T conjugate [facility] 05-26-1999 poliovirus vaccine, inactivated [facility] 1998 diphtheria, tetanus toxoids and acellular pertussis vaccine, unspecified formulation [facility] 1998 haemophilus influenz ae type b vaccine, PRP-T conjugate [place] [facility] 1998 hepatitis B pediatri c [facility] 1998 Human Papillomavirus Quadval [facility] 1998 poliovirus vaccine, inactivated [facility] 1998 diphtheria, tetanus toxoids and acellular pertussis vaccine, unspecified formulation [facility] 1998 haemophilus influenz ae type b vaccine, PRP-T conjugate [facility] 1998 hepatitis B pediatri c vaccine ZARINA RUSSELL [employer]-TRANSPORTATION SOLUTIONS MANAGER [facility] 1998 Human Papillomavirus Quadval ZARINA RUSSELL [employer]-TRANSPORTATION SOLUTIONS MANAGER [facility] 1998 poliovirus vaccine, inactivated ZARINA MORELKINSON [employer]-TRANSPORTATION SOLUTIONS MANAGER [facility] 1998 hepatitis B pediatri c vaccine ZARINA RUSSELL [employer]SPORTATION SOLUTIONS MANAGER [facility] 1998 Human Papillomavirus Quadval ZARINA RUSSELL [employer]-TRANSPORTATION SOLUTIONS MANAGER [facility] Payers Date Payer Category Payer Self-pay 2022 Unknown [id number] 2018 Medicaid [id number] 2018 Unknown [id number] 1998 Unknown [id number] 2.16. 840.1.663193.3.579.2.479 1998 Unknown [id number] 2.16. 840.1.043476.3.579.2.9 1998 Unknown [id number] 2.16. 840.1.441039.3.579.2.479 1998 Unknown [id number] 2.16. 840.1.547901.3.579.2.9 1998 Unknown [id number] 2.16. 840.1.961901.3.579.2.479 1998 Unknown [id number] 2.16. 840.1.710899.3.579.2.479 1998 Unknown [id number] 2.16. 840.1.313089.3.579.2.479 1998 Unknown [id number] 2.16. 840.1.549578.3.579.2.479 1998 Unknown [id number] 2.16.8 40.1.503534.3.579.2.627 1998 Unknown [id number] 2.16.8 40.1.294295.3.579.2.627 1998 Unknown [id number] 2.16.8 40.1.806213.3.579.2.627 1998 Unknown [id number] 2.16.8 40.1.212899.3.579.2.627 1998 Unknown [id number] 2.16.8 40.1.172488.3.579.2.627 1998 Unknown [id number] 2.16.8 40.1.679906.3.579.2.627 1998 Unknown [id number] 2.16.8 40.1.718224.3.579.2.627 1998 Unknown [id number] 2.16.8 40.1.456115.3.579.2.627 1998 Unknown [id number] 2.16.8 40.1.352780.3.579.2.627 1998 Unknown [id number] 2.16.8 40.1.245715.3.579.2.627 1998 Unknown [id number] 2.16.8 40.1.771289.3.579.2.627 1998 Unknown [id number] 2.16.8 40.1.612950.3.579.2.627 1998 Unknown [id number] 2.16.8 40.1.333626.3.579.2.627 1998 Unknown [id number] 2.16.8 40.1.872791.3.579.2.627 1998 Unknown [id number] 2.16.8 40.1.439961.3.579.2.7 1998 Unknown [id number] 2.16.8 40.1.639743.3.579.2.627 1998 Unknown [id number] 2.16.8 40.1.456142.3.579.2. 1998 Unknown [id number] 2.16.8 40.1.392221.3.579.2.7 1998 Unknown [id number] 2.16.8 40.1.503858.3.579.2. 1998 Unknown [id number] 2.16.8 40.1.831676.3.579.2.627 1998 Unknown [id number] 2.16.8 40.1.856083.3.579.2. 1998 Unknown [id number] 2.16.8 40.1.857411.3.579.2.627 1998 Unknown [id number] 2.16.8 40.1.978722.3.579.2. 1998 Unknown [id number] 2.16.8 40.1.452486.3.579.2.7 1998 Unknown [id number] 2.16.8 40.1.928319.3.579.2. 1998 Unknown [id number] 2.16.8 40.1.779054.3.579.2. 1998 Unknown [id number] 2.16.8 40.1.002813.3.579.2. 1998 Unknown [id number] 2.16.8 40.1.731524.3.579.2.627 1998 Unknown [id number] 2.16.8 40.1.958695.3.579.2.627 1998 Unknown [id number] 2.16.8 40.1.111917.3.579.2.627 1998 Unknown [id number] 2.16.8 40.1.968546.3.579.2.7 1998 Unknown [id number] 2.16.8 40.1.512326.3.579.2.627 1998 Unknown [id number] 2.16.8 40.1.757037.3.579.2.7 1998 Unknown [id number] 2.16.8 40.1.071660.3.579.2.7 1998 Unknown [id number] 2.16.8 40.1.470691.3.579.2. 1998 Unknown [id number] 2.16.8 40.1.493474.3.579.2.7 1998 Unknown [id number] 2.16.8 40.1.054508.3.579.2.7 1998 Unknown [id number] 2.16.8 40.1.102949.3.579.2.7 1998 Unknown [id number] 2.16.8 40.1.833604.3.579.2.7 1998 Unknown [id number] 2.16.8 40.1.053291.3.579.2.7 1998 Unknown [id number] 2.16.8 40.1.088630.3.579.2. 1998 Unknown [id number] 2.16.8 40.1.861504.3.579.2.7 1998 Unknown [id number] 2.16.8 40.1.231569.3.579.2. 1998 Unknown [id number] 2.16.8 40.1.018513.3.579.2.627 1998 Unknown [id number] 2.16.8 40.1.097907.3.579.2.627 1998 Unknown [id number] 2.16. 840.1.674130.3.579.2.627 1998 Unknown [id number] 2.16. 840.1.731830.3.579.2.627 1998 Unknown [id number] 2.16.8 40.1.538230.3.579.2.627 1998 Unknown [id number] 2.16.8 40.1.321198.3.579.2.627 Unknown [id number] 2.16.8 40.1.616087.3.579.2.462 Unknown [id number] 2.16.8 40.1.691228.3.579.2.462 Unknown [id number] 2.16.8 40.1.939361.3.579.2.462 Unknown [id number] 2.16.8 40.1.999902.3.579.2.462 Unknown [id number] 2.16.8 40.1.077010.3.579.2.462 Social History Date Type Detail Facility Start: 08-19-2020 End: 06-14-2023 Ex-smoker (finding) [facility] Sex Assigned At [facility] Start: 11-17-2021 End: 12-11-2024 Tobacco smoking status Light tobacco smoker (finding) [facility] History of tobacco use Current smoker [facility] Start: 06-14-2023 Tobacco use and exposure Smokeless tobacco non-user [facility] Start: 06-14-2023 End: 11-16-2024 Alcohol intake Not Asked [facility] Start: 03-11-2020 End: 06-14-2023 History of Social function [facility] Start: 03-11-2020 End: 06-14-2023 Tobacco use panel [facility] Start: 03-06-2012 National Score (1-100), lower number is lower risk Not on file [facility] Start: 1998 Sex Assigned At Not on file [facility] Start: 08-01-2013 Sex Female (finding) [facility] Functional Status Date Assessment Result Facility 10-07-2023 Functional Status Independent [facility] 09-03-2023 Functional Status Repositions self [facility] 09-03-2023 Functional Status [facility] 09-01-2023 Functional Status 7pm-7am [facility] 08-17-2023 Functional Status Standard Safet y ID band on, Call device within reach, Bed in low position, Wheels locked, Upper/Half-Length side-rails up, Phone within reach, personal items within reach, Non-Slip footwear [facility] 08-13-2023 Functional Status Independent [facility] 07-30-2023 Functional Status Standard Safet y Call device within reach, Bed in low position, Wheels locked [facility] 07-16-2023 Functional Status Independent [facility] 06-02-2023 Functional Status Independent [facility] Mental Status Date Assessment Result Facility 10-07-2023 Mental Status Oriented x 4 [facility] 09-03-2023 Mental Status Oriented x 4 [facility] 08-13-2023 Mental Status Orientation Oriented x 4 [facility] 07-16-2023 Mental Status Orientation Oriented x 4 [facility] Clinical Notes 08-19-2020 to 12-12-2024 Shravan Ricks Tech - 11/16/2024 8:30 AM Rupert Nino APRN.ROSETTA - 11/16/2024 8:27 AM Mara Reyes PA - 10/27/2024 10:32 AM EDTMRobby Hannah MD - 02/28/2024 9:44 AM ESTRadiology Note Date & Type Note Facility 12-12-2024 Note . MICRO - Microbiology PROCEDURE: Urine Culture [*1] SOURCE: Urine, Clean Catch BODY SITE: COLLECTED DATE/TIME: 12/11/2024 15:59 EDT RECEIVED DATE/TIME: 12/11/2024 19:06 EDT START DATE/TIME: 12/11/2024 19:06 EDT FREE TEXT SOURCE: FINAL REPORTS Final Report [] Verified Date/Time/Personnel: 12/12/2024 14:13 EDT 10,000 - 50,000 cfu/ml Mixed growth consistent with normal urogenital wandy. PRELIMINARY REPORTS Preliminary Report [] Verified Date/Time/Personnel: 12/11/2024 19:59 EDT Specimen received in lab. Performing Locations *1: This test was performed at: [address] 11-16-2024 History of Present illness Narrative Radiology Service Progress Note PATIENT NAME: Soniya Hays DATE OF SERVICE: November 16, 2024 TIME: 8:29 AM PATIENT IDENTITY VERIFICATION COMPLETED USING TWO (2) IDENTIFIERS: Name and Date of confirmed by patient verbally. FALL SCREENING: Has the patient had 2 falls in the last year or 1 fall with injury or currently using an Ambulatory Assistive Device (Walker, Cane, Wheelchair, Crutches, etc.)? No PATIENT GENDER DATA: Assigned female at . status: : No status: NO. PATIENT RELEVANT IMPLANT DATA REVIEWED: Yes PATIENT PRESENTS WITH AN IMPLANTABLE OR ATTACHED ELECTRIC WELL LOGGING OPERATOR: No RADIOLOGY DEPARTMENT: General X-ray: Exam(s) Completed: Chest X-Ray PERIPHERAL IV DATA: Not applicable SIGNED BY: Leonardo Khanna November 16, 2024 8:29 AM documented in this encounter [facility] 11-16-2024 Note HNO ID: [id number] Author: SHRAVAN RICKS Tech Service: ? Author Type: Employer Relations Representative Type: Progress Notes Filed: 11/16/2024 08:38 Note Text: Radiology Service Progress Note PATIENT NAME: Soniya Hays DATE OF SERVICE: November 16, 2024 TIME: 8:29 AM PATIENT IDENTITY VERIFICATION COMPLETED USING TWO (2) IDENTIFIERS: Name and Date of confirmed by patient verbally. FALL SCREENING: Has the patient had 2 falls in the last year or 1 fall with injury or currently using an Ambulatory Assistive Device (Walker, Cane, Wheelchair, Crutches, etc.)? No PATIENT GENDER DATA: Assigned female at . status: : No status: NO. PATIENT RELEVANT IMPLANT DATA REVIEWED: Yes PATIENT PRESENTS WITH AN IMPLANTABLE OR ATTACHED ELECTRIC WELL LOGGING OPERATOR: No RADIOLOGY DEPARTMENT: General X-ray: Exam(s) Completed: Chest X-Ray PERIPHERAL IV DATA: Not applicable SIGNED BY: Leonardo Khanna November 16, 2024 8:29 AM [facility] 11-16-2024 Note HNO ID: [id number] Author: RUPERT MANSFIELD APRN.TRANSPORTATION SOLUTIONS MANAGER Service: ? Author Type: Nurse Practitioner Type: Progress Notes Filed: 11/16/2024 10:03 Note Text: [facility] Subjective HPI HPI Soniya Hays is a 24 year old female who presents today for CC of tooth pain. This started 2 days ago. Has tried otc medication for relief. Symptoms are worsened by nothing. Risk factors has poor dental health. Cough for 1 month, seen in 10/27, steroids ordered, no improvement. Denies cp/sob. Current smoker. Denies possibility of being . .Patient presents with: Dental Problem: R lower tooth infection x2 days Cough: Has not resolved from 10/27, finished prednisone PAST MEDICAL HISTORY Diagnosis Date History of pulmonary embolus (PE) lups anticoagulant No past surgical history on file. ALLERGIES Patient has no known allergies. MEDICATIONS amoxicillin (AMOXIL) 875 mg tablet Take 1 tablet by mouth two times a day for 7 days. albuterol HFA (PROVENTIL HFA, VENTOLIN HFA) 90 mcg/actuation inhaler Inhale 2 puffs as instructed every 4 hours as needed for wheezing/shortness of breath. (Patient not taking: Reported on 11/16/2024) No family history on file. SOCIAL HISTORY[1] Review of Systems Constitutional: Negative for chills, fatigue and fever. HENT: Negative for ear discharge, ear pain, rhinorrhea, sinus pressure, sinus pain and sore throat. Eyes: Negative for discharge and redness. Respiratory: Positive for cough. Negative for shortness of breath and wheezing. Cardiovascular: Negative for chest pain. Skin: Negative for rash. Objective BP 119/83 Pulse (!) 58 Temp 36.3 ?C (97.4 ?F) Resp 18 Wt 79.6 kg (175 lb 7.8 oz) LMP 08/03/2017 (Approximate) SpO2 100% Physical Exam Constitutional: General: She is not in acute distress. Appearance: She is not toxic-appearing or diaphoretic. HENT: Head: Normocephalic and atraumatic. Right Ear: Hearing and external ear normal. Left Ear: Hearing and external ear normal. Mouth/Throat: Lips: [place]. Mouth: Mucous membranes are moist. Pharynx: Oropharynx is clear. Uvula midline. Cardiovascular: Rate and Rhythm: Normal rate and regular rhythm. Heart sounds: Normal heart sounds, S1 normal and S2 normal. Pulmonary: Effort: Pulmonary effort is normal. Breath sounds: Normal breath sounds. Lymphadenopathy: Cervical: No cervical adenopathy. Right cervical: No superficial cervical adenopathy. Left cervical: No superficial cervical adenopathy. Neurological: Mental Status: She is alert and oriented to person, place, and time. {ASSESSMENT/PLAN: 1. Tooth pain - ICD9: 525.9, ICD10: K08.89 (primary diagnosis) Take medication as ordered See dentist carlos enrique Follow up if signs of infection worsen - AMOXICILLIN 875 MG TABLET 2. Acute cough - ICD9: 786.2, ICD10: R05.1 Xray negative Suspect post viral cough Smoking cessation advised F/u with pcp for continued s/s -If you experience chest pain/shortness of breath go to ER - XR CHEST 2V FRONTAL/LAT IMPRESSION: No acute radiographic abnormality. 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 Disposition The patient was discharged. OTC Medications were advised: Otc pain relief. Procedures [1] Social History Tobacco Use Smoking status: Former Smokeless tobacco: Never [facility] History of Present illness Narrative Images from the original note were not included. [facility] Subjective HPI HPI Soniya Hays is a 24 year old female who presents today for CC of tooth pain. This started 2 days ago. Has tried otc medication for relief. Symptoms are worsened by nothing. Risk factors has poor dental health. Cough for 1 month, seen in 10/27, steroids ordered, no improvement. Denies cp/sob. Current smoker. Denies possibility of being . .Patient presents with: Dental Problem: R lower tooth infection x2 days Cough: Has not resolved from 10/27, finished prednisone PAST MEDICAL HISTORY Diagnosis Date History of pulmonary embolus (PE) lups anticoagulant No past surgical history on file. ALLERGIES Patient has no known allergies. MEDICATIONS amoxicillin (AMOXIL) 875 mg tablet Take 1 tablet by mouth two times a day for 7 days. albuterol HFA (PROVENTIL HFA, VENTOLIN HFA) 90 mcg/actuation inhaler Inhale 2 puffs as instructed every 4 hours as needed for wheezing/shortness of breath. (Patient not taking: Reported on 11/16/2024) No family history on file. SOCIAL HISTORY[1] Review of Systems Constitutional: Negative for chills, fatigue and fever. HENT: Negative for ear discharge, ear pain, rhinorrhea, sinus pressure, sinus pain and sore throat. Eyes: Negative for discharge and redness. Respiratory: Positive for cough. Negative for shortness of breath and wheezing. Cardiovascular: Negative for chest pain. Skin: Negative for rash. Objective BP 119/83 Pulse (!) 58 Temp 36.3 C (97.4 F) Resp 18 Wt 79.6 kg (175 lb 7.8 oz) LMP 08/03/2017 (Approximate) SpO2 100% Physical Exam Constitutional: General: She is not in acute distress. Appearance: She is not toxic-appearing or diaphoretic. HENT: Head: Normocephalic and atraumatic. Right Ear: Hearing and external ear normal. Left Ear: Hearing and external ear normal. Mouth/Throat: Lips: [place]. Mouth: Mucous membranes are moist. Pharynx: Oropharynx is clear. Uvula midline. Cardiovascular: Rate and Rhythm: Normal rate and regular rhythm. Heart sounds: Normal heart sounds, S1 normal and S2 normal. Pulmonary: Effort: Pulmonary effort is normal. Breath sounds: Normal breath sounds. Lymphadenopathy: Cervical: No cervical adenopathy. Right cervical: No superficial cervical adenopathy. Left cervical: No superficial cervical adenopathy. Neurological: Mental Status: She is alert and oriented to person, place, and time. {ASSESSMENT/PLAN: 1. Tooth pain - ICD9: 525.9, ICD10: K08.89 (primary diagnosis) Take medication as ordered See dentist carlos enrique Follow up if signs of infection worsen - AMOXICILLIN 875 MG TABLET 2. Acute cough - ICD9: 786.2, ICD10: R05.1 Xray negative Suspect post viral cough Smoking cessation advised F/u with pcp for continued s/s -If you experience chest pain/shortness of breath go to ER - XR CHEST 2V FRONTAL/LAT IMPRESSION: No acute radiographic abnormality. 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 Disposition The patient was discharged. OTC Medications were advised: Otc pain relief. Procedures [1] Social History Tobacco Use Smoking status: Former Smokeless tobacco: Never documented in this encounter [facility] 10-27-2024 Note HNO ID: [id number] Author: MARA DAVIS PA Service: ? Author Type: Physician Compounder [employer] Type: Progress Notes Filed: 10/27/2024 10:33 Note Text: [facility] CARE FELICITAS Hays is a 24 year old female. Patient presents with: Cough: Chest congestion, wheezing x 1 week HPI Cough and Chest Congestion: - Had a cold x1 week; most symptoms have resolved except for cough and chest congestion. - Cough is constant, sometimes productive but often feels unable to expectorate. - Noticed wheezing, especially when lying down or going to sleep. - Denies current use of inhalers. - Denies chest pain, dyspnea, or fevers. - Took DayQuil and NyQuil for congestion, but reports they did not help with the cough. - Denies or . Review of Systems Constitutional: (-) fever Cardiovascular: (-) chest pain Respiratory: (+) chest congestion, (+) wheezing when supine, (+) cough, (+) sputum production, (-) shortness of breath Objective BP 100/60 Pulse 87 Temp 36.9 ?C (98.4 ?F) Resp 18 Wt 76.3 kg (168 lb 3.4 oz) LMP 08/03/2017 (Approximate) SpO2 97% Physical Exam Vitals and nursing note reviewed. Constitutional: General: She is not in acute distress. Appearance: Normal appearance. She is not toxic-appearing. HENT: Right Ear: Tympanic membrane and ear canal normal. Left Ear: Tympanic membrane and ear canal normal. Nose: Nose normal. Mouth/Throat: Mouth: Mucous membranes are moist. Pharynx: No oropharyngeal exudate or posterior oropharyngeal erythema. Eyes: Conjunctiva/sclera: Conjunctivae normal. Cardiovascular: Rate and Rhythm: Normal rate and regular rhythm. Pulmonary: Effort: Pulmonary effort is normal. Breath sounds: Wheezing present. No rhonchi or rales. Neurological: Mental Status: She is alert. General: No acute distress. HEENT: Oropharynx clear. Resp: Wheezing, no crackles. { 1. Bronchitis (J40) - Likely post-viral bronchitis; no evidence of pneumonia on exam. - Start inhaler: 2 puffs every 4 hours as needed. - Start steroid - Start cough suppressant TID. - Advised to return if symptoms do not improve; chest X-ray may be considered if no improvement. Recording using [employer] software for draft documentation of the visit was discussed with the patient/authorized safety representative; all questions welcomed and answered. Patient/authorized safety representative agreed to proceed History and Record Review External record(s) reviewed: prior outpatient record. Differential Diagnoses - Bronchitis is more likely for the following reason(s): suggested by HANDP - Pneumonia is less likely for the following reason(s): HANDP not suggestive Disposition The patient was discharged. Procedures [facility] 10-27-2024 History of Present illness Narrative [facility] CARE FELICITAS Brooks Soniya Hays is a 24 year old female. Patient presents with: Cough: Chest congestion, wheezing x 1 week HPI Cough and Chest Congestion: - Had a cold x1 week; most symptoms have resolved except for cough and chest congestion. - Cough is constant, sometimes productive but often feels unable to expectorate. - Noticed wheezing, especially when lying down or going to sleep. - Denies current use of inhalers. - Denies chest pain, dyspnea, or fevers. - Took DayQuil and NyQuil for congestion, but reports they did not help with the cough. - Denies or . Review of Systems Constitutional: (-) fever Cardiovascular: (-) chest pain Respiratory: (+) chest congestion, (+) wheezing when supine, (+) cough, (+) sputum production, (-) shortness of breath Objective BP 100/60 Pulse 87 Temp 36.9 C (98.4 F) Resp 18 Wt 76.3 kg (168 lb 3.4 oz) LMP 08/03/2017 (Approximate) SpO2 97% Physical Exam Vitals and nursing note reviewed. Constitutional: General: She is not in acute distress. Appearance: Normal appearance. She is not toxic-appearing. HENT: Right Ear: Tympanic membrane and ear canal normal. Left Ear: Tympanic membrane and ear canal normal. Nose: Nose normal. Mouth/Throat: Mouth: Mucous membranes are moist. Pharynx: No oropharyngeal exudate or posterior oropharyngeal erythema. Eyes: Conjunctiva/sclera: Conjunctivae normal. Cardiovascular: Rate and Rhythm: Normal rate and regular rhythm. Pulmonary: Effort: Pulmonary effort is normal. Breath sounds: Wheezing present. No rhonchi or rales. Neurological: Mental Status: She is alert. General: No acute distress. HEENT: Oropharynx clear. Resp: Wheezing, no crackles. { 1. Bronchitis (J40) - Likely post-viral bronchitis; no evidence of pneumonia on exam. - Start inhaler: 2 puffs every 4 hours as needed. - Start steroid - Start cough suppressant TID. - Advised to return if symptoms do not improve; chest X-ray may be considered if no improvement. Recording using [employer] software for draft documentation of the visit was discussed with the patient/authorized safety representative; all questions welcomed and answered. Patient/authorized safety representative agreed to proceed History and Record Review External record(s) reviewed: prior outpatient record. Differential Diagnoses - Bronchitis is more likely for the following reason(s): suggested by H&P - Pneumonia is less likely for the following reason(s): H&P not suggestive Disposition The patient was discharged. Procedures documented in this encounter [facility] 02-28-2024 Note HNO ID: [id number] Author: ROBBY MCDANIELS MD Service: ? Author Type: Physician Type: Progress Notes Filed: 02/28/2024 09:52 Note Text: Patient presents with: Ear Pain: bilateral left worse x 3 days HPI: Feeling left ear pain starting 3 days ago. Right side of the head/ear is starting to feel a little uncomfortable also. Positive symptoms: Earache, change in hearing, Negative symptoms: Cough, Sore throat, Nasal Congestion, Rhinorrhea, Fever, OTC: Tylenol Used a qtip in the meatus to remove wax without known injury. MEDICATIONS: ALLERGIES: ALLERGIES No Known Allergies VITALS: BP 122/70 Pulse 80 Temp 36.7 ?C (98.1 ?F) Resp 16 Wt 77 kg (169 lb 12.1 oz) LMP 08/03/2017 (Approximate) SpO2 97% PHYSICAL EXAM: GEN: Pleasant, in no acute distress. HEENT: PERRL, EOMI, conjunctiva clear Ears: canals clear. RTM without erythema, bulge, or effusion. LTM with erythema, bulge, and effusion. Sinuses: non-tender frontal sinus, non-tender maxillary sinuses Throat: moist mucous membranes, no erythema, no exudate Neck: supple, no thyromegaly, no lymphadenopathy HEART: regular rate and rhythm, no murmurs LUNGS: clear to auscultation, no wheezes or crackles, no increased WOB ASSESSMENT/PLAN: 1. Acute otitis media, left - ICD9: 382.9, ICD10: H66.92 - AMOXICILLIN 500 MG CAPSULE (has difficulty swallowing large capsules). Follow-up with worsening pain or failure to improve. Effusion may take a couple weeks to resolve. Robby Mcdaniels MD [facility] 02-28-2024 History of Present illness Narrative Patient presents with: Ear Pain: bilateral left worse x 3 days HPI: Feeling left ear pain starting 3 days ago. Right side of the head/ear is starting to feel a little uncomfortable also. Positive symptoms: Earache, change in hearing, Negative symptoms: Cough, Sore throat, Nasal Congestion, Rhinorrhea, Fever, OTC: Tylenol Used a qtip in the meatus to remove wax without known injury. MEDICATIONS: ALLERGIES: ALLERGIES No Known Allergies VITALS: BP 122/70 Pulse 80 Temp 36.7 C (98.1 F) Resp 16 Wt 77 kg (169 lb 12.1 oz) LMP 08/03/2017 (Approximate) SpO2 97% PHYSICAL EXAM: GEN: Pleasant, in no acute distress. HEENT: PERRL, EOMI, conjunctiva clear Ears: canals clear. RTM without erythema, bulge, or effusion. LTM with erythema, bulge, and effusion. Sinuses: non-tender frontal sinus, non-tender maxillary sinuses Throat: moist mucous membranes, no erythema, no exudate Neck: supple, no thyromegaly, no lymphadenopathy HEART: regular rate and rhythm, no murmurs LUNGS: clear to auscultation, no wheezes or crackles, no increased WOB ASSESSMENT/PLAN: 1. Acute otitis media, left - ICD9: 382.9, ICD10: H66.92 - AMOXICILLIN 500 MG CAPSULE (has difficulty swallowing large capsules). Follow-up with worsening pain or failure to improve. Effusion may take a couple weeks to resolve. Robby Mcdaniels MD documented in this encounter [facility] 10-07-2023 Hospital Discharge instructions Patient Education 10/07/2023 20:33:22 Chest Wall Contusion Chest Contusion A contusion is a bruise to the skin, muscle, or ribs. It may cause pain, tenderness, and swelling. It may turn the skin purple until it heals. Contusions take a few days to a few weeks to heal. Home care Follow these guidelines when caring for yourself at home: Rest. Don t do any heavy lifting or strenuous activity. Don t do any activity that causes pain. Put an ice pack on the injured area. Do this for 20 minutes every 1 to 2 hours the first day. You can make an ice pack by wrapping a plastic bag of ice cubes in a thin towel. Continue to use the ice pack 3 to 4 times a day for the next 2 days. Then use the ice pack as needed to ease pain and swelling. After 1 to 2 days you may put a warm compress on the area. Do this for 10 minutes several times a day. A warm compress is a clean cloth that s damp with warm water. Hold a pillow to the affected area when you cough. This will help ease pain. You may use rzkq-nfv-pyezqcw pain medicine such as acetaminophen or ibuprofen to control pain, unless another pain medicine was prescribed. If you have chronic liver or kidney disease, talk with your healthcare provider before using these medicines. Also talk with your provider if you ve had a stomach ulcer or gastrointestinal bleeding. Follow-up care Follow up with your healthcare provider, or as advised. When to seek medical advice Call your healthcare provider right away if any of these occur: New abdominal pain or abdominal pain that gets worse Fever of 100.4 F (38 C) or higher, or as directed by your healthcare provider Call 911 Call 911 if any of these occur: Dizziness, weakness, or fainting Shortness of breath, trouble breathing, or breathing fast Chest pain gets worse when you breathe Severe pain that comes on suddenly or lasts more than an hour 7916-1943 [employer]. [address] [place] [address]. All rights reserved. This information is not intended as a substitute for professional medical care. Always follow your healthcare professional's instructions. Follow Up Care 10/07/2023 18:17:52 With:AMANDA ROLDAN Address: [address] [place] [phone] Business (1) When:2-4 days Comments:Follow-up with your doctor, use Tylenol, lidocaine patches as needed, warm compresses may be helpful as well, return if any worsening or concerning symptoms as discussed. [facility] 10-07-2023 Note Discharge Instructions Thank you for allowing [facility] to assist you with your healthcare needs. The following is important discharge information regarding your hospital visit. Diagnosis from Today's Visit Chest wall hematoma What to Do Next Instructions from Your Care Team No qualifying data available. Post Acute Orders No qualifying data available. You Need to Schedule the Following Appointments Follow Up with AMANDA ROLDAN When:Within 2-4 days Where:[address] [place] [address] [place] [address] [phone] Business (1) Additional Information: Follow-up with your doctor, use Tylenol, lidocaine patches as needed, warm compresses may be helpful as well, return if any worsening or concerning symptoms as discussed. Allergies NKA Medications Please ask your primary doctor or pharmacist before taking any other medication not listed, including over the counter drugs, herbal medications, vitamins and or supplements as they may interact with your home medications. What How Much When Instructions Last Dose New lidocaine topical (lidocaine 5% topical patch) 1 patch(es) Topical Every day Duration: 10 Days Printed Prescription Unchanged aspirin (Aspirin Low Dose 81 mg oral tablet) 1 tab Once a day Unchanged enoxaparin (Lovenox 40 mg/ 0.4 mL injectable solution) 0.4 Milliliter Subcutaneous Once a day Duration: 6 week(s) Unchanged multivitamin, (Alive Gummies oral tablet, chewable) 2 tab(s) Chewed Once a day Please take this list to your next doctor s visit. Bring all medications you take, including over the counter medications, herbals and other supplements with you to your doctor s visit. Patients and families are reminded to discard old lists and to update any records with all medication providers or retail pharmacies. Education Materials Chest Contusion A contusion is a bruise to the skin, muscle, or ribs. It may cause pain, tenderness, and swelling. It may turn the skin purple until it heals. Contusions take a few days to a few weeks to heal. Home care Follow these guidelines when caring for yourself at home: Rest. Don t do any heavy lifting or strenuous activity. Don t do any activity that causes pain. Put an ice pack on the injured area. Do this for 20 minutes every 1 to 2 hours the first day. You can make an ice pack by wrapping a plastic bag of ice cubes in a thin towel. Continue to use the ice pack 3 to 4 times a day for the next 2 days. Then use the ice pack as needed to ease pain and swelling. After 1 to 2 days you may put a warm compress on the area. Do this for 10 minutes several times a day. A warm compress is a clean cloth that s damp with warm water. Hold a pillow to the affected area when you cough. This will help ease pain. You may use fryd-haf-dylowxm pain medicine such as acetaminophen or ibuprofen to control pain, unless another pain medicine was prescribed. If you have chronic liver or kidney disease, talk with your healthcare provider before using these medicines. Also talk with your provider if you ve had a stomach ulcer or gastrointestinal bleeding. Follow-up care Follow up with your healthcare provider, or as advised. When to seek medical advice Call your healthcare provider right away if any of these occur: New abdominal pain or abdominal pain that gets worse Fever of 100.4 F (38 C) or higher, or as directed by your healthcare provider Call 911 Call 911 if any of these occur: Dizziness, weakness, or fainting Shortness of breath, trouble breathing, or breathing fast Chest pain gets worse when you breathe Severe pain that comes on suddenly or lasts more than an hour 8424-4445 [employer]. [address] [place] [address]. All rights reserved. This information is not intended as a substitute for professional medical care. Always follow your healthcare professional's instructions. Additional Information VACCINATE! IT SAVES LIVES! Members of the community who have not yet received the COVID-19 vaccine and would like to receive it can visit one of [facility] vaccine clinics. There are many vaccine clinic locations within the [facility]. For locations and available times, please visit www.gettheshot.coronavirus.[place].gov /. It is important to note that some COVID mobile vaccine clinics are held outdoors and may be canceled in rainy or stormy conditions. To learn more about pediatric vaccinations (ages 5-11), we invite you to visit the [facility] webpage. [email or web address]/page [email or web address]-Qxuiq-Qsfeubpmwhj-Frequently -[email or web address]-Questions.html To learn more about the COVID-19 vaccine, we invite you to visit the CDC website for a list of frequently asked questions. https://www.cdc.gov/coronavirus/201 9-ncov/vaccines/faq.html [facility] Patient Portal Access Instructions: Stay connected with your healthcare team and access your personal medical information anytime with the [facility] Patient Portal. If you would like a full copy of your medical records please contact the [facility] Medical Records Department Wednesday through Wednesday between 8a.m. and 4:30p.m. Please follow the directions below to access the portal: 1.Access the email account you provided upon registration to the [facility].2.Look for an invitation email from [facility].3.Open the email and access the invitation link: Accept Invitation to [employer]4.Fill in the required nunes to create your account. Sign into [email or web address] with your username and password that you created in the above steps to stay up to date. You can then view a summary of results, a summary of your visits, and the ability to download your summaries to your computer or send the information securely to a physician. Remember that your healthcare information is confidential, so carefully consider who you will allow to register on the [employer] Patient Portal for access to your information. You can also access the [employer] Patient Portal on the [employer]. Simply click on Health Records under Health Data and then click on the [place]. com. cn logo. HOW TO SAFELY DISPOSE OF PRESCRIPTION MEDICATIONS Please use one of the following methods to safely dispose of your unused medications. 1.Use a drug disposal kit: the drug disposal pouch allows you to safely discard your old and unused drugs. Ask your nurse to give you one when you are discharged.2.Visit a local take-back location: Many local pharmacies and police departments have programs that collect old and unwanted prescription drugs. Call your local pharmacy or go to http://Senstore.5 Star Quarterback/0I8Ui9c to find one close to you.3.Make use of household items: Use cat litter or old coffee grounds to dispose medications if other options are not available. Mix your drugs with these household products, seal them in an airtight container and throw it into the garbage. Call [facility]: [phone] to be sure your drugs can be disposed of in this way. Some medicines may require a different approach.4.Never flush your medications down the toilet. IF YOU HAVE BEEN PRESCRIBED AN OPIOIDS FOR PAIN If you have been prescribed an opioid (such as hydrocodone, oxycodone or morphine), it is critical to understand the possible side effects and risks of opioid pain medications. Even when taken as directed, opioids can have several side effects including: Tolerance, meaning you might need to take more of a medication for the same pain relief. Nausea, vomiting and/or constipation. Sleepiness, dizziness, dry mouth, confusion, depression or itching. Physical dependence, meaning you have withdrawal symptoms when a medication is stopped ? this can develop within a few days. KNOW YOUR RESPONSIBILITIES It is important to know exactly how much and how often to take the opioid pain medications you are prescribed. Never take opioids in higher amounts or more often than prescribed. Do not combine opioids with alcohol or other drugs that cause drowsiness, such as benzodiazepines, also known as benzos, including diazepam and alprazolam, muscle relaxants or sleep aids. Never sell or share prescription opioids. This is illegal. Store opioids in a secure place and out of reach of others (including children, family, friends and visitors). The last page(s) of this document has been signed and retained as a CHART COPY Signatures Patient Education Materials Chest Wall Contusion Medication Leaflets My discharge plan and instructions have been reviewed and explained to me and I,SONIYA HAYS understand my current condition and have read and understand these discharge instructions. I have received a written copy of the plan/instructions. If I have questions, I am aware that I should contact my doctor. 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 center, your health care provider may: Review your history and any concerns that you have. Insert an IV into one of your veins. This may be used to give you fluids and medicines. Check your blood pressure, pulse, temperature, and heart rate (vital signs). Check whether your bag of water (amniotic sac) has broken (ruptured). Talk with you about your plan and discuss pain control options. Monitoring Your health care provider may monitor your contractions (uterine monitoring) and your baby's heart rate ( monitoring). You may need to be monitored: Often, but not continuously (intermittently). All the time or for long periods at a time (continuously). Continuous monitoring may be needed if: ?You are taking certain medicines, such as medicine to relieve pain or make your contractions stronger. ?You have or labor complications. Monitoring may be done by: Placing a special stethoscope or a handheld monitoring device on your abdomen to check your baby's heartbeat and to check for contractions. Placing monitors on your abdomen (external monitors) to record your baby's heartbeat and the frequency and length of contractions. Placing monitors inside your uterus through your vagina (internal monitors) to record your baby's heartbeat and the frequency, length, and strength of your contractions. Depending on the type of monitor, it may remain in your uterus or on your baby's head until . Telemetry. This is a type of continuous monitoring that can be done with external or internal monitors. Instead of having to stay in bed, you are able to move around during telemetry. Physical exam Your health care provider may perform frequent physical exams. This may include: Checking how and where your baby is positioned in your uterus. Checking your cervix to determine: ?Whether it is thinning out (effacing). ?Whether it is opening up (dilating). What happens during labor and delivery? Normal labor and delivery is divided into the following three stages: Stage 1 This is the longest stage of labor. This stage can last for hours or days. Throughout this stage, you will feel contractions. Contractions generally feel mild, infrequent, and irregular at first. They get stronger, more frequent (about every 2 3 minutes), and more regular as you move through this stage. This stage ends when your cervix is completely dilated to 4 inches (10 cm) and completely effaced. Stage 2 This stage starts once your cervix is completely effaced and dilated and lasts until the delivery of your baby. This stage may last from 20 minutes to 2 hours. This is the stage where you will feel an urge to push your baby out of your vagina. You may feel stretching and burning pain, especially when the widest part of your baby's head passes through the vaginal opening (). Once your baby is delivered, the umbilical cord will be clamped and cut. This usually occurs after waiting a period of 1 2 minutes after delivery. Your baby will be placed on your bare chest ([id number] contact) in an upright position and covered with a warm blanket. Watch your baby for feeding cues, like rooting or sucking, and help the baby to your breast for his or her first feeding. Stage 3 This stage starts immediately after the of your baby and ends after you deliver the placenta. This stage may take anywhere from 5 to 30 minutes. After your baby has been delivered, you will feel contractions as your body expels the placenta and your uterus contracts to control bleeding. What can I expect after labor and delivery? After labor is over, you and your baby will be monitored closely until you are ready to go home to ensure that you are both healthy. Your health care team will teach you how to care for yourself and your baby. You and your baby will stay in the same room (rooming in) during your hospital stay. This will encourage early bonding and successful . You may continue to receive fluids and medicines through an IV. Your uterus will be checked and massaged regularly (fundal massage). You will have some soreness and pain in your abdomen, vagina, and the area of skin between your vaginal opening and your anus (perineum). If an incision was made near your vagina (episiotomy) or if you had some vaginal tearing during delivery, cold compresses may be placed on your episiotomy or your tear. This helps to reduce pain and swelling. You may be given a squirt bottle to use instead of wiping when you go to the bathroom. To use the squirt bottle, follow these steps: ?Before you urinate, fill the squirt bottle with warm water. Do not use hot water. ?After you urinate, while you are sitting on the toilet, use the squirt bottle to rinse the area around your urethra and vaginal opening. This rinses away any urine and blood. ?Fill the squirt bottle with clean water every time you use the bathroom. It is normal to have vaginal bleeding after delivery. Wear a sanitary pad for vaginal bleeding and discharge. Summary Vaginal delivery means that you will give by pushing your baby out of your canal (vagina). Your health care provider may monitor your contractions (uterine monitoring) and your baby's heart rate ( monitoring). Your health care provider may perform a physical exam. Normal labor and delivery is divided into three stages. After labor is over, you and your baby will be monitored closely until you are ready to go home. This information is not intended to replace advice given to you by your health care provider. Make sure you discuss any questions you have with your health care provider. Document Released: 12/29/2008 Document Revised: 04/26/2018 Document Reviewed: 04/26/2018 [employer] Patient Education 2019 [employer]. Follow Up Care 09/01/2023 05:43:14 With:AMANDA GREENWOOD Address: [address] [place] [phone] When:09/16/2023 [facility] 09-01-2023 Note Labor Details Baby A FHR Baseline:120 bpm FHR Baseline Variability:Moderate variability Membranes Membrane Status:Intact FHR Accelerations:Present Uterine Uterine Contraction Frequency2 Uterine Contraction Monitoring MethodExternal toco Cervical Cervix Dilation4 cm Cervix [id number] Station-2 Labor Induction Information Mukherjee bulb out spontaneously at 1515 Evaluated now s/p epidural, comfortable with minimal pain with contractions Physical Exam Vitals & Measurements T: 36.7 C (Oral) TMIN: 36.4 C (Oral) TMAX: 36.8 C (Oral) HR: 64 (Monitored) RR: 18 BP: 90/44 SpO2: 98% HT: 155 cm WT: 89 kg BMI: 37.04 VE 4/80/-2 Pitocin at 12mu status cat one Ctx per toco every 2-3 minutes Assessment/Plan 1. Intrahepatic cholestasis of Cont exp management Consider AROM with descent 2. Antiphospholipid syndrome Orders: famotidine(Pepcid), 20 mg= 2 mL, IV Push, BID, PRN oxytocin 20 unit(s) [2 munit/min] + LR Premix Diluent 1,000 mL(Oxytocin for IV (munit/min) 20 unit(s) [2 munit/min] + LR Premix Diluent 1,000 mL), Start: 09/01/23 12:00:00 EDT, Start at 2 milliunits/minute Piggyback at closest IV port via infusion pump. Increase rate 2 milliunits every 15 minutes until contractions are no closer than every 2 minutes. Do not exceed 30 milliunits/minute, Rate: 6... terbutaline(Brethine), 0.25 mg= 0.25 mL, Subcutaneous, AsDirected, PRN Call Parameters, 09/01/23 12:00:00 EDT, PRN order. Notify provider if RN discontinues Oxytocin infusion and if contractions frequency exceeds 5 in 10 minutes averaged over a 30 minute period, increased resting tone, persistent noncategory one FHR tracing, Constant order Cervical Ripening, 09/01/23 12:00:00 EDT Cervical Ripening Catheter, 09/01/23 12:00:00 EDT, Assist physician with insertion of 24F 3 way cath w/ 40 mL bulb into cervical os. Inflate balloon with 30 mL of sterile water Discontinue Order, 09/01/23 12:00:00 EDT, Once, PRN order. RN may discontinue Oxytocin infusion if contractions frequency exceeds 5 in 10 minutes averaged over a 30 minute period, increased resting tone, non-reassuring surveillance(persistent non category one fet... Monitoring, 09/01/23 12:00:00 EDT, continuous while Oxytocin infusion running, monitor heart rate, palpate resting tone, frequency and duration per protocol Medications Inpatient Bicitra, 30 mL, Oral, AsDirected, PRN Brethine, 0.25 mg= 0.25 mL, Subcutaneous, AsDirected, PRN Brethine, 0.25 mg= 0.25 mL, Subcutaneous, AsDirected, PRN Cytotec, 1000 mcg= 5 tab(s), Rectal, Once, PRN Hemabate, 250 mcg= 1 mL, Intramuscular, Once, PRN LR 1,000 mL, 1000 mL, Intravenous LR 500 mL Bolus, 500 mL, IV Bolus, AsDirected, PRN Marcaine-Sublimaze 0.125%-2 mcg/mL EPIDURAL 100 mL 100 mL, 100 mL, Epidural Methergine, 0.2 mg= 1 mL, Intramuscular, Once, PRN Narcan, 0.1 mg= 0.25 mL, IV Push, AsDirected, PRN Narcan, 0.4 mg= 1 mL, IV Push, AsDirected, PRN Oxytocin for IV (mL/hr) 20 unit(s) + LR Premix Diluent 1,000 mL Oxytocin for IV (munit/min) 20 unit(s) [2 munit/min] + LR Premix Diluent 1,000 mL Pepcid, 20 mg= 2 mL, IV Push, BID, PRN Pitocin, 20 unit(s)= 2 mL, Intramuscular, Once, PRN tranexamic acid 1 g / 100 mL 0.7% NaCl PMX, 1 gram(s)= 100 mL, IV Piggyback, AsDirected, PRN Xylocaine HCl 1% injectable solution, 20 mg= 2 mL, Perineum, AsDirected, PRN Zofran, 4 mg= 2 mL, IV Push, q4h, PRN Zofran, 4 mg= 2 mL, IV Push, q4h, PRN Home Alive Gummies oral tablet, chewable, 2 tab(s), Chewed, qDay, 9 refills Aspirin Low Dose 81 mg oral tablet, 1 tab, qDay Celestone Soluspan 6 mg/mL injectable suspension, 2 mL, Intramuscular, q24h Lovenox 40 mg/0.4 mL injectable solution, 40 mg= 0.4 mL, Subcutaneous, qDay, 8 refills ursodiol 300 mg oral capsule, 300 mg= 1 cap(s), Oral, TID, 2 refills Digitally Signed by AMANDA GREENWOOD on 09/01/2023 06:33 PM [facility] 09-01-2023 Note Labor Details Baby A FHR Baseline:120 bpm FHR Baseline Variability:Moderate variability Membranes Membrane Status:Intact FHR Accelerations:Present Uterine Uterine Contraction Frequency2 Uterine Contraction Monitoring MethodExternal toco Cervical Cervix Dilation4 cm Cervix [id number] Station-2 Labor Induction Information Mukherjee bulb out spontaneously at 1515 Evaluated now s/p epidural, comfortable with minimal pain with contractions Physical Exam Vitals & Measurements T: 36.7 C (Oral) TMIN: 36.4 C (Oral) TMAX: 36.8 C (Oral) HR: 64 (Monitored) RR: 18 BP: 90/44 SpO2: 98% HT: 155 cm WT: 89 kg BMI: 37.04 VE 4/80/-2 Pitocin at 12mu status cat one Ctx per toco every 2-3 minutes Assessment/Plan 1. Intrahepatic cholestasis of Cont exp management Consider AROM with descent 2. Antiphospholipid syndrome Orders: famotidine(Pepcid), 20 mg= 2 mL, IV Push, BID, PRN oxytocin 20 unit(s) [2 munit/min] + LR Premix Diluent 1,000 mL(Oxytocin for IV (munit/min) 20 unit(s) [2 munit/min] + LR Premix Diluent 1,000 mL), Start: 09/01/23 12:00:00 EDT, Start at 2 milliunits/minute Piggyback at closest IV port via infusion pump. Increase rate 2 milliunits every 15 minutes until contractions are no closer than every 2 minutes. Do not exceed 30 milliunits/minute, Rate: 6... terbutaline(Brethine), 0.25 mg= 0.25 mL, Subcutaneous, AsDirected, PRN Call Parameters, 09/01/23 12:00:00 EDT, PRN order. Notify provider if RN discontinues Oxytocin infusion and if contractions frequency exceeds 5 in 10 minutes averaged over a 30 minute period, increased resting tone, persistent noncategory one FHR tracing, Constant order Cervical Ripening, 09/01/23 12:00:00 EDT Cervical Ripening Catheter, 09/01/23 12:00:00 EDT, Assist physician with insertion of 24F 3 way cath w/ 40 mL bulb into cervical os. Inflate balloon with 30 mL of sterile water Discontinue Order, 09/01/23 12:00:00 EDT, Once, PRN order. RN may discontinue Oxytocin infusion if contractions frequency exceeds 5 in 10 minutes averaged over a 30 minute period, increased resting tone, non-reassuring surveillance(persistent non category one fet... Monitoring, 09/01/23 12:00:00 EDT, continuous while Oxytocin infusion running, monitor heart rate, palpate resting tone, frequency and duration per protocol Medications Inpatient Bicitra, 30 mL, Oral, AsDirected, PRN Brethine, 0.25 mg= 0.25 mL, Subcutaneous, AsDirected, PRN Brethine, 0.25 mg= 0.25 mL, Subcutaneous, AsDirected, PRN Cytotec, 1000 mcg= 5 tab(s), Rectal, Once, PRN Hemabate, 250 mcg= 1 mL, Intramuscular, Once, PRN LR 1,000 mL, 1000 mL, Intravenous LR 500 mL Bolus, 500 mL, IV Bolus, AsDirected, PRN Marcaine-Sublimaze 0.125%-2 mcg/mL EPIDURAL 100 mL 100 mL, 100 mL, Epidural Methergine, 0.2 mg= 1 mL, Intramuscular, Once, PRN Narcan, 0.1 mg= 0.25 mL, IV Push, AsDirected, PRN Narcan, 0.4 mg= 1 mL, IV Push, AsDirected, PRN Oxytocin for IV (mL/hr) 20 unit(s) + LR Premix Diluent 1,000 mL Oxytocin for IV (munit/min) 20 unit(s) [2 munit/min] + LR Premix Diluent 1,000 mL Pepcid, 20 mg= 2 mL, IV Push, BID, PRN Pitocin, 20 unit(s)= 2 mL, Intramuscular, Once, PRN tranexamic acid 1 g / 100 mL 0.7% NaCl PMX, 1 gram(s)= 100 mL, IV Piggyback, AsDirected, PRN Xylocaine HCl 1% injectable solution, 20 mg= 2 mL, Perineum, AsDirected, PRN Zofran, 4 mg= 2 mL, IV Push, q4h, PRN Zofran, 4 mg= 2 mL, IV Push, q4h, PRN Home Alive Gummies oral tablet, chewable, 2 tab(s), Chewed, qDay, 9 refills Aspirin Low Dose 81 mg oral tablet, 1 tab, qDay Celestone Soluspan 6 mg/mL injectable suspension, 2 mL, Intramuscular, q24h Lovenox 40 mg/0.4 mL injectable solution, 40 mg= 0.4 mL, Subcutaneous, qDay, 8 refills ursodiol 300 mg oral capsule, 300 mg= 1 cap(s), Oral, TID, 2 refills Digitally Signed by AMANDA GREENWOOD on 09/01/2023 06:33 PM [facility] 09-01-2023 Note Labor Details Baby A FHR Baseline:120 bpm FHR Baseline Variability:Moderate variability Membranes Membrane Status:Intact FHR Accelerations:Present Uterine Uterine Contraction Frequency2 Uterine Contraction Monitoring MethodExternal toco Cervical Cervix Dilation4 cm Cervix [id number] Station-2 Pt and fetus tolerating labor well, mild pain with contractions Remains ambulatory in room Physical Exam Vitals & Measurements T: 36.7 C (Oral) TMIN: 36.4 C (Oral) TMAX: 36.8 C (Oral) HR: 64 (Monitored) RR: 18 BP: 90/44 SpO2: 98% HT: 155 cm WT: 89 kg BMI: 37.04 VE 1/50/-3 FB placed with ease with 40ml cc in ballon status cat one conts every 2-5 Assessment/Plan 1. Intrahepatic cholestasis of Cont IOL Mukherjee bulb placed Will initiate Pitocin 2mu increase by 2 mu every 15 min unitl contractions every 2-3min as mother and fetus tolerate c- EFM Pain management per pt request 2. Antiphospholipid syndrome Orders: famotidine(Pepcid), 20 mg= 2 mL, IV Push, BID, PRN oxytocin 20 unit(s) [2 munit/min] + LR Premix Diluent 1,000 mL(Oxytocin for IV (munit/min) 20 unit(s) [2 munit/min] + LR Premix Diluent 1,000 mL), Start: 09/01/23 12:00:00 EDT, Start at 2 milliunits/minute Piggyback at closest IV port via infusion pump. Increase rate 2 milliunits every 15 minutes until contractions are no closer than every 2 minutes. Do not exceed 30 milliunits/minute, Rate: 6... terbutaline(Brethine), 0.25 mg= 0.25 mL, Subcutaneous, AsDirected, PRN Call Parameters, 09/01/23 12:00:00 EDT, PRN order. Notify provider if RN discontinues Oxytocin infusion and if contractions frequency exceeds 5 in 10 minutes averaged over a 30 minute period, increased resting tone, persistent noncategory one FHR tracing, Constant order Cervical Ripening, 09/01/23 12:00:00 EDT Cervical Ripening Catheter, 09/01/23 12:00:00 EDT, Assist physician with insertion of 24F [address] way cath w/ 40 mL bulb into cervical os. Inflate balloon with 30 mL of sterile water Discontinue Order, 09/01/23 12:00:00 EDT, Once, PRN order. RN may discontinue Oxytocin infusion if contractions frequency exceeds 5 in 10 minutes averaged over a 30 minute period, increased resting tone, non-reassuring surveillance(persistent non category one fet... Monitoring, 09/01/23 12:00:00 EDT, continuous while Oxytocin infusion running, monitor heart rate, palpate resting tone, frequency and duration per protocol Medications Inpatient Bicitra, 30 mL, Oral, AsDirected, PRN Brethine, 0.25 mg= 0.25 mL, Subcutaneous, AsDirected, PRN Brethine, 0.25 mg= 0.25 mL, Subcutaneous, AsDirected, PRN Cytotec, 1000 mcg= 5 tab(s), Rectal, Once, PRN Hemabate, 250 mcg= 1 mL, Intramuscular, Once, PRN LR 1,000 mL, 1000 mL, Intravenous LR 500 mL Bolus, 500 mL, IV Bolus, AsDirected, PRN Marcaine-Sublimaze 0.125%-2 mcg/mL EPIDURAL 100 mL 100 mL, 100 mL, Epidural Methergine, 0.2 mg= 1 mL, Intramuscular, Once, PRN Narcan, 0.1 mg= 0.25 mL, IV Push, AsDirected, PRN Narcan, 0.4 mg= 1 mL, IV Push, AsDirected, PRN Oxytocin for IV (mL/hr) 20 unit(s) + LR Premix Diluent 1,000 mL Oxytocin for IV (munit/min) 20 unit(s) [2 munit/min] + LR Premix Diluent 1,000 mL Pepcid, 20 mg= 2 mL, IV Push, BID, PRN Pitocin, 20 unit(s)= 2 mL, Intramuscular, Once, PRN tranexamic acid 1 g / 100 mL 0.7% NaCl PMX, 1 gram(s)= 100 mL, IV Piggyback, AsDirected, PRN Xylocaine HCl 1% injectable solution, 20 mg= 2 mL, Perineum, AsDirected, PRN Zofran, 4 mg= 2 mL, IV Push, q4h, PRN Zofran, 4 mg= 2 mL, IV Push, q4h, PRN Home Alive Gummies oral tablet, chewable, 2 tab(s), Chewed, qDay, 9 refills Aspirin Low Dose 81 mg oral tablet, 1 tab, qDay Celestone Soluspan 6 mg/mL injectable suspension, 2 mL, Intramuscular, q24h Lovenox 40 mg/0.4 mL injectable solution, 40 mg= 0.4 mL, Subcutaneous, qDay, 8 refills ursodiol 300 mg oral capsule, 300 mg= 1 cap(s), Oral, TID, 2 refills Digitally Signed by AMANDA GREENWOOD on 09/01/2023 06:30 PM [facility] 09-01-2023 Note Chief Complaint stated here for IOL History of Present Illness 23 yo present for IOL. KAMILA 09/23 by LMP and confirmed by 8wk us. 36.5 weeks today. complicated by ho PE, Antiphospholipid syndrome, intrahepatic cholestasis of with last bile acid total count 58, comanaged by MFM, gerd, anxiety and anemia Pt had early and consistent care at [facility] and co-manged by MFM OB History: 2018 3714gm 2020 3110 gm Medical History ho PE migraines gerd anemia Surgical history TA Medications PNV ASA Lovenox 40mg SQ dly SP Celestone 08/24- 08/25 PNL o+, RPR NR Rubella NI, Varcella NI, HepB/C negative, HIV negative, CT/GC negative. NIPt low risk Anatomy complete with MFM Weekly BPPS/NSTs Last growth with MFM 08/30 BLANE 21.6 8 3002gms (53) AC 86 Review of Systems all neg despite pruritus Physical Exam Vitals and Measurements T: 36.6 C (Oral) TMIN: 36.4 C (Oral) TMAX: 36.8 C (Oral) HR: 83 (Monitored) RR: 16 BP: 109/60 SpO2: 98% HT: 155 cm WT: 89 kg BMI: 37.04 Weight Dosing Weight: 89 kg (09/01/23) Pain: Denies any pain at current time. Mood: Alert and oriented x4, Calm and cooperative. Resp: Even and nonlabored. Clear to auscultation bilaterally CV: Regular rate Abd: gravid, soft at rest no ctx palpated VE: 1/50/-2 LE: No edema, DTRs 2+, no clonus Nuero: Quang Humphrey, changes in vision or RUQ pain Lab Results 08/31 06:26 WBC: 12.4 H Hgb: 10.1 L Hct: 29.6 L Platelet: 213 Neutrophil %: 77.1 Assessment/Plan 1. Intrahepatic cholestasis of IOL today for elevated bile salts Cytotec Induction C-EFM consider mukherjee bulb with next exam 2. Antiphospholipid syndrome Lovenox during , LD to be Wednesday however last dose on Wednesday consider SCDS if prolonged immobilization Active movement now in early labor Plan to restart Lovenox at 12hours PP Orders: famotidine(Pepcid), 20 mg= 2 mL, IV Push, BID, PRN oxytocin 20 unit(s) [2 munit/min] + LR Premix Diluent 1,000 mL(Oxytocin for IV (munit/min) 20 unit(s) [2 munit/min] + LR Premix Diluent 1,000 mL), Start: 09/01/23 12:00:00 EDT, Start at 2 milliunits/minute Piggyback at closest IV port via infusion pump. Increase rate 2 milliunits every 15 minutes until contractions are no closer than every 2 minutes. Do not exceed 30 milliunits/minute, Rate: 6... terbutaline(Brethine), 0.25 mg= 0.25 mL, Subcutaneous, AsDirected, PRN Call Parameters, 09/01/23 12:00:00 EDT, PRN order. Notify provider if RN discontinues Oxytocin infusion and if contractions frequency exceeds 5 in 10 minutes averaged over a 30 minute period, increased resting tone, persistent noncategory one FHR tracing, Constant order Cervical Ripening, 09/01/23 12:00:00 EDT Cervical Ripening Catheter, 09/01/23 12:00:00 EDT, Assist physician with insertion of 24F 3 way cath w/ 40 mL bulb into cervical os. Inflate balloon with 30 mL of sterile water Discontinue Order, 09/01/23 12:00:00 EDT, Once, PRN order. RN may discontinue Oxytocin infusion if contractions frequency exceeds 5 in 10 minutes averaged over a 30 minute period, increased resting tone, non-reassuring surveillance(persistent non category one fet... Monitoring, 09/01/23 12:00:00 EDT, continuous while Oxytocin infusion running, monitor heart rate, palpate resting tone, frequency and duration per protocol Problem List/Past Medical History Ongoing Abdominal pain Anemia Antiphospholipid syndrome Anxiety Asthma Chest pain Dental abscess Depression Elevated liver enzymes Encounter for annual routine gynecological examination Encounter for supervision of normal in multigravida in second trimester Fatigue GERD - Gastro-esophageal reflux disease Heartburn in History of pulmonary embolism Insomnia Learning disability Liver hemangioma Migraine without aura Pruritus School physical exam Sciatica SOB (shortness of breath) Tobacco use Well adult exam Historical Acute PID - acute pelvic inflammatory disease Procedure/Surgical History Tonsillectomy: 2012 Medications Home Medications (5) Active Alive Gummies oral tablet, chewable 2 tab(s), Chewed, qDay Aspirin Low Dose 81 mg oral tablet 1 tab, qDay Celestone Soluspan 6 mg/mL injectable suspension 2 mL, Intramuscular, q24h Lovenox 40 mg/0.4 mL injectable solution 40 mg = 0.4 mL, Subcutaneous, qDay ursodiol 300 mg oral capsule 300 mg = 1 cap(s), Oral, TID Allergies NKA Social History Alcohol Use: Never., 02/03/2019 Home/Environment 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 Type: Cigarettes. Exposure to Tobacco Smoke Lives in non-smoking home., 09/01/2023 Family History COPD - Chronic obstructive pulmonary disease: Mother. Heart disease: Father. Hypertension: Grandparent. Mental illness: Mother. Suicide: Brother. Health Status Family Member(s) Family Member(s) Relationship: Brother, Age: 20 Years, Cause: suicide Immunizations diphtheria/tetanus/pertussis (DTaP) ped: 0 unknown unit (12/13/02) diphtheria/tetanus/pertussis (DTaP) ped: 0 unknown unit (05/26/99) diphtheria/tetanus/pertussis (DTaP) ped: 0 unknown unit (98) diphtheria/tetanus/pertussis (DTaP) ped: 0 unknown unit (98) haemophilus b conjugate (PRP-T) vaccine: 0 unknown unit (12/13/02) haemophilus b conjugate (PRP-T) vaccine: 0 unknown unit (05/26/99) haemophilus b conjugate (PRP-T) vaccine: 0 unknown unit (98) haemophilus b conjugate (PRP-T) vaccine: 0 unknown unit (98) hepatitis B pediatric vaccine: 0 unknown unit (98) hepatitis B pediatric vaccine: 0 unknown unit (98) hepatitis B pediatric vaccine: 0 unknown unit (98) Human Papillomavirus Quadval: 0 unknown unit (01/21/16) Human Papillomavirus Quadval: 0 unknown unit (98) Human Papillomavirus Quadval: 0 unknown unit (98) Human Papillomavirus Quadval: 0 unknown unit (98) measles/mumps/rubella virus vaccine: 0 unknown unit (01/02/04) measles/mumps/rubella virus vaccine: 0 unknown unit (12/13/02) meningococcal conjugate vaccine: 0 unknown unit (12/25/15) poliovirus vaccine, inactivated: 0 unknown unit (01/02/04) poliovirus vaccine, inactivated: 0 unknown unit (05/26/99) poliovirus vaccine, inactivated: 0 unknown unit (98) poliovirus vaccine, inactivated: 0 unknown unit (98) tetanus/diphth/pertuss (Tdap) adult/adol: 0 unknown unit (12/22/10) Code Status Code Status - Ordered -- 09/01/23 6:00:00 EDT, Full Code, Constant Order Digitally Signed by AMANDA GREENWOOD on 09/01/2023 06:23 PM [facility] 09-01-2023 Anesthesiology Consult note Patient: SONIYA HAYS Age: 23 years Sex: Female : 2000 Associated Diagnoses: None Author: ROBBIE CASE Preoperative Information Anesthesia history Patient's history: negative. Family's history: negative. Health Status Allergies: Allergic Reactions (Selected) NKA, Allergies (1) ActiveSeverityReaction NKANone Documented Current medications: (Selected) Inpatient Medications Ordered Bicitra: 30 mL, Oral, AsDirected, PRN: Gastric Upset Brethine: 0.25 mg, 0.25 mL, Subcutaneous, AsDirected, PRN: Control symptoms Brethine: 0.25 mg, 0.25 mL, Subcutaneous, AsDirected, PRN: Other (see order comments) Cytotec: 1,000 mcg, 5 tab(s), Rectal, Once, PRN: Other (see order comments) Hemabate: 250 mcg, 1 mL, Intramuscular, Once, PRN: Other (see order comments) LR 1,000 mL: 125 mL/hr, Intravenous LR 500 mL Bolus: 500 mL, IV Bolus, AsDirected, PRN: Other (see order comments) Methergine: 0.2 mg, 1 mL, Intramuscular, Once, PRN: Other (see order comments) Oxytocin for IV (mL/hr) 20 unit(s) + LR Premix Diluent 1,000 mL: 999 mL/hr, Intravenous Oxytocin for IV (munit/min) 20 unit(s) [2 munit/min] + LR Premix Diluent 1,000 mL: 6 mL/hr, Intravenous Pepcid: 20 mg, 2 mL, IV Push, BID, PRN: Heartburn Pitocin: 20 unit(s), 2 mL, Intramuscular, Once, PRN: Other (see order comments) Xylocaine HCl 1% injectable solution: 20 mg, 2 mL, Perineum, AsDirected, PRN: to perineal sutures Zofran: 4 mg, 2 mL, IV Push, q4h, PRN: Nausea tranexamic acid 1 g / 100 mL 0.7% NaCl PMX: 1 gram(s), 100 mL, 300 mL/hr, IV Piggyback, AsDirected, PRN: Other (see order comments) Prescriptions Prescribed Alive Gummies oral tablet, chewable: 2 tab(s), Chewed, qDay, 90 EA, 9 Refill(s) Celestone Soluspan 6 mg/mL injectable suspension: 2 mL, Intramuscular, q24h, Total of 2 doses 24 hours apart, 2 mL, 0 Refill(s) Lovenox 40 mg/0.4 mL injectable solution: 40 mg, 0.4 mL, Subcutaneous, qDay, for 30 day(s), 12 mL, 8 Refill(s) ursodiol 300 mg oral capsule: 300 mg, 1 cap(s), Oral, TID, 45 cap(s), 2 Refill(s) Documented Medications Documented Aspirin Low Dose 81 mg oral tablet: 1 tab, qDay, 0 Refill(s), Medications (15) Active Scheduled: (0) Continuous: (3) Lactated Ringers 1,000 mL 1,000 mL, Intravenous, 125 mL/hr Oxytocin 20 units in Lactated Ringers 1000 mL 20 unit(s) + LR Premix Diluent 1,000 mL 1,000 mL, Intravenous, 999 mL/hr Oxytocin 20 units in Lactated Ringers 1000 mL 20 unit(s) [2 munit/min] + LR Premix Diluent 1,000 mL 1,000 mL, Intravenous, 6 mL/hr PRN: (12) carboprost 250 mcg/ml 1mL ampule 250 mcg 1 mL, Intramuscular, Once citric acid-sodium citrate 334 mg-500 mg/5 mL (30 mL) Jacqueline UD 30 mL, Oral, AsDirected famotidine 20 mg/2 mL vial 20 mg 2 mL, IV Push, BID Lactated Ringers Injection 500 mL * Bolus * 500 mL, IV Bolus, AsDirected lidocaine 1% (MPF) 2 mL vial pf 20 mg 2 mL, Perineum, AsDirected methylergonovine 0.2 mg/mL (1 mL) ampule 0.2 mg 1 mL, Intramuscular, Once misoprostol 200 mcg tablet 1,000 mcg 5 tab(s), Rectal, Once ondansetron 2 mg/ 1 mL 2 mL INJ 4 mg 2 mL, IV Push, q4h oxytocin 10 units/mL 1 mL vial 20 unit(s) 2 mL, Intramuscular, Once terbutaline 1 mg/ml vial 0.25 mg 0.25 mL, Subcutaneous, AsDirected terbutaline 1 mg/ml vial 0.25 mg 0.25 mL, Subcutaneous, AsDirected tranexamic acid PMX 1 gram(s) 100 mL, IV Piggyback, AsDirected Problem list: Medical Abdominal pain / SNOMED CT 31058938 / Confirmed Anemia / SNOMED CT 781445919 / Confirmed Antiphospholipid syndrome / SNOMED CT 86029869 / Confirmed Anxiety / SNOMED CT 43274708 / Confirmed Asthma / SNOMED CT 418849531 / Confirmed Chest pain / SNOMED CT 86995030 / Confirmed Dental abscess / SNOMED CT 068794192 / Confirmed Depression / SNOMED CT 471373920 / Confirmed Learning disability / SNOMED CT 4377801 / Confirmed SOB (shortness of breath) / SNOMED CT 712587699 / Confirmed Elevated liver enzymes / SNOMED CT 8115593127 / Confirmed Fatigue / SNOMED CT 554127733 / Confirmed GERD - Gastro-esophageal reflux disease / SNOMED CT 4972745648 / Confirmed History of pulmonary embolism / SNOMED CT 253738211 / Confirmed Heartburn in / SNOMED CT 21998410 / Confirmed Liver hemangioma / SNOMED CT 105281999 / Confirmed Insomnia / SNOMED CT 082005794 / Confirmed Pruritus / SNOMED CT 9651368202 / Confirmed Migraine without aura / SNOMED CT 29158465 / Confirmed Encounter for supervision of normal in multigravida in second trimester / SNOMED CT 463668284 / Confirmed School physical exam / SNOMED CT 154915756 / Confirmed Well adult exam / SNOMED CT 214509253 / Confirmed Encounter for annual routine gynecological examination / SNOMED CT 710734832 / Confirmed / SNOMED CT 653329570 / Confirmed Sciatica / SNOMED CT 17939310 / Confirmed Tobacco use / SNOMED CT 949315830 / Confirmed, Active Problems (27) Abdominal pain Anemia Antiphospholipid syndrome Anxiety Asthma Chest pain Dental abscess Depression Elevated liver enzymes Encounter for annual routine gynecological examination Encounter for supervision of normal in multigravida in second trimester Fatigue GERD - Gastro-esophageal reflux disease Heartburn in History of pulmonary embolism Insomnia Learning disability Liver hemangioma Migraine without aura Pruritus School physical exam Sciatica SOB (shortness of breath) Tobacco use Tobacco use Well adult exam Histories Past Medical History: Resolved ([id number]): Onset on 05/13/2020 at 20 years. Resolved on 01/27/2021 at 20 years. Comments: 03/06/2021 EST 11:15 EST - Tiffanie Mtz LPN visit. ([id number]): Onset on 06/29/2017 at 17 years. Resolved in 2019 at 17 years. Acute PID - acute pelvic inflammatory disease ([id number]): Resolved. Family History: COPD - Chronic obstructive pulmonary disease Mother Suicide Brother () Hypertension Grandparent Heart disease Father Mental illness Mother Procedure history: Tonsillectomy ([id number]) in 2012 at 11 Years. Social History: Social & Psychosocial Habits Alcohol 07/06/2023 Use: Never Substance Abuse 07/06/2023 Use: Never Tobacco 09/01/2023 Tobacco Use: 5-9 cigarettes (between 1 Type: Cigarettes Exposure to Tobacco Smoke Lives in non-smoking home Home/Environment 07/06/2023 Primary Metallurgical Specialist: Self Nutrition/Health 07/06/2023 Caffeine intake amount: carbonated beverages, coffee, 3-4 servings daily. Physical Examination Vital Signs 09/01/2023 16:53 EDT Systolic Blood Pressure Non-Invasive 95 mmHg Diastolic Blood Pressure Non-Invasive 81 mmHg 09/01/2023 16:51 EDT Heart Rate Monitored 70 bpm Systolic Blood Pressure Non-Invasive 96 mmHg Diastolic Blood Pressure Non-Invasive 63 mmHg 09/01/2023 16:49 EDT Heart Rate Monitored 74 bpm Systolic Blood Pressure Non-Invasive 104 mmHg Diastolic Blood Pressure Non-Invasive 56 mmHg LOW 09/01/2023 16:47 EDT Heart Rate Monitored 85 bpm Systolic Blood Pressure Non-Invasive 117 mmHg Diastolic Blood Pressure Non-Invasive 65 mmHg 09/01/2023 16:45 EDT Heart Rate Monitored 78 bpm Systolic Blood Pressure Non-Invasive 107 mmHg Diastolic Blood Pressure Non-Invasive 53 mmHg LOW 09/01/2023 16:43 EDT Heart Rate Monitored 74 bpm Systolic Blood Pressure Non-Invasive 97 mmHg Diastolic Blood Pressure Non-Invasive 63 mmHg 09/01/2023 16:36 EDT Heart Rate Monitored 70 bpm Systolic Blood Pressure Non-Invasive 97 mmHg Diastolic Blood Pressure Non-Invasive 74 mmHg 09/01/2023 15:23 EDT Temperature Oral 36.6 DegC Heart Rate Monitored 55 bpm LOW Respiratory Rate 16 br/min Systolic Blood Pressure Non-Invasive 106 mmHg Diastolic Blood Pressure Non-Invasive 62 mmHg 09/01/2023 13:05 EDT Temperature Oral 36.5 DegC Heart Rate Monitored 88 bpm Respiratory Rate 18 br/min Systolic Blood Pressure Non-Invasive 115 mmHg Diastolic Blood Pressure Non-Invasive 74 mmHg 09/01/2023 10:05 EDT Temperature Oral 36.4 DegC Heart Rate Monitored 90 bpm Respiratory Rate 18 br/min Systolic Blood Pressure Non-Invasive 104 mmHg Diastolic Blood Pressure Non-Invasive 70 mmHg 09/01/2023 8:15 EDT Temperature Oral 36.7 DegC Heart Rate Monitored 83 bpm Respiratory Rate 18 br/min Systolic Blood Pressure Non-Invasive 101 mmHg Diastolic Blood Pressure Non-Invasive 65 mmHg 09/01/2023 6:01 EDT Temperature Oral 36.8 DegC Heart Rate Monitored 92 bpm Respiratory Rate 18 br/min Systolic Blood Pressure Non-Invasive 110 mmHg Diastolic Blood Pressure Non-Invasive 61 mmHg Reason For Taking VItal Signs Admission Vital Signs (last 24 hrs) Last Charted Temp Oral36.6 DegC (AUGUST 31 15:23) Heart Rate [id number] bpm (AUGUST 31 16:51) SBP95 mmHg (AUGUST 31 16:53) DBP81 mmHg (AUGUST 31 16:53) BMI37.04 (AUGUST 31 05:56) Measurements from flowsheet : Measurements 09/01/2023 6:57 EDT Height Not Done: Not Appropriate at this Time (Not Done) Height Not Done: Not Appropriate at this Time (Not Done) Admission Weight Not Done: Not Appropriate at this Time (Not Done) Admission Weight Not Done: Not Appropriate at this Time (Not Done) 09/01/2023 5:56 EDT Height 155 cm Admission Weight 89 kg [place] Body Weight 47.85 kg BSA Admission 1.87 Body Mass Index 37.04 kg/m2 Pain assessment: Pain Assessment 09/01/2023 16:52 EDT Primary Pain Intensity 2 Pain Scale Type 0-10 Pain scale 09/01/2023 15:23 EDT Primary Pain Intensity 6 Pain Scale Type 0-10 Pain scale 09/01/2023 13:05 EDT Primary Pain Intensity 2 Pain Scale Type 0-10 Pain scale 09/01/2023 12:53 EDT Primary Pain Intensity 0 Pain Scale Type 0-10 Pain scale 09/01/2023 11:40 EDT Primary Pain Intensity 0 Pain Scale Type 0-10 Pain scale 09/01/2023 10:05 EDT Primary Pain Intensity 0 Pain Scale Type 0-10 Pain scale 09/01/2023 9:00 EDT Primary Pain Intensity 0 Pain Scale Type 0-10 Pain scale 09/01/2023 8:00 EDT Primary Pain Intensity 0 Pain Scale Type 0-10 Pain scale 09/01/2023 6:01 EDT Primary Pain Intensity 0 Pain Scale Type 0-10 Pain scale . General: Alert and oriented, Moderate distress. Airway: Normal temporomandibular joint mobility. Mallampati classification: II (soft palate, fauces, uvula visible). Dentition Evaluation: Denies loose/chipped teeth. Respiratory: Lungs are clear to auscultation, Respirations are non-labored. Cardiovascular: Normal rate, Regular rhythm. Neurologic: Alert, Oriented. Review / Management Results review: Labs (Last four charted values) WBC H 12.4(AUGUST 31) Hgb L 10.1(AUGUST 31) Hct L 29.6(AUGUST 31) Plt 213(AUGUST 31) , Lab results 09/01/2023 16:53 EDT Systolic Blood Pressure Non-Invasive 95 mmHg Diastolic Blood Pressure Non-Invasive 81 mmHg 09/01/2023 16:52 EDT Primary Pain Intensity 2 Pain Scale Type 0-10 Pain scale 09/01/2023 16:51 EDT Heart Rate Monitored 70 bpm Systolic Blood Pressure Non-Invasive 96 mmHg Diastolic Blood Pressure Non-Invasive 63 mmHg Oxygen Saturation 98 % Epidural Care Patient Response states relief 09/01/2023 16:49 EDT Heart Rate Monitored 74 bpm Systolic Blood Pressure Non-Invasive 104 mmHg Diastolic Blood Pressure Non-Invasive 56 mmHg LOW 09/01/2023 16:47 EDT Heart Rate Monitored 85 bpm Systolic Blood Pressure Non-Invasive 117 mmHg Diastolic Blood Pressure Non-Invasive 65 mmHg Oxygen Saturation 98 % Patient Position, OB Right tilt 09/01/2023 16:45 EDT Heart Rate Monitored 78 bpm Systolic Blood Pressure Non-Invasive 107 mmHg Diastolic Blood Pressure Non-Invasive 53 mmHg LOW Oxygen Saturation 98 % 09/01/2023 16:43 EDT Heart Rate Monitored 74 bpm Systolic Blood Pressure Non-Invasive 97 mmHg Diastolic Blood Pressure Non-Invasive 63 mmHg Oxygen Saturation 99 % 09/01/2023 16:42 EDT Epidural Test Dose Time 09/01/2023 16:42 09/01/2023 16:36 EDT Heart Rate Monitored 70 bpm Systolic Blood Pressure Non-Invasive 97 mmHg Diastolic Blood Pressure Non-Invasive 74 mmHg Oxygen Saturation 98 % Uterine Contraction Monitoring Method External toco Uterine Contraction Frequency 2-3 Uterine Contraction Duration 60-70 Uterine Contraction Intensity, Ext Palp Moderate Uterine Resting Tone, External Soft Uterine Activity Regular contractions Epidural Patient Position Side of bed, leaning forward with support Epidural Placed By ROBBIE CASE APRN-GUIDE DOG TRAINER Baby A FHR Baseline: 125 bpm FHR Baseline Variability: Moderate variability FHR Accelerations: Present FHR Deceleration: Absent FHR Interpretation Category: Category One FHR Monitoring Method: External US transducer 09/01/2023 15:30 EDT Uterine Contraction Monitoring Method External toco Uterine Activity Regular contractions Baby A FHR Baseline Variability: Moderate variability oxytocin 10 munit/min unit(s) LR Premix Diluent LR Premix Diluent mL 09/01/2023 15:23 EDT Temperature Oral 36.6 DegC Heart Rate Monitored 55 bpm LOW Respiratory Rate 16 br/min Systolic Blood Pressure Non-Invasive 106 mmHg Diastolic Blood Pressure Non-Invasive 62 mmHg Primary Pain Intensity 6 Pain Scale Type 0-10 Pain scale Cervix Dilation 3 cm Cervix Effacement 70 Station -3 Cervical Consistency Soft Cervical Position Posterior Presenting Part Vertex Presenting Part Applied to Cervix No Vaginal Exam Performed By WILLIAN Kruger's Score 6 09/01/2023 15:15 EDT Mukherjee Bulb Induction Mukherjee bulb out spontaneously 09/01/2023 15:00 EDT Uterine Contraction Monitoring Method External toco Uterine Activity Regular contractions Baby A FHR Baseline Variability: Moderate variability 09/01/2023 14:30 EDT Uterine Contraction Monitoring Method External toco Uterine Activity Regular contractions Baby A FHR Baseline Variability: Moderate variability 09/01/2023 14:10 EDT Notify date/time 09/01/2023 14:10 Provider Notified AMANDA GREENWOOD Notification Method Phone Information Communicated Nurse communication Details Communicated updated on pt status 09/01/2023 14:00 EDT Uterine Contraction Monitoring Method External toco Baby A FHR Baseline: 120 bpm FHR Baseline Variability: Moderate variability oxytocin 8 munit/min unit(s) LR Premix Diluent LR Premix Diluent mL 09/01/2023 13:30 EDT Uterine Contraction Monitoring Method External toco Uterine Activity Regular contractions Baby A FHR Baseline: 130 bpm FHR Baseline Variability: Moderate variability oxytocin 6 munit/min unit(s) LR Premix Diluent LR Premix Diluent mL 09/01/2023 13:05 EDT Temperature Oral 36.5 DegC Heart Rate Monitored 88 bpm Respiratory Rate 18 br/min Systolic Blood Pressure Non-Invasive 115 mmHg Diastolic Blood Pressure Non-Invasive 74 mmHg Primary Pain Intensity 2 Pain Scale Type 0-10 Pain scale 09/01/2023 13:00 EDT Uterine Contraction Monitoring Method External toco Uterine Contraction Frequency 2-3 Uterine Contraction Duration 50-60 Uterine Contraction Intensity, Ext Palp Mild Uterine Resting Tone, External Soft Uterine Activity Regular contractions Baby A FHR Baseline: 125 bpm FHR Baseline Variability: Moderate variability FHR Accelerations: Present FHR Deceleration: Absent FHR Interpretation Category: Category One oxytocin 4 munit/min unit(s) LR Premix Diluent LR Premix Diluent mL 09/01/2023 12:53 EDT Primary Pain Intensity 0 Pain Scale Type 0-10 Pain scale 09/01/2023 12:30 EDT Uterine Contraction Monitoring Method External toco Uterine Contraction Frequency 2-3 Uterine Contraction Duration 50-60 Uterine Contraction Intensity, Ext Palp Mild Uterine Resting Tone, External Soft Uterine Activity Regular contractions Patient Position, OB Birthing ball Baby A FHR Baseline: 135 bpm FHR Baseline Variability: Moderate variability FHR Accelerations: Present FHR Deceleration: Absent FHR Interpretation Category: Category One oxytocin Begin Bag 20 unit(s) unit(s) LR Premix Diluent Begin Bag 1,000 mL mL 09/01/2023 12:00 EDT Uterine Contraction Monitoring Method External toco Uterine Contraction Frequency 2-6 Uterine Contraction Duration 50-60 Uterine Contraction Intensity, Ext Palp Mild Uterine Resting Tone, External Soft Uterine Activity Irregular contractions Patient Position, OB Right tilt, Sitting Baby A FHR Baseline: 135 bpm FHR Baseline Variability: Moderate variability FHR Accelerations: Present FHR Deceleration: Absent FHR Interpretation Category: Category One 09/01/2023 11:55 EDT citric acid-sodium citrate 30 mL mL 09/01/2023 11:40 EDT Primary Pain Intensity 0 Pain Scale Type 0-10 Pain scale Mukherjee Bulb Induction Discussed procedure with patient, Assist to position, Assist physician with placement, Mukherjee bulb placed by physician, Mukherjee bulb inflated with 30cc sterile water, Traction applied 09/01/2023 11:00 EDT Cervix Dilation 1 cm Cervix Effacement 50 Station -3 Cervical Consistency Soft Cervical Position Posterior Vaginal Exam Performed By WILLIAN Kruger Uterine Contraction Monitoring Method External toco Uterine Contraction Intensity, Ext Palp Mild Uterine Resting Tone, External Soft Uterine Activity Irregular contractions Patient Position, OB Sitting Baby A FHR Baseline: 125 bpm FHR Baseline Variability: Moderate variability FHR Accelerations: Present FHR Deceleration: Absent FHR Interpretation Category: Category One Barreto's Score 4 09/01/2023 10:05 EDT Temperature Oral 36.4 DegC Heart Rate Monitored 90 bpm Respiratory Rate 18 br/min Systolic Blood Pressure Non-Invasive 104 mmHg Diastolic Blood Pressure Non-Invasive 70 mmHg Primary Pain Intensity 0 Pain Scale Type 0-10 Pain scale Uterine Contraction Monitoring Method External toco Uterine Resting Tone, External Soft Uterine Activity Irregular contractions Baby A FHR Baseline: 125 bpm FHR Baseline Variability: Moderate variability FHR Accelerations: Present FHR Deceleration: Absent FHR Interpretation Category: Category One 09/01/2023 9:00 EDT Primary Pain Intensity 0 Pain Scale Type 0-10 Pain scale Uterine Contraction Monitoring Method External toco Uterine Contraction Frequency 2-5 Uterine Contraction Duration 50-60 Uterine Contraction Intensity, Ext Palp Mild Uterine Resting Tone, External Soft Uterine Activity Regular contractions Patient Position, OB Birthing ball Baby A FHR Baseline: 120 bpm FHR Baseline Variability: Moderate variability FHR Accelerations: Present FHR Deceleration: Absent FHR Interpretation Category: Category One 09/01/2023 8:15 EDT Temperature Oral 36.7 DegC Heart Rate Monitored 83 bpm Respiratory Rate 18 br/min Systolic Blood Pressure Non-Invasive 101 mmHg Diastolic Blood Pressure Non-Invasive 65 mmHg 09/01/2023 8:00 EDT Primary Pain Intensity 0 Pain Scale Type 0-10 Pain scale Oxygen Therapy Room air Uterine Contraction Monitoring Method External toco Uterine Contraction Frequency 2-3 Uterine Contraction Duration 50-70 Uterine Contraction Intensity, Ext Palp Mild Uterine Resting Tone, External Soft Uterine Activity Regular contractions Patient Position, OB Birthing ball Baby A FHR Baseline: 125 bpm FHR Baseline Variability: Moderate variability FHR Accelerations: Present FHR Deceleration: Absent FHR Interpretation Category: Category One FHR Monitoring Method: monitoring explained 09/01/2023 6:57 EDT Blood Type, External Not Done: Not Appropriate at this Time (Not Done) Rubella, External Not Done: Not Appropriate at this Time (Not Done) HIV Antibodies, External Not Done: Not Appropriate at this Time (Not Done) Group B Strep, External Not Done: Not Appropriate at this Time (Not Done) Hepatitis B, External Not Done: Not Appropriate at this Time (Not Done) RPR, External Not Done: Not Appropriate at this Time (Not Done) Designated Person #1 We May Share PHI Not Done: Not Appropriate at this Time (Not Done) Designated Person #1 Relationship Not Done: Not Appropriate at this Time (Not Done) Privacy Restrictions Requested Not Done: Not Appropriate at this Time (Not Done) Height Not Done: Not Appropriate at this Time (Not Done) Height Not Done: Not Appropriate at this Time (Not Done) Admission Weight Not Done: Not Appropriate at this Time (Not Done) Admission Weight Not Done: Not Appropriate at this Time (Not Done) Expected Outcome Not Done: Not Appropriate at this Time (Not Done) Patient Type Not Done: Not Appropriate at this Time (Not Done) Status Not Done: Not Appropriate at this Time (Not Done) PPH Risk Not Done: Not Appropriate at this Time (Not Done) Baby For Adoption Not Done: Not Appropriate at this Time (Not Done) Surrogate Not Done: Not Appropriate at this Time (Not Done) Discharge Physician Not Done: Not Appropriate at this Time (Not Done) WIC Participant Not Done: Not Appropriate at this Time (Not Done) Safe Sleep Environment for Baby Not Done: Not Appropriate at this Time (Not Done) Safe Sleep Environment Outside Home Not Done: Not Appropriate at this Time (Not Done) Maternal Transport Not Done: Not Appropriate at this Time (Not Done) Thoughts of Harming Others - History Not Done: Not Appropriate at this Time (Not Done) Thoughts of Suicide - History Not Done: Not Appropriate at this Time (Not Done) Coping Not Done: Not Appropriate at this Time (Not Done) Emotional Abuse History Not Done: Not Appropriate at this Time (Not Done) Physical Abuse History Not Done: Not Appropriate at this Time (Not Done) Sexual Abuse Not Done: Not Appropriate at this Time (Not Done) Hospital Clergy to Visit Not Done: Not Appropriate at this Time (Not Done) Financial Concerns Re: Hospital/Disch Not Done: Not Appropriate at this Time (Not Done) Living Situation Not Done: Not Appropriate at this Time (Not Done) Current Home Treatments Not Done: Not Appropriate at this Time (Not Done) Professional Skilled Services Not Done: Not Appropriate at this Time (Not Done) Special Services and Community Resources Not Done: Not Appropriate at this Time (Not Done) Advanced Directives Not Done: Not Appropriate at this Time (Not Done) Infectious Disease Symptoms Not Done: Not Appropriate at this Time (Not Done) Infectious Disease Recent Exposure Not Done: Not Appropriate at this Time (Not Done) Preferred Spoken Language Not Done: Not Appropriate at this Time (Not Done) Preferred Written Language Not Done: Not Appropriate at this Time (Not Done) Teaching Evaluation Not Done: Not Appropriate at this Time (Not Done) Safety Brochure Information Reviewed Not Done: Not Appropriate at this Time (Not Done) Kayla Adams Video Viewed Not Done: Not Appropriate at this Time (Not Done) Chief Complaint Not Done: Not Appropriate at this Time (Not Done) Information Given by Not Done: Not Appropriate at this Time (Not Done) Emergency Contact Number Not Done: Not Appropriate at this Time (Not Done) Mode of Transfer Not Done: Not Appropriate at this Time (Not Done) Discharge To, Anticipated Not Done: Not Appropriate at this Time (Not Done) Other Anticipated Needs After Discharge Not Done: Not Appropriate at this Time (Not Done) Anticoagulants Taken In Past 6 Wks. Not Done: Not Appropriate at this Time (Not Done) Prev Test Positive/Diagnosis w/COVID-19 Not Done: Not Appropriate at this Time (Not Done) Current Quarantine/Isolated any Illness Not Done: Not Appropriate at this Time (Not Done) Any Contact with Sick Animals/Birds Not Done: Not Appropriate at this Time (Not Done) Traveled Anywhere in Last 30 Days Not Done: Not Appropriate at this Time (Not Done) Not Done: Not Appropriate at this Time (Not Done) Able To Drink Order Detail Not Done: Not Appropriate at this Time (Not Done) Able To Sign Consents Order Detail Not Done: Not Appropriate at this Time (Not Done) Code Status Order Detail Not Done: Not Appropriate at this Time (Not Done) IV Order Detail Not Done: Not Appropriate at this Time (Not Done) Dialysis Schedule Order Detail Not Done: Not Appropriate at this Time (Not Done) Has Diabetes Order Detail Not Done: Not Appropriate at this Time (Not Done) Isolation Precautions Order Detail Not Done: Not Appropriate at this Time (Not Done) Nurse Collect Order Detail Not Done: Not Appropriate at this Time (Not Done) Oxygen Order Detail Not Done: Not Appropriate at this Time (Not Done) Order Detail Not Done: Not Appropriate at this Time (Not Done) Prior Valve Replacement Order Detail Not Done: Not Appropriate at this Time (Not Done) Transport Mode Order Detail Not Done: Not Appropriate at this Time (Not Done) Anesthesia/Transfusions Not Done: Not Appropriate at this Time (Not Done) 09/01/2023 6:53 EDT Notify date/time 09/01/2023 6:45 Provider Notified AMANDA GREENWOOD Notification Method Office Information Communicated Nurse communication Details Communicated updated on pt status, FHT, cervical exam, and gbs negative status Notification Outcome Orders received Person Reporting Result(s) cynthia ceballos rn Details of Results Received orders to admit to inpatient 1 dose of cytotec Results Read Back Yes Uterine Contraction Monitoring Method External toco Uterine Resting Tone, External Soft Baby A FHR Baseline: 135 bpm FHR Baseline Variability: Moderate variability FHR Accelerations: Present FHR Deceleration: Absent FHR Interpretation Category: Category One FHR Monitoring Method: External US transducer 09/01/2023 6:52 EDT Cervix Dilation 1 cm Cervix Effacement 50 Station -3 Cervical Consistency Soft Cervical Position Posterior Vaginal Exam Performed By WILLIAN Jeffrieshop's Score 4 Station Calculation -3 09/01/2023 6:51 EDT misoprostol 25 mcg mcg 09/01/2023 6:49 EDT O-Remains Free From Injury Met Edu-Pain Management Verbalizes/Nonverbally indicates understanding Ed- Monitoring Verbalizes/Nonverbally indicates understanding, Demonstrates Ed-Safety Verbalizes/Nonverbally indicates understanding Ed-Discharge instructions Verbalizes/Nonverbally indicates understanding Ed-Complications of Labor/Delivery Verbalizes/Nonverbally indicates understanding 09/01/2023 6:26 EDT WBC 12.4 10^3/mcL HI RBC 3.93 10^6/mcL LOW Hgb 10.1 G/dL LOW Hct 29.6 % LOW MCV 75.2 fL LOW MCH 25.7 pg LOW MCHC 34.1 G/dL RDW 14.1 % Platelet 213 10^3/mcL MPV 9.2 fL Neutrophil % 77.1 % Lymphocyte % 17.5 % Monocyte % 4.7 % Eosinophil % 0.3 % Basophil % 0.4 % Neutrophil, Absolute 9.6 10^3/mcL HI Lymphocyte, Absolute 2.2 10^3/mcL Monocyte, Absolute 0.6 10^3/mcL Eosinophil, Absolute 0.0 10^3/mcL Basophil, Absolute 0.1 10^3/mcL ABO/Rh Interp O POS ABSC Interp (Gel) Negative ABSC 09/01/2023 6:25 EDT Hand Left 09/01/2023 18 gauge Peripheral IV Activity: Insert new site Peripheral IV Dressing Condition: Clean, Dry, Intact Peripheral IV Dressing Activity: Applied, Transparent dressing Peripheral IV Line Status/Patency: Flushes easily, 10ml normal saline flush Peripheral IV Site Condition: No complications Peripheral IV Equipment: Extension set, [place], PRN Adaptor Peripheral IV Number of Attempts: 1 09/01/2023 6:02 EDT Murmur Auscultated No Dorsalis Pedis Pulse, Left 2+ Normal Dorsalis Pedis Pulse, Right 2+ Normal Generalized Bilateral Edema Ratin+ trace/2mm Pedal edema Bilateral Edema Ratin+ trace/2mm Respirations Unlabored Respiratory Pattern Regular All Lobes Breath Sounds Clear, Equal Cough None Abdomen Description Soft, Rounded Swallowing Disorder None Bowel Sounds All Quadrants Present Urinary Elimination Voiding, no difficulties Uterine Contraction Monitoring Method External toco Uterine Resting Tone, External Soft Patient Position, OB Right tilt Baby A FHR Monitoring Method: monitoring explained, External US transducer Heart Tone: 130 Membrane Status: Intact Support Person Present Support Person Involvement Supportive/involved Patient feelings/concerns Discusses care, feelings, concerns Skin Temperature Warm Skin Description [place], Dry Skin Integrity Intact Sensory Perception Ariel No impairment Moisture Ariel Rarely moist Activity Ariel Walks frequently Mobility Ariel No limitations Nutrition Ariel Adequate Friction and Shear Ariel No apparent problem Ariel Score 22 Hospital Acquired Pressure Injury Risk None/minimal risk (score 19-23) Neurological Symptoms Patient denies Strength All Extremities Strong Tone All Extremities Normal Kinney Screen Daily History of Fall in Last 3 Months Kinney No Presence of Secondary Diagnosis Kinney No Use of Ambulatory Aid Kinney None, bedrest, wheelchair, nurse IV/PRN Adapter Fall Risk Kinney Yes Gait Weak or Impaired Fall Risk Kinney Normal, bedrest, immobile Mental Status Fall Risk Kinney Oriented to own ability Kinney Fall Risk Score 20 Violence Risk Confused No Violence Risk Irritable No Violence Risk Boisterous No Violence Risk Verbal Threats No Violence Risk Physical Threats No Violence Risk Attacking Objects No Violence Risk Predictor Score 0 Violence Risk Intervention None Violence Risk Current Interventions None Appetite Good 09/01/2023 6:01 EDT Temperature Oral 36.8 DegC Heart Rate Monitored 92 bpm Respiratory Rate 18 br/min Systolic Blood Pressure Non-Invasive 110 mmHg Diastolic Blood Pressure Non-Invasive 61 mmHg Reason For Taking VItal Signs Admission Primary Pain Intensity 0 Pain Scale Type 0-10 Pain scale Heart Rhythm Regular Oxygen Therapy Room air Pt./Caregiver Remote Cont.Visual Monitor Verbalizes/Nonverbally indicates understanding Positioning Repositions self Activity Status ADL Awake Nurse Safety Checks q2hrs Performed 7pm-7am Standard Safety ID band on, Call device within reach, Bed in low position, Wheels locked, Upper/Half-Length side-rails up, Phone within reach, personal items within reach RN Coordination of Care 7pm-7am 09/01/2023 5:56 EDT Blood Type, External O positive Rubella, External Immune HIV Antibodies, External Negative Group B Strep, External Negative Group B Strep Date Performed 08/19/2023 Hepatitis B, External Negative Hepatitis B Date Performed 03/01/2023 RPR, External Nonreactive Designated Person #1 We May Share PHI Danie Iglesias Designated Person #1 Relationship Significant other Privacy Restrictions Requested None Height 155 cm Admission Weight 89 kg [place] Body Weight 47.85 kg BSA Admission 1.87 Body Mass Index 37.04 kg/m2 Expected Outcome Live Patient Type Inpatient Thrombosis Risk Factors (1) or post- less than 1 month Thrombosis Risk Factor Add'l Assessment (1) Varicose veins or current swollen legs (greater than 1 p Thrombosis Risk Score 2 Status Yes PPH Risk Low risk for hemorrhage PPH Low Risk Factors Durán , Less than 4 previous deliveries, Unscarred uterus, Absence of hemorrhage history Infant Feeding Breast milk Anesthesia/Pain Medication During Labor Epidural/Spinal Circumcision Yes Baby For Adoption No Surrogate No Discharge [place] Physician nidhi reyna [facility] Participant Yes Safe Sleep Environment for Baby Yes Safe Sleep Environment Outside Home Yes Maternal Transport No Thoughts of Harming Others - History No Thoughts of Suicide - History No Coping Effective Emotional Abuse History Denies Physical Abuse History Denies Sexual Abuse Denies Hospital Clergy to Visit Patient Verbalizes No Spiritual Needs Financial Concerns Re: Hospital/Disch No Living Situation Home independently Current Home Treatments None Professional Skilled Services None Special Services and Community Resources None Advanced Directives No - refuses information Infectious Disease Symptoms Patient states no symptoms Infectious Disease Recent Exposure No Alcohol and Drug Use No Employee of Institutional Living No Health Care Employee No History of Exposure to TB No History of Positive Chest X-Ray for TB No History of Positive TB Skin Test No Homeless No Known Immunosuppression No Recent Immigrant No Resident of Institutional Living No Bloody Sputum No Fatigue No Fever No Loss of Appetite No Night Sweats No Persistent Cough > 3 Weeks No Weight Loss No Preferred Spoken Language Montserratian Preferred Written Language Montserratian Teaching Evaluation No further teaching needed Safety Brochure Information Reviewed Yes [facility] Video Viewed Patient refused Chief Complaint stated here for IOL Information Given by Patient, Spouse Emergency Contact Number Danie Iglesias [phone] Mode of Transfer Private vehicle Discharge To, Anticipated Home independently Other Anticipated Needs After Discharge No Anticoagulants Taken In Past 6 Wks. Yes Anticoagulant Taken Enoxaparin (Lovenox) Prev Test Positive/Diagnosis w/COVID-19 No Current Quarantine/Isolated any Illness No Any Contact with Sick Animals/Birds No Traveled Anywhere in Last 30 Days No No Able To Drink Order Detail Yes Able To Sign Consents Order Detail Yes Code Status Order Detail Full code IV Order Detail Yes Dialysis Schedule Order Detail N/A Has Diabetes Order Detail No Isolation Precautions Order Detail None Nurse Collect Order Detail 0 Oxygen Order Detail No Order Detail Yes Prior Valve Replacement Order Detail No Transport Mode Order Detail Ambulatory Anesthesia/Transfusions Prior anesthesia Admission Note-Nursing Patient History OB 08/31/2023 15:31 EDT PPP Count 1 K 08/31/2023 6:34 EDT CSummary CSUMMARY 08/31/2023 0:00 EDT US Obstetrical Scanned Follow-up Growth . Assessment and Plan [place] [employer]hesi[employer] (ASA) physical status classification: Class III. Anesthetic Preoperative Plan Anesthetic technique: Epidural. Regional: Epidural. Postoperative pain management: Per surgeon. Risks discussed: nausea, vomiting, headache, hypotension, allergic reaction, serious complications. Informed consent: signed by patient. Digitally Signed by ROBBIE CASE on 09/01/2023 04:55 PM [facility] 09-01-2023 Evaluation + Plan note Extrac sylvia from: Title:History and Physical Author:RUBEN GREENWOOD Date:09/01/23 1. Intrahepatic cholestasis of IOL today for elevated bile salts Cytotec Induction C-EFM consider mukherjee bulb with next exam 2. Antiphospholipid syndrome Lovenox during , LD to be Wednesday however last dose on Wednesday consider SCDS if prolonged immobilization Active movement now in early labor Plan to restart Lovenox at 12hours PP Orders: famotidine(Pepcid), 20 mg= 2 mL, IV Push, BID, PRN oxytocin 20 unit(s) [2 munit/min] + LR Premix Diluent 1,000 mL(Oxytocin for IV (munit/min) 20 unit(s) [2 munit/min] + LR Premix Diluent 1,000 mL), Start: 09/01/23 12:00:00 EDT, Start at 2 milliunits/minute Piggyback at closest IV port via infusion pump. Increase rate 2 milliunits every 15 minutes until contractions are no closer than every 2 minutes. Do not exceed 30 milliunits/minute, Rate: 6... terbutaline(Brethine), 0.25 mg= 0.25 mL, Subcutaneous, AsDirected, PRN Call Parameters, 09/01/23 12:00:00 EDT, PRN order. Notify provider if RN discontinues Oxytocin infusion and if contractions frequency exceeds 5 in 10 minutes averaged over a 30 minute period, increased resting tone, persistent noncategory one FHR tracing, Constant order Cervical Ripening, 09/01/23 12:00:00 EDT Cervical Ripening Catheter, 09/01/23 12:00:00 EDT, Assist physician with insertion of 24F 3 way cath w/ 40 mL bulb into cervical os. Inflate balloon with 30 mL of sterile water Discontinue Order, 09/01/23 12:00:00 EDT, Once, PRN order. RN may discontinue Oxytocin infusion if contractions frequency exceeds 5 in 10 minutes averaged over a 30 minute period, increased resting tone, non-reassuring surveillance(persistent non category one fet... Monitoring, 09/01/23 12:00:00 EDT, continuous while Oxytocin infusion running, monitor heart rate, palpate resting tone, frequency and duration per protocol Future Appointments Appointment Date:09/07/2023 10:00:00 AM Scheduled Provider: Location:[facility] Appointment Type:US Biophysical Profile Appointment Date:09/08/2023 01:45:00 PM Scheduled Provider:AMANDA GREENWOOD Location: [facility] Appointment Type: OV Appointment Date:09/09/2023 09:00:00 AM Scheduled Provider:SRI BARRAZA MD Location:[facility] Appointment Type: OV OB Routine Follow Up Appointment Date:09/14/2023 10:00:00 AM Scheduled Provider: Location:[facility] Appointment Type:US Biophysical Profile Appointment Date:09/21/2023 11:00:00 AM Scheduled Provider: Location:[facility] Appointment Type:US OB W/Biophysical Profile Future Scheduled Tests Laboratory* Bile Acids, Fractionated LCMS 08/03/23 * Bile Acids, Fractionated LCMS 08/31/23 * Type and Screen (AO) 02/23/23 * HIV 1/2 Ab 02/23/23 * [facility] Lab Send out (Blood Specimens) 02/23/23 * [facility] Lab Send out (Blood Specimens) 02/23/23 Radiology* US OB > 14 weeks 07/30/23 * US OB Limited 05/10/23 * XR Chest 2 Views (PA & Lateral) 09/15/22 * US Biophysical Profile 09/07/23 * US Biophysical Profile 09/14/23 * US OB W/Biophysical Profile 07/20/23 * US OB W/Biophysical Profile 09/21/23 * OB W/Biophysical Profile 08/13/23 * OB W/Biophysical Profile 08/20/23 [facility] 05-23-2024 Nurse Progress note patient tolerated injection of celestone without signs or symptoms of a reaction Digitally Signed by Meche Avila RN on 08/26/2023 01:04 PM [facility]05-21-2024 Hospital Discharge instructions Patient Education 08/24/2023 11:22:14 7 - Labor and Delivery Outpatient Instructions (CUSTOM) [facility] AND DELIVERY OUTPATIENT HOME-GOING INSTRUCTIONS _X_ You are to follow up with your physician in ___ days/weeks. ACTIVITY ___ Bedrest _x__Activity as tolerated ___ No work/school for ___ days. ___Other PRESCRIPTION GIVEN ___Yes NAUSEA/VOMITING ___ Take small, frequent amounts of clear liquids. Avoid fruit juices and milk. ___ Increase fluid intake to a minimum of 8 ounces of fluid every hour while awake. ___ Soft diet. Rice, crackers, bananas, Jell-O, cooked carrots, applesauce. ___ Brooke diet. Avoid caffeine, chocolate, alcohol, spiced/greasy foods. URINARY TRACT INFECTION ___ Drink 8-12 glasses of water every day. ___ Urinate frequently; do not limit fluids to reduce frequency of urination. ___ Call your physician if burning and frequency with urination returns after taking all your medication. ___ Call your physician if you have a temperature of 100.4 degrees Fahrenheit or higher. ___ Wipe from front to back. SIGNS OF PRE-ECLAMPSIA ___ Severe heartburn. ___ Persistent headache not relieved by Tylenol. ___ Increased in swelling of face, hands and feet. ___ Blurred vision, double vision, or spots in the eyes. ___ Persistent vomiting. ___ *Convulsions or seizures. LABOR ___ Restrict activity. ___ Drink 8-12 glasses of water every day. ___ Urinate frequently ___ Pelvic rest. No sexual intercourse/ Call your physician if you experience: ___ Increase in vaginal discharge, leaking fluid, or vaginal bleeding. ___ More than 4, 5, or 6 contractions in one hour. ___ Burning and frequency with urination. DECREASED MOVEMENT ___ Lie down on your left side, drink some fluids and relax. Count the movements. You need tohave 10 movements in 2 hours. ___ If you do not feel the 10 movements, call your physician. OTHER ___ After an exam you may experience some spotting or discharge. As long as it is not bright red and heavy like a period or continues to leak as if your water broke, it is to be expected. ___ LABOR Call your physician if you experience: _x__ Painful uterine contractions every __6_ minutes for __1_ hours. _x_A gush or continuous trickle of watery discharge. COME TO THE HOSPITAL AND CALL PHYSICIAN IF: __x_ Your abdomen feels continually firm. __x_ *Bleeding is bright red and enough to saturate a pad in one hour or less. *Call 911 or go to the nearest Emergency Room for assistance. Form [id number] D: 03/13 Document Released: 03/22/2006 Document Revised: 03/10/2012 Document Reviewed: 03/22/2006 ExitCare Patient Information 2012 [employer]. Follow Up Care 08/24/2023 10:53:24 With:AMANDA GREENWOOD APRN-CNM Address: [address] [facility] [address] [facility] [place] [address]- [phone] When: Unknown Comments:Follow-up as scheduled [facility] 05-17-2024 Note. MICRO - Microbiology PROCEDURE: Urine Culture [*1] SOURCE: Urine, Clean Catch BODY SITE: COLLECTED DATE/TIME: 08/19/2023 14:13 EDT RECEIVED DATE/TIME: 08/19/2023 19:25 EDT START DATE/TIME: 08/19/2023 19:25 EDT FREE TEXT SOURCE: FINAL REPORTS Final Report [] Verified Date/Time/Personnel: 08/20/2023 14:51 EDT 10,000 - 50,000 cfu/ml Multiple bacterial morphotypes present. Probable Contamination. Suggest recollection if clinically indicated. Performing Locations *1: This test was performed at: [facility], [address] [place] [address], [id number] , [facility] ([place])08-17-2023 Hospital Discharge instructions Patient Education 08/17/2023 10:48:38 7 - Labor and Delivery Outpatient Instructions(CUSTOM) [facility] AND DELIVERY OUTPATIENT HOME-GOING INSTRUCTIONS _X_ You are to follow up with your physician in ___ days/weeks. ACTIVITY ___ Bedrest _X__Activity as tolerated ___ No work/school for ___ days. ___Other PRESCRIPTION GIVEN ___Yes NAUSEA/VOMITING ___ Take small, frequent amounts of clear liquids. Avoid fruit juices and milk. ___ Increase fluid intake to a minimum of 8 ounces of fluid every hour while awake. ___ Soft diet. Rice, crackers, bananas, Jell-O, cooked carrots, applesauce. ___ Brooke diet. Avoid caffeine, chocolate, alcohol, spiced/greasy foods. URINARY TRACT INFECTION ___ Drink 8-12 glasses of water every day. ___ Urinate frequently; do not limit fluids to reduce frequency of urination. ___ Call your physician if burning and frequency with urination returns after taking all your medication. ___ Call your physician if you have a temperature of 100.4 degrees Fahrenheit or higher. ___ Wipe from front to back. SIGNS OF PRE-ECLAMPSIA ___ Severe heartburn. ___ Persistent headache not relieved by Tylenol. ___ Increased in swelling of face, hands and feet. ___ Blurred vision, double vision, or spots in the eyes. ___ Persistent vomiting. ___ *Convulsions or seizures. LABOR ___ Restrict activity. _X__ Drink 8-12 glasses of water every day. _X__ Urinate frequently ___ Pelvic rest. No sexual intercourse/ Call your physician if you experience: _X__ Increase in vaginal discharge, leaking fluid, or vaginal bleeding. _X__ More than 4, 5, or 6 contractions in one hour. _X__ Burning and frequency with urination. DECREASED MOVEMENT _X__ Lie down on your left side, drink some fluids and relax. Count the movements. You need to have 10 movements in 2 hours. _X__ If you do not feel the 10 movements, call your physician. OTHER _X__ After an exam you may experience some spotting or discharge. As long as it is not bright red and heavy like a period or continues to leak as if your water broke, it is to be expected. ___ LABOR Call your physician if you experience: _X__ Painful uterine contractions every _5__ minutes for __1_ hours. _X__A gush or continuous trickle of watery discharge. COME TO THE HOSPITAL AND CALL PHYSICIAN IF: _X__ Your abdomen feels continually firm. _X__ *Bleeding is bright red and enough to saturate a pad in one hour or less. *Call 911 or go to the nearest Emergency Room for assistance. Form [id number] D: 03/13 Document Released: 03/22/2006 Document Revised: 03/10/2012 Document Reviewed: 03/22/2006 ExitCare Patient Information 2011 [employer]. [facility] 05-10-2024 Hospital Discharge instructions Patient Education 08/13/2023 10:14:11 7 - Labor and Delivery Outpatient Instructions (CUSTOM) [facility] AND DELIVERY OUTPATIENT HOME-GOING INSTRUCTIONS _X_ You are to follow up with your physician in ___ days/weeks. ACTIVITY ___ Bedrest ___Activity as tolerated ___ No work/school for ___ days. ___Other PRESCRIPTION GIVEN ___Yes NAUSEA/VOMITING ___ Take small, frequent amounts of clear liquids. Avoid fruit juices and milk. ___ Increase fluid intake to a minimum of 8 ounces of fluid every hour while awake. ___ Soft diet. Rice, crackers, bananas, Jell-O, cooked carrots, applesauce. ___ Brooke diet. Avoid caffeine, chocolate, alcohol, spiced/greasy foods. URINARY TRACT INFECTION ___ Drink 8-12 glasses of water every day. ___ Urinate frequently; do not limit fluids to reduce frequency of urination. ___ Call your physician if burning and frequency with urination returns after taking all your medication. ___ Call your physician if you have a temperature of 100.4 degrees Fahrenheit or higher. ___ Wipe from front to back. SIGNS OF PRE-ECLAMPSIA ___ Severe heartburn. ___ Persistent headache not relieved by Tylenol. ___ Increased in swelling of face, hands and feet. ___ Blurred vision, double vision, or spots in the eyes. ___ Persistent vomiting. ___ *Convulsions or seizures. LABOR ___ Restrict activity. ___ Drink 8-12 glasses of water every day. ___ Urinate frequently ___ Pelvic rest. No sexual intercourse/ Call your physician if you experience: ___ Increase in vaginal discharge, leaking fluid, or vaginal bleeding. ___ More than 4, 5, or 6 contractions in one hour. ___ Burning and frequency with urination. DECREASED MOVEMENT ___ Lie down on your left side, drink some fluids and relax. Count the movements. You need tohave 10 movements in 2 hours. ___ If you do not feel the 10 movements, call your physician. OTHER ___ After an exam you may experience some spotting or discharge. As long as it is not bright red and heavy like a period or continues to leak as if your water broke, it is to be expected. ___ LABOR Call your physician if you experience: ___ Painful uterine contractions every ___ minutes for ___ hours. ___A gush or continuous trickle of watery discharge. COME TO THE HOSPITAL AND CALL PHYSICIAN IF: ___ Your abdomen feels continually firm. ___ *Bleeding is bright red and enough to saturate a pad in one hour or less. *Call 911 or go to the nearest Emergency Room for assistance. Form [id number] D: 03/13 Document Released: 03/22/2006 Document Revised: 03/10/2012 Document Reviewed: 03/22/2006 ExitCare Patient Information 2012 [employer]. Follow Up Care 08/13/2023 09:47:38 With: SCHEDULED Address:Unknown When: Unknown [facility] 05-02-2024 Evaluation + Plan note Future Appointments Appointment Date:08/24/2023 10:00:00 AM Scheduled Provider: Location:[facility] Appointment Type:US Biophysical Profile Appointment Date:08/25/2023 11:00:00 AM Scheduled Provider:AMANDA GREENWOOD Location: [facility] Appointment Type: OV OB Routine Follow Up Appointment Date:09/02/2023 09:00:00 AM Scheduled Provider:ZARINA RUSSELL Location: [facility] Appointment Type: OV OB Routine Follow Up Appointment Date:09/07/2023 10:00:00 AM Scheduled Provider: Location:[facility] Appointment Type:US Biophysical Profile Appointment Date:09/09/2023 09:00:00 AM Scheduled Provider:SRI BARRAZA MD Location: [facility] Appointment Type: OV OB Routine Follow Up Appointment Date:09/14/2023 10:00:00 AM Scheduled Provider: Location:[facility] Appointment Type:US Biophysical Profile Appointment Date:09/21/2023 11:00:00 AM Scheduled Provider: Location:[facility] Appointment Type:US OB W/Biophysical Profile Future Scheduled Tests Laboratory* Bile Acids, Fractionated LCMS 08/03/23 * Bile Acids, Fractionated LCMS 08/31/23 * Type and Screen (AO) 02/23/23 * HIV 1/2 Ab 02/23/23 * [facility] Lab Send out (Blood Specimens) 02/23/23 * [facility] Lab Send out (Blood Specimens) 02/23/23 Radiology* US OB > 14 weeks 07/30/23 * US OB Limited 05/10/23 * XR Chest 2 Views (PA & Lateral) 09/15/22 * US Biophysical Profile 09/07/23 * US Biophysical Profile 08/24/23 * US Biophysical Profile 09/14/23 * US OB W/Biophysical Profile 07/20/23 * US OB W/Biophysical Profile 09/21/23 * US OB W/Biophysical Profile 08/13/23 * US OB W/Biophysical Profile 08/20/23 [facility] 05-01-2024 Evaluation + Plan note Future Appointments Appointment Date:08/17/2023 10:00:00 AM Scheduled Provider: Location:[facility] Appointment Type:US Biophysical Profile Appointment Date:08/19/2023 09:00:00 AM Scheduled Provider:ZARINA RUSSELL Location: [facility] Appointment Type:[facility] OV OB Routine Follow Up Appointment Date:08/20/2023 08:00:00 AM Scheduled Provider: Location:[facility] Appointment Type:US OB W/Biophysical Profile Appointment Date:08/24/2023 10:00:00 AM Scheduled Provider: Location:[facility] Appointment Type:US Biophysical Profile Appointment Date:08/25/2023 09:30:00 AM Scheduled Provider:AMANDA GREENWOOD Location: [facility] Appointment Type:[facility] OV OB Routine Follow Up Appointment Date:08/26/2023 09:00:00 AM Scheduled Provider:ZARINA RUSSELL Location: [facility] Appointment Type:[facility] OV OB Routine Follow Up Appointment Date:09/02/2023 09:00:00 AM Scheduled Provider:ZARINA RUSSELL Location: [facility] Appointment Type: OV OB Routine Follow Up Appointment Date:09/07/2023 10:00:00 AM Scheduled Provider: Location:[facility] Appointment Type:US Biophysical Profile Appointment Date:09/09/2023 09:00:00 AM Scheduled Provider:SRI BARRAZA MD Location: [facility] Appointment Type: OV OB Routine Follow Up Appointment Date:09/14/2023 10:00:00 AM Scheduled Provider: Location:[facility] Appointment Type:US Biophysical Profile Appointment Date:09/21/2023 11:00:00 AM Scheduled Provider: Location:[facility] Appointment Type:US OB W/Biophysical Profile Future Scheduled Tests Laboratory* Bile Acids, Fractionated LCMS 08/03/23 * Bile Acids, Fractionated LCMS 08/31/23 * Type and Screen (AO) 02/23/23 * Urine Culture 05/18/23 * HIV 1/2 Ab 02/23/23 * [facility] Lab Send out (Blood Specimens) 02/23/23 * [facility] Lab Send out (Blood Specimens) 02/23/23 Radiology* US OB > 14 weeks 07/30/23 * US OB Limited 05/10/23 * XR Chest 2 Views (PA & Lateral) 09/15/22 * US Biophysical Profile 08/17/23 * US Biophysical Profile 09/07/23 * US Biophysical Profile 08/24/23 * US Biophysical Profile 09/14/23 * US OB W/Biophysical Profile 07/20/23 * US OB W/Biophysical Profile 09/21/23 * OB W/Biophysical Profile 08/13/23 * OB W/Biophysical Profile 08/20/23 [facility] 04-30-2024 Hospital Discharge instructions Patient Education 08/03/2023 12:14:53 7 - Labor and Delivery Outpatient Instructions (CUSTOM) [facility] AND DELIVERY OUTPATIENT HOME-GOING INSTRUCTIONS _X_ You are to follow up with your physician in ___ days/weeks. ACTIVITY ___ Bedrest ___Activity as tolerated ___ No work/school for ___ days. ___Other PRESCRIPTION GIVEN ___Yes NAUSEA/VOMITING ___ Take small, frequent amounts of clear liquids. Avoid fruit juices and milk. ___ Increase fluid intake to a minimum of 8 ounces of fluid every hour while awake. ___ Soft diet. Rice, crackers, bananas, Jell-O, cooked carrots, applesauce. ___ Brooke diet. Avoid caffeine, chocolate, alcohol, spiced/greasy foods. URINARY TRACT INFECTION ___ Drink 8-12 glasses of water every day. ___ Urinate frequently; do not limit fluids to reduce frequency of urination. ___ Call your physician if burning and frequency with urination returns after taking all your medication. ___ Call your physician if you have a temperature of 100.4 degrees Fahrenheit or higher. ___ Wipe from front to back. SIGNS OF PRE-ECLAMPSIA ___ Severe heartburn. ___ Persistent headache not relieved by Tylenol. ___ Increased in swelling of face, hands and feet. ___ Blurred vision, double vision, or spots in the eyes. ___ Persistent vomiting. ___ *Convulsions or seizures. LABOR ___ Restrict activity. ___ Drink 8-12 glasses of water every day. ___ Urinate frequently ___ Pelvic rest. No sexual intercourse/ Call your physician if you experience: ___ Increase in vaginal discharge, leaking fluid, or vaginal bleeding. ___ More than 4, 5, or 6 contractions in one hour. ___ Burning and frequency with urination. DECREASED MOVEMENT ___ Lie down on your left side, drink some fluids and relax. Count the movements. You need tohave 10 movements in 2 hours. ___ If you do not feel the 10 movements, call your physician. OTHER ___ After an exam you may experience some spotting or discharge. As long as it is not bright red and heavy like a period or continues to leak as if your water broke, it is to be expected. ___ LABOR Call your physician if you experience: ___ Painful uterine contractions every ___ minutes for ___ hours. ___A gush or continuous trickle of watery discharge. COME TO THE HOSPITAL AND CALL PHYSICIAN IF: ___ Your abdomen feels continually firm. ___ *Bleeding is bright red and enough to saturate a pad in one hour or less. *Call 911 or go to the nearest Emergency Room for assistance. Form [id number] D: 03/13 Document Released: 03/22/2006 Document Revised: 03/10/2012 Document Reviewed: 03/22/2006 [facility] Patient Information 2011 [employer]. Follow Up Care 08/03/2023 11:19:45 With:AMANDA GREENWOOD Address: [address] [address]- [phone] Business (1) When: Unknown [facility] 04-26-2024 Hospital Discharge instructions Patient Education 07/30/2023 14:06:44 7 - Labor and Delivery Outpatient Instructions (CUSTOM) [facility] AND DELIVERY OUTPATIENT HOME-GOING INSTRUCTIONS _X_ You are to follow up with your physician in ___ days/weeks. ACTIVITY ___ Bedrest ___Activity as tolerated ___ No work/school for ___ days. ___Other PRESCRIPTION GIVEN ___Yes NAUSEA/VOMITING ___ Take small, frequent amounts of clear liquids. Avoid fruit juices and milk. ___ Increase fluid intake to a minimum of 8 ounces of fluid every hour while awake. ___ Soft diet. Rice, crackers, bananas, Jell-O, cooked carrots, applesauce. ___ Brooke diet. Avoid caffeine, chocolate, alcohol, spiced/greasy foods. URINARY TRACT INFECTION ___ Drink 8-12 glasses of water every day. ___ Urinate frequently; do not limit fluids to reduce frequency of urination. ___ Call your physician if burning and frequency with urination returns after taking all your medication. ___ Call your physician if you have a temperature of 100.4 degrees Fahrenheit or higher. ___ Wipe from front to back. SIGNS OF PRE-ECLAMPSIA ___ Severe heartburn. ___ Persistent headache not relieved by Tylenol. ___ Increased in swelling of face, hands and feet. ___ Blurred vision, double vision, or spots in the eyes. ___ Persistent vomiting. ___ *Convulsions or seizures. LABOR ___ Restrict activity. ___ Drink 8-12 glasses of water every day. ___ Urinate frequently ___ Pelvic rest. No sexual intercourse/ Call your physician if you experience: ___ Increase in vaginal discharge, leaking fluid, or vaginal bleeding. ___ More than 4, 5, or 6 contractions in one hour. ___ Burning and frequency with urination. DECREASED MOVEMENT ___ Lie down on your left side, drink some fluids and relax. Count the movements. You need tohave 10 movements in 2 hours. ___ If you do not feel the 10 movements, call your physician. OTHER ___ After an exam you may experience some spotting or discharge. As long as it is not bright red and heavy like a period or continues to leak as if your water broke, it is to be expected. ___ LABOR Call your physician if you experience: ___ Painful uterine contractions every ___ minutes for ___ hours. ___A gush or continuous trickle of watery discharge. COME TO THE HOSPITAL AND CALL PHYSICIAN IF: ___ Your abdomen feels continually firm. ___ *Bleeding is bright red and enough to saturate a pad in one hour or less. *Call 911 or go to the nearest Emergency Room for assistance. Form [id number] D: 03/13 Document Released: 03/22/2006 Document Revised: 03/10/2012 Document Reviewed: 03/22/2006 [facility] Patient Information 2011 [employer] [facility]. Follow Up Care 07/30/2023 12:58:48 With:MARYAN PLUNKETT MD Address: [address] [place] [address] [facility] [address]- [phone] When: Unknown [facility] 04-23-2024 Hospital Discharge instructions Patient Education 07/27/2023 14:06:05 7 - Labor and Delivery Outpatient Instructions(CUSTOM) [facility] AND DELIVERY OUTPATIENT HOME-GOING INSTRUCTIONS _X_ You are to follow up with your provider as scheduled ACTIVITY ___ Bedrest _X__Activity as tolerated ___ No work/school for ___ days. ___Other PRESCRIPTION GIVEN ___Yes NAUSEA/VOMITING ___ Take small, frequent amounts of clear liquids. Avoid fruit juices and milk. ___ Increase fluid intake to a minimum of 8 ounces of fluid every hour while awake. ___ Soft diet. Rice, crackers, bananas, Jell-O, cooked carrots, applesauce. ___ Brooke diet. Avoid caffeine, chocolate, alcohol, spiced/greasy foods. URINARY TRACT INFECTION ___ Drink 8-12 glasses of water every day. ___ Urinate frequently; do not limit fluids to reduce frequency of urination. ___ Call your physician if burning and frequency with urination returns after taking all your medication. ___ Call your physician if you have a temperature of 100.4 degrees Fahrenheit or higher. ___ Wipe from front to back. SIGNS OF PRE-ECLAMPSIA ___ Severe heartburn. ___ Persistent headache not relieved by Tylenol. ___ Increased in swelling of face, hands and feet. ___ Blurred vision, double vision, or spots in the eyes. ___ Persistent vomiting. ___ *Convulsions or seizures. LABOR ___ Restrict activity. ___ Drink 8-12 glasses of water every day. ___ Urinate frequently ___ Pelvic rest. No sexual intercourse/ Call your physician if you experience: ___ Increase in vaginal discharge, leaking fluid, or vaginal bleeding. ___ More than 4, 5, or 6 contractions in one hour. ___ Burning and frequency with urination. DECREASED MOVEMENT ___ Lie down on your left side, drink some fluids and relax. Count the movements. You need tohave 10 movements in 2 hours. ___ If you do not feel the 10 movements, call your physician. OTHER ___ After an exam you may experience some spotting or discharge. As long as it is not bright red and heavy like a period or continues to leak as if your water broke, it is to be expected. ___ LABOR Call your physician if you experience: ___ Painful uterine contractions every ___ minutes for ___ hours. ___A gush or continuous trickle of watery discharge. COME TO THE HOSPITAL AND CALL PHYSICIAN IF: ___ Your abdomen feels continually firm. ___ *Bleeding is bright red and enough to saturate a pad in one hour or less. *Call 911 or go to the nearest Emergency Room for assistance. Form [id number] D: 03/13 Document Released: 03/22/2006 Document Revised: 03/10/2012 Document Reviewed: 03/22/2006 [facility] Patient Information 2012 [employer] [facility]. Follow Up Care 07/27/2023 13:37:33 With:CINTHYA RUEDA Address: [address] [place] [address] [address] [facility] [place] [address]- [phone] Business (1) When: Unknown [facility] 04-19-2024 Note. MICRO - Microbiology PROCEDURE: Affirm Pathogens DNA Direct Probe [*1] SOURCE: Vaginal Fluid BODY SITE: Vagina COLLECTED DATE/TIME: 07/22/2023 13:57 EDT RECEIVED DATE/TIME: 07/22/2023 19:14 EDT START DATE/TIME: 07/22/2023 19:14 EDT FREE TEXT SOURCE: FINAL REPORTS Final Report [] Verified Date/Time/Personnel: 07/23/2023 10:31 EDT Gardnerella vaginalis DNA Probe Negative Trichomonas vaginalis DNA Probe Negative Beatriz species DNA Probe Negative Performing Locations *1: This test was performed at: [facility], [address] [place] [address], [phone] , [facility] ([place])07-20-2023 Hospital Discharge instructions Patient Education 07/20/2023 13:06:26 7 - Labor and Delivery Outpatient Instructions (CUSTOM) [facility] AND DELIVERY OUTPATIENT HOME-GOING INSTRUCTIONS _X_ You are to follow up with your physician in ___ days/weeks. ACTIVITY ___ Bedrest ___Activity as tolerated ___ No work/school for ___ days. ___Other PRESCRIPTION GIVEN ___Yes NAUSEA/VOMITING ___ Take small, frequent amounts of clear liquids. Avoid fruit juices and milk. ___ Increase fluid intake to a minimum of 8 ounces of fluid every hour while awake. ___ Soft diet. Rice, crackers, bananas, Jell-O, cooked carrots, applesauce. ___ Brooke diet. Avoid caffeine, chocolate, alcohol, spiced/greasy foods. URINARY TRACT INFECTION ___ Drink 8-12 glasses of water every day. ___ Urinate frequently; do not limit fluids to reduce frequency of urination. ___ Call your physician if burning and frequency with urination returns after taking all your medication. ___ Call your physician if you have a temperature of 100.4 degrees Fahrenheit or higher. ___ Wipe from front to back. SIGNS OF PRE-ECLAMPSIA ___ Severe heartburn. ___ Persistent headache not relieved by Tylenol. ___ Increased in swelling of face, hands and feet. ___ Blurred vision, double vision, or spots in the eyes. ___ Persistent vomiting. ___ *Convulsions or seizures. LABOR ___ Restrict activity. ___ Drink 8-12 glasses of water every day. ___ Urinate frequently ___ Pelvic rest. No sexual intercourse/ Call your physician if you experience: ___ Increase in vaginal discharge, leaking fluid, or vaginal bleeding. ___ More than 4, 5, or 6 contractions in one hour. ___ Burning and frequency with urination. DECREASED MOVEMENT ___ Lie down on your left side, drink some fluids and relax. Count the movements. You need tohave 10 movements in 2 hours. ___ If you do not feel the 10 movements, call your physician. OTHER ___ After an exam you may experience some spotting or discharge. As long as it is not bright red and heavy like a period or continues to leak as if your water broke, it is to be expected. ___ LABOR Call your physician if you experience: ___ Painful uterine contractions every ___ minutes for ___ hours. ___A gush or continuous trickle of watery discharge. COME TO THE HOSPITAL AND CALL PHYSICIAN IF: ___ Your abdomen feels continually firm. ___ *Bleeding is bright red and enough to saturate a pad in one hour or less. *Call 911 or go to the nearest Emergency Room for assistance. Form [id number] D: 03/13 Document Released: 03/22/2006 Document Revised: 03/10/2012 Document Reviewed: 03/22/2006 [facility] Patient Information 2012 [employer]. Follow Up Care 07/20/2023 11:55:43 With:MARYAN PLUNKETT Address: [address] [place] [address] [place] [address]- [phone] Business (1) When: Unknown [facility] 04-12-2024 Hospital Discharge instructions Patient Education 07/16/2023 17:18:09 7 - Labor and Delivery Outpatient Instructions (CUSTOM) [facility] AND DELIVERY OUTPATIENT HOME-GOING INSTRUCTIONS _X_ You are to follow up with your physician in ___ days/weeks. ACTIVITY ___ Bedrest _X__Activity as tolerated ___ No work/school for ___ days. ___Other PRESCRIPTION GIVEN ___Yes NAUSEA/VOMITING ___ Take small, frequent amounts of clear liquids. Avoid fruit juices and milk. ___ Increase fluid intake to a minimum of 8 ounces of fluid every hour while awake. ___ Soft diet. Rice, crackers, bananas, Jell-O, cooked carrots, applesauce. ___ Brooke diet. Avoid caffeine, chocolate, alcohol, spiced/greasy foods. URINARY TRACT INFECTION ___ Drink 8-12 glasses of water every day. ___ Urinate frequently; do not limit fluids to reduce frequency of urination. ___ Call your physician if burning and frequency with urination returns after taking all your medication. ___ Call your physician if you have a temperature of 100.4 degrees Fahrenheit or higher. ___ Wipe from front to back. SIGNS OF PRE-ECLAMPSIA _X__ Severe heartburn. __X_ Persistent headache not relieved by Tylenol. __X_ Increased in swelling of face, hands and feet. _X__ Blurred vision, double vision, or spots in the eyes. _X__ Persistent vomiting. _X__ *Convulsions or seizures. LABOR ___ Restrict activity. ___ Drink 8-12 glasses of water every day. ___ Urinate frequently ___ Pelvic rest. No sexual intercourse/ Call your physician if you experience: _X__ Increase in vaginal discharge, leaking fluid, or vaginal bleeding. _X__ More than 4, 5, or 6 contractions in one hour. _X__ Burning and frequency with urination. DECREASED MOVEMENT __X_ Lie down on your left side, drink some fluids and relax. Count the movements. You need to have 10 movements in 2 hours. _X__ If you do not feel the 10 movements, call your physician. OTHER ___ After an exam you may experience some spotting or discharge. As long as it is not bright red and heavy like a period or continues to leak as if your water broke, it is to be expected. ___ LABOR Call your physician if you experience: _X__ Painful uterine contractions every __5_ minutes for __1_ hours. _X__A gush or continuous trickle of watery discharge. COME TO THE HOSPITAL AND CALL PHYSICIAN IF: _X__ Your abdomen feels continually firm. _X__ *Bleeding is bright red and enough to saturate a pad in one hour or less. *Call 911 or go to the nearest Emergency Room for assistance. Form [id number] D: 03/13 Document Released: 03/22/2006 Document Revised: 03/10/2012 Document Reviewed: 03/22/2006 [employer] Patient Information 2012 [employer]. Follow Up Care 07/16/2023 16:37:29 With:CINTHYA RUEDA MD Address: [address] [facility] [place] [address] [phone] When: Unknown Comments:Follow-up as scheduled [facility] 03-12-2024 Miscellaneous Notes* Telephone Encounter - Georgette Figueroa MA - 06/15/2023 7:18 AM EDT Patient given results and verbalized understanding of instructions given. Georgette Figueroa MA * Telephone Encounter - Mara Davis PA - 06/15/2023 7:13 AM EDT Negative for COVID flu RSV [facility] History of Present illness Narrative* Robby Mcdaniels MD - 06/14/2023 9:44 AM EDT Patient presents with: Cough: Cough and ST x 1 day HPI: Feeling sick since yesterday. Currently 23 weeks . Her son has had URI symptoms for the last week. Positive symptoms: Cough, Sore throat, Back Aches, Negative symptoms: Shortness of breath, Wheezing, Fever, Vomiting, Diarrhea, OTC: none. MEDICATIONS: Current Outpatient Medications Medication Sig aspirin 81 mg chewable tablet Take 81 mg by mouth once daily. enoxaparin sodium (LOVENOX SUBCUTANEOUS) Inject subcutaneously. [id number] ps-folate 1 29 mg iron- 1 mg chew Take one tablet daily (Patient not taking: Reported on 04/18/2019 ) No current facility-administered medications for this visit. ALLERGIES: ALLERGIES No Known Allergies VITALS: BP 130/82 Pulse 78 Temp 36.6 C (97.9 F) (Tympanic) Resp 18 Wt 82.7 kg (182 lb 5.1 oz) LMP08/03/2017 (Approximate) SpO2 97% PHYSICAL EXAM: GEN: mildly ill appearing HEENT: PERRL, EOMI, conjunctiva clear Ears: canals clear. TMs without erythema, bulge, or effusion Sinuses: non-tender frontal sinus, non-tender maxillary sinuses Throat: moist mucous membranes, mild erythema, no exudate Neck: supple, no thyromegaly, no lymphadenopathy HEART: regular rate and rhythm, no murmurs LUNGS: clear to auscultation, no wheezes or crackles, no increased WOB ASSESSMENT/PLAN: 1. URI, acute - ICD9: 465.9, ICD10: J06.9 (primary diagnosis) 2. Sore throat - ICD9: 462, ICD10: J02.9 - Discussed viral etiology and rationale for treatment. - Symptomatic treatment with prn analgesia - Supportive care with fluids and rest - STREP A MOLECULAR (POC) - negative. - COVID & INFLUENZA A/B & RSV NAAT, ROUTINE -can discuss Tamiflu with OB tomorrow if positive for influenza. Robby Mcdaniels MD [facility] Hospital Discharge instructions Patient Education 06/02/2023 14:44:30 7 - Labor and Delivery Outpatient Instructions (CUSTOM) [facility] LABOR AND DELIVERY OUTPATIENT HOME-GOING INSTRUCTIONS _X_ You are to follow up with your physician in ___ days/weeks. ACTIVITY ___ Bedrest _X__Activity as tolerated ___ No work/school for ___ days. ___Other PRESCRIPTION GIVEN ___Yes NAUSEA/VOMITING ___ Take small, frequent amounts of clear liquids. Avoid fruit juices and milk. ___ Increase fluid intake to a minimum of 8 ounces of fluid every hour while awake. ___ Soft diet. Rice, crackers, bananas, Jell-O, cooked carrots, applesauce. ___ Brooke diet. Avoid caffeine, chocolate, alcohol, spiced/greasy foods. URINARY TRACT INFECTION ___ Drink 8-12 glasses of water every day. ___ Urinate frequently; do not limit fluids to reduce frequency of urination. ___ Call your physician if burning and frequency with urination returns after taking all your medication. ___ Call your physician if you have a temperature of 100.4 degrees Fahrenheit or higher. ___ Wipe from front to back. SIGNS OF PRE-ECLAMPSIA ___ Severe heartburn. ___ Persistent headache not relieved by Tylenol. ___ Increased in swelling of face, hands and feet. ___ Blurred vision, double vision, or spots in the eyes. ___ Persistent vomiting. ___ *Convulsions or seizures. LABOR ___ Restrict activity. ___ Drink 8-12 glasses of water every day. ___ Urinate frequently ___ Pelvic rest. No sexual intercourse/ Call your physician if you experience: __X_ Increase in vaginal discharge, leaking fluid, or vaginal bleeding. __X_ More than 4, 5, or 6 contractions in one hour. __X_ Burning and frequency with urination. DECREASED MOVEMENT _X__ Lie down on your left side, drink some fluids and relax. Count the movements. You need to have 10 movements in 2 hours. _X__ If you do not feel the 10 movements, call your physician. OTHER ___ After an exam you may experience some spotting or discharge. As long as it is not bright red and heavy like a period or continues to leak as if your water broke, it is to be expected. ___ LABOR Call your physician if you experience: __X_ Painful uterine contractions every _5__ minutes for _1__ hours. _X__A gush or continuous trickle of watery discharge. COME TO THE HOSPITAL AND CALL PHYSICIAN IF: _X__ Your abdomen feels continually firm. __X_ *Bleeding is bright red and enough to saturate a pad in one hour or less. *Call 911 or go to the nearest Emergency Room for assistance. Form [id number] D: 03/13 Document Released: 03/22/2006 Document Revised: 03/10/2012 Document Reviewed: 03/22/2006 [facility] Patient Information 2012 [employer]. Follow Up Care 06/02/2023 13:54:36 With:CHRISTI ENCISO, SRI Tadeo Address: [address] [place] [address] [place] [address]- [phone] When: Unknown Comments:Follow-up as scheduled [facility] 12-20-2023 Note. MICRO - Microbiology PROCEDURE: Urine Culture [*1] SOURCE: Urine, Clean Catch BODY SITE: Bladder COLLECTED DATE/TIME: 03/22/2023 13:12 EST RECEIVED DATE/TIME: 03/22/2023 20:26 EST START DATE/TIME: 03/22/2023 20:26 EST FREE TEXT SOURCE: FINAL REPORTS Final Report [] Verified Date/Time/Personnel: 03/24/2023 07:48 EST >100,000 cfu/ml Mixed growth consistent with normal urogenital wandy. PRELIMINARY REPORTS Preliminary Report [] Verified Date/Time/Personnel: 03/23/2023 08:56 EST No growth to date Performing Locations *1: This test was performed at: [address], [facility] , [facility] ([place])03-16-2023 Note. MICRO - Microbiology PROCEDURE: Urine Culture [*1] SOURCE: Urine, Clean Catch BODY SITE: COLLECTED DATE/TIME: 03/15/2023 17:22 EST RECEIVED DATE/TIME: 03/15/2023 18:37 EST START DATE/TIME: 03/15/2023 18:37 EST FREE TEXT SOURCE: FINAL REPORTS Final Report [] Verified Date/Time/Personnel: 03/16/2023 14:06 EST 10,000 - 50,000 cfu/ml Mixed growth consistent with normal urogenital wandy. Performing Locations *1: This test was performed at: [facility], [address] [place] [address], [id number]- , [facility] ([place])01-18-2023 Evaluation + Plan note Diagnostic Tests Pending * hCG, quantitative(AO) 01/18/23 Future Scheduled Tests Laboratory* hCG, quantitative(AO) 01/18/23 Radiology* US Abdomen Complete 03/24/22 * XR Chest 2 Views (PA & Lateral) 09/15/22 [facility] 12-20-2022 Evaluation + Plan note Future Scheduled Tests Radiology* US Abdomen Complete 03/24/22 * XR Chest 2 Views (PA & Lateral) 09/15/22 [facility] 08-15-2022 Evaluation + Plan note Future Scheduled Tests Laboratory* Pathology Cross Tie Tram Loader Request 11/17/21 * Glucose 1 Hour Challenge 11/28/20 * Thyroid Stimulating Hormone 11/17/21 * Free T4 11/17/21 * Complete Blood Count 11/28/20 * Free T3 11/17/21 Radiology* XR Chest 2 Views (PA & Lateral) 09/04/21 * US OB W/Biophysical Profile 02/03/21 [facility] 08-15-2022 Evaluation + Plan note Future Scheduled Tests Laboratory* Pathology Cross Tie Tram Loader Request 11/17/21 * Thyroid Stimulating Hormone 11/17/21 * Free T4 11/17/21 * Free T3 11/17/21 Radiology* US Abdomen Complete 03/24/22 * XR Chest 2 Views (PA & Lateral) 09/04/21 [facility] 10-25-2021 Hospital Discharge instructions Patient Education 01/27/2021 15:56:07 7b- Depression and Blues (01/2020)(CUSTOM) [place] Depression and Blues All mothers are at risk of developing depression or the blues. These mood changes can occur right after giving , or they may occur many months after giving . blues or depression can be mild or severe. Additionally, depression can goaway rather quickly, or it can be a long-term condition. CAUSES Raised hormone levels and the rapid drop in those levels are thought to be a main cause of depression and blues. A number of hormones change during and after . Estrogenand progesterone usually decrease right after delivery. The levels of thyroid hormone and various cortisol steroids also rapidly drop. Other factors that play a role in these mood changes include major life events and genetics. RISK FACTORS If you have any of the following risks for blues or depression, know what symptoms to watch out for during the period. Risk factors that may increase the likelihood of getting blues or depression include: Having a personal or family history of depression. Having depression while being . Having premenstrual mood issues or mood issues related to oral contraceptives. Having a lot of life stress. Having marital conflict. Lacking a social support network. Having health problems, such as diabetes. SIGNS AND SYMPTOMS Symptoms of blues include: Brief changes in mood, such as going from extreme happiness to sadness. Decreased concentration. Difficulty sleeping. Crying spells, tearfulness. Irritability. Anxiety. Symptoms of depression typically begin within the first month after giving . These symptoms include: Difficulty sleeping or excessive sleepiness. Marked weight loss. Agitation. Feelings of worthlessness. Lack of interest in activity or food. psychosis is a very serious condition and can be dangerous. Fortunately, it is rare. Displaying any of the following symptoms is cause for immediate medical attention. Symptoms of psychosis include: Hallucinations and delusions. Bizarre or disorganized behavior. Confusion or disorientation. DIAGNOSIS A diagnosis is made by an evaluation of your symptoms. There are no medical or lab tests that lead to a diagnosis, but there are various questionnaires that a health care provider may use to identifythose with blues, depression, or psychosis. Often, a screening tool called the [place] Depression Scale is used to diagnose depression in the period. TREATMENT blues usually goes away on its own in 1 2 weeks. Social support is often all that is needed. You will be encouraged to get adequate sleep and rest. Occasionally, you may be given medicinesto help you sleep. depression requires treatment because it can last several months or longer if it is not treated. Treatment may include individual or group therapy, medicine, or both to address any social,physiological, and psychological factors that may play a role in the depression. Regular exercise, a healthy diet, rest, and social support may also be strongly recommended. psychosis is more serious and needs treatment right away. Hospitalization is often needed. HOME CARE INSTRUCTIONS Get as much rest as you can. Exercise regularly. Some women find yoga and walking to be beneficial. Eat a balanced and nourishing diet. Do little things that you enjoy. Have a cup of tea, take a bubble bath, read your favorite magazine, or listen to your favorite music. Avoid alcohol. Ask for help with crisis clinician, cooking, grocery shopping, or running errands as needed. Do nottry to do everything. Talk to people close to you about how you are feeling. Get support from your partner, family members, and friends. Try to stay positive in how you think. Think about the things you are grateful for. Do not spend a lot of time alone. Only take egij-msm-kckjsbf or prescription medicine as directed by your health care provider. Keep all your appointments. Let your health care provider know if you have any concerns. SEEK MEDICAL CARE IF: You are having a reaction to or problems with your medicine. SEEK IMMEDIATE MEDICAL CARE IF: You have suicidal feelings. You think you may harm yourself or someone else. MAKE SURE YOU: Understand these instructions. Will watch your condition. Will get help right away if you are not doing well or get worse. Resource: [facility] Patient Information 2015 [facility]. This information is not intended to replace advicegiven to you by your health care provider. Make sure you discuss any questions you have with your health care provider. 01/27/2021 15:55:57 and Mastitis and Mastitis Mastitis is inflammation of the breast tissue. It can occur in women who are . This can make painful. Mastitis will sometimes go away on its own, especially if it is not caused by an infection (non-infectious mastitis). Your health care provider will help determine if medical treatment is needed. Treatment may be needed if the condition is caused by a bacterial infection (infectious mastitis). What are the causes? This condition is often associated with a blocked milkduct, which can happen when too much milk builds up in the breast. Causes of excess milk in the breast can include: Poor latch-on. If your baby is not latched onto the breast properly, he or she may not empty your breast completely while . Allowing too much time to pass between feedings. Wearing a bra or other clothing that is too tight. This puts extra pressure on the milk ducts so milk does not flow through them as it should. Milk remaining in the breast because it is overfilled (engorged). Stress and fatigue. Mastitis can also be caused by a bacterial infection. Bacteria may enter the breast tissue through cuts, cracks, or openings in the skin near the nipple area. Cracks in the skin are often caused whenyour baby does not latch on properly to the breast. What are the signs or symptoms? Symptoms of this condition include: Swelling, redness, tenderness, and pain in an area of the breast. This usually affects the upper part of the breast, toward the armpit region. In most cases, it affects only one breast. In some cases, it may occur on both breasts at the same time and affect a larger portion of breast tissue. Swelling of the glands under the arm on the same side. Fatigue, headache, and flu-like muscle aches. Fever. Rapid pulse. Symptoms usually last 2 to 5 days. Breast pain and redness are at their worst on day 2 and day 3, and they usually go away by day 5. If an infection is left to progress, a collection of pus (abscess)may develop. How is this diagnosed? This condition can be diagnosed based on your symptoms and a physical exam. You may also have tests, such as: Blood tests to determine if your body is fighting a bacterial infection. Mammogram or ultrasound tests to rule out other problems or diseases. Fluid tests. If an abscess has developed, the fluid in the abscess may be removed with a needle. The fluid may be analyzed to determine if bacteria are present. Breast milk may be cultured and tested for bacteria. How is this treated? This condition will sometimes go away on its own. Your health care provider may choose to wait 24 hours after first seeing you to decide whether treatment is needed. If treatment is needed, it may include: Strategies to manage . This includes continuing to breastfeed or pump in order to allow adequate milk flow, using breast massage, and applying heat or cold to the affected area. Self-care such as rest and increased fluid intake. Medicine for pain. Antibiotic medicine to treat a bacterial infection. This is usually taken by mouth. If an abscess has developed, it may be treated by removing fluid with a needle. Follow these instructions at home: Medicines Take rgfi-hoq-bktzrza and prescription medicines only as told by your health care provider. If you were prescribed an antibiotic medicine, take it as told by your health care provider. Do notstop taking the antibiotic even if you start to feel better. General instructions Do not wear a tight or underwire bra. Wear a soft, supportive bra. Increase your fluid intake, especially if you have a fever. Get plenty of rest. For : Continue to empty your breasts as often as possible, either by or using an electric breast pump. This will lower the pressure and the pain that comes with it. Ask your health care provider if changes need to be made to your or pumping routine. Keep your nipples clean and dry. During , empty the first breast completely before going to the other breast. If your baby is not emptying your breasts completely, use a breast pump to empty your breasts. Use breast massage during feeding or pumping sessions. If directed, apply moist heat to the affected area of your breast right before or pumping. Use the heat source that your health care provider recommends. If directed, put ice on the affected area of your breast right after or pumping: ?Put ice in a plastic bag. ?Place a towel between your skin and the bag. ?Leave the ice on for 20 minutes. If you go back to work, pump your breasts while at work to stay in time with your nursing schedule. Do not allow your breasts to become engorged. Contact a health care provider if: You have pus-like discharge from the breast. You have a fever. Your symptoms do not improve within 2 days of starting treatment. Your symptoms return after you have recovered from a breast infection. Get help right away if: Your pain and swelling are getting worse. You have pain that is not controlled with medicine. You have a red line extending from the breast toward your armpit. Summary Mastitis is inflammation of the breast tissue. It is often caused by a blocked milk duct or bacteria. This condition may be treated with hot and cold compresses, medicines, self- care, and certain strategies. If you were prescribed an antibiotic medicine, take it as told by your health care provider. Do notstop taking the antibiotic even if you start to feel better. Continue to empty your breasts as often as possible either by or using an electric breast pump. This information is not intended to replace advice given to you by your health care provider. Make sure you discuss any questions you have with your health care provider. Document Released: 07/17/2005 Document Revised: 12/09/2018 Document Reviewed: 03/23/2017 [employer] Patient Education 2020 [employer]. 01/27/2021 15:55:47 Vaginal Delivery, Care After Vaginal Delivery, Care After Refer to this sheet in the next few weeks. These instructions provide you with information about caring for yourself after vaginal delivery. Your health care provider may also give you more specific instructions. Your treatment has been planned according to current medical practices, but problems sometimes occur. Call your health care provider if you have any problems or questions. What can I expect after the procedure? After vaginal delivery, it is common to have: Some bleeding from your vagina. Soreness in your abdomen, your vagina, and the area of skin between your vaginal opening and your anus (perineum). Pelvic cramps. Fatigue. Follow these instructions at home: Medicines Take iaey-jyn-grcvxrt and prescription medicines only as told by your health care provider. If you were prescribed an antibiotic medicine, take it as told by your health care provider. Do notstop taking the antibiotic until it is finished. Driving Do not drive or operate heavy machinery while taking prescription pain medicine. Do not drive for 24 hours if you received a sedative. Lifestyle Do not drink alcohol. This is especially important if you are or taking medicine to relieve pain. Do not use tobacco products, including cigarettes, chewing tobacco, or e- cigarettes. If you need help quitting, ask your health care provider. Eating and drinking Drink at least 8 eight-ounce glasses of water every day unless you are told not to by your health care provider. If you choose to breastfeed your baby, you may need to drink more water than this. Eat high-fiber foods every day. These foods may help prevent or relieve constipation. High-fiber foods include: ?Whole grain cereals and breads. ?Brown rice. ?Beans. ?Fresh fruits and vegetables. Activity Return to your normal activities as told by your health care provider. Ask your health care provider what activities are safe for you. Rest as much as possible. Try to rest or take a nap when your baby is sleeping. Do not lift anything that is heavier than your baby or 10 lb (4.5 kg) until your health care provider says that it is safe. Talk with your health care provider about when you can engage in sexual activity. This may depend on your: ?Risk of infection. ?Rate of healing. ?Comfort and desire to engage in sexual activity. Vaginal Care If you have an episiotomy or a vaginal tear, check the area every day for signs of infection. Checkfor: ?More redness, swelling, or pain. ?More fluid or blood. ?Warmth. ?Pus or a bad smell. Do not use tampons or douches until your health care provider says this is safe. Watch for any blood clots that may pass from your vagina. These may look like clumps of dark red, brown, or black discharge. General instructions Keep your perineum clean and dry as told by your health care provider. Wear loose, comfortable clothing. Wipe from front to back when you use the toilet. Ask your health care provider if you can shower or take a bath. If you had an episiotomy or a perineal tear during labor and delivery, your health care provider may tell you not to take baths for a certain length of time. Wear a bra that supports your breasts and fits you well. If possible, have someone help you with household activities and help care for your baby for at least a few days after you leave the hospital. Keep all follow-up visits for you and your baby as told by your health care provider. This is important. Contact a health care provider if: You have: ?Vaginal discharge that has a bad smell. ?Difficulty urinating. ?Pain when urinating. ?A sudden increase or decrease in the frequency of your bowel movements. ?More redness, swelling, or pain around your episiotomy or vaginal tear. ?More fluid or blood coming from your episiotomy or vaginal tear. ?Pus or a bad smell coming from your episiotomy or vaginal tear. ?A fever. ?A rash. ?Little or no interest in activities you used to enjoy. ?Questions about caring for yourself or your baby. Your episiotomy or vaginal tear feels warm to the touch. Your episiotomy or vaginal tear is or does not appear to be healing. Your breasts are painful, hard, or turn red. You feel unusually sad or worried. You feel nauseous or you vomit. You pass large blood clots from your vagina. If you pass a blood clot from your vagina, save it to show to your health care provider. Do not flush blood clots down the toilet without having your health care provider look at them. You urinate more than usual. You are dizzy or light-headed. You have not breastfed at all and you have not had a menstrual period for 12 weeks after delivery. You have stopped and you have not had a menstrual period for 12 weeks after you stopped . Get help right away if: You have: ?Pain that does not go away or does not get better with medicine. ?Chest pain. ?Difficulty breathing. ?Blurred vision or spots in your vision. ?Thoughts about hurting yourself or your baby. You develop pain in your abdomen or in one of your legs. You develop a severe headache. You faint. You bleed from your vagina so much that you fill two sanitary pads in one hour. This information is not intended to replace advice given to you by your health care provider. Make sure you discuss any questions you have with your health care provider. Document Released: 03/19/2001 Document Revised: 09/02/2016 Document Reviewed: 04/05/2016 [employer] Patient Education 2019 [employer]. Follow Up Care 01/27/2021 05:54:32 With:SRI BARRAZA MD Address: [address] [place] [address] [facility] [address]- [phone] When: Unknown Comments:Call to schedule appointment for three weeks from delivery [facility] 10-25-2021 Evaluation + Plan noteExtracted from: Title:Clinical Document Author:SRI BARRAZA MD Date:01/27/21 [place] ADMISSION HISTORY A [place] PHYSICIAL CHIEF COMPLAINT: 2 para 1 at 37 weeks estimated gestational age with complicated by cholestasis of , polyhydramnios, and history of pulmonary embolus and last . Cholestasis was diagnosed at approximately 30 weeks estimated gestational age. Along with elevated bile acids also had elevated AST/ALT. Patient was placed on ursodiol which lowered her liver enzymes and bile acids. She has been followed with twice weekly testing including biophysical profiles which were reassuring. She has been on Lovenox until the last couple weeks at which time she was switched to heparin twice daily. HISTORY OF PRESENT ILLNESS: Grossly complicated by cholestasis of and history of pulmonary embolus shortly after her last delivery. Had been on Lovenox until the last few weeks at which time she was switched to heparin. Was placed on ursodiol which improved her liver function tests and bile acids. Incidental finding of polyhydramnios on biophysical profiles. REVIEW OF SYSTEMS: No pertinent positives. ACTIVE PROBLEMS: (21) Abdominal pain (78728822) Acute maxillary sinusitis (068108713) Anxiety (17383109) Asthma (933212897) Dental caries (882011393) Dental infection (1238066474) Depo-Provera contraceptive status (430830814) Depression (071276150) Encounter for supervision of normal in multigravida in second trimester (774991795) GERD - Gastro-esophageal reflux disease (0843602430) Heartburn in (28628502) History of pulmonary embolism (398209573) Insomnia (977026053) Learning disability (4485370) Liver hemangioma (955815019) Migraine without aura (98814647) (355539879) Pruritus (8732219657) School physical exam (610017522) Tobacco use (3286117889) Well adult exam (910675546) MEDICATIONS: Active Inpt Meds: None Active PRN Meds: Lactated Ringers Infusion (LR 500 mL Bolus) Start: 01/27/21 6:22:00 EDT, Dose = 500 mL, Soln, IV Bolus, AsDirected, PRN, Other (see order comments), Rate: 999 mL/hr, hour(s) carboprost (Hemabate) Start: 01/27/21 6:22:00 EDT, Dose = 250 mcg, = 1 mL, Intramuscular, Once, PRN, Other (see order comments) citric acid-sodium citrate (Bicitra) Start: 01/27/21 6:22:00 EDT, Dose = 30 mL, Soln, Oral, AsDirected, PRN, Gastric Upset lidocaine (Xylocaine HCl 1% injectable solution) Start: 01/27/21 6:22:00 EDT, Dose = 20 mg, = 2 mL, Perineum, AsDirected, PRN, to perineal sutures, 1 dose(s), Stop: Limited # of times methylergonovine (Methergine) Start: 01/27/21 6:22:00 EDT, Dose = 0.2 mg, = 1 mL, Intramuscular, Once, PRN, Other (see order comments) miSOPROStol (Cytotec) Start: 01/27/21 6:22:00 EDT, Dose = 1,000 mcg, = 5 tab(s), Rectal, Once, PRN, Other (see order comments), 0 ondansetron (Zofran) Start: 01/27/21 6:22:00 EDT, Dose = 4 mg, = 2 mL, IV Push, q4h, PRN, Nausea oxytocin (Pitocin) Start: 01/27/21 6:22:00 EDT, Dose = 20 unit(s), = 2 mL, Intramuscular, Once, PRN, Other (see order comments) terbutaline (Brethine) Start: 01/27/21 6:22:00 EDT, Dose = 0.25 mg, = 0.25 mL, Subcutaneous, AsDirected, PRN, Other (see order comments) One Time Meds: None Active IV Meds: Lactated Ringers Infusion 1,000 mL (LR 1,000 mL) Start: 01/27/21 6:22:00 EDT, Rate: 125 mL/hr oxytocin 20 unit(s) + Lactated Ringers Infusion 1,000 mL (Oxytocin for IV (mL/hr) 20 unit(s) + LR 1,000 mL) Start: 01/27/21 6:22:00 EDT, Rate: 999 mL/hr ALLERGIES: (1) NKA FAMILY HISTORY: No significant family history related to this admission. SOCIAL HISTORY: Non-smoker, no alcohol use. No toxic habits. Stable home. PHYSICAL EXAM: VITALS: LevonlPozuRIVxojzSBXjL1YCA0SoqtUn(kg) 01/27 06:0436.195/[id number]/25 85.0 24 Hr Tmax: 36.1 at 01/27 06:04 36 Hr Tmax: 36.1 at 01/27 06:04 Vital Signs are the last 5 in the past 48 hours. Weights display the last 5 within 7 days. Initial Wt: 01/27 85.0 kg 187 lb Current Wt: 01/27 85.0 kg 187 lb GENERAL: Appears well HEENT: Normocephalic CARDIOVASCULAR: Regular rate and rhythm normal blood pressure RESPIRATORY: Clear bilaterally ABDOMEN: Gravid consistent with dating vertex presentation EXREMETIES: No edema NEUROLOGICAL: Intact PSYCHIATRIC: Signs of depression or anxiety LABS: 36hr Labs 01/27 0623 WBC9.00 RBC3.79L Hgb10.0L Hct29.9L MCV78.7L MCH26.3L MCHC33.4 RDW14.2 Ojuqnybk077 MPV8.7 Neutrophil %75.4 Lymphocyte %19.6 Monocyte %4.3 Eosinophil %0.3 Basophil %0.4 Lymphocyte, Absolute1.80 Monocyte, Absolute0.40 Eosinophil, Absolute0.00 Basophil, Absolute0.00 Neutrophil, Absolute6.80H DIAGNOSTICS: heart rate tracing category 1. Last biophysical profile with 8 out of 8 score and polyhydramnios with an BLANE of 26. Last AST ALT levels were normal. Bile acids modestly elevated. Hepatitis A B and C testing were negative. IMPRESSION: 2 para 1 at 37 weeks estimated gestational age with cholestasis of and history of pulmonary embolus after last delivery. PLAN: Admitted for induction of labor at 37 weeks estimated gestational age. heart rate tracing is reassuring category 1. Cervical exam 2 cm, 40% effaced, -3 station. Plan for Pitocin induction of labor. We'll plan artificial rupture membranes once contractions are regular. Epidural if desired. Plan to restart Lovenox after delivery. Future Appointments Appointment Date:02/03/2021 02:30:00 AM Scheduled Provider: Location:[facility] Appointment Type:US OB W/Biophysical Profile Appointment Date:02/20/2021 10:00:00 AM Scheduled Provider:SRI BARRAZA MD Location:[facility] Appointment Type: OV Future Scheduled Tests Laboratory* COVID-19 Only (AO) 08/19/20 * Glucose 1 Hour Challenge 11/28/20 * Complete Blood Count 11/28/20 Radiology* US OB W/Biophysical Profile 02/03/21 [facility] 08-26-2021 Evaluation + Plan note Future Scheduled Tests Laboratory* Glucose 1 Hour Challenge 11/28/20 * Complete Blood Count 11/28/20 Radiology* XR Chest 2 Views (PA & Lateral) 09/04/21 * US OB W/Biophysical Profile 02/03/21 [facility] 05-17-2021 Evaluation + Plan note Future Scheduled Tests Laboratory* COVID-19 Only (AO) 08/19/20 * Glucose 1 Hour Challenge 11/28/20 * Complete Blood Count 11/28/20 Radiology* US OB W/Biophysical Profile 02/03/21 [facility] Evaluation + Plan note Future Appointments Appointment Date:01/16/2021 11:30:00 AM Scheduled Provider:SRI BARRAZA MD Location:[facility] Appointment Type: OV OB Routine Follow Up Appointment Date:01/20/2021 09:00:00 AM Scheduled Provider: Location:[facility] Appointment Type:US OB W/Biophysical Profile Appointment Date:01/27/2021 10:30:00 AM Scheduled Provider: Location:[facility] Appointment Type:US OB W/Biophysical Profile Appointment Date:02/03/2021 09:30:00 AM Scheduled Provider: Location:[facility] Appointment Type:US OB W/Biophysical Profile Future Scheduled Tests Laboratory* COVID-19 Only (AO) 08/19/20 * Glucose 1 Hour Challenge 11/28/20 * Complete Blood Count 11/28/20 Radiology* US OB W/Biophysical Profile 02/03/21 [facility] Evaluation + Plan note Future Appointments Appointment Date:01/23/2021 10:15:00 AM Scheduled Provider:SRI BARRAZA MD Location:[facility] Appointment Type: OV OB Routine Follow Up Appointment Date:01/27/2021 10:30:00 AM Scheduled Provider: Location:[facility] Appointment Type:US OB W/Biophysical Profile Appointment Date:02/03/2021 09:30:00 AM Scheduled Provider: Location:[facility] Appointment Type:US OB W/Biophysical Profile Future Scheduled Tests Laboratory* COVID-19 Only (AO) 08/19/20 * Glucose 1 Hour Challenge 11/28/20 * Complete Blood Count 11/28/20 Radiology* US OB W/Biophysical Profile 02/03/21 [facility] Evaluation + Plan note Future Appointments Appointment Date:01/27/2021 10:30:00 AM Scheduled Provider: Location:[facility] Appointment Type:US OB W/Biophysical Profile Appointment Date:02/03/2021 09:30:00 AM Scheduled Provider: Location:[facility] Appointment Type:US OB W/Biophysical Profile Appointment Date:02/20/2021 10:00:00 AM Scheduled Provider:SRI BARRAZA MD Location: [facility] Appointment Type: OV Diagnostic Tests Pending * Bile Acids Fract/Tot 01/24/21 Future Scheduled Tests Laboratory* COVID-19 Only (AO) 08/19/20 * Glucose 1 Hour Challenge 11/28/20 * Complete Blood Count 11/28/20 Radiology* US OB W/Biophysical Profile 02/03/21 [facility] Evaluation + Plan note Future Appointments Appointment Date:02/17/2022 01:30:00 PM Scheduled Provider:AMANDA ROLDAN Location:[facility] Appointment Type:PC OV Follow Up Future Scheduled Tests Laboratory* Pathology Cross Tie Tram Loader Request 11/17/21 * Thyroid Stimulating Hormone 11/17/21 * Free T4 11/17/21 * Free T3 11/17/21 Radiology* XR Chest 2 Views (PA & Lateral) 09/04/21 [facility] Evaluation + Plan note Future Appointments Appointment Date:09/15/2022 01:00:00 PM Scheduled Provider:AMANDA ROLDAN Location:[facility] Appointment Type:PC OV Follow Up Future Scheduled Tests Laboratory* Pathology Cross Tie Tram Loader Request 11/17/21 * Thyroid Stimulating Hormone 11/17/21 * Free T4 11/17/21 * Free T3 11/17/21 Radiology* US Abdomen Complete 03/24/22 * XR Chest 2 Views (PA & Lateral) 09/04/21 [facility] Evaluation + Plan note Future Appointments Appointment Date:03/12/2023 05:00:00 PM Scheduled Provider: Location:[facility] Appointment Type:US OB < 14 weeks Appointment Date:03/23/2023 10:00:00 AM Scheduled Provider:AMANDA GREENWOOD Location:[facility] Appointment Type: OV OB Routine Follow Up Future Scheduled Tests Laboratory* Type and Screen (AO) 02/23/23 * Hepatitis B Surface Antigen 02/23/23 * Rapid Plasma Reagin Test 02/23/23 * Rubella Antibody 02/23/23 * A1C Hemoglobin 02/23/23 * Complete Blood Count 02/23/23 * Hepatitis C Antibody IgG 02/23/23 * HIV 1/2 Ab 02/23/23 * Varicella Zoster Antibody 02/23/23 * Complete Metabolic Panel 02/23/23 * MISC Lab Send out (Blood Specimens) 02/23/23 * MISC Lab Send out (Blood Specimens) 02/23/23 Radiology* US Abdomen Complete 03/24/22 * US OB < 14 weeks 03/12/23 * XR Chest 2 Views (PA & Lateral) 09/15/22 [facility] Evaluation + Plan note Future Appointments Appointment Date:03/12/2023 05:00:00 PM Scheduled Provider: Location:[facility] Appointment Type:US OB < 14 weeks Appointment Date:03/23/2023 10:00:00 AM Scheduled Provider:AMANDA [place] Location:[facility] Appointment Type: OV OB Routine Follow Up Diagnostic Tests Pending * Varicella Zoster Antibody 03/01/23 * Rapid Plasma Reagin Test 03/01/23 * Rubella Antibody 03/01/23 Future Scheduled Tests Laboratory* Type and Screen (AO) 02/23/23 * HIV 1/2 Ab 02/23/23 * MISC Lab Send out (Blood Specimens) 02/23/23 * MISC Lab Send out (Blood Specimens) 02/23/23 Radiology* US Abdomen Complete 03/24/22 * US OB < 14 weeks 03/12/23 * XR Chest 2 Views (PA & Lateral) 09/15/22 [facility] Evaluation + Plan note Future Appointments Appointment Date:03/30/2023 08:30:00 AM Scheduled Provider: Location:[facility] Appointment Type:US OB < 14 weeks Appointment Date:04/08/2023 10:15:00 AM Scheduled Provider:SRI BARRAZA MD Location:[facility] Appointment Type:[facility] OB Routine Follow Up Future Scheduled Tests Laboratory* Bile Acids, Fractionated LCMS 03/15/23 * Type and Screen (AO) 02/23/23 * HIV 1/2 Ab 02/23/23 * Complete Metabolic Panel 03/15/23 * MISC Lab Send out (Blood Specimens) 02/23/23 * MISC Lab Send out (Blood Specimens) 02/23/23 Radiology* US OB < 14 weeks 03/30/23 * XR Chest 2 Views (PA & Lateral) 09/15/22 [facility] Evaluation + Plan note Future Appointments Appointment Date:05/10/2023 10:15:00 AM Scheduled Provider:SRI BARRAZA MD Location:[facility] Appointment Type:[facility] OB Routine Follow Up Future Scheduled Tests Laboratory* Bile Acids, Fractionated LCMS 03/15/23 * Type and Screen (AO) 02/23/23 * HIV 1/2 Ab 02/23/23 * Complete Metabolic Panel 03/15/23 * MISC Lab Send out (Blood Specimens) 02/23/23 * MISC Lab Send out (Blood Specimens) 02/23/23 Radiology* XR Chest 2 Views (PA & Lateral) 09/15/22 [facility] Evaluation + Plan note Future Appointments Appointment Date:05/10/2023 10:15:00 AM Scheduled Provider:SRI BARRAZA MD Location:[facility] Appointment Type:[facility] OB Routine Follow Up Diagnostic Tests Pending * Antithrombin III Assay 04/28/23 * Protein C Activity 04/28/23 * Protein S Activity Free Ag 04/28/23 * Circulating Anticoagulants - Panel 04/28/23 * Anticardiolipin Ab, IgG, Qn 04/28/23 * Anticardiolipin Ab, IgM, Qn 04/28/23 * Beta-2 Glycoprotein I Ab, IgA 04/28/23 * Beta-2 Glycoprotein I Ab, IgG 04/28/23 * Beta-2 Glycoprotein I Ab,G/M 04/28/23 Future Scheduled Tests Laboratory* Type and Screen (AO) 02/23/23 * HIV 1/2 Ab 02/23/23 * MISC Lab Send out (Blood Specimens) 02/23/23 * MISC Lab Send out (Blood Specimens) 02/23/23 Radiology* XR Chest 2 Views (PA & Lateral) 09/15/22 [facility] Evaluation + Plan note Future Appointments Appointment Date:05/10/2023 10:15:00 AM Scheduled Provider:SRI BARRAZA MD Location:[facility] Appointment Type: OV OB Routine Follow Up Diagnostic Tests Pending * Bile Acids, Fractionated LCMS 04/28/23 Future Scheduled Tests Laboratory* Type and Screen (AO) 02/23/23 * HIV 1/2 Ab 02/23/23 * MISC Lab Send out (Blood Specimens) 02/23/23 * MISC Lab Send out (Blood Specimens) 02/23/23 Radiology* XR Chest 2 Views (PA & Lateral) 09/15/22 [facility] Evaluation + Plan note Future Appointments Appointment Date:06/07/2023 09:15:00 AM Scheduled Provider:SRI BARRAZA MD Location:[facility] Appointment Type: OV OB Routine Follow Up Appointment Date:08/05/2023 09:00:00 AM Scheduled Provider:SRI BARRAZA MD Location:[facility] Appointment Type: OV OB Routine Follow Up Appointment Date:08/10/2023 10:00:00 AM Scheduled Provider: Location:[facility] Appointment Type:US Biophysical Profile Appointment Date:08/12/2023 09:00:00 AM Scheduled Provider:SRI BARRAZA MD Location:[facility] Appointment Type: OV OB Routine Follow Up Appointment Date:08/17/2023 10:00:00 AM Scheduled Provider: Location:[facility] Appointment Type:US Biophysical Profile Appointment Date:08/19/2023 09:00:00 AM Scheduled Provider:SRI BARRAZA MD Location:[facility] Appointment Type: OV OB Routine Follow Up Appointment Date:08/24/2023 10:00:00 AM Scheduled Provider: Location:[facility] Appointment Type:US Biophysical Profile Appointment Date:08/26/2023 09:00:00 AM Scheduled Provider:SRI BARRAZA MD Location:[facility] Appointment Type: OV OB Routine Follow Up Appointment Date:09/02/2023 09:00:00 AM Scheduled Provider:SRI BARRAZA MD Location: [facility] Appointment Type: OV OB Routine Follow Up Appointment Date:09/07/2023 10:00:00 AM Scheduled Provider: Location:[facility] Appointment Type:US Biophysical Profile Appointment Date:09/09/2023 09:00:00 AM Scheduled Provider:SRI BARRAZA MD Location: [facility] Appointment Type: OV OB Routine Follow Up Appointment Date:09/14/2023 10:00:00 AM Scheduled Provider: Location:[facility] Appointment Type:US Biophysical Profile Future Scheduled Tests Laboratory* Type and Screen (AO) 02/23/23 * Urine Culture 05/18/23 * HIV 1/2 Ab 02/23/23 * MISC Lab Send out (Blood Specimens) 02/23/23 * MISC Lab Send out (Blood Specimens) 02/23/23 Radiology* US OB Limited 05/10/23 * XR Chest 2 Views (PA & Lateral) 09/15/22 * US Biophysical Profile 08/10/23 * US Biophysical Profile 08/17/23 * US Biophysical Profile 09/07/23 * US Biophysical Profile 08/24/23 * US Biophysical Profile 09/14/23 [facility] Evaluation + Plan note Future Appointments Appointment Date:07/22/2023 10:00:00 AM Scheduled Provider:ZARINA RUSSELL Location: [facility] Appointment Type: OV OB Routine Follow Up Appointment Date:08/05/2023 09:00:00 AM Scheduled Provider:ZARINA RUSSELL Location: [facility] Appointment Type: OV OB Routine Follow Up Appointment Date:08/10/2023 10:00:00 AM Scheduled Provider: Location:[facility] Appointment Type:US Biophysical Profile Appointment Date:08/12/2023 09:00:00 AM Scheduled Provider:ZARINA RUSSELL Location: [facility] Appointment Type: OV OB Routine Follow Up Appointment Date:08/17/2023 10:00:00 AM Scheduled Provider: Location:[facility] Appointment Type:US Biophysical Profile Appointment Date:08/19/2023 09:00:00 AM Scheduled Provider:ZARINA RUSSELL Location: [facility] Appointment Type: OV OB Routine Follow Up Appointment Date:08/24/2023 10:00:00 AM Scheduled Provider: Location:[facility] Appointment Type:US Biophysical Profile Appointment Date:08/26/2023 09:00:00 AM Scheduled Provider:SRI BARRAZA MD Location: [facility] Appointment Type:[facility] OV OB Routine Follow Up Appointment Date:09/02/2023 09:00:00 AM Scheduled Provider:SRI BARRAZA MD Location: [facility] Appointment Type: OV OB Routine Follow Up Appointment Date:09/07/2023 10:00:00 AM Scheduled Provider: Location:[facility] Appointment Type:US Biophysical Profile Appointment Date:09/09/2023 09:00:00 AM Scheduled Provider:SRI BARRAZA MD Location: [facility] Appointment Type: OV OB Routine Follow Up Appointment Date:09/14/2023 10:00:00 AM Scheduled Provider: Location:[facility] Appointment Type:US Biophysical Profile Future Scheduled Tests Laboratory* Type and Screen (AO) 02/23/23 * Urine Culture 05/18/23 * HIV 1/2 Ab 02/23/23 * MISC Lab Send out (Blood Specimens) 02/23/23 * MISC Lab Send out (Blood Specimens) 02/23/23 Radiology* US OB > 14 weeks 07/30/23 * US OB Limited 05/10/23 * XR Chest 2 Views (PA & Lateral) 09/15/22 * US Biophysical Profile 08/10/23 * US Biophysical Profile 08/17/23 * US Biophysical Profile 09/07/23 * US Biophysical Profile 08/24/23 * US Biophysical Profile 09/14/23 * US OB W/Biophysical Profile 07/16/23 * US OB W/Biophysical Profile 07/23/23 * US OB W/Biophysical Profile 07/30/23 * US OB W/Biophysical Profile 08/06/23 * US OB W/Biophysical Profile 08/13/23 * US OB W/Biophysical Profile 08/20/23 [facility] Evaluation + Plan note Future Appointments Appointment Date:07/22/2023 10:00:00 AM Scheduled Provider:ZARINA RUSSELL Location: [facility] Appointment Type: OV OB Routine Follow Up Appointment Date:07/27/2023 01:00:00 PM Scheduled Provider: Location:[facility] Appointment Type:US OB W/Biophysical Profile Appointment Date:08/03/2023 11:00:00 AM Scheduled Provider: Location:[facility] Appointment Type:US OB W/Biophysical Profile Appointment Date:08/05/2023 09:00:00 AM Scheduled Provider:ZARINA RUSSELL Location: [facility] Appointment Type:[facility] OV OB Routine Follow Up Appointment Date:08/10/2023 10:00:00 AM Scheduled Provider: Location:[facility] Appointment Type:US Biophysical Profile Appointment Date:08/12/2023 09:00:00 AM Scheduled Provider:ZARINA RUSSELL Location: [facility] Appointment Type:[facility] OV OB Routine Follow Up Appointment Date:08/13/2023 08:00:00 AM Scheduled Provider: Location:[facility] Appointment Type:US OB W/Biophysical Profile Appointment Date:08/17/2023 10:00:00 AM Scheduled Provider: Location:[facility] Appointment Type:US Biophysical Profile Appointment Date:08/19/2023 09:00:00 AM Scheduled Provider:ZARINA RUSSELL Location: [facility] Appointment Type:[facility] OV OB Routine Follow Up Appointment Date:08/20/2023 08:00:00 AM Scheduled Provider: Location:[facility] Appointment Type:US OB W/Biophysical Profile Appointment Date:08/24/2023 10:00:00 AM Scheduled Provider: Location:[facility] Appointment Type:US Biophysical Profile Appointment Date:08/26/2023 09:00:00 AM Scheduled Provider:SRI BARRAZA MD Location: [facility] Appointment Type:[facility] OV OB Routine Follow Up Appointment Date:09/02/2023 09:00:00 AM Scheduled Provider:SRI BARRAZA MD Location: [facility] Appointment Type:[facility] OV OB Routine Follow Up Appointment Date:09/07/2023 10:00:00 AM Scheduled Provider: Location:[facility] Appointment Type:US Biophysical Profile Appointment Date:09/09/2023 09:00:00 AM Scheduled Provider:SRI BARRAZA MD Location: [facility] Appointment Type:[facility] OV OB Routine Follow Up Appointment Date:09/14/2023 10:00:00 AM Scheduled Provider: Location:[facility] Appointment Type:US Biophysical Profile Appointment Date:09/21/2023 11:00:00 AM Scheduled Provider: Location:[facility] Appointment Type:US OB W/Biophysical Profile Future Scheduled Tests Laboratory* Type and Screen (AO) 02/23/23 * Urine Culture 05/18/23 * HIV 1/2 Ab 02/23/23 * MISC Lab Send out (Blood Specimens) 02/23/23 * MISC Lab Send out (Blood Specimens) 02/23/23 Radiology* US OB > 14 weeks 07/30/23 * US OB Limited 05/10/23 * XR Chest 2 Views (PA & Lateral) 09/15/22 * US Biophysical Profile 08/10/23 * US Biophysical Profile 08/17/23 * US Biophysical Profile 09/07/23 * US Biophysical Profile 08/24/23 * US Biophysical Profile 09/14/23 * US OB W/Biophysical Profile 07/20/23 * US OB W/Biophysical Profile 07/27/23 * US OB W/Biophysical Profile 08/03/23 * US OB W/Biophysical Profile 09/21/23 * US OB W/Biophysical Profile 08/13/23 * US OB W/Biophysical Profile 08/20/23 [facility] Evaluation + Plan note Future Appointments Appointment Date:07/27/2023 01:00:00 PM Scheduled Provider: Location:[facility] Appointment Type:US OB W/Biophysical Profile Appointment Date:08/03/2023 11:00:00 AM Scheduled Provider: Location:[facility] Appointment Type:US OB W/Biophysical Profile Appointment Date:08/05/2023 09:00:00 AM Scheduled Provider:ZARINA RUSSELL Location: [facility] Appointment Type: OV OB Routine Follow Up Appointment Date:08/06/2023 10:15:00 AM Scheduled Provider:CINTHYA RUEDA MD Location: [place] Appointment Type: OV OB Routine Follow Up Appointment Date:08/10/2023 10:00:00 AM Scheduled Provider: Location:[facility] Appointment Type:US Biophysical Profile Appointment Date:08/12/2023 09:00:00 AM Scheduled Provider:ZARINA RUSSELL Location: [place] Appointment Type: OV OB Routine Follow Up Appointment Date:08/13/2023 08:00:00 AM Scheduled Provider: Location:[facility] Appointment Type:US OB W/Biophysical Profile Appointment Date:08/17/2023 10:00:00 AM Scheduled Provider: Location:[facility] Appointment Type:US Biophysical Profile Appointment Date:08/19/2023 09:00:00 AM Scheduled Provider:ZARINA RUSSELL Location: [facility] Appointment Type:[facility] OV OB Routine Follow Up Appointment Date:08/20/2023 08:00:00 AM Scheduled Provider: Location:[facility] Appointment Type:US OB W/Biophysical Profile Appointment Date:08/24/2023 10:00:00 AM Scheduled Provider: Location:[facility] Appointment Type:US Biophysical Profile Appointment Date:08/26/2023 09:00:00 AM Scheduled Provider:SRI BARRAZA MD Location: [facility] Appointment Type:[facility] OV OB Routine Follow Up Appointment Date:09/02/2023 09:00:00 AM Scheduled Provider:SRI BARRAZA MD Location: [facility] Appointment Type:[facility] OV OB Routine Follow Up Appointment Date:09/07/2023 10:00:00 AM Scheduled Provider: Location:[facility] Appointment Type:US Biophysical Profile Appointment Date:09/09/2023 09:00:00 AM Scheduled Provider:SRI BARRAZA MD Location: [facility] Appointment Type: OV OB Routine Follow Up Appointment Date:09/14/2023 10:00:00 AM Scheduled Provider: Location:[facility] Appointment Type:US Biophysical Profile Appointment Date:09/21/2023 11:00:00 AM Scheduled Provider: Location:[facility] Appointment Type:US OB W/Biophysical Profile Future Scheduled Tests Laboratory* Type and Screen (AO) 02/23/23 * Urine Culture 05/18/23 * HIV 1/2 Ab 02/23/23 * [facility] 02/23/23 * MISC Lab Send out (Blood Specimens) 02/23/23 Radiology* US OB > 14 weeks 07/30/23 * US OB Limited 05/10/23 * XR Chest 2 Views (PA & Lateral) 09/15/22 * US Biophysical Profile 08/10/23 * US Biophysical Profile 08/17/23 * US Biophysical Profile 09/07/23 * US Biophysical Profile 08/24/23 * US Biophysical Profile 09/14/23 * US OB W/Biophysical Profile 07/20/23 * US OB W/Biophysical Profile 07/27/23 * US OB W/Biophysical Profile 08/03/23 * US OB W/Biophysical Profile 09/21/23 * US OB W/Biophysical Profile 08/13/23 * US OB W/Biophysical Profile 08/20/23 [facility] Evaluation + Plan note Future Appointments Appointment Date:07/27/2023 01:00:00 PM Scheduled Provider: Location:[facility] Appointment Type:US OB W/Biophysical Profile Appointment Date:08/03/2023 11:00:00 AM Scheduled Provider: Location:[facility] Appointment Type:US OB W/Biophysical Profile Appointment Date:08/05/2023 09:00:00 AM Scheduled Provider:ZARINA RUSSELL Location: [facility] Appointment Type:[facility] OV OB Routine Follow Up Appointment Date:08/06/2023 10:15:00 AM Scheduled Provider:CINTHYA RUEDA MD Location: [place] Appointment Type:[facility] OV OB Routine Follow Up Appointment Date:08/10/2023 10:00:00 AM Scheduled Provider: Location:[facility] Appointment Type:US Biophysical Profile Appointment Date:08/12/2023 09:00:00 AM Scheduled Provider:ZARINA RUSSELL Location: [place] Appointment Type:[facility] OV OB Routine Follow Up Appointment Date:08/13/2023 08:00:00 AM Scheduled Provider: Location:[facility] Appointment Type:US OB W/Biophysical Profile Appointment Date:08/17/2023 10:00:00 AM Scheduled Provider: Location:[facility] Appointment Type:US Biophysical Profile Appointment Date:08/19/2023 09:00:00 AM Scheduled Provider:ZARINA RUSSELL Location: [facility] Appointment Type:[facility] OV OB Routine Follow Up Appointment Date:08/20/2023 08:00:00 AM Scheduled Provider: Location:[facility] Appointment Type:US OB W/Biophysical Profile Appointment Date:08/24/2023 10:00:00 AM Scheduled Provider: Location:[facility] Appointment Type:US Biophysical Profile Appointment Date:08/26/2023 09:00:00 AM Scheduled Provider:SRI BARRAZA MD Location: [place] Appointment Type:[facility] OV OB Routine Follow Up Appointment Date:09/02/2023 09:00:00 AM Scheduled Provider:SRI BARRAZA MD Location: [facility] Appointment Type:[facility] OV OB Routine Follow Up Appointment Date:09/07/2023 10:00:00 AM Scheduled Provider: Location:[facility] Appointment Type:US Biophysical Profile Appointment Date:09/09/2023 09:00:00 AM Scheduled Provider:SRI BARRAZA MD Location: [facility] Appointment Type: OV OB Routine Follow Up Appointment Date:09/14/2023 10:00:00 AM Scheduled Provider: Location:[facility] Appointment Type:US Biophysical Profile Appointment Date:09/21/2023 11:00:00 AM Scheduled Provider: Location:[facility] Appointment Type:US OB W/Biophysical Profile Diagnostic Tests Pending * Bile Acids, Fractionated LCMS 07/26/23 Future Scheduled Tests Laboratory* Type and Screen (AO) 02/23/23 * Urine Culture 05/18/23 * HIV 1/2 Ab 02/23/23 * MISC Lab Send out (Blood Specimens) 02/23/23 * MISC Lab Send out (Blood Specimens) 02/23/23 Radiology* US OB > 14 weeks 07/30/23 * US OB Limited 05/10/23 * XR Chest 2 Views (PA & Lateral) 09/15/22 * US Biophysical Profile 08/10/23 * US Biophysical Profile 08/17/23 * US Biophysical Profile 09/07/23 * US Biophysical Profile 08/24/23 * US Biophysical Profile 09/14/23 * US OB W/Biophysical Profile 07/20/23 * US OB W/Biophysical Profile 07/27/23 * US OB W/Biophysical Profile 08/03/23 * US OB W/Biophysical Profile 09/21/23 * US OB W/Biophysical Profile 08/13/23 * US OB W/Biophysical Profile 08/20/23 [facility] Evaluation + Plan note Future Appointments Appointment Date:08/03/2023 11:00:00 AM Scheduled Provider: Location:[facility] Appointment Type:US OB W/Biophysical Profile Appointment Date:08/05/2023 09:00:00 AM Scheduled Provider:ZARINA RUSSELL Location: [place] Appointment Type: OV OB Routine Follow Up Appointment Date:08/06/2023 10:15:00 AM Scheduled Provider:CINTHYA RUEDA MD Location: [place] Appointment Type: OV OB Routine Follow Up Appointment Date:08/10/2023 10:00:00 AM Scheduled Provider: Location:[facility] Appointment Type:US Biophysical Profile Appointment Date:08/12/2023 09:00:00 AM Scheduled Provider:ZARINA RUSSELL Location: [facility] Appointment Type:[facility] OV OB Routine Follow Up Appointment Date:08/13/2023 08:00:00 AM Scheduled Provider: Location:[facility] Appointment Type:US OB W/Biophysical Profile Appointment Date:08/17/2023 10:00:00 AM Scheduled Provider: Location:[facility] Appointment Type:US Biophysical Profile Appointment Date:08/19/2023 09:00:00 AM Scheduled Provider:ZARINA RUSSELL Location: [facility] Appointment Type: OV OB Routine Follow Up Appointment Date:08/20/2023 08:00:00 AM Scheduled Provider: Location:[facility] Appointment Type:US OB W/Biophysical Profile Appointment Date:08/24/2023 10:00:00 AM Scheduled Provider: Location:[facility] Appointment Type:US Biophysical Profile Appointment Date:08/26/2023 09:00:00 AM Scheduled Provider:SRI BARRAZA MD Location: [facility] Appointment Type:[facility] OV OB Routine Follow Up Appointment Date:09/02/2023 09:00:00 AM Scheduled Provider:SRI BARRAZA MD Location: [facility] Appointment Type: OV OB Routine Follow Up Appointment Date:09/07/2023 10:00:00 AM Scheduled Provider: Location:[facility] Appointment Type:US Biophysical Profile Appointment Date:09/09/2023 09:00:00 AM Scheduled Provider:SRI BARRAZA MD Location: [facility] Appointment Type: OV OB Routine Follow Up Appointment Date:09/14/2023 10:00:00 AM Scheduled Provider: Location:[facility] Appointment Type:US Biophysical Profile Appointment Date:09/21/2023 11:00:00 AM Scheduled Provider: Location:[facility] Appointment Type:US OB W/Biophysical Profile Future Scheduled Tests Laboratory* Type and Screen (AO) 02/23/23 * Urine Culture 05/18/23 * HIV 1/2 Ab 02/23/23 * MISC Lab Send out (Blood Specimens) 02/23/23 * MISC Lab Send out (Blood Specimens) 02/23/23 Radiology* US OB > 14 weeks 07/30/23 * US OB Limited 05/10/23 * XR Chest 2 Views (PA & Lateral) 09/15/22 * US Biophysical Profile 08/10/23 * US Biophysical Profile 08/17/23 * US Biophysical Profile 09/07/23 * US Biophysical Profile 08/24/23 * US Biophysical Profile 09/14/23 * US OB W/Biophysical Profile 07/20/23 * US OB W/Biophysical Profile 08/03/23 * US OB W/Biophysical Profile 09/21/23 * US OB W/Biophysical Profile 08/13/23 * US OB W/Biophysical Profile 08/20/23 [facility] Evaluation + Plan note Future Appointments Appointment Date:08/05/2023 09:00:00 AM Scheduled Provider:ZARINA RUSSELL Location: [place] Appointment Type:[facility] OV OB Routine Follow Up Appointment Date:08/06/2023 10:15:00 AM Scheduled Provider:CINTHYA RUEDA MD Location: [place] Appointment Type:[facility] OV OB Routine Follow Up Appointment Date:08/10/2023 10:00:00 AM Scheduled Provider: Location:[facility] Appointment Type:US Biophysical Profile Appointment Date:08/12/2023 09:00:00 AM Scheduled Provider:ZARINA RUSSELL Location: [facility] Appointment Type:[facility] OV OB Routine Follow Up Appointment Date:08/13/2023 08:00:00 AM Scheduled Provider: Location:[facility] Appointment Type:US OB W/Biophysical Profile Appointment Date:08/17/2023 10:00:00 AM Scheduled Provider: Location:[facility] Appointment Type:US Biophysical Profile Appointment Date:08/19/2023 09:00:00 AM Scheduled Provider:ZARINA RUSSELL Location: [facility] Appointment Type:[facility] OV OB Routine Follow Up Appointment Date:08/20/2023 08:00:00 AM Scheduled Provider: Location:[facility] Appointment Type:US OB W/Biophysical Profile Appointment Date:08/24/2023 10:00:00 AM Scheduled Provider: Location:[facility] Appointment Type:US Biophysical Profile Appointment Date:08/26/2023 09:00:00 AM Scheduled Provider:SRI BARRAZA MD Location: [facility] Appointment Type:[facility] OV OB Routine Follow Up Appointment Date:09/02/2023 09:00:00 AM Scheduled Provider:SRI BARRAZA MD Location: [place] Appointment Type: OV OB Routine Follow Up Appointment Date:09/07/2023 10:00:00 AM Scheduled Provider: Location:[facility] Appointment Type:US Biophysical Profile Appointment Date:09/09/2023 09:00:00 AM Scheduled Provider:SRI BARRAZA MD Location: [facility] Appointment Type: OV OB Routine Follow Up Appointment Date:09/14/2023 10:00:00 AM Scheduled Provider: Location:[facility] Appointment Type:US Biophysical Profile Appointment Date:09/21/2023 11:00:00 AM Scheduled Provider: Location:[facility] Appointment Type:US OB W/Biophysical Profile Future Scheduled Tests Laboratory* Bile Acids, Fractionated LCMS 08/03/23 * Bile Acids, Fractionated LCMS 08/17/23 * Bile Acids, Fractionated LCMS 08/31/23 * Type and Screen (AO) 02/23/23 * Urine Culture 05/18/23 * HIV 1/2 Ab 02/23/23 * [facility] Lab Send out (Blood Specimens) 02/23/23 * MISC Lab Send out (Blood Specimens) 02/23/23 Radiology* US OB > 14 weeks 07/30/23 * US OB Limited 05/10/23 * XR Chest 2 Views (PA & Lateral) 09/15/22 * US Biophysical Profile 08/10/23 * US Biophysical Profile 08/17/23 * US Biophysical Profile 09/07/23 * US Biophysical Profile 08/24/23 * US Biophysical Profile 09/14/23 * US OB W/Biophysical Profile 07/20/23 * US OB W/Biophysical Profile 09/21/23 * US OB W/Biophysical Profile 08/13/23 * US OB W/Biophysical Profile 08/20/23 [facility] Evaluation + Plan note Future Appointments Appointment Date:08/11/2023 01:45:00 PM Scheduled Provider:CINTHYA RUEDA MD Location: [facility] Appointment Type: OV OB Routine Follow Up Appointment Date:08/12/2023 09:00:00 AM Scheduled Provider:ZARINA RUSSELL Location: [facility] Appointment Type: OV OB Routine Follow Up Appointment Date:08/13/2023 08:00:00 AM Scheduled Provider: Location:[facility] Appointment Type:US OB W/Biophysical Profile Appointment Date:08/17/2023 10:00:00 AM Scheduled Provider: Location:[facility] Appointment Type:US Biophysical Profile Appointment Date:08/19/2023 09:00:00 AM Scheduled Provider:ZARINA RUSSELL Location: [facility] Appointment Type:[facility] OV OB Routine Follow Up Appointment Date:08/20/2023 08:00:00 AM Scheduled Provider: Location:[facility] Appointment Type:US OB W/Biophysical Profile Appointment Date:08/24/2023 10:00:00 AM Scheduled Provider: Location:[facility] Appointment Type:US Biophysical Profile Appointment Date:08/26/2023 09:00:00 AM Scheduled Provider:ZARINA RUSSELL Location: [facility] Appointment Type: OV OB Routine Follow Up Appointment Date:09/02/2023 09:00:00 AM Scheduled Provider:ZARINA RUSSELL Location: [facility] Appointment Type: OV OB Routine Follow Up Appointment Date:09/07/2023 10:00:00 AM Scheduled Provider: Location:[facility] Appointment Type:US Biophysical Profile Appointment Date:09/09/2023 09:00:00 AM Scheduled Provider:SRI BARRAZA MD Location: [facility] Appointment Type: OV OB Routine Follow Up Appointment Date:09/14/2023 10:00:00 AM Scheduled Provider: Location:[facility] Appointment Type:US Biophysical Profile Appointment Date:09/21/2023 11:00:00 AM Scheduled Provider: Location:[facility] Appointment Type:US OB W/Biophysical Profile Future Scheduled Tests Laboratory* Bile Acids, Fractionated LCMS 08/03/23 * Bile Acids, Fractionated LCMS 08/17/23 * Bile Acids, Fractionated LCMS 08/31/23 * Type and Screen (AO) 02/23/23 * Urine Culture 05/18/23 * HIV 1/2 Ab 02/23/23 * [facility] Lab Send out (Blood Specimens) 02/23/23 * MISC Lab Send out (Blood Specimens) 02/23/23 Radiology* US OB > 14 weeks 07/30/23 * US OB Limited 05/10/23 * XR Chest 2 Views (PA & Lateral) 09/15/22 * US Biophysical Profile 08/17/23 * US Biophysical Profile 09/07/23 * US Biophysical Profile 08/24/23 * US Biophysical Profile 09/14/23 * US OB W/Biophysical Profile 07/20/23 * US OB W/Biophysical Profile 09/21/23 * US OB W/Biophysical Profile 08/13/23 * US OB W/Biophysical Profile 08/20/23 [facility] Kaylaquita Pinto Evaluation + Plan note Future Appointments Appointment Date:08/19/2023 09:00:00 AM Scheduled Provider:ZARINA RUSSELL Location: [facility] Appointment Type: OV OB Routine Follow Up Appointment Date:08/20/2023 08:00:00 AM Scheduled Provider: Location:[facility] Appointment Type:US OB W/Biophysical Profile Appointment Date:08/24/2023 10:00:00 AM Scheduled Provider: Location:[facility] Appointment Type:US Biophysical Profile Appointment Date:08/25/2023 09:30:00 AM Scheduled Provider:AMANDA GREENWOOD Location: [facility] Appointment Type: OV OB Routine Follow Up Appointment Date:08/26/2023 09:00:00 AM Scheduled Provider:ZARINA RUSSELL Location: [facility] Appointment Type:WH OV OB Routine Follow Up Appointment Date:09/02/2023 09:00:00 AM Scheduled Provider:ZARINA RUSSELL Location: [facility] Appointment Type: OV OB Routine Follow Up Appointment Date:09/07/2023 10:00:00 AM Scheduled Provider: Location:[facility] Appointment Type:US Biophysical Profile Appointment Date:09/09/2023 09:00:00 AM Scheduled Provider:SRI BARRAZA MD Location: [facility] Appointment Type: OV OB Routine Follow Up Appointment Date:09/14/2023 10:00:00 AM Scheduled Provider: Location:[facility] Appointment Type:US Biophysical Profile Appointment Date:09/21/2023 11:00:00 AM Scheduled Provider: Location:[facility] Appointment Type:US OB W/Biophysical Profile Future Scheduled Tests Laboratory* Bile Acids, Fractionated LCMS 08/03/23 * Bile Acids, Fractionated LCMS 08/31/23 * Type and Screen (AO) 02/23/23 * Urine Culture 05/18/23 * HIV 1/2 Ab 02/23/23 * [facility] Lab Send out (Blood Specimens) 02/23/23 * [facility] Lab Send out (Blood Specimens) 02/23/23 Radiology* US OB > 14 weeks 07/30/23 * US OB Limited 05/10/23 * XR Chest 2 Views (PA & Lateral) 09/15/22 * US Biophysical Profile 09/07/23 * US Biophysical Profile 08/24/23 * US Biophysical Profile 09/14/23 * US OB W/Biophysical Profile 07/20/23 * US OB W/Biophysical Profile 09/21/23 * US OB W/Biophysical Profile 08/13/23 * US OB W/Biophysical Profile 08/20/23 [facility] Evaluation + Plan note Future Appointments Appointment Date:08/25/2023 11:00:00 AM Scheduled Provider:AMANDA GREENWOOD Location: [facility] Appointment Type:WH OV OB Routine Follow Up Appointment Date:09/02/2023 09:00:00 AM Scheduled Provider:ZARINA RUSSELL Location: [facility] Appointment Type: OV OB Routine Follow Up Appointment Date:09/07/2023 10:00:00 AM Scheduled Provider: Location:[facility] Appointment Type:US Biophysical Profile Appointment Date:09/09/2023 09:00:00 AM Scheduled Provider:SRI BARRAZA MD Location: [facility] Appointment Type: OV OB Routine Follow Up Appointment Date:09/14/2023 10:00:00 AM Scheduled Provider: Location:[facility] Appointment Type:US Biophysical Profile Appointment Date:09/21/2023 11:00:00 AM Scheduled Provider: Location:[facility] Appointment Type:US OB W/Biophysical Profile Future Scheduled Tests Laboratory* Bile Acids, Fractionated LCMS 08/03/23 * Bile Acids, Fractionated LCMS 08/31/23 * Type and Screen (AO) 02/23/23 * HIV 1/2 Ab 02/23/23 * [facility] Lab Send out (Blood Specimens) 02/23/23 * [facility] 02/23/23 Radiology* US OB > 14 weeks 07/30/23 * US OB Limited 05/10/23 * XR Chest 2 Views (PA & Lateral) 09/15/22 * US Biophysical Profile 09/07/23 * US Biophysical Profile 09/14/23 * US OB W/Biophysical Profile 07/20/23 * US OB W/Biophysical Profile 09/21/23 * US OB W/Biophysical Profile 08/13/23 * US OB W/Biophysical Profile 08/20/23 [facility] Evaluation + Plan note Future Appointments Appointment Date:08/26/2023 01:00:00 PM Scheduled Provider: Location:[facility] Appointment Type:INF Injection - Other (15 min) Appointment Date:09/02/2023 09:00:00 AM Scheduled Provider:ZARINA RUSSELL Location: [facility] Appointment Type:WH OV OB Routine Follow Up Appointment Date:09/07/2023 10:00:00 AM Scheduled Provider: Location:[facility] Appointment Type:US Biophysical Profile Appointment Date:09/08/2023 03:30:00 PM Scheduled Provider:AMANDA GREENWOOD Location: [facility] Appointment Type: OV Appointment Date:09/09/2023 09:00:00 AM Scheduled Provider:SRI BARRAZA MD Location: [facility] Appointment Type:WH OV OB Routine Follow Up Appointment Date:09/14/2023 10:00:00 AM Scheduled Provider: Location:[facility] Appointment Type:US Biophysical Profile Appointment Date:09/21/2023 11:00:00 AM Scheduled Provider: Location:[facility] Appointment Type:US OB W/Biophysical Profile Future Scheduled Tests Laboratory* Bile Acids, Fractionated LCMS 08/03/23 * Bile Acids, Fractionated LCMS 08/31/23 * Type and Screen (AO) 02/23/23 * HIV 1/2 Ab 02/23/23 * [facility] Send [facility] (Blood Specimens) 02/23/23 * [facility] Lab Send out (Blood Specimens) 02/23/23 Radiology* US OB > 14 weeks 07/30/23 * US OB Limited 05/10/23 * XR Chest 2 Views (PA & Lateral) 09/15/22 * US Biophysical Profile 09/07/23 * US Biophysical Profile 09/14/23 * US OB W/Biophysical Profile 07/20/23 * US OB W/Biophysical Profile 09/21/23 * US OB W/Biophysical Profile 08/13/23 * US OB W/Biophysical Profile 08/20/23 [facility] Evaluation + Plan note Future Appointments Appointment Date:09/02/2023 09:00:00 AM Scheduled Provider:ZARINA RUSSELL Location: [facility] Appointment Type:WH OV OB Routine Follow Up Appointment Date:09/07/2023 10:00:00 AM Scheduled Provider: Location:[facility] Appointment Type:US Biophysical Profile Appointment Date:09/08/2023 03:30:00 PM Scheduled Provider:AMANDA GREENWOOD Location: [facility] Appointment Type: OV Appointment Date:09/09/2023 09:00:00 AM Scheduled Provider:SRI BARRAZA MD Location: [facility] Appointment Type: OV OB Routine Follow Up Appointment Date:09/14/2023 10:00:00 AM Scheduled Provider: Location:[facility] Appointment Type:US Biophysical Profile Appointment Date:09/21/2023 11:00:00 AM Scheduled Provider: Location:[facility] Appointment Type:US OB W/Biophysical Profile Future Scheduled Tests Laboratory* Bile Acids, Fractionated LCMS 08/03/23 * Bile Acids, Fractionated LCMS 08/31/23 * Type and Screen (AO) 02/23/23 * HIV 1/2 Ab 02/23/23 * [facility] Lab Send out (Blood Specimens) 02/23/23 * [facility] Lab Send out (Blood Specimens) 02/23/23 Radiology* US OB > 14 weeks 07/30/23 * US OB Limited 05/10/23 * XR Chest 2 Views (PA & Lateral) 09/15/22 * US Biophysical Profile 09/07/23 * US Biophysical Profile 09/14/23 * US OB W/Biophysical Profile 07/20/23 * US OB W/Biophysical Profile 09/21/23 * US OB W/Biophysical Profile 08/13/23 * US OB W/Biophysical Profile 08/20/23 [facility] Evaluation + Plan note Future Appointments Appointment Date:11/02/2023 10:30:00 AM Scheduled Provider:AMANDA GREENWOOD Location: [facility] Appointment Type: OV Future Scheduled Tests Laboratory* Bile Acids, Fractionated LCMS 08/03/23 * Bile Acids, Fractionated LCMS 08/31/23 * Type and Screen (AO) 02/23/23 * HIV 1/2 Ab 02/23/23 * [facility] Lab Send out (Blood Specimens) 02/23/23 * [facility] Lab Send out (Blood Specimens) 02/23/23 Radiology* US OB > 14 weeks 07/30/23 * US OB Limited 05/10/23 * US Biophysical Profile 09/07/23 * US Biophysical Profile 09/14/23 * US OB W/Biophysical Profile 07/20/23 * US OB W/Biophysical Profile 09/21/23 * US OB W/Biophysical Profile 08/13/23 * US OB W/Biophysical Profile 08/20/23 [facility] Evaluation + Plan note Future Appointments Appointment Date:03/22/2023 10:45:00 AM Scheduled Provider:SRI BARRAZA MD Location: [facility] Appointment Type: OV OB Routine Follow Up Appointment Date:03/30/2023 08:30:00 AM Scheduled Provider: Location:[facility] Appointment Type:US OB < 14 weeks Future Scheduled Tests Laboratory* Bile Acids, Fractionated LCMS 03/15/23 * Type and Screen (AO) 02/23/23 * HIV 1/2 Ab 02/23/23 * Complete Metabolic Panel 03/15/23 * [facility] Lab Send out (Blood Specimens) 02/23/23 * [facility] Lab Send out (Blood Specimens) 02/23/23 Radiology* US Abdomen Complete 03/24/22 * US OB < 14 weeks 03/30/23 * XR Chest 2 Views (PA & Lateral) 09/15/22 [facility] Evaluation + Plan note Future Appointments Appointment Date:08/23/2024 02:30:00 PM Scheduled Provider:AMANDA ROLDAN APRN-TRANSPORTATION SOLUTIONS MANAGER Location:[facility] Appointment Type:PC OV Future Scheduled Tests Laboratory* Bile Acids, Fractionated LCMS 08/03/23 * Bile Acids, Fractionated LCMS 08/31/23 Radiology* US Biophysical Profile 09/07/23 * US Biophysical Profile 09/14/23 * US OB W/Biophysical Profile 09/21/23 * US OB W/Biophysical Profile 08/13/23 * US OB W/Biophysical Profile 08/20/23 [facility] Evaluation + Plan note Future Appointments Appointment Date:08/23/2024 02:30:00 PM Scheduled Provider:AMANDA ROLDAN Location:[facility] Appointment Type:PC OV Diagnostic Tests Pending * Rapid Plasma Reagin Test 07/27/24 Future Scheduled Tests Laboratory* Bile Acids, Fractionated LCMS 08/03/23 * Bile Acids, Fractionated LCMS 08/31/23 Radiology* US OB > 14 weeks 07/30/23 * US Biophysical Profile 09/07/23 * US Biophysical Profile 09/14/23 * US OB W/Biophysical Profile 09/21/23 * US OB W/Biophysical Profile 08/13/23 * US OB W/Biophysical Profile 08/20/23 [facility] Evaluation + Plan note Future Appointments Appointment Date:01/02/2025 11:00:00 AM Scheduled Provider: Location:[facility] Appointment Type:US OB < 14 weeks Appointment Date:01/09/2025 10:00:00 AM Scheduled Provider:AMANDA GREENWOOD Location: [facility] Appointment Type:WH OV OB Routine Follow Up Future Scheduled Tests Radiology* US OB < 14 weeks 01/02/25 [facility] Evaluation + Plan note Future Appointments Appointment Date:01/09/2025 10:00:00 AM Scheduled Provider:AMANDA GREENWOOD Location: [facility] Appointment Type:WH OV OB Routine Follow Up [facility] Evaluation note* Diagnosis URI, acute- Primary Acute upper respiratory infections of unspecified site Sore throat Acute ph[facility]itis [facility] Diagnosis Acute otitis media, left- Primary Unspecified otitis media [facility] this [facility]* Diagnosis Bronchitis- Primary Bronchitis, not specified as acute or chronic documented in this encounter [facility] note* Diagnosis Tooth pain- Primary Unspecified disorder of the teeth and supporting structures Acute cough [facility] Narrative No data available for this section [facility] Hospital Discharge instructions No data available for this section [facility] Progress note No data available for this section [facility] Summary Purpose Family History No Family History Records FoundNo Family History Records Found No data available for this section No data available for this section No data available for this section No data available for this section No data available for this section No data available for this section No data available for this section No data available for this section No data available for this section No data available for this section No data available for this section No data available for this section No data available for this section No data available for this section No data available for this section No data available for this section No data available for this section No data available for this section No data available for this section No data available for this section No data available for this section No data available for this section No data available for this section No data available for this section No data available for this section No data available for this section No data available for this section No data available for this section No Family History Records Found No data available for this section No data available for this section No Family History Records Found No data available for this section No data available for this section No data available for this section No Family History Records Found No data available for this section No Family History Records Found No data available for this section No Family History Records Found No data available for this section Advance Directives No Advanced Directives Records FoundNo Advanced Directives Records FoundNo Advanced Directives Records FoundNo Advanced Directives Records FoundNo Advanced Directives Records FoundNo Advanced Directives Records FoundNo Advanced Directives Records Found Additional Source Comments INFORMATION SOURCE (unrecogn ized section and content) DATE CREATED AUTHOR 09/29/2017 [facility] DATE CREATED AUTHOR AUTHOR'S ORGANIZ ATION 01/29/2020 [employer] DATE CREATED AUTHOR AUTHOR'S ORGANIZ ATION 09/01/2023 [facility] DATE CREATED AUTHOR AUTHOR'S ORGANIZ ATION 10/21/2023 [facility] ([place]) DATE CREATED AUTHOR AUTHOR'S ORGANIZ ATION 08/12/2024 [facility] DATE CREATED AUTHOR AUTHOR'S ORGANIZ ATION 11/17/2024 [facility] DATE CREATED AUTHOR AUTHOR'S ORGANIZ ATION 12/18/2024 [facility] Care Team (unrecognized sect ion and content) Care Team Personnel Name: AMANDA ROLDAN APRN-ROSETTA Position: P4 Advanced Wildlife Conservationist Member Role: Primary Care Physician Address: [address] Telecom: Care Team Related Persons Name: MICHELLE HAYS Name: PRANAY IGLESIAS Name: FAISAL IGLESIAS Name: MACK IGLESIAS Flow Match Sofa Cutter Relationship Specialty Start Date End Date Amanda Roldan [address] [place] [address] PCP - General Family Medicine 11/14/14 [employer] Relationship Specialty Start Date End Date Amanda Roldan [address] [place] [address] PCP - General Family Medicine 11/14/14 [employer] Relationship Specialty Start Date End Date Amanda Roldan CNP [address] [place] [address] PCP - General Family Medicine 11/14/14 Flow Match [employer]utter Relationship Specialty Start Date End Date Amanda Roldan CNP [address] [place] [address] PCP - General Family Medicine 11/14/14 Flow Match Sofa Cutter Relationship Specialty Start Date End Date Amanda Roldan CNP [address] [place] [address] PCP - General Family Medicine 11/14/14 Flow Match Sofa Cutter Relationship Specialty Start Date End Date Amanda Roldan CNP [address] [place] [address] PCP - General Family Medicine 11/14/14 Care Team (unrecognized sect ion and content) Care Team Personnel Name: AMANDA ROLDAN APRN-TRANSPORTATION SOLUTIONS MANAGER Position: P4 Advanced Practice Nurse Med Service: Employed Provider Member Role: Primary Care Physician Address: Address: [address] [place] [address] Care Team Related Persons Name: MICHELLE HAYS Address: [address] [phone] [place] Name: PRANAY IGLESIAS Address: [address] [phone] Name: MACK IGLESIAS Care Team Personnel Name: AMANDA ROLDAN APRN-ROSETTA Position: P4 Advanced Practice Nurse Member Role: Primary Care Physician Address: Address: [address] [place] [id number] [place] [address] Care Team Related Persons Name: MICHELLE HAYS Address: Home [address] [place] [phone] [place] Name: PRANAY IGLESIAS Address: Home [address] [place] [phone] Name: MACK IGLESIAS Care Team Personnel Name: AMANDA ROLDAN APRN-TRANSPORTATION SOLUTIONS MANAGER Position: P4 Advanced Practice Nurse Member Role: Primary Care Physician Address: Address: [address] [place] [phone] [place] [address] Care Team Related Persons Name: MICHELLE HAYS Address: Home [address] [place] [phone] [place] Name: PRANAY IGLESIAS Address: [address] [phone] Name: MACK IGLESIAS Source Comments (unrecognize d section and content) In the event this informatio n is protected by the Federal Confidentiality of Alcohol and Drug Abuse Patient Records regulations: The Federal rules restrict any use of the information to criminally investigate or prosecute any alcohol or drug abuse patient.[facility] the event this information is protected by the Federal Confidentiality of Alcohol and Drug Abuse Patient Records regulations: The Federal rules restrict any use of the information to criminally investigate or prosecute any alcohol or drug abuse patient.[facility] the event this information is protected by the Federal Confidentiality of Alcohol and Drug Abuse Patient Records regulations: The Federal rules restrict any use of the information to criminally investigate or prosecute any alcohol or drug abuse patient.[facility] the event this information is protected by the Federal Confidentiality of Alcohol and Drug Abuse Patient Records regulations: The Federal rules restrict any use of the information to criminally investigate or prosecute any alcohol or drug abuse patient.[facility] the event this information is protected by the Federal Confidentiality of Alcohol and Drug Abuse Patient Records regulations: The Federal rules restrict any use of the information to criminally investigate or prosecute any alcohol or drug abuse patient.[facility] the event this information is protected by the Federal Confidentiality of Alcohol and Drug Abuse Patient Records regulations: The Federal rules restrict any use of the information to criminally investigate or prosecute any alcohol or drug abuse patient.[facility] Reason for Visit (unrecogniz ed section and content) Reason Comments Cough Cough and ST x 1 day Reason Comments Results Reason Comments Ear Pain bilateral left worse x 3 days Reason Comments Cough Chest congestion, wh eezing x 1 week Reason Comments Dental Problem R lower tooth infect ion x2 days Cough Has not resolved fro m 10/27, finished prednisone FOR RECORDS PERTAINING TO PATIENTS WHO ARE OR HAVE BEEN ENROLLED IN A CHEMICAL DEPENDENCY/SUBSTANCEABUSE PROGRAM, SOME INFORMATION MAY BE OMITTED. This clinical summary was aggregated from multiple sources. Caution should be exercised in using it in the provision of clinical care. This summary normalizes information from multiple sources, and as a consequence, information in this document may materially change the coding, format and clinical context of patient data. In addition, data may be omitted in some cases. CLINICAL DECISIONS SHOULD BE BASED ON THE PRIMARY CLINICAL RECORDS. [employer] provides no warranty or guarantee of the accuracy or completeness of information in this document.
[2025-01-06 16:30] VITALS: BP 97/56; PULSE 75; RESP 12; O2SAT 100
[2025-01-06 16:45] LABS: Troponin T High Sensitivity < 6 ng/L (<=14)
[2025-01-06 17:00] VITALS: BP 101/49; PULSE 79; RESP 21; O2SAT 100
[2025-01-06 17:09] LABS: AST(SGOT) 32 U/L (<=31); Alanine Aminotransfer ALT/SGPT 53 U/L (<=34); Albumin, Serum 3.9 g/dL (3.5-5.0); Alkaline Phosphatase 113 U/L (35-104); Anion Gap 13 (5-15); BUN 10 mg/dL (4-19); BUN/Creat Ratio 17.4 RATIO (10-20); Calcium,Total 9.1 mg/dL (7.6-11.0); Carbon Dioxide 17.3 mmol/L (21.0-32.0); Chloride 104 mmol/L (98-108); Estimated Creatinine Clearance 146.11 ml/min (50-250); Globulin 2.6 g/dL (2.2-4.2); Glucose 94 mg/dL (70-99); Potassium 3.8 mmol/L (3.3-5.1)
[2025-01-06 18:00] VITALS: PULSE 84; RESP 14; O2SAT 100
[2025-01-06 18:48] VITALS: BP 98/62; PULSE 72; RESP 18; TEMP 36.4; O2SAT 100
== END 2025-01-06 19:00 | disposition home or self-care (01) ==
PROVIDERS: Emergency Provider Emergency Medicine; PCP Nurse Practitioner Primary Care; Visit Provider Emergency Medicine
DX: O99.891 Other specified diseases and conditions complicating pregnancy (principal); O99.331 Smoking (tobacco) complicating pregnancy, first trimester; R06.00 Dyspnea, unspecified; F17.210 Nicotine dependence, cigarettes, uncomplicated; F17.290 Nicotine dependence, other tobacco product, uncomplicated; R42 Dizziness and giddiness; Z3A.01 Less than 8 weeks gestation of pregnancy
CPT/HCPCS: 71275; 80053; 84484; 85025; 87631; 93005; 99283; Q9967; A4216

== ENCOUNTER 2025-01-22 07:18 | Emergency (ER) | payer MEDICAID, SELFPAY ==
[2025-01-22 07:18] VITALS: BP 132/85; PULSE 102; RESP 16; TEMP 36.7; O2SAT 100; BMI 34.4
--- NOTE | 2025-01-22 07:34 | EDS_ITS ---
HPI HPI - Female History of Present Illness Chief Complaint: Vag Bld, Preg Informant: patient Narrative Narrative: Patient is a 24-year-old female, , currently 10 weeks and 3 days , presenting with spotting. - Reports noticing pinkish-brown spotting this morning. - Denies pain, but experienced cramping yesterday. - Denies emesis or syncope. - Has had an ultrasound during this , which confirmed intrauterine preg inga. - LMP was 11/10. - Uncertain of blood type, but believes it is O. - Under high-risk OB care at Dr. Albert's office in [facility]. [facility] Medical History Anxiety Depression Smoker Medical History no medical history no medical history Home Medications ?Medication ?Instructions ?Recorded ?Last Taken ?Type enoxaparin 40 mg/0.4 mL 40 mg (0.4 mL) subcut DAILY 30 01/06/25 Unknown Rx subcutaneous syringe (Lovenox) days #12 mL Allergy/AdvReac Type Severity Reaction Status Date / Time No Known Allergies Allergy Verified 01/22/25 07:18 Social History Smoking Status: Current every day smoker tobacco type: cigarettes and e- cigarettes ROS ROS ED Constitutional Constitutional ED: Denies chills or fever(s) Eyes Eyes: Denies change in vision or diplopia ENT ENT ED: Denies rhinorrhea or sore throat Cardiovascular Cardiovascular: Denies chest pain, lightheadedness, palpitations or syncope Respiratory/Chest Respiratory/Chest: Denies cough or dyspnea Gastrointestinal Gastrointestinal: Reports constipation; Denies abdominal pain, diarrhea, nausea or vomiting Genitourinary Genitourinary ED: Reports as per HPI; Denies dysuria or hematuria Musculoskeletal Musculoskeletal: Denies back pain or neck pain Integumentary Denies abscess or rash Neurologic Neurologic: Denies headache(s), paresthesias or weakness Psychiatric Psychiatric: Denies anxiety or suicidal thoughts EXAM Physical Exam Const Vital Signs: 01/22/25 07:18 01/22/25 09:18 Temperature 98.0 F 98.7 F Temperature Source Oral Temporal Pulse Rate 102 H 79 Respiratory Rate 16 16 Blood Pressure 132/85 H 157/87 H Blood Pressure Mean 100 110 Pulse Ox 100 100 Oxygen Delivery Method Room Air Room Air Positive well nourished and well developed General Appearance ED: well developed and NAD HEENT Reports moist mucous membranes normocephalic and atraumatic Eyes PERRL and EOMs intact bilaterally Neck full ROM and supple Resp normal respiratory effort and clear to auscultation bilaterally Cardio regular rate, regular rhythm and no murmurs GI non-tender and non-distended Auscultation: normoactive bowel sounds Palpation: soft Narrative: deferred Back/Spine no CVA tenderness General Back: other FROM Extremity normal to inspection General Extremety ED: Negative for edema, pulses abnormal or tenderness General Extremity: Negative for edema or pulses abnormal Neuro oriented x3, CN's II-XII intact bilaterally and no sensory deficits noted Sensorium / Orientation: awake and alert Motor Exam: strength 5/5 throughout Skin no rashes or lesions noted and no wounds MDM MDM MDM Narrative Medical decision making narrative: Assessment: The patient is a 24-year-old female, , 10?weeks 3?days , presenting for light pink-brown vaginal spotting noted this morning with mild cramping yesterday. Bedside ultrasound demonstrates a single live intrauterine measuring consistent with 10 weeks gestation; heart activity present. Blood type is O positive, so RhoGAM is not indicated. Findings support a diagnosis of threatened with no evidence of ectopic or hemodynamic compromise. Plan: - Performed bedside pelvic ultrasound confirming live intrauterine - Obtained blood type; result O positive, no RhoGAM needed - Provided reassurance and first-trimester bleeding education - Discharged home with routine outpatient OB follow-up Diagnostics: - Bedside transabdominal pelvic ultrasound: single live intrauterine , crown-rump length consistent with 10 weeks; cardiac activity present. Independently interpreted by me, Beck Mena. - Lab: Blood type O positive Reevaluations: - Patient reassessed after ultrasound and lab result; hemodynamically stable, no pain, understands discharge plan Lab Data Attestation: I reviewed the patient's lab results. Labs: Laboratory Results - last 24 hr 01/22/25 07:45 Blood Type O POSITIVE Discharge Plan Triage Chief Complaint: Vag Bld, Preg ED Provider: Beck Mena Dx/Rx/DC Orders Clinical Impression: , threatened Instructions: Vaginal Bleeding During Prescriptions: No Action enoxaparin [Lovenox] 40 mg/0.4 mL syringe 40 mg subcut DAILY 30 Days Qty: 12 3RF Primary Care Provider: Amanda Roldan NP Referrals: Jero Bloom MD [Non-Staff, Obstetrics-Gynecology (OBGYN)] - As soon as possible Activity Restrictions/Additional Instructions: Your blood type is O+ Print Language: Khmer Disposition Disposition: Home, Self Care
--- OUTSIDE RECORDS SUMMARY | 2025-01-22 07:42 | XMS RPT_ITS | CCD ---
Author Organization [facility] Care Team Providers Care Document Preparation Specialist Name Role Phone SHIVANI BARROS Unavailable Unavailable SHIVANI BARROS Unavailable Unavailable CONI EDEN Unavailable Unavailable YULI GASKET WINDER-CHEMICAL PLANT MANAGER, AMANDA S Primary Care Physicia n Amanda Roldan Primary Care Provider [phone] AMANDA ROLDAN S Primary Care Unavailable MARYBETH, CINTHYA E Referring Unavailable POLK, PRABHCHARAN P Attending Unavailable POLK, PRABHCHARAN P Attending Unavailable YULI, AMANDA S Primary Care Unavailable MARYBETH, CINTHYA E Referring Unavailable JAD CARBAJAL Attending Unavailable YULI, AMANDA S Primary Care Unavailable MARYBETH, CINTHYA E Referring Unavailable JAD CARBAJAL Attending Unavailable YULI, AMANDA S Primary Care Unavailable MARYBETH, CINTHYA E Referring Unavailable MARYBETH, CINTHYA E Referring Unavailable YULI, AMANDA S Primary Care Unavailable POLK, PRABHCHARAN P Attending Unavailable MARYBETH, CINTHYA E Referring Unavailable YULI, AMANDA S Primary Care Unavailable POLK, PRABHCHARAN P Attending Unavailable YULI, AMANDA S Primary Care Unavailable MARYBETH, CINTHYA E Referring Unavailable POLK, PRABHCHARAN P Attending Unavailable YULI GASKET WINDER-CHEMICAL PLANT MANAGER, AMANDA S Primary Care Unava ilable Marybeth, Cinthya Attending Unavailable YULI GASKET WINDER-[employer]ICAL PLANT MANAGER, AMANDA S Primary Care Unava ilable [place] GASKET WINDER-CNM, AMANDA Bell Attending Unav ailable YULI GASKET WINDER-[employer]ICAL PLANT MANAGER, AMANDA S Primary Care Unava ilable [place] GASKET WINDER-CNM, AMANDA R Attending Unav ailable YULI GASK[employer] W[employer]ER[employer]ICAL PLANT MANAGER, AMANDA S Primary Care Unava ilable Marybeth, Cinthya Attending Unavailable YULI GASKET WINDER-[employer]ICAL PLANT MANAGER, AMANDA S Primary Care Unava ilable HANS ENCISO, DR MOON Attending Unavailabl e YULI GASKET WINDER-[employer]ICAL PLANT MANAGER, AMANDA S Primary Care Unava ilable Marybeth, Cinthya Attending Unavailable YULI GASK[employer] WIND[employer]ICAL PLANT MANAGER, AMANDA S Primary Care Unava ilable [place] GASKET WINDER-CNM, AMANDA R Attending Unav ailable YULI GASKET WINDER-[employer]ICAL PLANT MANAGER, AMANDA S Primary Care Unava ilable [employer] GASKET WINDER-CNM, AMANDA R Attending Unav ailable [place] GASKET WINDER-CNM, AMANDA R Attending Unav ailable YULI GASKET WIND[employer]ICAL PLANT MANAGER, AMANDA S Primary Care Unava ilable RUSSELL GASKET WINDER-CHEMICAL PLANT MANAGER, ZARINA Attending Unavail able YULI GASKET WINDER-[employer]ICAL PLANT MANAGER, AMANDA S Primary Care Unava ilable RUSSELL G[employer] WINDER-[employer]ICAL PLANT MANAGER, ZARINA Attending Unavail able YULI GASKET WINDER-[employer]ICAL PLANT MANAGER, AMANDA S Primary Care Unava ilable YULI GASKET WIND[employer]ICAL PLANT MANAGER, AMANDA S Primary Care Unava anayeli POLK MD, DR KELLEY Ortiz Attending Unavai lable YULI GASKET WINDER-[employer]ICAL PLANT MANAGER, AMANDA S Primary Care Unava ilpolo BARRAZA MD, SRI Tadeo Consulting Unavailable CHRISTI ENCISO, SRI Tadeo Attending Unavailable BEITLER GASKET WINDER-CNM, AMANDA Bell Attending Unav ailable YULI GASKET WINDER-[employer]ICAL PLANT MANAGER, AMANDA S Primary Care Unava ilable [place] GASKET WINDER-CNM, AMANDA R Attending Unav ailable YULI GASKET WIND[employer]ICAL PLANT MANAGER, AMANDA S Primary Care Unava ilable [employer] GASKET WINDER-CNM, AMANDA Bell Attending Unav ailable YULI GASKET WINDER-CHEMICAL PLANT MANAGER, AMANDA S Primary Care Unava ilable YULI GASKET WINDER-CHEMICAL PLANT MANAGER, AMANDA S Primary Care Unava ilable Marybeth, Cinthya Attending Unavailable YULI GASKET WINDER-CHEMICAL PLANT MANAGER, AMANDA S Primary Care Unava ilable Marybeth, Cinthya Attending Unavailable YULI GASKET WINDER-[employer]ICAL PLANT MANAGER, AMANDA S Primary Care Unava ilable Marybeth, Cinthya Attending Unavailable YULI GASKET WINDER-[employer]MICAL PLANT MANAGER, AMANDA S Primary Care Unava ilable Marybeth, Cinthya Attending Unavailable [place] GASKET WINDER-CNM, AMANDA Bell Attending Unav ailable YULI GASKET WINDER-[employer]MICAL PLANT MANAGER, AMANDA S Primary Care Unava ilable RUSSELL GASKET WINDER-CHEMICAL PLANT MANAGER, ZARINA Attending Unavail able YULI GASKET WINDER-CHEMICAL PLANT MANAGER, AMANDA S Primary Care Unava ilable YULI GASKET WINDER-CHEMICAL PLANT MANAGER, AMANDA S Primary Care Unava ilable Marybeth, Cinthya Attending Unavailable YULI GASKET WINDER-[employer]MICAL PLANT MANAGER, AMANDA S Primary Care Unava ilable RUSSELL GASKET WINDER-CHEMICAL PLANT MANAGER, ZARINA Attending Unavail polo BARRAZA MD, SRI Tadeo Attending Unavailable CHRISTI ENCISO, SRI Tadeo Consulting Unavailable YULI GASKET WINDER-[employer]MICAL PLANT MANAGER, AMANDA S Primary Care Unava ilable [place] GASKET WINDER-CNM, AMANDA Bell Attending Unav ailable YULI GASKET WINDER-[employer]MICAL PLANT MANAGER, AMANDA S Primary Care Unava ilable [employer] GASKET WINDER-CNM, AMANDA Bell Attending Unav ailable YULI GASKET WINDER-CHEMICAL PLANT MANAGER, AMANDA S Primary Care Unava ilable YULI GASKET WINDER-CHEMICAL PLANT MANAGER, AMANDA S Primary Care Unava ilable BEITLER GASKET WINDER-CNM, AMANDA Bell Attending Unav ailable BE[place]LER GASKET WINDER-CNM, AMANDA Bell Attending Unav ailable YULI GASKET WINDER-CHEMICAL PLANT MANAGER, AMANDA S Primary Care Unava ilable YULI GASKET WINDER-CHEMICAL PLANT MANAGER, AMANDA S Primary Care Unava ilable MARYAN PLUNKETT MD Attending Unavailable BEITLER GASKET WINDER-CNM, AMANDA Bell Attending Unav ailable YULI GASKET WINDER-[employer]MICAL PLANT MANAGER, AMANDA S Primary Care Unava ilable BEITLER GASKET WINDER-CNM, AMANDA Bell Attending Unav ailable YULI GASKET WINDER-CHEMICAL PLANT MANAGER, AMANDA S Primary Care Unava ilable YULI GASKET WINDER-CHEMICAL PLANT MANAGER, AMANDA S Primary Care Unava ilable MARYAN PLUNKETT MD Attending Unavailable [place] GASKET WINDER-CNM, AMANDA Bell Attending Unav ailable YULI GASKET WINDER-CHEMICAL PLANT MANAGER, AMANDA S Primary Care Unava ilable BEITLER GASKET WINDER-CNM, AMANDA Bell Attending Unav ailable YULI GASKET WINDER-CHEMICAL PLANT MANAGER, AMANDA S Primary Care Unava ilable BEITLER GASKET WINDER-CNM, AMANDA Bell Attending Unav ailable YULI GASKET WINDER-CHEMICAL PLANT MANAGER, AMANDA S Primary Care Unava ilpolo BARRAZA MD, SRI Tadeo Attending Unavailable YULI GASKET WINDER-CHEMICAL PLANT MANAGER, AMANDA S Primary Care Unava ilable YULI GASKET WINDER-CHEMICAL PLANT MANAGER, AMANDA S Primary Care Unava ilable CHRISTI ENCISO, SRI Tadeo Attending Unavailable YULI GASKET WINDER-CHEMICAL PLANT MANAGER, AMANDA S Primary Care Unava ilable Cinthya Rueda Attending Unavailable BEITLER GASKET WINDER-CNM, AMANDA R Admitting Unav ailable HENAO DO, DR MO Guidry Attending Unavailable YULI GASKET WINDER-CHEMICAL PLANT MANAGER, AMANDA S Primary Care Unava ilable YULI GASKET WINDER-CHEMICAL PLANT MANAGER, AMANDA S Primary Care Unava ilable RUSSELL GASKET WINDER-CHEMICAL PLANT MANAGER, ZARINA Attending Unavail polo PLUNKETT MD, MARYAN Attending Unavailable YULI GASKET WINDER-CHEMICAL PLANT MANAGER, AMANDA S Primary Care Unava ilpolo POLK MD, DR KELLEY Ortiz Attending Unavai lable YULI GASKET WINDER-CHEMICAL PLANT MANAGER, AMANDA S Primary Care Unava ilable BEITLER GASKET WINDER-CNM, AMANDA R Attending Unav ailable YULI GASKET WINDER-CHEMICAL PLANT MANAGER, AMANDA S Primary Care Unava ilable BEITLER GASKET WINDER-CNM, AMANDA Ray Attending Unav ailable YULI GASKET WINDER-CHEMICAL PLANT MANAGER, AMANDA S Primary Care Unava ilable [place] CHEMICAL PLANT MANAGER, Amanda S Primary Care Provider [phone] YULI, AMANDA S Primary Care Unavailable MARA DAVIS Attending Unavailable YULI, AMANDA S Primary Care Unavailable RUPERT MANSFIELD Attending Unavailable YULI, AMANDA S Primary Care Unavailable YULI, AMANDA S Primary Care Unavailable RUPERT MANSFIELD Referring Unavailable [place] VICE PRESIDENT OF SOFTWARE ENGINEERING-C, Amanda Primary Care Physician [phone] Dr. Cecil Potts DO Emergency Department [facility] Patricio Peters Attending Unavailable Yuli VICE PRESIDENT OF SOFTWARE ENGINEERING, Amanda Primary Care Unavailable Yuli VICE PRESIDENT OF SOFTWARE ENGINEERING, Amanda Referring Unavailable Patricio Peters Attending Unavailable [place] VICE PRESIDENT OF SOFTWARE ENGINEERING, Amanda Primary Care Unavailable [place] VICE PRESIDENT OF SOFTWARE ENGINEERING, Amanda Referring Unavailable Cecil Potts Attending Unavailable [place] VICE PRESIDENT OF SOFTWARE ENGINEERING, Amanda Primary Care Unavailable CHRISTI ENCISO, SRI Tadeo Attending Unavailable CHRISTI ENCISO, SRI Tadeo Consulting Unavailable YULI GASKET WINDER-[facility], AMANDA S Primary Care Unava ilable YULI GASKET WINDER-CHEMICAL PLANT MANAGER, AMANDA S Primary Care Unava ilable YULI GASKET WINDER-CHEMICAL PLANT MANAGER, AMANDA S Attending Unava ilable YULI GASKET WINDER-CHEMICAL PLANT MANAGER, AMANDA S Primary Care Unava ilable YULI GASKET WINDER-CHEMICAL PLANT MANAGER, AMANDA S Attending Unava ilable RUSSELL GASKET WINDER-CHEMICAL PLANT MANAGER, ZARINA Attending Unavail able YULI GASKET WINDER-CHEMICAL PLANT MANAGER, AMANDA S Primary Care Unava ilable RUSSELL GASKET WINDER-CHEMICAL PLANT MANAGER, ZARINA Attending Unavail able [facility] GASKET WINDER-[facility], AMANDA S Primary Care Unava ilable Medications Current Medications Medication Drug Class(es) Dates Sig (Normalized) Sig (Original) [id number] 200 actuat albuterol 0.09 mg/actuat metered dose [...] qDay, # 90 EA, 9 Refill(s), Pharmacy: [facility] #30, 62.5, cm, 01/26/23 12:44:00 EDT, Height, kg, 01/26/23 12:42:00 EDT, Dosing Weight Start Date: 01/26/23 Status: Ordered Medication Dispense Status: Completed Quantity: 90.0 Unit: EA Total Allowed Fills: 10 Fills Dispensed: 0 Start: 01-26-2023 take 1 tablet by lori th once daily Alive Gummies oral tablet, chewable Dose = 2 tab(s), Chewed, qDay, # 90 EA, 9 Refill(s), Pharmacy: [facility] #30, 62.5, cm, 10/24/23 12:44:00 EDT, Height, kg, 01/26/23 12:42:00 EDT, Dosing Weight Start Date: 01/26/23 Status: Ordered Quantity: 90.0 Unit: EA Repeat number: 10 Start: 01-26-2023 take 1 tablet by lori th once daily Alive Gummies oral tablet, chewable Dose = 2 tab(s), Chewed, qDay, # 90 EA, 9 Refill(s), Pharmacy: [facility] #30, 62.5, cm, 01/26/23 12:44:00 EDT, Height, [...] mg/ml injectable suspension (2 sources) Corticosteroid Start: Celestone Soluspan 6 mg/mL injectable suspension 2 [...] tab(s), 0 Refill(s), 09/14/21 14:52:00 EDT, Pharmacy: [facility] #30, 158.5, cm, 09/04/21 8:53:00 EDT, Height Start Date: 09/04/21 Stop Date: 09/14/21 Status: Ordered diphenhydrAMINE hydrochloride 25 mg oral tablet (7 sources) Histamine-1 Receptor Antagonist Start: Unisom 25mg oral tablet Dose : 25 mg = 1 tab(s), Oral, qHS, PRN as needed for insomnia, # 30 tab(s), 5 Refill(s), Pharmacy: [facility] #30, 62.5, cm, 01/26/23 12:44:00 EDT, Height, kg, 01/26/23 12:42:00 EDT, Dosing Weight Start Date: 01/26/23 Status: Ordered 0.4 ml enoxaparin sodium 100 mg/ml prefilled syringe (20 sources) Low Molecular Weight Heparin Start: Start: 12-11-2024 End: 02-09-2025 inject 0.4 mL by subcutaneous injection once daily Lovenox 40 mg/0.4 mL injectable solution Dose : 40 mg = 0.4 mL, Subcutaneous, qDay, X 30 day(s), # 12 mL, 1 Refill(s), 02/09/25 1:50:00 PM EST, Pharmacy: [facility] #30, Secondary amenorrhea History of blood clots, [...] 8 Refill(s), 08/04/24 12:08:44 PM EDT, Pharmacy: [facility] #30, 62.5, cm, 01/26/23 12:44:00 EDT, Height, [...] mL, 0 Refill(s), 03/15/21 11:24:00 EST, Pharmacy: [facility] #30, 155, cm, 01/27/21 6:04:00 EDT, Height, kg, 02/13/21 11:03:00 EST, Dosing Weight Start Date: 02/13/21 Stop Date: 03/15/21 Status: Ordered Start: 01-27-2021 End: 02-06-2021 inject 0.4 mL by subcutaneous injection once daily enoxaparin 40 mg/0.4 mL injectable solution Dose : 40 mg = 0.4 mL, Subcutaneous, qDay, X 10 day(s), # 4 mL, 0 Refill(s), 02/06/21 15:54:00 EDT, Pharmacy: [facility]/pharmacy #[id number], 155, cm, 01/27/21 6:04:00 EDT, Height, kg, 01/27/21 6:04:00 EDT, Dosing Weight Start Date: 01/27/21 Stop Date: 02/06/21 Status: Ordered End: 02-28-2024 enoxaparin sodium (LOVENOX SUBCUTANEOUS) Inject subcutaneously. 02/28/2024 Discontinued enoxaparin sodiu m (LOVENOX SUBCUTANEOUS) Inject subcutaneously. 0 Active Comment on above: Inject subcutaneousl y. ferrous gluconate 324 mg oral tablet (6 sources) Start: 11-17-2021 End: 05-16-2022 ferrous gluconate 324 mg (38 mg elemental iron) oral tablet Dose : 324 mg = 1 tab(s), Oral, Daily, X 90 day(s), # 90 tab(s), 1 Refill(s), 05/16/22 12:09:00 EST, Pharmacy: [facility] #30, 158.5, cm, 09/04/21 8:53:00 EDT, Height Start Date: 11/17/21 Stop Date: 05/16/22 Status: Ordered Start: 12-16-2020 End: 05-15-2021 ferrous gluconate 324 mg (37 .5 mg elemental iron) oral tablet Dose : 324 mg = 1 tab(s), Oral, BID, # 60 tab(s), 4 Refill(s), Pharmacy: [facility] #30, 158, cm, 12/16/20 12:19:00 EDT, Height, kg, 10/17/20 7:08:00 EDT, Dosing Weight Start Date: 12/16/20 Stop Date: 05/15/21 Status: Ordered FLUoxetine 20 mg oral tablet (1 source) Serotonin Reuptake Inhibitor Start: 01-20-2022 FLUoxetine 20 mg oral tablet Dose : 20 mg = 1 tab(s), Oral, qDay, # 30 tab(s), 11 Refill(s), Pharmacy: [facility] #30, 157, cm, 01/20/22 14:05:00 EDT, Height [...] container, # 60 mL, 1 Refill(s), Pharmacy: [facility]/pharmacy #[id number], 157, cm, 01/09/21 11:34:00 EDT, Height, [...] 2 Refill(s), 08/08/23 10:51:00 AM EDT, Pharmacy: [facility] #30, 157.5, cm, 05/10/23 10:23:00 EST, Height, kg, 01/26/23 12:42:00 EDT, Dosing Weight Start Date: 05/10/23 Stop Date: 08/08/23 Status: Ordered Start: 01-20-2022 hydrOXYzine hy drochloride 25 mg oral tablet Dose : 25 mg = 1 tab(s), Oral, QID, PRN as needed for anxiety, # 40 tab(s), 0 Refill(s), Pharmacy: [facility] #30, 157, cm, 01/20/22 14:05:00 EDT, Height Start Date: 01/20/22 Status: Ordered Start: 12-20-2020 Vistaril 25 mg oral capsule Dose : 25 mg = 1 cap(s), Oral, qHS, PRN as needed for anxiety, # 40 cap(s), 0 Refill(s), Pharmacy: [facility] #30, Third trimester Itching, 157, cm, 12/19/20 11:48:00 EDT, Height, kg, 12/19/20 11:48:00 EDT, Dosing Weight Start Date: 12/20/20 Status: Ordered ibuprofen 600 mg oral tablet (2 sources) Nonsteroidal Anti-inflammatory Drug Start: 09-02-2023 End: 10-06-2023 IBU 600 mg oral tablet Dose : 600 mg = 1 tab(s), Oral, QID, # 40 tab(s), 0 Refill(s), 10/06/23 7:29:00 AM EDT, Pharmacy: [facility] #30, 155, cm, 09/01/23 5:56:00 EDT, Height, kg, 09/01/23 5:56:00 EDT, Dosing Weight Start Date: 09/02/23 Stop Date: 10/06/23 Status: Ordered Start: 01-27-2021 End: 02-06-2021 ibuprofen 600 mg oral tablet Dose : 600 mg = 1 tab(s), Oral, q6h, PRN for pain, Take with food or milk., X 10 day(s), # 40 tab(s), 0 Refill(s), 02/06/21 15:54:00 EDT, Pharmacy: [facility]/pharmacy #[id number], 155, cm, 01/27/21 6:04:00 EDT, Height, [...] week(s), # 42 patch(es), 0 Refill(s), Pharmacy: [facility] #30, 157.4, cm, 03/24/22 9:25:00 EST, Height Start Date: 03/24/22 Stop Date: 05/05/22 Status: Ordered pantoprazole 40 mg delayed release oral tablet (4 sources) Proton Pump Inhibitor Start: End: Protonix 40 mg oral enteric coated tablet Dose : 40 mg = 1 tab(s), Oral, qDay, # 30 tab(s), 3 Refill(s), Pharmacy: [facility] #30, 157, cm, 12/26/20 10:03:00 EDT, Height, kg, 12/19/20 11:48:00 EDT, Dosing Weight Start Date: 12/26/20 Stop Date: 04/20/22 Status: Ordered predniSONE 10 mg oral tablet (1 source) Start: 025 End: take 4 tablets by mouth once [...] q6hr, # 100 tab(s), 5 Refill(s), Pharmacy: [facility] #30, 62.5, cm, 01/26/23 12:44:00 EDT, Height, kg, 01/26/23 12:42:00 EDT, Dosing Weight Start Date: 01/26/23 Status: Ordered traMADol hydrochloride 50 mg oral tablet (1 source) Opioid Agonist Start: End: traMADol 50 mg oral tablet Dose : 50 mg = 1 tab(s), Oral, q6h, PRN for pain, X 7 day(s), # 20 tab(s), 0 Refill(s), 04/15/23 11:24:00 AM EST, Pharmacy: [facility] #30, Sciatica, 157.5, cm, 04/08/23 10:52:00 EST, Height, 65.8, kg, 01/26/23 12:42:00 EDT, Dosing Weight Start Date: 04/08/23 Stop Date: 04/15/23 Status: Ordered ursodiol 300 mg oral capsule (14 sources) Bile Acid Start: ursodiol 300 mg oral capsule Dose : 300 mg = 1 cap(s), Oral, TID, # 45 cap(s), 2 Refill(s), Pharmacy: [facility] #30, 155, cm, 07/22/23 10:02:00 EDT, Height, kg, 07/06/23 14:43:00 EDT, Dosing Weight Start Date: 08/03/23 Status: Ordered Start: 12-30-2020 End: 02-28-2021 ursodiol 300 mg oral capsule Dose : 300 mg = 1 cap(s), Oral, BID, # 120 cap(s), 0 Refill(s), Pharmacy: [facility] #30, 157, cm, 12/26/20 10:03:00 EDT, Height, [...] tab(s), 2 Refill(s), 02/13/21 12:04:00 EST, Pharmacy: [facility] #30, Insomnia, 157, cm, 01/02/21 10:57:00 EDT, [...] 01/15/2018 06/14/2023 Discontinued Comment on above: DAILY Naproxen (1 source) Nonsteroidal Anti-inflammatory Drug End: 06-14-2023 NAPROXEN ORAL Take by mouth. 0 06/14/2023 Discontinued Comment on above: Take by mouth. omeprazole 20 mg delayed release oral capsule (1 source) Proton Pump Inhibitor Start: 09-21-2017 End: 06-14-2023 take 1 capsule by mouth once daily before breakfast omeprazole (PRILOSEC) 20 mg capsule Take 1 capsule by mouth daily before breakfast. 1/2 hr before meal. 30 capsule 0 09/21/2017 06/14/2023 Discontinued Comment on above: Take 1 capsule by mo uth daily before breakfast. 1/2 hr before meal. 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 Other circulatory disease (6 sources) Easy bruising 07-27-2024 Episodic Other complications [...] Cough; Translations: [Acute cough] 11-16-2024 Episodic Other lower respiratory disease (1 source) Shortness of breath; Translations: [Shortness of breath] Onset: 5 Episodic Other and delivery including normal (20 [...] of , third trimester] Onset: 4 Unclassified (6 sources) Residence and accommodation circumstances - finding 07-27-2024 Unclassified (1 source) Acute cough; Translations: [Acute cough] Onset: 5 Past or Other Problems Problem Classification Problem Date Documented Date Episodic/Chronic Immunizations and screening for infectious disease (2 [...] Test Name Value Interpretation Reference Range Facility [facility] Cytology Reporton 2024 [facility] Cytology Report . Pathology Reports Accession: Collected Date/Time: Received Date/Time: Pathologist: [id number] 01/11/2025 10:08 EDT 01/11/2025 18:00 EDT [facility] Cytology Report SPECIMEN: Specimen Description: Liquid Prep Reflex ASCUS+ Specimen: Cervical/Endocervical Screening or Diagnostic: Screening RELEVANT HISTORY: LMP: 10/2024 : Yes SPECIMEN ADEQUACY: SATISFACTORY FOR EVALUATION Endocervical/Transforma tional zone component present INTERPRETATION/RESULTS: NEGATIVE FOR INTRAEPITHELIAL LESION OR MALIGNANCY ORGANISMS: Shift in wandy consistent with bacterial vaginosis COMMENT: This Pap Test was successfully processed and evaluated with the assistance of the [employer] Solar Systems[employer] Test Imaging System. Verified by Pathology report verified by [facility] Screened by: AVIS Electronically signed by Marcie MCKEE (ASCP) Sign-Out Date: 01/18/2025 11:45 Performing Lab: [facility], [address] [place] [address] Pathology Dept Disclaimer The Pap test is a screening test for cervical cancer. As evidenced by published data, it is subject to both inherent false negative and false positive results. Your patient's results should be interpreted in context with pertinent clinical history including gynecological examination. Normal [facility] CTVAGon 01-12-2025 Chlam Source Vaginal Normal [facility] Comment on above: Performed By: #### G CVAG, CTVAG #### [place] [address] Chlamydia Trachomatis, TMA Negative Normal Negative [facility] Comment on above: Result Comment: Mole cular methodology performed on the [facility]. Performed By: #### G CVAG, CTVAG #### [place] [address] GCVAGon 01-12-2025 GC PCR Source Vaginal Normal [facility] Comment on above: Performed By: #### G CVAG, CTVAG #### [place] [address] Neisseria gonorrhoeae, TMA Negative Normal Negative [facility] Comment on above: Result Comment: Mole cular methodology performed on the [facility]. Performed By: #### G CVAG, CTVAG #### [place] [address] LABORATORYOrdered By: SYSTEM SYSTEM on 01-11-2025 C. trachomatis rRNA DAHIANA+probe Ql (Vag fld) Negative 1 (01/11/25 1:37 PM) Normal Negative [facility] Comment on above: Interpretive Data: M olecular methodology performed on the [employer] Delta System. Chlam Source Vaginal *NA* (01/11/25 1:37 PM) Invalid Interpretation Code AH Auto Viro/Sero SS GC PCR Source Vaginal *NA* (01/11/25 1:37 PM) Invalid Interpretation Code AH Auto Viro/Sero SS N. gonorrhoeae rRNA DAHIANA+probe Ql (Vag fld) Negative 2 (01/11/25 1:37 PM) Normal Negative [facility]Sero SS Comment on above: Interpretive Data: M olecular methodology performed on the [employer] System. 12 Lead EKGon 01-06-2025 12 Lead EKG [facility] [address] [place] [address] 12 Lead EKG 01/06/25 1612 MR#: [id number] Acct: [id number] Name: SONIYA IGLESIAS CONSTANTINE Rep #: [id number] : 2000 24 From: Radhames Dash MD Attending Dr: Status: DEP ER Ordering Dr: Cecil Potts DO Date: 01/06/25 Location: ED Sex: F C Admitted: Test Reason : SOB Blood Pressure : */* mmHG Vent. Rate : 68 BPM Atrial Rate : 68 BPM P-R Int : 136 ms QRS Dur : 92 ms QT Int : 386 ms P-R-T Axes : 18 69 39 degrees QTcB Int : 410 ms Normal sinus rhythm with sinus arrhythmia RSR' or QR pattern in V1 suggests right ventricular conduction delay Borderline ECG Confirmed by SAMUEL ENCISO, RADHAMES ([id number]), art editor MACK FRAGOSO ([id number]) on 01/08/2025 8:35:03 AM Referred By: MOY Confirmed By: RADHAMES DASH MD 01/08/25834 Date Radhames Dash MD CC: VICE PRESIDENT OF SOFTWARE ENGINEERING-C Amanda Roldan; Dr. Cecil Potts, DO Signed Normal [facility] Absolute lymphocyte countOrd ered By: Cecil Potts on 01-06-2025 Lymphocytes Auto (Unsp spec) [#/Vol] 1.70 10*3/uL 0.83-4.51 [facility] Absolute neutrophil countOrd ered By: Cecil Potts on 01-06-2025 Neutrophils (Bld) [#/Vol] 9.1 10*3/uL High 2.0-7.7 [facility] Anion gap in Serum or Plasma Ordered By: Cecil Potts on 01-06-2025 Anion gap [Moles/Vol] 13 mmol/L 5-15 [facility] Automated lymphocyte count a s percentage of total leukocytesOrdered By: Cecil Potts on 01-06-2025 Lymphocytes/100 WBC Auto (Unsp spec) 14.7 % Low 19-41 [facility] BUN/creatinine ratioOrdered By: Cecil Potts on 01-06-2025 Urea nitrogen/Creatinine [Mass ratio] 17.4 mg/mg 10-20 [facility] Basophil percentageOrdered B y: Cecil Potts on 01-06-2025 Basophils/100 WBC (Bld) 0.3 % 0-1 [facility] Bilirubin, totalOrdered By: Cecil Potts on 01-06-2025 Bilirubin [Mass/Vol] 0.20 mg/dL 0.00-1.30 [facility] CBC W/Diff, Automatedon 10-0 -2024 Absolute Lymph 1.70 X10 3/uL Normal 0.83-4.51 [facility] Comment on above: Performed By: #### L 100.0100, L500.4050 #### [facility] [address] [place], [address] Absolute Neut 9.1 X10 3/uL High 2.0-7.7 [facility] Comment on above: Performed By: #### L 100.0100, L500.4050 #### [facility] [address] [place], [address] Basophils/100 WBC (Bld) 0.3 % Normal 0-1 [facility] Comment on above: Performed By: #### L 100.0100, L500.4050 #### [facility] [address] [place], [address] Eosinophils/100 WBC (Bld) 0.3 % Normal 0-5 [facility] Comment on above: Performed By: #### L 100.0100, L500.4050 #### [facility] [address] [place], [address] Erythrocyte distribution width (RBC) [Ratio] 13.2 % Normal 11.6-14.6 [facility] Comment on above: Performed By: #### L 100.0100, L500.4050 #### [facility] [address] [place], [address] Hematocrit (Bld) [Volume fraction] 37.1 % Normal 37-47 [facility] Comment on above: Performed By: #### L 100.0100, L500.4050 #### [facility] [address] [place], [address] Hemoglobin (Bld) [Mass/Vol] 12.8 g/dL Normal 12.0-15.0 [facility] Comment on above: Performed By: #### L 100.0100, L500.4050 #### [facility] [address] [place], [address] IG% 0.400 Normal 0.0-0.9 [facility] Comment on above: Result Comment: IG% - Immature Granulocytes (promyelocytes, myelocytes and metamyelocytes) > 1% indicates that a LEFT SHIFT is Present. Performed By: #### L 100.0100, L500.4050 #### [facility] [address] [place], [address] Lymphocytes/100 WBC (Bld) 14.7 % Low 19-41 [facility] Comment on above: Performed By: #### L 100.0100, L500.4050 #### [facility] [address] [place], [address] MCH (RBC) [Entitic mass] 30.0 pg Normal 27.0-32.0 [facility] Comment on above: Performed By: #### L 100.0100, L500.4050 #### [facility] [address] [place], [address] MCHC (RBC) [Mass/Vol] 34.5 g/dL Normal 32-36 [facility] Comment on above: Performed By: #### L 100.0100, L500.4050 #### [facility] [address] [place], [address] MCV (RBC) [Entitic vol] 86.9 fL Normal 81-99 [facility] Comment on above: Performed By: #### L 100.0100, L500.4050 #### [facility] [address] [place], [address] Monocytes/100 WBC (Bld) 5.6 % Normal 0-10 [facility] Comment on above: Performed By: #### L 100.0100, L500.4050 #### [facility] [address] [place], [address] Neutrophils/100 WBC (Bld) 78.7 % High 47-70 [facility] Comment on above: Performed By: #### L 100.0100, L500.4050 #### [facility] [address] [place], [address] Nucleated RBC (Bld) [#/Vol] 0 10*3/uL Normal 0-5 [facility] Comment on above: Performed By: #### L 100.0100, L500.4050 #### [facility] [address] [place], [address] Platelet mean volume (Bld) [Entitic vol] 10.7 fL Normal 6.2-12.0 [facility] Comment on above: Performed By: #### L 100.0100, L500.4050 #### [facility] [address] [place], [address] Platelets (Bld) [#/Vol] 228 10*3/uL Normal 150-450 [facility] Comment on above: Performed By: #### L 100.0100, L500.4050 #### [facility] [address] [place], [address] RBC (Bld) [#/Vol] 4.27 10*6/uL Normal 4.2-5.4 [facility] Comment on above: Performed By: #### L 100.0100, L500.4050 #### [facility] [address] [place], [address] RDW SD 42.0 fl Normal 35.1-43.9 [facility] Comment on above: Performed By: #### L 100.0100, L500.4050 #### [facility] [address] [place], [address] WBC (Bld) [#/Vol] 11.6 10*3/uL High 4.4-11.0 [facility] Comment on above: Performed By: #### L 100.0100, L500.4050 #### [facility] [address] [place], [address] CTA Chest W/WO Contraston CTA Chest W/WO Contrast [facility] Imaging Services [address] [place] [address] CTA Chest W/WO Contrast MR#: [id number] Acct: [id number] Name: SONIYA IGLESIAS Rep #: [id number] : 2000 F 24 From: Ruddy Miramontes MD PCP: ROMEO Mckeon Status: [facility] ER Study: CTA Chest W/WO Contrast Date of Exam: 01/06/25 Exam# [id number] Ordering Dr: Cecil Potts DO PROCEDURE: CTA CHEST W/WO CONTRAST 01/06/2025 REASON FOR EXAM: SOB, HX OF PE TECHNIQUE: Procedure Code: CTCTACHWW Modality: CT Procedure: CTA CHEST W/WO CONTRAST Multiplanar Sagittal and Coronal images were obtained. 3D reconstructions CONTRAST: Isovue 370 VOLUME: 100 mL One or more dose reduction techniques were used (e.g., Automated exposure control, adjustment of the mA and/or kV according to patient size, use of iterative reconstruction technique). RADIATION DOSE SUMMARY: . FINDINGS: Normal aortic caliber. No aortic dissection. No coronary artery calcification. No visible pulmonary emboli. No mediastinal mass. No pericardial fluid. The upper abdomen is unremarkable. There is no pericardial effusion. There is no adenopathy. Inspection of the lung parenchyma demonstrates no mass, consolidation or fibrosis. CT/CTA Chest W/WO Contrast IMPRESSION: Negative exam Reading [facility] CC: VICE PRESIDENT OF SOFTWARE ENGINEERING-C Amanda Roldan; Dr. Cecil Potts DO Flight Simulator Teacher: Signed Normal [facility] Carbon dioxide, total [Moles /volume] in Central venous bloodOrdered By: Cecil Potts on 01-06-2025 CO2 [Moles/Vol] 17.3 mmol/L Low 21.0-32.0 [facility] Chloride assayOrdered By: Kimberly Potts on 01-06-2025 Chloride [Moles/Vol] 104 mmol/L 98-108 [facility] Comprehensive Metabolic Prof ilon 01-06-2025 Albumin [Mass/Vol] 3.9 g/dL Normal 3.5-5.0 [facility] Comment on above: Performed By: #### L 100.0100, L500.4050 #### [facility] [address] [place], [address] Albumin/Globulin [Mass ratio] 1.5 {ratio} Normal 0.9-2.4 [facility] Comment on above: Performed By: #### L 100.0100, L500.4050 #### [facility] [address] [place], [address] ALK PHOS 113 U/L High 35-104 [facility] Comment on above: Performed By: #### L 100.0100, L500.4050 #### [facility] [address] [place], [address] ALT [Catalytic activity/Vol] 53 U/L High <=34 [facility] Comment on above: Performed By: #### L 100.0100, L500.4050 #### [facility] [address] [place], [address] AST [Catalytic activity/Vol] 32 U/L Normal <=31 [facility] Comment on above: Performed By: #### L 100.0100, L500.4050 #### [facility] [address] [place], [address] Bilirubin [Mass/Vol] 0.20 mg/dL Normal 0.00-1.30 [facility] Comment on above: Performed By: #### L 100.0100, L500.4050 #### [facility] [address] [place], [address] BUN/CRE 17.4 RATIO Normal 10-20 [facility] Comment on above: Performed By: #### L 100.0100, L500.4050 #### [facility] [address] [place], [address] Calcium [Mass/Vol] 9.1 mg/dL Normal 7.6-11.0 [facility] Comment on above: Performed By: #### L 100.0100, L500.4050 #### [facility] [address] [place], [address] Chloride [Moles/Vol] 104 mmol/L Normal 98-108 [facility] Comment on above: Performed By: #### L 100.0100, L500.4050 #### [facility] [address] [place], [address] CO2 [Moles/Vol] 17.3 mmol/L Low 21.0-32.0 [facility] Comment on above: Performed By: #### L 100.0100, L500.4050 #### [facility] [address] [place], [address] Creatinine [Mass/Vol] 0.57 mg/dL Low 0.70-1.20 [facility] Comment on above: Performed By: #### L 100.0100, L500.4050 #### [facility] [address] [place], [address] ECRCL 146.11 ml/min Normal 50-250 [facility] Comment on above: Performed By: #### L 100.0100, L500.4050 #### [facility] [address] [place], [address] GAP 13 Normal 5-15 [facility] Comment on above: Performed By: #### L 100.0100, L500.4050 #### [facility] [address] [place], [address] GFR/1.73 sq M.predicted among non-blacks MDRD (S/P/Bld) [Vol rate/Area] 129 mL/min/{1.73_m2} Normal >60 [facility] Comment on above: Result Comment: mL/m in/1.73m2 CKD-EPI Creatinine Equation (2020) Performed By: #### L 100.0100, L500.4050 #### [facility] [address] [place], [address] Globulin (S) [Mass/Vol] 2.6 g/dL Normal 2.2-4.2 [facility] Comment on above: Performed By: #### L 100.0100, L500.4050 #### [facility] [address] [place], [address] Glucose [Mass/Vol] 94 mg/dL Normal 70-99 [facility] Comment on above: Performed By: #### L 100.0100, L500.4050 #### [facility] [address] [place], [address] Potassium [Moles/Vol] 3.8 mmol/L Normal 3.3-5.1 [facility] Comment on above: Performed By: #### L 100.0100, L500.4050 #### [facility] [address] [place], [address] Sodium [Moles/Vol] 134 mmol/L Normal 133-145 [facility] Comment on above: Performed By: #### L 100.0100, L500.4050 #### [facility] [address] [place], [address] T PROT 6.5 g/dL Normal 5.9-8.4 [facility] Comment on above: Performed By: #### L 100.0100, L500.4050 #### [facility] [address] [place], [address] Urea nitrogen [Mass/Vol] 10 mg/dL Normal 4-19 [facility] Comment on above: Performed By: #### L 100.0100, L500.4050 #### [facility] [address] [place], [address] Electrocardiogram reportOrde red By: Radhames Dash on 01-06-2025 EKG study [facility] [address] [place] [address] 12 Lead EKG 01/06/25 1612 MR#: [id number] Acct: [id number] Name: SONIYA IGLESIAS CONSTANTINE Rep #:[id number] : 2000 24 From: Radhames Dash MD Attending Dr: Status: DEP E R Ordering Dr: Cecil Potts DO Date: 1 Location: ED Sex: F C Admitted: Test Reason : SOB Blood Pressure : */* mmHG Vent. Rate : 68 BPM Atrial Rate : 68 BPM P-R Int : 136 ms QRS Dur : 92 ms QT Int : 386 ms P-R-T Axes : 18 69 39 degrees QTcB Int : 410 ms Normal sinus rhythm with sinus arrhythmia RSR' or QR pattern in V1 suggests right ventricular conduction delay Borderline ECG Confirmed by RADHAMES DASH MD ([id number]), art editor MACK FRAGOSO ([id number]) on 01/08/2025 8:35:03 AM Referred By: MOY Confirmed By: RADHAMES DASH MD 01/08/25 0835 Date _ Radhames Dash MD CC: VICE PRESIDENT OF SOFTWARE ENGINEERINGBrittany Roldan; Dr. Cecil Potts DO ~ Signed [facility] Other Phone: Emergency Department Summary on 01-06-2025 Emergency Department Summary [facility] Medical Records Department [address] [place] [address] Emergency Department Summary 01/06/25 MR#: [id number] Acct: [id number] Name: SONIYA IGLESIAS Rep #: [id number] : 2000 24 From: Cecil Potts DO PCP: ANGELINA MckeonC Status:DEP ER Location: ED HPI History of Present Illness Chief Complaint: Shortness of Breath PFSH PFSH Home Medications ???Medication ???Instructions ???Recorded ???Last Taken ???Type enoxaparin 40 mg/0.4 mL 40 mg (0.4 mL) subcut DAILY 30 07/28 Unknown Rx subcutaneous syringe (Lovenox) days #12 mL Allergy/AdvReac Type Severity Reaction Status Date / Time No Known Allergies Allergy Verified 01/06/25 15:45 Social History Smoking Status: Current every day smoker tobacco type: cigarettes and e-cigarettes EXAM Physical Exam Const Vital Signs: 01/06/25 15:45 01/06/25 16:28 01/06/25 16:30 Temperature 97.8 F Temperature Source Temporal Pulse Rate 90 75 Respiratory Rate 16 12 Respiratory Effort Normal Non-Labored Respiratory Depth Normal Respiratory Pattern Normal Blood Pressure 147/84 H 97/56 L Blood Pressure Mean 105 68 Pulse Ox 100 100 Oxygen Delivery Method Room Air Room Air 01/06/25 17:00 01/06/25 17:00 01/06/25 18:00 Temperature Temperature Source Pulse Rate 79 84 Respiratory Rate 21 H 14 Respiratory Effort Respiratory Depth Respiratory Pattern Blood Pressure 101/49 L 101/49 L Blood Pressure Mean 64 64 Pulse Ox 100 100 Oxygen Delivery Method 01/06/25 18:48 Temperature 97.5 F L Temperature Source Pulse Rate 72 Respiratory Rate 18 Respiratory Effort Respiratory Depth Respiratory Pattern Blood Pressure 98/62 Blood Pressure Mean 74 Pulse Ox 100 Oxygen Delivery Method MDM MDM MDM Narrative Medical decision making narrative: HISTORY OF PRESENT ILLNESS: Chief complaint: Shortness of breath 24-year-old female (G4, P3) who is approximately 6 weeks who presents with shortness of breath and dizziness for past 2 to 3 days. She notes shortness breath and dizziness is worse when she is at work. She notes symptoms are worse with exertion. She states has a history of a blood clot. She states has been prescribed Lovenox but has not taken it for last several days secondary to complication with refills. She denies chest pain. No leg swelling. No dizziness currently. Denies vaginal bleeding, passing tissue, leakage of fluid or severe abdominal pain. REVIEW OF SYSTEMS: Pertinent positives: Shortness of breath, dizziness Pertinent negatives: Vomiting, fever, bleeding diathesis PHYSICAL EXAM: Nursing triage notes reviewed, Vital signs reviewed Constitutional: please see [facility] HENT: MMM Eyes: Pupils equal round and reactive to light, Extraocular muscles intact Neck: No stridor, no JVD, full neck ROM Lungs: Clear to auscultation, No wheezing or rales. No increased work of breathing, no conversational dyspnea, no accessory muscle use, no nasal flaring. No respiratory distress noted Heart: Regular rate and rhythm, No murmurs, No rubs and No gallops, 2+ distal pulses (radial, femoral, posterior tibial) in all extremities Abdomen: Soft, there is no tenderness, rigidity, rebound or guarding, no obvious peritoneal signs, no palpable pulsatile abdominal masses, no auscultated abdominal bruit : No CVAT Extremities: No edema Neuro: No n alert and oriented x3, neuro exam at baseline, cranial nerves II through XII are intact. No pain with extraocular muscle movement. There is negative test of skew. 5 of 5 strength in upper and lower extremities in flexion extension. Intact sensation to light touch in upper and lower extremity dermatomes. No truncal or extremity ataxia. No dysdiadochokinesia. Normal gait. 2+ reflexes in upper and lower extremities. No meningeal signs. Negative Babinski. NIH of 0. Skin: No rash or lesions noted MEDICAL DECISION MAKING: Chief Complaint: please see HPI External records reviewed: Reviewed prior imaging studies Factors affecting care: VTE, Social determinants of health: currently History obtained from others: Consults: none [facility] Narrative: The patient was initially hemodynamically stable, afebrile and nontoxic-appearing. Exam without focal cardiopulmonary abnormalities. No focal neurologic deficits. While I considered posterior circulation CVA, cerebral vein thrombosis given report of dizziness the patient's neurologic exam was not consistent with intracranial emergency. I considered the following differential diagnosis: Viral illness, PE, arrhythmia, anemia, electrolyte disturbance, ACS I obtained a broad lab and imaging workup to further determine if the patient w (more content not included)... Normal [facility] Eosinophil percentageOrdered By: Cecil Potts on 01-06-2025 Eosinophils/100 WBC (Bld) 0.3 % 0-5 [facility] Erythrocyte distribution wid th ratioOrdered By: Cecil Potts on 01-06-2025 Erythrocyte distribution width (RBC) [Ratio] 13.2 % 11.6-14.6 [facility] Erythrocyte distribution wid th standard deviationOrdered By: Cecil Potts on 01-06-2025 Erythrocyte distribution width (RBC) [Ratio] 42.0 fl 35.1-43.9 [facility] Glomerular filtration rate ( GFR) estimation/1.73 sq m using serum, plasma, or whole bOrdered By: Cecil Potts on 01-06-2025 GFR/1.73 sq M.predicted among non-blacks MDRD (S/P/Bld) [Vol rate/Area] 129 mL/min/{1.73_m2} >60 [facility] Comment on above: mL/min/1.73m2 CKD-EP I Creatinine Equation (2020) Hematocrit Auto (Bld) [Volum e fraction]Ordered By: Cecil Potts on 01-06-2025 Hematocrit (Bld) [Volume fraction] 37.1 % 37-47 [facility] Hemoglobin measurementOrdere d By: Cecil Potts on 01-06-2025 Hemoglobin (Bld) [Mass/Vol] 12.8 g/dL 12.0-15.0 [facility] Immature granulocytes/100 WB C Auto (Bld)Ordered By: Cecil Potts on 01-06-2025 Immature granulocytes/100 WBC (Bld) 0.400 % 0.0-0.9 [facility] Comment on above: IG% - Immature Granu locytes (promyelocytes, myelocytes and metamyelocytes) > 1% indicates that a LEFT SHIFT is Present. Influenza virus A and B and SARS-CoV-2 (COVID-19) and Respiratory syncytial virus RNAOrdered By: Cecil Potts on 01-06-2025 SARS-CoV-2 (COVID-19) RNA DAHIANA+probe Ql (Unsp spec) [facility] L501.4021on 01-06-2025 Trop T High Sen < 6 Normal <=14 [facility] Comment on above: Performed By: #### L 501.4021 #### [facility] [address] [facility] [place], [place], [id number] Laboratory - Chemistry and C hemistry - challengeOrdered By: Cecil Potts on 01-06-2025 AST [Catalytic activity/Vol] 32 U/L <32 [facility] M100.678on 01-06-2025 M100.678 SARS-CoV-2 (COVID 19 ) Negative INFLUENZA A Negative INFLUENZA B Negative RSV PCR Negative Normal [facility] Comment on above: Performed By: #### M 100.678 #### [facility] [address] [facility] [place], [id number] MCV (mean corpuscular volume ) determinationOrdered By: Cecil Potts on 01-06-2025 MCV (RBC) [Entitic vol] 86.9 fL 81-99 [facility] Mean corpuscular hemoglobin (MCH) determinationOrdered By: Cecil Potts on 01-06-2025 MCH (RBC) [Entitic mass] 30.0 pg 27.0-32.0 [facility] Mean corpuscular hemoglobin concentration (MCHC) determinationOrdered By: Cecil Potts on 01-06-2025 MCHC (RBC) [Mass/Vol] 34.5 g/dL 32-36 [facility] Mean platelet volume determi nationOrdered By: Cecil Potts on 01-06-2025 Platelet mean volume (Bld) [Entitic vol] 10.7 fL 6.2-12.0 [facility] Monocyte percentageOrdered B y: Cecil Potts on 01-06-2025 Monocytes/100 WBC (Bld) 5.6 % 0-10 [facility] Neutrophil percentageOrdered By: Cecil Potts on 01-06-2025 Neutrophils/100 WBC (Bld) 78.7 % High 47-70 [facility] Nucleated red blood cell per centageOrdered By: Cecil Potts on 01-06-2025 Nucleated RBC/100 WBC (Bld) [Ratio] 0 % 0-5 [facility] Platelet countOrdered By: Kimberly Potts on 01-06-2025 Platelets (Bld) [#/Vol] 228 10*3/uL 150-450 [facility] Potassium measurement (mass/ volume)Ordered By: Cecil Potts on 01-06-2025 Potassium (Unsp spec) [Mass/Vol] 3.8 mmol/L 3.3-5.1 [facility] RBC Auto (Bld) [#/Vol]Ordere d By: Cecil Potts on 01-06-2025 RBC (Bld) [#/Vol] 4.27 10*6/uL 4.2-5.4 [facility] Serum creatinine measurement (mass/volume)Ordered By: Cecil Potts on 01-06-2025 Creatinine [Mass/Vol] 0.57 mg/dL Low 0.70-1.20 [facility] Serum globulin measurementOr dered By: Cecil Potts on 01-06-2025 Globulin (S) [Mass/Vol] 2.6 g/dL 2.2-4.2 [facility] Serum glucose measurement (m ass/volume)Ordered By: Cecil Potts on 01-06-2025 Glucose [Mass/Vol] 94 mg/dL 70-99 [facility] Serum or plasma alanine doan otransferase (ALT) measurementOrdered By: Cecil Potts on 01-06-2025 ALT [Catalytic activity/Vol] 53 U/L High <35 [facility] Serum or plasma albumin lul urement (mass/volume)Ordered By: Cecil Potts on 01-06-2025 Albumin [Mass/Vol] 3.9 g/dL 3.5-5.0 [facility] Serum or plasma albumin/glob ulin mass ratioOrdered By: Cecil Potts on 01-06-2025 Albumin/Globulin [Mass ratio] 1.5 {ratio} 0.9-2.4 [facility] Serum or plasma alkaline gabriel sphatase measurementOrdered By: Cecil Potts on 01-06-2025 ALP [Catalytic activity/Vol] 113 U/L High 35-104 [facility] Serum or plasma calcium lul urement (mass/volume)Ordered By: Cecil Potts on 01-06-2025 Calcium [Mass/Vol] 9.1 mg/dL 7.6-11.0 [facility] Serum or plasma urea nitroge n measurement (mass/volume)Ordered By: Cecil Potts on 01-06-2025 Urea nitrogen [Mass/Vol] 10 mg/dL 4-19 [facility] Sodium levelOrdered By: Tabby Potts on 01-06-2025 Sodium [Moles/Vol] 134 mmol/L 133-145 [facility] Total proteinOrdered By: Agueda Potts on 01-06-2025 Protein [Mass/Vol] 6.5 g/dL 5.9-8.4 [facility] Troponin T HS 2 HRon 025 Trop T High Sen Normal <=14 [facility] Comment on above: Result Comment: Edwin figueroa via OM: Ordered Performed By: #### L 499.0042 #### [facility] [address] [place], [place], [id number] Troponin T HS 4 HRon 025 Trop T High Sen Normal <=14 [facility] Comment on above: Result Comment: Edwin figueroa via OM: Ordered Performed By: #### L 499.0043 #### [facility] [address] [place], [place], [address] Troponin T.cardiac [Mass/vol ume] in Serum or Plasma by High sensitivity methodOrdered By: Cecil Potts on 01-06-2025 Troponin T.cardiac High sensitivity method [Mass/Vol] < 6 ng/L <14 [facility] White blood cell (WBC) count Ordered By: Cecil Potts on 01-06-2025 WBC (Bld) [#/Vol] 11.6 10*3/uL High 4.4-11.0 [facility] DRUGUon 12-11-2024 Amphetamine (u) Negative Normal Negative [facility] Comment on above: Performed By: #### D FRANCHESCA #### [address] [address] Barbiturate (u) Negative Normal Negative [facility] Comment on above: Performed By: #### Cosme RUGU #### [place] [id number] Benzodiazepine (u) Negative Normal Negative [facility] Comment on above: Performed By: #### Cosme RUGU #### [place] [id number] Cannabinoid (u) Negative Normal Negative [facility] Comment on above: Performed By: #### Cosme RUGU #### [place] [address] Cocaine Ql (U) Negative Normal Negative [facility] Comment on above: Performed By: #### Cosme RUGU #### [place] [id number] Fentanyl (u) Negative Normal Negative [facility] Comment on above: Result Comment: Test ing has been performed FOR MEDICAL PURPOSES ONLY. Performed By: #### Cosme RUGU #### [place] [id number] Methadone Ql (U) Negative Normal Negative [facility] Comment on above: Performed By: #### Cosme RUGU #### [place] [id number] Opiate (u) Negative Normal Negative [facility] Comment on above: Performed By: #### Cosme RUGU #### [place] [id number] Oxycodone (u) Negative Normal Negative [facility] Comment on above: Result Comment: Test ing has been performed FOR MEDICAL PURPOSES ONLY. Performed By: #### Cosme RUGU #### [place] [id number] PCP (u) Negative Normal Negative [facility] Comment on above: Performed By: #### Cosme RUGU #### [place] [id number] Propoxyphene (u) Negative Normal Negative [facility] Comment on above: Performed By: #### Cosme RUGU #### [place] [id number] U pH Drug Scrn 6.5 Normal 5.0-8.0 [facility] [facility] Comment on above: Performed By: #### D ANUSHAU #### [address] [address] Urine Drugs screened: See Below Normal L [facility] Comment on above: Result Comment: This drug [...] FOR MEDICAL PURPOSES ONLY. Performed By: #### D FRANCHESCA #### [place] [address] LABORATORYOrdered By: Gabbi Rucker on 12-11-2024 Amphetamines [...] Mixed growth consistent with normal urogenital wandy. [facility] Work Phone: CNOVon 11-16-2024 CNOV Office Visit (WOUCA) SONIYA HAYS ([id number]) 2000 F Date Time Provider Department 11/16/24 8:15 AM RUPERT MANSFIELD During your visit today, we recorded the following information about you: Temperature Pulse Respiration Blood pressure 97.4 degrees 58/minute 18/minute 119/83 Weight 79.6 kg Jonathan MansfieldILAN maria.CHEMICAL PLANT MANAGER 11/16/2024 10:03 AM Signed URGENT CARE [...] Hearing and external ear normal. Mouth/Throat: Lips: [facility]. Mouth: Mucous membranes are moist. Pharynx: Oropharynx [...] abnormality. Dictated by : MD Rupert NOEL APRN.CHEMICAL PLANT MANAGER History and Record Review External record(s) [...] Diagnosis:Acute cough [R05.1] Order(s):XR CHEST 2V FRONTAL/LAT [[id number]] Order #: [id number]. #:[id number] amoxicillin (AMOXIL) 875 mg tabletTake 1 tablet [...] List As Of Date 11/16/2024 Noted Resolved [place]-Schlatter's disease [M92.529] 06/17/2015 Prescriptions ordered this encounter Disp Refills Start End AMOXICILLIN 875 MG TABLET 14 t* 0 11/16/2024 11/23/2024 Route: PO Sig: Take 1 tablet by mouth two times a day for 7 days. Encounter Status:Closed by RUPERT MANSFIELD on 11/16/24 Normal [facility] XR CHEST 2V FRONTAL/LATon XR CHEST 2V FRONTAL/LAT * * *Final Repor t* * * DATE OF EXAM: Nov 16 [...] tissues: Unremarkable. IMPRESSION: No acute radiographic abnormality. Flight Simulator Teacher: HAILEVeriWave Transcribe Date/Time: Nov 16 2024 8:39A Dictated by : DENG MCCLELLAN MD This examination was interpreted and the report reviewed and electronically signed by: DENG MCCLELLAN MD on Nov 16 2024 8:39AM EST [id number] Normal [facility] XR Chest PA and Lateralon IMPRESSION: No acute radiographic abnormality. Flight Simulator Teacher: PSCVeriWave Transcribe Date/Time: Nov 16 2024 8:39A Dictated [...] soft tissues: Unremarkable. DIVISION OF RADIOLOGY Provider, Margaret Cristy [facility] - 11/16/2024 * * *Final Report* [...] Unremarkable. IMPRESSION IMPRESSION: No acute radiographic abnormality. Flight Simulator Teacher: PSCB Transcribe Date/Time: Nov 16 2024 8:39A Dictated by : DENG MCCLELLAN MD This examination was interpreted and the report reviewed and electronically signed by: DENG MCCLELLAN MD on Nov 16 2024 8:39AM [facility] Radiology Study observation (narrative) Susan vazquez [facility] XR Chest PA and LateralOrder ed By: Cc Provider on 11-16-2024 [facility] CNOVon 10-27-2024 CNOV Office Visit (WOUCA) SONIYA HAYS ([id number]) 2000 F Date Time Provider Department 10/27/24 10:30 AM MARA DAVIS During your visit today, we recorded the following information about you: Temperature Pulse Respiration Blood pressure 98.4 degrees 87/minute 18/minute 100/60 Weight 76.3 kg Mara Davis PA 10/27/2024 10:33 AM Signed [facility] Cecilia Hays is a 24 year old female. [...] be considered if no improvement. Recording using LifeIMAGE software for draft documentation of the visit was discussed with the patient/authorized billing representative; all questions welcomed and answered. Patient/authorized billing representative agreed to proceed History and Record [...] List As Of Date 10/27/2024 Noted Resolved Mickey-Schlatter's disease [M92.529] 06/17/2015 Prescriptions ordered this encounter [...] by moises (more content not included)... 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 Performed By: #### D ANUSHAU #### [place] [address] CTPCRon 07-28-2024 C. trachomatis Interp Normal See CT Interp N [facility] Comment on above: Result Comment: C. t rachomatis DNA not detected. Specimen is presumptive negative for C. trachomatis. A negative result does not preclude C. trachomatis infection because results depend on adequate specimen collection, absence of inhibitors, and sufficient DNA to be detected. See CT Interp N Performed By: #### D ANUSHAU #### [place] [address] C.trachomatis PCR Negative Normal Negative [facility] Comment on above: Result Comment: Mole cular (PCR) assay performed on the Shyam Williams 4800 system. Performed By: #### D ANUSHAU #### [place] [address] Chlam Source Cervix Normal [facility] Comment on above: Result Comment: Stevenson sport tube received with two swabs. Review collection procedure. Inappropriate collection may cause aberrant results. Performed By: #### D RUGU #### [place] [id number] 07-28-2024 GC PCR Source Cervix Normal [facility] Comment on above: Result Comment: Stevenson sport tube received with two swabs. Review collection procedure. Inappropriate collection may cause aberrant results. Performed By: #### D RUGU #### [place] [id number] N. gonorrhoeae (PCR) Negative Normal Negative [facility] Comment on above: Result Comment: Mole cular (PCR) assay performed on the Shyam Williams 4800 System. Performed By: #### D RUGU #### [place] [address] N. gonorrhoeae Interp Normal See NG Interp N [facility] Comment on above: Result Comment: N. g onorrhoeae DNA not detected. Specimen is presumptive negative for N. gonorrhoeae. A negative result does not preclude Neisseria gonorrhoeae infection because results depend on adequate specimen collection, absence of inhibitors, and sufficient DNA to be detected. See NG Interp N Performed By: #### D RUGU #### [address] [address] .Auto Diffon 07-27-2024 Basophil, Absolute 0.0 10 3/mcL Normal 0.0-0.3 [facility] Comment on above: Performed By: #### A JADA, HIVRP, MORPH, ADIFF, CBC, GFR, CMP #### [place] [address] #### HBSAB, RPR #### [place] [address] Basophils/100 WBC (Bld) 0.3 % Normal 0.0-2.5 [facility] Comment on above: Performed By: #### A JADA, HIVRP, MORPH, ADIFF, CBC, GFR, CMP #### [place] [address] #### HBSAB, RPR #### [address] [address] Eosinophil, Absolute 0.1 10 3/mcL Normal 0.0-0.7 [facility] Comment on above: Performed By: #### A JADA, HIVRP, MORPH, ADIFF, CBC, GFR, CMP #### [place] [address] #### HBSAB, RPR #### [place] [address] Eosinophils/100 WBC (Bld) 0.6 % Normal 0.0-6.0 [facility] Comment on above: Performed By: #### A JADA, HIVRP, MORPH, ADIFF, CBC, GFR, CMP #### [place] [address] #### HBSAB, RPR #### [address] [address] Lymphocyte, Absolute 1.6 10 3/mcL Normal 0.9-4.3 [facility] Comment on above: Performed By: #### A JADA, HIVRP, MORPH, ADIFF, CBC, GFR, CMP #### [place] [address] #### HBSAB, RPR #### [address] [address] Lymphocytes/100 WBC (Bld) 16.6 % Low 20.0-40.0 [facility] Comment on above: Performed By: #### A JADA, HIVRP, MORPH, ADIFF, CBC, GFR, CMP #### [place] [address] #### HBSAB, RPR #### [address] [address] Monocyte, Absolute 0.5 10 3/mcL Normal 0.1-1.4 [facility] Comment on above: Performed By: #### A JADA, HIVRP, MORPH, ADIFF, CBC, GFR, CMP #### [place] [address] #### HBSAB, RPR #### [address] [address] Monocytes/100 WBC (Bld) 5.3 % Normal 2.0-13.0 [facility] Comment on above: Performed By: #### A JADA, HIVRP, MORPH, ADIFF, CBC, GFR, CMP #### [place] [address] #### HBSAB, RPR #### [address] [address] Neutrophils/100 WBC (Bld) 77.2 % High 50.0-75.0 [facility] Comment on above: Performed By: #### A JADA, HIVRP, MORPH, ADIFF, CBC, GFR, CMP #### [address] [address] #### HBSAB, RPR #### [place] [address] .GFRon 07-27-2024 Estimated Glomerular Filtration Rate 94 ml/min/1.73sqm Normal [facility] Comment on above: Result Comment: Stages of [...] HIVRP, MORPH, ADIFF, CBC, GFR, CMP #### [place] [address] #### HBSAB, RPR #### [place] [address] .Morphon 07-27-2024 Platelet Estimate Normal Normal [facility] Comment on above: Performed By: #### A JADA, HIVRP, MORPH, ADIFF, CBC, GFR, CMP #### [place] [address] #### HBSAB, RPR #### [place] [address] .NEUABSon 07-27-2024 Neutrophil, Absolute 7.4 10 3/mcL Normal 2.3-8.1 [facility] Comment on above: Performed By: #### A JADA, HIVRP, MORPH, ADIFF, CBC, GFR, CMP #### [place] [address] #### HBSAB, RPR #### [place] [address] CBCon 07-27-2024 Erythrocyte distribution width (RBC) [Ratio] 13.8 % Normal 11.5-15.5 [facility] Comment on above: Performed By: #### A JADA, HIVRP, MORPH, ADIFF, CBC, GFR, CMP #### [address] [address] #### HBSAB, RPR #### [place] [address] Hematocrit (Bld) [Volume fraction] 41.3 % Normal 34.0-46.0 [facility] Comment on above: Performed By: #### A JADA, HIVRP, MORPH, ADIFF, CBC, GFR, CMP #### [place] [address] #### HBSAB, RPR #### [place] [address] Hgb 13.5 G/dL Normal 12.0-16.0 [facility] Comment on above: Performed By: #### A JADA, HIVRP, MORPH, ADIFF, CBC, GFR, CMP #### [place] [address] #### HBSAB, RPR #### [place] [address] MCH (RBC) [Entitic mass] 28.6 pg Normal 27.0-33.0 [facility] Comment on above: Performed By: #### A JADA, HIVRP, MORPH, ADIFF, CBC, GFR, CMP #### [place] [address] #### HBSAB, RPR #### [place] [address] MCHC 32.7 G/dL Normal 32.0-36.0 [facility] Comment on above: Performed By: #### A JADA, HIVRP, MORPH, ADIFF, CBC, GFR, CMP #### [place] [address] #### HBSAB, RPR #### [place] [address] MCV (RBC) [Entitic vol] 87.4 fL Normal 80.0-99.0 [facility] Comment on above: Performed By: #### A JADA, HIVRP, MORPH, ADIFF, CBC, GFR, CMP #### [place] [address] #### HBSAB, RPR #### [place] [address] Platelet 235 10 3/mcL Normal 150-450 [facility] Comment on above: Performed By: #### A JADA, HIVRP, MORPH, ADIFF, CBC, GFR, CMP #### [place] [address] #### HBSAB, RPR #### [place] [address] Platelet mean volume (Bld) [Entitic vol] 9.3 fL Normal 6.6-10.5 [facility] Comment on above: Performed By: #### A JADA, HIVRP, MORPH, ADIFF, CBC, GFR, CMP #### [place] [address] #### HBSAB, RPR #### [place] [address] RBC 4.72 10 6/mcL Normal 4.10-5.30 [facility] Comment on above: Performed By: #### A JADA, HIVRP, MORPH, ADIFF, CBC, GFR, CMP #### [place] [address] #### HBSAB, RPR #### [place] [address] WBC 9.6 10 3/mcL Normal 4.5-10.8 [facility] Comment on above: Performed By: #### A JADA, HIVRP, MORPH, ADIFF, CBC, GFR, CMP #### [place] [address] #### HBSAB, RPR #### [place] [address] CMPon 07-27-2024 Albumin Level 3.7 G/dL Normal 3.5-5.0 [facility] Comment on above: Performed By: #### A JADA, HIVRP, MORPH, ADIFF, CBC, GFR, CMP #### [address] [address] #### HBSAB, RPR #### [place] [address] Albumin/Globulin [Mass ratio] 1.0 {ratio} Low 1.1-2.5 [facility] Comment on above: Performed By: #### A JADA, HIVRP, MORPH, ADIFF, CBC, GFR, CMP #### [place] [address] #### HBSAB, RPR #### [place] [address] ALP [Catalytic activity/Vol] 118 U/L Normal 40-135 [facility] Comment on above: Performed By: #### A JADA, HIVRP, MORPH, ADIFF, CBC, GFR, CMP #### [place] [address] #### HBSAB, RPR #### [place] [address] ALT [Catalytic activity/Vol] 61 U/L High 14-59 [facility] Comment on above: Performed By: #### A JADA, HIVRP, MORPH, ADIFF, CBC, GFR, CMP #### [place] [address] #### HBSAB, RPR #### [place] [id number] AST [Catalytic activity/Vol] 40 U/L Normal 10-40 [facility] Comment on above: Performed By: #### A JADA, HIVRP, MORPH, ADIFF, CBC, GFR, CMP #### [address] [address] #### HBSAB, RPR #### [place] [id number] Bili Total 0.5 mg/dL Normal 0.2-1.0 [facility] Comment on above: Result Comment: Use of this assay is not recommended for patients undergoing treatment with eltrombopag due to the potential for falsely elevated results. Performed By: #### A JADA, HIVRP, MORPH, ADIFF, CBC, GFR, CMP #### [place] [address] #### HBSAB, RPR #### [place] [address] BUN/Creatinine Ratio 11 ratio Normal 7-27 [facility] Comment on above: Performed By: #### A JADA, HIVRP, MORPH, ADIFF, CBC, GFR, CMP #### [place] [address] #### HBSAB, RPR #### [place] [address] Calcium [Mass/Vol] 9.2 mg/dL Normal 8.4-10.2 [facility] Comment on above: Performed By: #### A JADA, HIVRP, MORPH, ADIFF, CBC, GFR, CMP #### [place] [address] #### HBSAB, RPR #### [place] [address] Chloride [Moles/Vol] 102 mmol/L Normal 98-107 [facility] Comment on above: Performed By: #### A JADA, HIVRP, MORPH, ADIFF, CBC, GFR, CMP #### [place] [address] #### HBSAB, RPR #### [place] [id number] CO2 [Moles/Vol] 27 mmol/L Normal 22-29 [facility] Comment on above: Performed By: #### A JADA, HIVRP, MORPH, ADIFF, CBC, GFR, CMP #### [place] [address] #### HBSAB, RPR #### [address] [address] Creatinine [Mass/Vol] 0.87 mg/dL Normal 0.51-0.95 [facility] Comment on above: Performed By: #### A JADA, HIVRP, MORPH, ADIFF, CBC, GFR, CMP #### [place] [address] #### HBSAB, RPR #### [place] [address] Electrolyte Balance 9.0 mEq/L Normal 4.0-15.0 [facility] Comment on above: Performed By: #### A JADA, HIVRP, MORPH, ADIFF, CBC, GFR, CMP #### [place] [address] #### HBSAB, RPR #### [place] [address] Globulin 3.6 G/dL Normal 1.5-3.8 [facility] Comment on above: Performed By: #### A JADA, HIVRP, MORPH, ADIFF, CBC, GFR, CMP #### [place] [address] #### HBSAB, RPR #### [place] [address] Glucose [Mass/Vol] 81 mg/dL Normal 70-105 [facility] Comment on above: Performed By: #### A JADA, HIVRP, MORPH, ADIFF, CBC, GFR, CMP #### [place] [address] #### HBSAB, RPR #### [address] [address] Potassium [Moles/Vol] 4.2 mmol/L Normal 3.5-5.1 [facility] Comment on above: Performed By: #### A JADA, HIVRP, MORPH, ADIFF, CBC, GFR, CMP #### [place] [address] #### HBSAB, RPR #### [place] [id number] Sodium [Moles/Vol] 138 mmol/L Normal 136-145 [facility] Comment on above: Performed By: #### A JADA, HIVRP, MORPH, ADIFF, CBC, GFR, CMP #### [address] [address] #### HBSAB, RPR #### [place] [address] Total Protein 7.3 G/dL Normal 6.4-8.2 [facility] Comment on above: Performed By: #### A JADA, HIVRP, MORPH, ADIFF, CBC, GFR, CMP #### [address] [address] #### HBSAB, RPR #### [place] [address] Urea nitrogen [Mass/Vol] 10 mg/dL Normal 7-18 [facility] Comment on above: Performed By: #### A JADA, HIVRP, MORPH, ADIFF, CBC, GFR, CMP #### [address] [address] #### HBSAB, RPR #### [place] [address] HBSABon 07-27-2024 Hep B Surf Ab <3.1 Low >=10.0 [facility] Comment on above: Result Comment: 0 to [...] WHO International Reference Preparation. Performed By: #### D RUGU #### [place] [address] HIVRPon 07-27-2024 HIV p24 Antigen Non-Reactive Normal Non-Reactiv e [facility] Comment on above: Result Comment: Dete ction of p24 may be inhibited by biotin in the sample, causing false negative results in acute infection. Therefore do not test samples from patients who are taking biotin. Performed By: #### D RUGU #### [facility] [address] [place] [address] HIV P24 Int Non-Reactive Invalid Interpretation Code [facility] Comment on above: Performed By: #### D RUGU #### [facility] [address] [place] [address] Rapid HIV 1/2 Antibody Non-Reactive Normal Non-R eactiv e [facility] Comment on above: Performed By: #### D RUGU #### [facility] [address] [place] [address] RHIV 1/2 Ab Int Non-Reactive Invalid Interpretation Code [facility] Comment on above: Performed By: #### D RUGU #### [place] [address] LABORATORYOrdered By: Loreta Elder on 07-27-2024 C. trachomatis DNA DAHIANA+probe Ql (Unsp spec) Negative 2 (07/27/24 1:29 PM) Normal Auto Viro/Sero SS Comment on above: Interpretive [...] be detected. Normal See CT Interp N Auto Viro/Sero SS N. gonorrhoeae DNA DAHIANA+probe Ql (Unsp spec) Negative 1 (07/27/24 1:29 PM) Normal Auto Viro/Sero SS Comment on above: Interpretive [...] HBV surface Ab Qn (S) mIU/mL Low >=10.0 mIU/m L AH ADM SS Comment on above: Interpretive [...] (S) Non-Reactive 3 (07/27/24 12:11 PM) Normal Non-Reactiv e AO Rapid Testing SS Comment on above: [...] (Unsp spec) Non-Reactive (07/27/24 12:11 PM) Normal Non-Reactiv e AO Rapid Testing SS LABORATORYOrdered By: Radha Thorpe on 07-27-2024 Platelets LM Ql (Bld) Normal (07/27/24 12:11 PM) Normal AO Hematology S CNOVon 02-28-2024 CNOV Office Visit (UCTR ) SONIYA HAYS ([id number]) 2000 F Date Time Provider Department 02/28/24 10:00 AM ROBBY MCDANIELS [facility] During your visit today, we recorded the [...] List As Of Date 02/28/2024 Noted Resolved Mickey-Schlatter's disease [M92.529] 06/17/2015 Prescriptions ordered this encounter Disp Refills Start End AMOXICILLIN 500 MG CAPSULE 28 c* 0 02/28/2024 03/06/2024 Route: ORAL Sig: Take 2 capsules by mouth two times a day for 7 days. Medications Discontinued During This Encounter Prescriptions - aspirin 81 mg chewable tablet (Discontinued) Reported on 02/28/2024 - enoxaparin sodium (LOVENOX SUBCUTANEOUS) (Discontinued) Reported on 02/28/2024 - ti89-[id number] ps-folate 1 29 mg iron- 1 mg chew (Discontinued) Reported on 04/18/2019 Level of Service: OFFICE/OUTPATIENT ESTABLISHED MOD MDM 30 MIN [66762] Encounter Status:Closed by ROBBY MCDANIELS on 02/28/24 Normal [facility] Office Visit Reporton 2023 Office Visit Report [facility] [place] [address] OFFICE VISIT Date of Service: 01/13/24 MR#: [id number] Acct: [id number] Patient: SONIYA IGLESIAS Rep #: [id number] : 2000 Provider: TOBY Martinez Age/Sex: 23/F Location: [facility] Status: Signed Intake Intake Visit Reasons: QUANTIFERON, FIT TEST / [place] Office Procedures Now [facility] Billing Sheet Testing Respirator Fit Testing: Yes Occquant-Quantiferon: Yes 01/28/24 0749 Date Ptaricio LUIS Cosigner Signature: Date (if applicable) CC: Normal [facility] XR RIBS 2 VIEWS RIGHT/PA SUZANNA ST(AO)on [...] 10/07/2023 8:15:54 PM Ordering Provider: SARAI Mary [facility]) CIRANon 09-07-2023 Dil Mak Viper Venom 37.6 seconds Normal 30.0-42.0 [facility]) [place] Interpretation See Below Normal [facility]) Comment on above: Result Comment: No e vidence of lupus anticoagulant. Platelet neutraliz. Negative Normal [facility]) HHon 09-03-2023 Hematocrit (Bld) [Volume fraction] 29.4 % Low 37.0-47.0 [facility]) Comment on above: Performed By: #### G LU1P, CBC, ADIFF, ANEU #### [place] [address] #### RPR #### [place] [address] Hgb 9.5 G/dL Low 12.0-16.0 [facility]) Comment on above: Performed By: #### G LU1P, CBC, ADIFF, ANEU #### [place] [address] #### RPR #### [place] [address] LABORATORYOrdered By: SYSTEM SYSTEM on 09-03-2023 Hematocrit (Bld) [Volume fraction] 29.4 % Low 37.0 - 47.0 % AO Workflow SS Hemoglobin (Bld) [Mass/Vol] 9.5 G/dL Low 12.0 - 16.0 G/dL AO Workflow SS RPRon 09-02-2023 Reagin Ab RPR Ql (S) Non-Reactive Normal Non-Cristina ctiv e [facility] ([place]) Comment on above: Result Comment: The RPR [...] #### G LU1P, CBC, ADIFF, ANEU #### [place] [address] #### RPR #### [address] [address] .Auto Diffon 09-01-2023 Basophil, Absolute 0.1 10 3/mcL Normal 0.0-0.2 [facility] ([place]) Comment on above: Performed By: #### A DIFF, CBC, ABSGEL, ANEU, ABOGEL #### [place] [address] #### RPR #### [address] [address] Basophils/100 WBC (Bld) 0.4 % Normal 0.0-2.5 [facility] ([place]) Comment on above: Performed By: #### A DIFF, CBC, ABSGEL, ANEU, ABOGEL #### [place] [address] #### RPR #### [address] [address] Eosinophil, Absolute 0.0 10 3/mcL Normal 0.0-0.4 [facility] ([place]) Comment on above: Performed By: #### A DIFF, CBC, ABSGEL, ANEU, ABOGEL #### [place] [address] #### RPR #### [address] [address] Eosinophils/100 WBC (Bld) 0.3 % Normal 0.0-7.0 [facility] ([place]) Comment on above: Performed By: #### A DIFF, CBC, ABSGEL, ANEU, ABOGEL #### [place] [address] #### RPR #### [address] [address] Lymphocyte, Absolute 2.2 10 3/mcL Normal 0.8-3.9 [facility] ([place]) Comment on above: Performed By: #### A DIFF, CBC, ABSGEL, ANEU, ABOGEL #### [address] [address] #### RPR #### [address] [address] Lymphocytes/100 WBC (Bld) 17.5 % Normal 10.0-50.0 [facility] ([place]) Comment on above: Performed By: #### A DIFF, CBC, ABSGEL, ANEU, ABOGEL #### [place] [address] #### RPR #### [address] [address] Monocyte, Absolute 0.6 10 3/mcL Normal 0.2-1.0 [facility] ([place]) Comment on above: Performed By: #### A DIFF, CBC, ABSGEL, ANEU, ABOGEL #### [place] [address] #### RPR #### [address] [address] Monocytes/100 WBC (Bld) 4.7 % Normal 1.7-13.0 [facility] ([place]) Comment on above: Performed By: #### A DIFF, CBC, ABSGEL, ANEU, ABOGEL #### [place] [address] #### RPR #### [address] [address] Neutrophils/100 WBC (Bld) 77.1 % Normal 37.0-80.0 [facility] ([place]) Comment on above: Performed By: #### A DIFF, CBC, ABSGEL, ANEU, ABOGEL #### [address] [address] #### RPR #### [address] [address] .NEUABSon 05-29-2024 Neutrophil, Absolute 9.6 10 3/mcL High 2.9-6.2 [facility] ([place]) Comment on above: Performed By: #### A DIFF, CBC, ABSGEL, ANEU, ABOGEL #### [address] [address] #### RPR #### [place] [address] ABO/Rh (Gel)on 09-01-2023 ABO/Rh Interp Positive Invalid Interpretation Code [facility] ([place]) Comment on above: Performed By: #### A DIFF, CBC, ABSGEL, ANEU, ABOGEL #### [place] [address] #### RPR #### [place] [address] ABS (Gel)on 09-01-2023 ABSC Interp (Gel) Negative Normal [facility] ([place]) Comment on above: Performed By: #### A DIFF, CBC, ABSGEL, ANEU, ABOGEL #### [place] [address] #### RPR #### [place] [address] CBCon 09-01-2023 Erythrocyte distribution width (RBC) [Ratio] 14.1 % Normal 11.5-14.5 [facility] ([place]) Comment on above: Performed By: #### A DIFF, CBC, ABSGEL, ANEU, ABOGEL #### [place] [address] #### RPR #### [place] [address] Hematocrit (Bld) [Volume fraction] 29.6 % Low 37.0-47.0 [facility] ([place]) Comment on above: Performed By: #### A DIFF, CBC, ABSGEL, ANEU, ABOGEL #### [place] [address] #### RPR #### [place] [address] Hgb 10.1 G/dL Low 12.0-16.0 [facility] ([place]) Comment on above: Performed By: #### A DIFF, CBC, ABSGEL, ANEU, ABOGEL #### [place] [address] #### RPR #### [place] [address] MCH (RBC) [Entitic mass] 25.7 pg Low 27.0-31.2 [facility] ([place] Comment on above: Performed By: #### A DIFF, CBC, ABSGEL, ANEU, ABOGEL #### [place] [address] #### RPR #### [place] [address] MCHC 34.1 G/dL Normal 33.0-37.0 [facility] ([place] Comment on above: Performed By: #### A DIFF, CBC, ABSGEL, ANEU, ABOGEL #### [place] [address] #### RPR #### [place] [address] MCV (RBC) [Entitic vol] 75.2 fL Low 80.0-94.0 [facility] ([place]) Comment on above: Performed By: #### A DIFF, CBC, ABSGEL, ANEU, ABOGEL #### [place] [address] #### RPR #### [place] [address] Platelet 213 10 3/mcL Normal 130-400 [facility] ([place] Comment on above: Performed By: #### A DIFF, CBC, ABSGEL, ANEU, ABOGEL #### [place] [address] #### RPR #### [place] [address] Platelet mean volume (Bld) [Entitic vol] 9.2 fL Normal 7.4-10.4 [facility] ([place] Comment on above: Performed By: #### A DIFF, CBC, ABSGEL, ANEU, ABOGEL #### [address] [address] #### RPR #### [place] [address] RBC 3.93 10 6/mcL Low 4.20-5.40 [facility] ([place] Comment on above: Performed By: #### A DIFF, CBC, ABSGEL, ANEU, ABOGEL #### [address] [address] #### RPR #### [place] [address] WBC 12.4 10 3/mcL High 4.6-10.8 [facility] ([place] Comment on above: Performed By: #### A DIFF, CBC, ABSGEL, ANEU, ABOGEL #### [place] [address] #### RPR #### [place] [address] LABORATORYOrdered By: Viridiana Ring on 09-01-2023 ABO and Rh group Nom [...] (S) Non-Reactive 1 (09/01/23 6:26 AM) Normal Non-Reactiv e AH Man Viro/Sero SS Comment on above: [...] Nom (Bld) O positive (09/01/23 5:56 AM) [facility] Work Phone: Group B Strep Date Performed [id number] [facility] Work Phone: Group B Strep, External Negative (09/01/23 5:56 AM) [facility] Work Phone: Hepatitis B Date Performed [id number] [facility] Work Phone: Hepatitis B, External Negative (09/01/23 5:56 AM) [facility] Work Phone: HIV Antibodies, External Negative (09/01/23 5:56 AM) [facility] Work Phone: RPR, External Nonreactive (09/01/23 5:56 AM) [facility] Work Phone: Rubella, External Immune (09/01/23 5:56 AM) [facility] Work Phone: Progress Noteon 08-31-2023 Field Counsel Authentication Interface Message Text [facility] MATERNAL MEDICINE - at [place] [address] POLK OFFICE VISIT NOTE DOS: 08/31/2023 08/31/2023 Chief Complaint She presents for review of progress in thus far and for comprehensive review of her maternal -obstetric- risks in this . The reasons for the visit are as highlighted in the concluding summary communication to linemarker which is my problem-based office review. History [...] Comments: iol due to cholestasis, nicu in [place] x 3 days 1 Term 04/18/18 40w0d 3.714 kg M Vag-Spont EPI YENI Comments: [facility] - I reviewed it at patient encounter [...] will been established and referral to a mail carriers supervisor is recommended for long-term health management. From [...] doing well. Baseline AST/ALT are normal at 21/. 08/31/2023 - Office Visit - MD Elder: [...] risk factor (more content not included)... Normal [facility] Field Counsel Authentication Interface Message Text [facility]ERNAL MEDICINE - at [place] [address] POLK OFFICE VISIT NOTE DOS: 08/31/2023 08/31/2023 Chief Complaint She presents for review of progress in thus far and for comprehensive review of her maternal -obstetric- risks in this . The reasons for the visit are as highlighted in the concluding summary communication to linemarker which is my problem-based office review. History [...] Comments: iol due to cholestasis, nicu in [place] x 3 days 1 Term 04/18/18 40w0d 3.714 kg M Vag-Spont EPI YENI Comments: [facility] - I reviewed it at patient encounter [...] will been established and referral to a mail carriers supervisor is recommended for long-term health management. From [...] doing well. Baseline AST/ALT are normal at 21. 08/31/2023 - Office Visit - MD Elder: [...] started approp (more content not included)... Normal [facility] CTPCRon 08-20-2023 C. trachomatis Interp Normal See CT Interp N [facility] ([place]) Comment on above: Result Comment: C. t rachomatis DNA not detected. Specimen is presumptive negative for C. trachomatis. A negative result does not preclude C. trachomatis infection because results depend on adequate specimen collection, absence of inhibitors, and sufficient DNA to be detected. See CT Interp N Performed By: #### A DIFF, CBC, ABSGEL, ANEU, ABOGEL #### [address] [address] #### RPR #### [address] [address] C.trachomatis PCR Negative Normal Negative [facility] ([place]) Comment on above: Result Comment: Mole cular (PCR) assay performed on the Shyam Williams 4800 system. Performed By: #### A DIFF, CBC, ABSGEL, ANEU, ABOGEL #### [place] [address] #### RPR #### [address] [address] Chlam Source Vaginal Normal [facility] ([place] Comment on above: Performed By: #### A DIFF, CBC, ABSGEL, ANEU, ABOGEL #### [address] [address] #### RPR #### [place] [id number] GBSPCRon 08-20-2023 Group B Strep (PCR) Negative Normal Negative [facility] ([place]) Comment on above: Performed By: #### A DIFF, CBC, ABSGEL, ANEU, ABOGEL #### [place] [address] #### RPR #### [place] [id number] Group B Strep PCR Int Normal [facility] ([place]) Comment on above: Result Comment: Grou p [...] A DIFF, CBC, ABSGEL, ANEU, ABOGEL #### [address] [address] #### RPR #### [place] [id number] 08-20-2023 GC PCR Source Vaginal Normal [facility] ([place] Comment on above: Performed By: #### A DIFF, CBC, ABSGEL, ANEU, ABOGEL #### [address] [address] #### RPR #### [address] [address] N. gonorrhoeae (PCR) Negative Normal Negative [facility] ([place]) Comment on above: Result Comment: Mole cular (PCR) assay performed on the Shy[employer] Williams 4800 System. Performed By: #### A DIFF, CBC, ABSGEL, ANEU, ABOGEL #### [address] [address] #### RPR #### [address] [address] N. gonorrhoeae Interp Normal See NG Interp N [facility] ([place] Comment on above: Result Comment: N. g onorrhoeae DNA not detected. Specimen is presumptive negative for N. gonorrhoeae. A negative result does not preclude Neisseria gonorrhoeae infection because results depend on adequate specimen collection, absence of inhibitors, and sufficient DNA to be detected. See NG Interp N Performed By: #### A DIFF, CBC, ABSGEL, ANEU, ABOGEL #### [address] [address] #### RPR #### [place] [id number] LABORATORYOrdered By: Alexa Gallegos on 08-19-2023 C. trachomatis DNA DAHIANA+probe Ql (Unsp spec) Negative 2 (08/19/23 1:57 PM) Normal Negative AH Auto Viro/Sero SS Comment on above: Interpretive Data: M maryannecular (PCR) assay performed on the Shyam Williams [...] SS Comment on above: Interpretive Data: M batoollar (PCR) assay performed on the Shyam Williams [...] (Unsp spec) Vaginal (08/19/23 1:57 PM) Normal Auto Viro/Sero SS No Panel Informationon 08-18 Culture Urine 10,000 - 50,000 cfu/ ml Multiple bacterial morphotypes present. Probable Contamination. Suggest recollection if clinically indicated. [facility] Work Phone: BILEon 08-16-2023 Chenodeoxycholate 14 umol/l High [facility] ([place] Comment on above: Result Comment: Conf irmed by dilution. Reference Range: All Ages: <5.8 Performed By: #### G LU1P, CBC, ADIFF, ANEU #### [facility] [address] [place] [address] #### RPR #### [place] [address] Cholate 41 umol/l [facility] ([place]) Comment on above: Result Comment: Conf irmed by dilution. Reference Range: All Ages: <2.2 Performed By: #### G LU1P, CBC, ADIFF, ANEU #### [place] [address] #### RPR #### [place] [address] Deoxycholate 2.4 umol/l [facility] ([place]) Comment on above: Result Comment: Refe rence Range: All Ages: <3.3 Performed By: #### G LU1P, CBC, ADIFF, ANEU #### [place] [address] #### RPR #### [place] [address] Total Bile Acids 58 umol/l [facility] ([place]) Comment on above: Result Comment: This test was developed and its performance characteristics determined by [facility]. It has not been cleared or approved by the Food and Drug Administration. Reference Range: All Ages: <9.2 Performed At: [facility] [address] [place] [address] [id number] Nam Crook MD Ph:[phone] Performed By: #### G LU1P, CBC, ADIFF, ANEU #### [place] [address] #### RPR #### [place] [address] Ursodeoxycholate 0.20 umol/l [facility] ([place]) Comment on above: Result Comment: Refe rence Range: All Ages: <1.9 Performed By: #### G LU1P, CBC, ADIFF, ANEU #### [place] [address] #### RPR #### [place] [address] LABORATORYOrdered By: LABCOR P CONTRIBUTOR_SYSTEM on 08-11-2023 [...] developed and its performance characteristics determined by [facility]. It has not been cleared or approved by the Food and Drug Administration. Reference Range: All Ages: <9.2 Performed At: [facility] [address] [place] [address] [id number] Nam Crook MD Ph:[phone] Ursodeoxycholate (LC) 0.20 umol/l Invalid Interpretation Code AO Sendouts SS Comment on above: Result Comment: Refe rence Range: All Ages: <1.9 BILEon 08-01-2023 Chenodeoxycholate 7.5 umol/l High [facility] ([place]) Comment on above: Result Comment: Refe rence Range: All Ages: <5.8 Performed By: #### A DIFF, CBC, ABSGEL, ANEU, ABOGEL #### [place] [address] #### RPR #### [place] [address] Cholate 10 umol/l High [facility] ([place] Comment on above: Result Comment: Refe rence Range: All Ages: <2.2 Performed By: #### A DIFF, CBC, ABSGEL, ANEU, ABOGEL #### [address] [address] #### RPR #### [place] [address] Deoxycholate 1.2 umol/l Normal [facility] ([place]) Comment on above: Result Comment: Refe rence Range: All Ages: <3.3 Performed By: #### A DIFF, CBC, ABSGEL, ANEU, ABOGEL #### [place] [address] #### RPR #### [place] [address] Total Bile Acids 19 umol/l High [facility] ([place]) Comment on above: Result Comment: This test was developed and its performance characteristics determined by [facility]. It has not been cleared or approved by the Food and Drug Administration. Reference Range: All Ages: <9.2 Performed At: [facility] [address] [place] [address] [id number] Nam Crook MD Ph:[phone] Performed By: #### A DIFF, CBC, ABSGEL, ANEU, ABOGEL #### [place] [address] #### RPR #### [place] [address] Ursodeoxycholate <0.10 Normal [facility] ([place]) Comment on above: Result Comment: Refe rence Range: All Ages: <1.9 Performed By: #### A DIFF, CBC, ABSGEL, ANEU, ABOGEL #### [place] [address] #### RPR #### [place] [address] .GFRon 07-26-2023 GFR 154 ml/min/1.73sqm Normal [facility] ([place] Comment on above: Result Comment: GFR Population [...] #### G LU1P, CBC, ADIFF, ANEU #### [address] [address] #### RPR #### [address] [address] GFR Non- 127 ml/min/1.73sqm Normal [facility] ([place]) Comment on above: Result Comment: GFR Population [...] #### G LU1P, CBC, ADIFF, ANEU #### [address] [address] #### RPR #### [address] [address] CMPon 07-26-2023 Albumin Level 2.4 G/dL Low 3.5-5.0 [facility] ([place]) Comment on above: Performed By: #### G LU1P, CBC, ADIFF, ANEU #### [address] [address] #### RPR #### [address] [address] Albumin/Globulin [Mass ratio] 0.6 {ratio} Low 1.1-2.5 [facility] ([place] Comment on above: Performed By: #### G LU1P, CBC, ADIFF, ANEU #### [place] [id number] #### RPR #### [address] [address] ALP [Catalytic activity/Vol] 248 U/L High 40-135 [facility] ([place]) Comment on above: Performed By: #### G LU1P, CBC, ADIFF, ANEU #### [address] [address] #### RPR #### [address] [address] ALT [Catalytic activity/Vol] 37 U/L Normal 14-59 [facility] ([place]) Comment on above: Performed By: #### G LU1P, CBC, ADIFF, ANEU #### [address] [address] #### RPR #### [address] [address] AST [Catalytic activity/Vol] 27 U/L Normal 10-40 [facility] ([place]) Comment on above: Performed By: #### G LU1P, CBC, ADIFF, ANEU #### [address] [address] #### RPR #### [address] [address] Bili Total 0.4 mg/dL Normal 0.2-1.0 [facility] ([place]) Comment on above: Result Comment: Use of this assay is not recommended for patients undergoing treatment with eltrombopag due to the potential for falsely elevated results. Performed By: #### G LU1P, CBC, ADIFF, ANEU #### [address] [address] #### RPR #### [address] [address] BUN/Creatinine Ratio 9 ratio Normal 7-27 [facility] ([place]) Comment on above: Performed By: #### G LU1P, CBC, ADIFF, ANEU #### [address] [address] #### RPR #### [address] [address] Calcium [Mass/Vol] 8.3 mg/dL Low 8.4-10.2 [facility] ([place]) Comment on above: Performed By: #### G LU1P, CBC, ADIFF, ANEU #### [address] [address] #### RPR #### [address] [address] Chloride [Moles/Vol] 104 mmol/L Normal 98-107 [facility] ([place]) Comment on above: Performed By: #### G LU1P, CBC, ADIFF, ANEU #### [address] [address] #### RPR #### [place] [address] CO2 [Moles/Vol] 22 mmol/L Normal 22-29 [facility] ([place] Comment on above: Performed By: #### G LU1P, CBC, ADIFF, ANEU #### [place] [address] #### RPR #### [place] [address] Creatinine [Mass/Vol] 0.58 mg/dL Normal 0.55-1.02 [facility] ([place]) Comment on above: Performed By: #### G LU1P, CBC, ADIFF, ANEU #### [place] [address] #### RPR #### [place] [address] Electrolyte Balance 11.0 mEq/L Normal 4.0-15.0 [facility] ([place]) Comment on above: Performed By: #### G LU1P, CBC, ADIFF, ANEU #### [address] [address] #### RPR #### [place] [address] Globulin 3.7 G/dL Normal [facility] ([place]) Comment on above: Performed By: #### G LU1P, CBC, ADIFF, ANEU #### [address] [address] #### RPR #### [address] [address] Glucose [Mass/Vol] 101 mg/dL Normal 70-105 [facility] ([place]) Comment on above: Performed By: #### G LU1P, CBC, ADIFF, ANEU #### [address] [address] #### RPR #### [address] [address] Potassium [Moles/Vol] 4.1 mmol/L Normal 3.5-5.1 [facility] ([place]) Comment on above: Performed By: #### G LU1P, CBC, ADIFF, ANEU #### [address] [address] #### RPR #### [address] [address] Sodium [Moles/Vol] 137 mmol/L Normal 136-145 [facility] ([place]) Comment on above: Performed By: #### G LU1P, CBC, ADIFF, ANEU #### [address] [address] #### RPR #### [address] [address] Total Protein 6.1 G/dL Low 6.4-8.2 [facility] ([place]) Comment on above: Performed By: #### G LU1P, CBC, ADIFF, ANEU #### [address] [address] #### RPR #### [address] [address] Urea nitrogen [Mass/Vol] 5 mg/dL Low 7-18 [facility] ([place]) Comment on above: Performed By: #### G LU1P, CBC, ADIFF, ANEU #### [address] [address] #### RPR #### [address], [place] [address] LABORATORYOrdered By: SYSTEM SYSTEM on 07-26-2023 Albumin [...] Probe Negative Beatriz species DNA Probe Negative [facility] BILEon 07-15-2023 Chenodeoxycholate 5.8 umol/l High [facility] ([place]) Comment on above: Result Comment: Refe rence Range: All Ages: <5.8 Performed By: #### A DIFF, CBC, ABSGEL, ANEU, ABOGEL #### [place] [address] #### RPR #### [place] [address] Cholate 14 umol/l [facility] ([place]) Comment on above: Result Comment: Refe rence Range: All Ages: <2.2 Performed By: #### A DIFF, CBC, ABSGEL, ANEU, ABOGEL #### [place] [address] #### RPR #### [place] [address] Deoxycholate 1.6 umol/l [facility] ([place]) Comment on above: Result Comment: Refe rence Range: All Ages: <3.3 Performed By: #### A DIFF, CBC, ABSGEL, ANEU, ABOGEL #### [place] [address] #### RPR #### [place] [address] Total Bile Acids 21 umol/l [facility] ([place]) Comment on above: Result Comment: This test was developed and its performance characteristics determined by [facility]. It has not been cleared or approved by the Food and Drug Administration. Reference Range: All Ages: <9.2 Performed At: [facility] [address] [place] [id number] Nam Crook MD Ph:[phone] Performed By: #### A DIFF, CBC, ABSGEL, ANEU, ABOGEL #### [place] [address] #### RPR #### [place] [address] Ursodeoxycholate <0.10 [facility] ([place]) Comment on above: Result Comment: Refe rence Range: All Ages: <1.9 Performed By: #### A DIFF, CBC, ABSGEL, ANEU, ABOGEL #### [place] [address] #### RPR #### [place] [address] RPRon 07-10-2023 Reagin Ab RPR Ql (S) Non-Reactive Normal Non-Cristina ctiv e [facility] ([place] Comment on above: Result Comment: The RPR [...] #### G LU1P, CBC, ADIFF, ANEU #### [place] [address] #### RPR #### [place] [address] .Auto Diffon 07-09-2023 Basophil, Absolute 0.0 10 3/mcL Normal 0.0-0.2 [facility] ([place]) Comment on above: Performed By: #### G LU1P, CBC, ADIFF, ANEU #### [place] [address] #### RPR #### [place] [address] Basophils/100 WBC (Bld) 0.2 % Normal 0.0-2.5 A [facility] ([place] Comment on above: Performed By: #### G LU1P, CBC, ADIFF, ANEU #### [place] [address] #### RPR #### [place] [address] Eosinophil, Absolute 0.0 10 3/mcL Normal 0.0-0.4 [facility] ([place]) Comment on above: Performed By: #### G LU1P, CBC, ADIFF, ANEU #### [place] [address] #### RPR #### [address] [address] Eosinophils/100 WBC (Bld) 0.5 % Normal 0.0-7.0 [facility] ([place] Comment on above: Performed By: #### G LU1P, CBC, ADIFF, ANEU #### [address] [address] #### RPR #### [address] [address] Lymphocyte, Absolute 1.3 10 3/mcL Normal 0.8-3.9 [facility] ([place] Comment on above: Performed By: #### G LU1P, CBC, ADIFF, ANEU #### [address] [address] #### RPR #### [address] [address] Lymphocytes/100 WBC (Bld) 13.6 % Normal 10.0-50.0 [facility] ([place] Comment on above: Performed By: #### G LU1P, CBC, ADIFF, ANEU #### [address] [address] #### RPR #### [address] [address] Monocyte, Absolute 0.5 10 3/mcL Normal 0.2-1.0 [facility] ([place]) Comment on above: Performed By: #### G LU1P, CBC, ADIFF, ANEU #### [address] [address] #### RPR #### [address] [address] Monocytes/100 WBC (Bld) 5.1 % Normal 1.7-13.0 A [facility] ([place] Comment on above: Performed By: #### G LU1P, CBC, ADIFF, ANEU #### [address] [address] #### RPR #### [address] [address] Neutrophils/100 WBC (Bld) 80.6 % High 37.0-80.0 [facility] ([place] Comment on above: Performed By: #### G LU1P, CBC, ADIFF, ANEU #### [place] [address] #### RPR #### [place] [address] .NEUABSon 07-09-2023 Neutrophil, Absolute 7.7 10 3/mcL High 2.9-6.2 [facility] ([place] Comment on above: Performed By: #### G LU1P, CBC, ADIFF, ANEU #### [place] [address] #### RPR #### [place] [address] CBCon 07-09-2023 Erythrocyte distribution width (RBC) [Ratio] 12.9 % Normal 11.5-14.5 [facility] ([place] Comment on above: Performed By: #### G LU1P, CBC, ADIFF, ANEU #### [place] [address] #### RPR #### [place] [address] Hematocrit (Bld) [Volume fraction] 30.3 % Low 37.0-47.0 [facility] ([place] Comment on above: Performed By: #### G LU1P, CBC, ADIFF, ANEU #### [place] [address] #### RPR #### [place] [address] Hgb 10.3 G/dL Low 12.0-16.0 [facility] ([place] Comment on above: Performed By: #### G LU1P, CBC, ADIFF, ANEU #### [place] [address] #### RPR #### [place] [address] MCH (RBC) [Entitic mass] 28.3 pg Normal 27.0-31.2 [facility] ([place] Comment on above: Performed By: #### G LU1P, CBC, ADIFF, ANEU #### [place] [address] #### RPR #### [address] [address] MCHC 34.0 G/dL Normal 33.0-37.0 [facility] ([place] Comment on above: Performed By: #### G LU1P, CBC, ADIFF, ANEU #### [place] [address] #### RPR #### [place] [address] MCV (RBC) [Entitic vol] 83.2 fL Normal 80.0-94.0 A [facility] ([place] Comment on above: Performed By: #### Ric LU1P, CBC, ADIFF, ANEU #### [place] [address] #### RPR #### [place] [address] Platelet 240 10 3/mcL Normal 130-400 [facility] ([place] Comment on above: Performed By: #### Ric LU1P, CBC, ADIFF, ANEU #### [place] [address] #### RPR #### [place] [address] Platelet mean volume (Bld) [Entitic vol] 8.7 fL Normal 7.4-10.4 [facility] ([place] Comment on above: Performed By: #### G LU1P, CBC, ADIFF, ANEU #### [place] [address] #### RPR #### [place] [address] RBC 3.64 10 6/mcL Low 4.20-5.40 [facility] ([place]) Comment on above: Performed By: #### G LU1P, CBC, ADIFF, ANEU #### [place] [address] #### RPR #### [facility] [address] [place] [address] WBC 9.6 10 3/mcL Normal 4.6-10.8 [facility] ([place] Comment on above: Performed By: #### G LU1P, CBC, ADIFF, ANEU #### [facility] [address] [place], [place] [address] #### RPR #### [facility] [address] [place] [address] [id number] 07-09-2023 Glucose [Mass/Vol] 99 mg/dL Normal 70-140 [facility] ([place] Comment on above: Performed By: #### G LU1P, CBC, ADIFF, ANEU #### [facility] [address] [place], [place] [address] #### RPR #### [facility] [address] [place] [phone] STREP A MOLECULAR (POC)on Procedural Control Valid [facility] Strep A (POCT) Negative Negative [facility] Progress Noteon 05-12-2023 Field Counsel Authentication Interface Message Text Pt called in [...] send a message through my chart. Normal [facility] MISCon 05-10-2023 Mis. Send Out See Comments Normal [facility] ([place] Comment on above: Order Comment: Total Protein S antigen sent to [facility] Result Comment: Comp lete reference lab report scanned to EMR. Performed By: #### G LU1P, CBC, ADIFF, ANEU #### [address] [address] #### RPR #### [place] [address] CIRANon 05-05-2023 Dil Mak Viper Venom 42.4 seconds High 30.0-42.0 [facility] ([place] Comment on above: Result Comment: DRVV T Confirmation Test Performed: POSITIVE Performed By: #### G LU1P, CBC, ADIFF, ANEU #### [place] [address] #### RPR #### [place] [address] LA Interpretation See Below Normal [facility] ([place] Comment on above: Result Comment: Lupu s anticoagulant detected by DRVVT method Performed By: #### G LU1P, CBC, ADIFF, ANEU #### [place] [address] #### RPR #### [place] [address] Platelet neutraliz. Not Done Normal [facility] ([place] Comment on above: Performed By: #### G LU1P, CBC, ADIFF, ANEU #### [place] [address] #### RPR #### [place] [address] Progress Noteon 05-05-2023 Field Counsel Authentication Interface Message Text [facility] MATERNAL MEDICINE - at [place] [address] POLK OFFICE VISIT NOTE DOS: 05/05/2023 05/05/2023 Chief Complaint She presents for review of progress in thus far and for comprehensive review of her maternal -obstetric- risks in this . The reasons for the visit are as highlighted in the concluding summary communication to linemarker which is my problem-based office review. History [...] Births 2 # Outcome Date GA Lbr Elisoe/2nd Weight Sex Delivery Anes PTL Lv 3 Current 2 Term 01/27/21 37w0d 3.11 kg M Vag-Spont EPI YENI Comments: iol due to cholestasis, nicu in [place] x 3 days 1 Term 04/18/18 40w0d 3.714 kg M Vag-Spont EPI YENI Comments: [facility] - I reviewed it at patient encounter [...] doing w (more content not included)... Normal [facility] AT3on 05-04-2023 Anti-Thrombin III 90 % Normal 84-126 [facility] ([place] Comment on above: Performed By: #### G LU1P, CBC, ADIFF, ANEU #### [facility] [address] [place], [place] [address] #### RPR #### [address] [address] PROTCon 05-04-2023 Protein C 135 % Normal >=80 [facility] ([place] Comment on above: Performed By: #### G LU1P, CBC, ADIFF, ANEU #### [address] [address] #### RPR #### [address] [address] PRSFAon 05-04-2023 Protein S Free Antigen 54 % Low 55-124 [facility] ([place]) Comment on above: Performed By: #### G LU1P, CBC, ADIFF, ANEU #### [address] [address] #### RPR #### [place] [address] BILEon 05-02-2023 Chenodeoxycholate 1.1 umol/l Normal [facility] ([place]) Comment on above: Result Comment: Refe rence Range: All Ages: <5.8 Performed By: #### G LU1P, CBC, ADIFF, ANEU #### [address] [address] #### RPR #### [place] [address] Cholate 0.90 umol/l Normal [facility] ([place]) Comment on above: Result Comment: Refe rence Range: All Ages: <2.2 Performed By: #### G LU1P, CBC, ADIFF, ANEU #### [address] [address] #### RPR #### [address] [address] Deoxycholate 1.3 umol/l Normal [facility] ([place] Comment on above: Result Comment: Refe rence Range: All Ages: <3.3 Performed By: #### G LU1P, CBC, ADIFF, ANEU #### [address] [address] #### RPR #### [address] [address] Total Bile Acids 3.3 umol/l Normal [facility] ([place]) Comment on above: Result Comment: This test was developed and its performance characteristics determined by [facility]. It has not been cleared or approved by the Food and Drug Administration. Reference Range: All Ages: <9.2 Performed At: [facility] [address] [place] [id number] Nam Crook MD Ph:[phone] Performed By: #### G LU1P, CBC, ADIFF, ANEU #### [place] [address] #### RPR #### [place] [address] Ursodeoxycholate <0.10 Normal [facility] ([place] Comment on above: Result Comment: Refe rence Range: All Ages: <1.9 Performed By: #### G LU1P, CBC, ADIFF, ANEU #### [place] [address] #### RPR #### [place] [address] [id number] 04-30-2023 B2 Glyco I IgG Ab <9 Normal 0-20 [facility] ([place] Comment on above: Result Comment: The reference interval reflects a 3SD or 99th percentile interval, which is thought to represent a potentially clinically significant result in accordance with the International Consensus Statement on the classification criteria for definitive antiphospholipid syndrome (APS). J Thromb Haem 2006;4:295-306. Performed By: #### G LU1P, CBC, ADIFF, ANEU #### [place] [address] #### RPR #### [place] [address] B2 Glyco I IgM Ab <9 Normal 0-32 [facility] ([place] Comment on above: Result Comment: The reference interval reflects a 3SD or 99th percentile interval, which is thought to represent a potentially clinically significant result in accordance with the International Consensus Statement on the classification criteria for definitive antiphospholipid syndrome (APS). J Thromb Haem 2006;4:295-306. Performed At: [facility] [id number] Matias Hanson MD Ph:[phone] Performed By: #### G LU1P, CBC, ADIFF, ANEU #### [address] [address] #### RPR #### [place] [address] BETAAon 04-30-2023 B2 Glyco I IgA <9 Normal 0-25 [facility] ([place]) Comment on above: Result Comment: The reference interval reflects a 3SD or 99th percentile interval, which is thought to represent a potentially clinically significant result in accordance with the International Consensus Statement on the classification criteria for definitive antiphospholipid syndrome (APS). J Thromb Haem 2006;4:295-306. Performed At: [facility] [id number] Matias Hanson MD Ph:[phone] Performed By: #### G LU1P, CBC, ADIFF, ANEU #### [place] [address] #### RPR #### [place] [address] [facility] Cardiolipin IgG <9 Normal 0-14 [facility] ([place]) Comment on above: Result Comment: Nega tive: <15 Indeterminate: 15 - 20 Low-Med Positive: >20 - 80 High Positive: >80 Performed At: [facility] [address] [id number] Fab Salcedo PhD Ph:[phone] Performed By: #### G LU1P, CBC, ADIFF, ANEU #### [place] [address] #### RPR #### [place] [address] [facility] 04-29-2023 Cardiolipin IgM <9 Normal 0-12 [facility] ([place]) Comment on above: Result Comment: Nega tive: <13 Indeterminate: 13 - 20 Low-Med Positive: >20 - 80 High Positive: >80 Performed At: [facility] [address] [place], [place] [id number] Fab Salcedo PhD Ph:[phone] Performed By: #### G CHRISTIANO1P, LOULOU ROLAND, DEVORAH #### [place] [address] [place], [place] [address] #### RPR #### [address] [address] .GFRon 04-28-2023 GFR Non- 147 ml/min/1.73sqm Normal [facility] ([place]) Comment on above: Result Comment: GFR Population [...] mL/min/1.73 square meters Performed By: #### G RIKA, LOULOU ROLAND, DEVORAH #### Kayla [address] [address] #### RPR #### [address] [address] GFR 178 ml/min/1.73sqm Normal [facility] ([place] Comment on above: Result Comment: GFR Population [...] #### G LU1P, CBC, ADIFF, ANEU #### [address] [address] #### RPR #### [address] [address] CMPon 04-28-2023 Albumin Level 2.7 G/dL Low 3.5-5.0 [facility] ([place] Comment on above: Performed By: #### G LU1P, CBC, ADIFF, ANEU #### [address] [address] #### RPR #### [address] [address] Albumin/Globulin [Mass ratio] 0.7 {ratio} Low 1.1-2.5 [facility] ([place] Comment on above: Performed By: #### Ric LU1P, CBC, ADIFF, ANEU #### [place] [address] #### RPR #### [address] [address] ALP [Catalytic activity/Vol] 82 U/L Normal 40-135 [facility] ([place] Comment on above: Performed By: #### G LU1P, CBC, ADIFF, ANEU #### [address] [address] #### RPR #### [address] [address] ALT [Catalytic activity/Vol] 19 U/L Normal 14-59 [facility] ([place] Comment on above: Performed By: #### G LU1P, CBC, ADIFF, ANEU #### [place] [address] #### RPR #### [address] [address] AST [Catalytic activity/Vol] 14 U/L Normal 10-40 [facility] ([place] Comment on above: Performed By: #### G LU1P, CBC, ADIFF, ANEU #### [address] [address] #### RPR #### [address] [address] Bili Total 0.3 mg/dL Normal 0.2-1.0 [facility] ([place] Comment on above: Result Comment: Use of this assay is not recommended for patients undergoing treatment with eltrombopag due to the potential for falsely elevated results. Performed By: #### G LU1P, CBC, ADIFF, ANEU #### [address] [address] #### RPR #### [address] [address] BUN/Creatinine Ratio 12 ratio Normal 7-27 [facility] ([place]) Comment on above: Performed By: #### G LU1P, CBC, ADIFF, ANEU #### [address] [address] #### RPR #### [address] [address] Calcium [Mass/Vol] 9.0 mg/dL Normal 8.4-10.2 [facility] ([place]) Comment on above: Performed By: #### G LU1P, CBC, ADIFF, ANEU #### [address] [address] #### RPR #### [address] [address] Chloride [Moles/Vol] 105 mmol/L Normal 98-107 [facility] ([place]) Comment on above: Performed By: #### G LU1P, CBC, ADIFF, ANEU #### [address] [address] #### RPR #### [address] [address] CO2 [Moles/Vol] 24 mmol/L Normal 22-29 [facility] ([place] Comment on above: Performed By: #### G LU1P, CBC, ADIFF, ANEU #### [address] [place] [address] #### RPR #### [address] [address] Creatinine [Mass/Vol] 0.51 mg/dL Low 0.55-1.02 [facility] ([place]) Comment on above: Performed By: #### G LU1P, CBC, ADIFF, ANEU #### [address] [address] #### RPR #### [address] [address] Electrolyte Balance 10.0 mEq/L Normal 4.0-15.0 [facility] ([place] Comment on above: Performed By: #### G LU1P, CBC, ADIFF, ANEU #### [place] [address] #### RPR #### [place] [address] Globulin 3.7 G/dL Normal [facility] ([place] Comment on above: Performed By: #### G LU1P, CBC, ADIFF, ANEU #### [address] [address] #### RPR #### [address] [address] Glucose [Mass/Vol] 86 mg/dL Normal 70-105 [facility] ([place]) Comment on above: Performed By: #### G LU1P, CBC, ADIFF, ANEU #### [place] [address] #### RPR #### [address] [address] Potassium [Moles/Vol] 3.8 mmol/L Normal 3.5-5.1 [facility] ([place]) Comment on above: Performed By: #### G LU1P, CBC, ADIFF, ANEU #### [address] [address] #### RPR #### [place] [id number] Sodium [Moles/Vol] 139 mmol/L Normal 136-145 [facility] ([place] Comment on above: Performed By: #### G LU1P, CBC, ADIFF, ANEU #### [address] [address] #### RPR #### [address] [address] Total Protein 6.4 G/dL Normal 6.4-8.2 [facility] ([place] Comment on above: Performed By: #### G LU1P, CBC, ADIFF, ANEU #### [address] [address] #### RPR #### [address] [address] Urea nitrogen [Mass/Vol] 6 mg/dL Low 7-18 [facility] ([place] Comment on above: Performed By: #### G LU1P, CBC, ADIFF, ANEU #### [address] [address] #### RPR #### [address] [address] LABORATORYOrdered By: SYSTEM SYSTEM on 04-28-2023 Albumin [...] ratio AO ADM SS Progress Noteon 03-24-2023 Field Counsel Authentication Interface Message Text [facility] - at [address] [place] OFFICE VISIT NOTE DOS: 03/24/2023 03/24/2023 Chief Complaint She presents for review of progress in thus far and for comprehensive review of her maternal -obstetric- risks in this . The reasons for the visit are as highlighted in the concluding summary communication to [employer] which is my problem-based office review. History [...] Comments: iol due to cholestasis, nicu in [place] x 3 days 1 Term 04/18/18 40w0d 3.714 kg M Vag-Spont EPI YENI Comments: [facility] - I reviewed it at patient encounter [...] Infectious Diseases: We reviewed prevention strategies for maternal-infant protection against infectious illnesses. Covid infection risk- [...] he will obtain the listed labs at [facility] and take her morning dose of Lovenox 40 mg daily and thereafter stick to a morning daily dose with option to a p.m. schedule after (more content not included)... Normal [facility] No Panel Informationon 03-22 Culture Urine >100,000 cfu/ml Mixe d growth consistent with normal urogenital wandy. [facility] Work Phone: No Panel Informationon 03-15 Culture Urine 10,000 - 50,000 cfu/ ml Mixed growth consistent with normal urogenital wandy. [facility] Work Phone: RPRon 03-02-2023 Reagin Ab RPR Ql (S) Non-Reactive Normal Non-[place] ctiv e [facility] ([place]) Comment on above: Result Comment: The [...] #### G LU1P, CBC, ADIFF, ANEU #### [facility] [address] [place], [place] [address] #### RPR #### [facility] [address] [place] [id number] RUBISon 03-02-[address] Positive Normal Positive [facility] ([place] Comment on above: Result Comment: This immune status assay detects IgM and/or IgG antibody to Rubella. Interpret results in conjunction with clinical history. POS: Antibody detected; exposure at undetermined recent or distant time. If clinically indicated, order Rubella IGM to rule out recent infection. NEG: No antibody detected. Performed By: #### G LU1P, CBC, ADIFF, ANEU #### [place] [address] #### RPR #### [address] [address] VARISon 03-02-[address] Negative Normal [facility] ([place] Comment on above: Result Comment: INTE RPRETATION OF VARICELLA IMMUNE STATUS IgG BY EIA: Negative: No detectable VZV IgG antibody. Positive: VZV IgG antibody Detected. If clinically indicated, order Varicella IgM to rule out recent infection. Equivocal: Equivocal for antibodies to VZV. Suggest repeat testing in 10-14 days. Performed By: #### G LU1P, CBC, ADIFF, ANEU #### [place] [address] #### RPR #### [place] [address] .Auto Diffon 03-01-2023 Basophil, Absolute 0.0 10 3/mcL Normal 0.0-0.2 [facility] ([place]) Comment on above: Performed By: #### G LU1P, CBC, ADIFF, ANEU #### [place] [address] #### RPR #### [address] [address] Basophils/100 WBC (Bld) 0.4 % Normal 0.0-2.5 [facility] ([place]) Comment on above: Performed By: #### G LU1P, CBC, ADIFF, ANEU #### [place] [address] #### RPR #### [place] [address] Eosinophil, Absolute 0.1 10 3/mcL Normal 0.0-0.4 [facility] ([place] Comment on above: Performed By: #### G LU1P, CBC, ADIFF, ANEU #### [address] [address] #### RPR #### [address] [address] Eosinophils/100 WBC (Bld) 0.5 % Normal 0.0-7.0 [facility] ([place] Comment on above: Performed By: #### G LU1P, CBC, ADIFF, ANEU #### [address] [address] #### RPR #### [address] [address] Lymphocyte, Absolute 1.3 10 3/mcL Normal 0.8-3.9 [facility] ([place] Comment on above: Performed By: #### G LU1P, CBC, ADIFF, ANEU #### [place] [address] #### RPR #### [address] [address] Lymphocytes/100 WBC (Bld) 12.9 % Normal 10.0-50.0 [facility] ([place] Comment on above: Performed By: #### G LU1P, CBC, ADIFF, ANEU #### [address] [address] #### RPR #### [address] [address] Monocyte, Absolute 0.5 10 3/mcL Normal 0.2-1.0 [facility] ([place]) Comment on above: Performed By: #### G LU1P, CBC, ADIFF, ANEU #### [place] [address] #### RPR #### [address] [address] Monocytes/100 WBC (Bld) 4.7 % Normal 1.7-13.0 [facility] ([place]) Comment on above: Performed By: #### G LU1P, CBC, ADIFF, ANEU #### [address] [address] #### RPR #### [address] [address] Neutrophils/100 WBC (Bld) 81.5 % High 37.0-80.0 [facility] ([place] Comment on above: Performed By: #### G LU1P, CBC, ADIFF, ANEU #### [address] [address] #### RPR #### [address] [address] .GFRon 03-01-2023 GFR Non- 142 ml/min/1.73sqm Normal [facility] ([place]) Comment on above: Result Comment: GFR [...] #### G LU1P, CBC, ADIFF, ANEU #### [address] [address] #### RPR #### [address] [address] GFR 172 ml/min/1.73sqm Normal [facility] ([place]) Comment on above: Result Comment: GFR [...] #### G LU1P, CBC, ADIFF, ANEU #### [place] [address] #### RPR #### [place] [address] .NEUABSon 03-01-2023 Neutrophil, Absolute 8.4 10 3/mcL High 2.9-6.2 [facility] ([place] Comment on above: Performed By: #### G LU1P, CBC, ADIFF, ANEU #### [address] [address] #### RPR #### [place] [address] A1Con 03-01-2023 HbA1c (Bld) [Mass fraction] 4.9 % Normal 4.3-6.4 [facility] ([place] Comment on above: Performed By: #### G LU1P, CBC, ADIFF, ANEU #### [place] [address] #### RPR #### [place] [address] CBC 03-01-2023 Erythrocyte distribution width (RBC) [Ratio] 13.2 % Normal 11.5-14.5 [facility] ([place] Comment on above: Performed By: #### G LU1P, CBC, ADIFF, ANEU #### [place] [address] #### RPR #### [place] [address] Hematocrit (Bld) [Volume fraction] 38.1 % Normal 37.0-47.0 [facility] ([place] Comment on above: Performed By: #### G LU1P, CBC, ADIFF, ANEU #### [place] [address] #### RPR #### [place] [address] Hgb 12.9 G/dL Normal 12.0-16.0 [facility] ([place] Comment on above: Performed By: #### G LU1P, CBC, ADIFF, ANEU #### [place] [address] #### RPR #### [place] [address] MCH (RBC) [Entitic mass] 30.2 pg Normal 27.0-31.2 [facility] ([place] Comment on above: Performed By: #### G LU1P, CBC, ADIFF, ANEU #### [place] [address] #### RPR #### [place] [address] MCHC 33.8 G/dL Normal 33.0-37.0 [facility] ([place] Comment on above: Performed By: #### G LU1P, CBC, ADIFF, ANEU #### [place] [address] #### RPR #### [place] [address] MCV (RBC) [Entitic vol] 89.2 fL Normal 80.0-94.0 [facility] ([place] Comment on above: Performed By: #### G LU1P, CBC, ADIFF, ANEU #### [place] [address] #### RPR #### [place] [address] Platelet 196 10 3/mcL Normal 130-400 [facility] ([place] Comment on above: Performed By: #### G LU1P, CBC, ADIFF, ANEU #### [place] [address] #### RPR #### [place] [address] Platelet mean volume (Bld) [Entitic vol] 9.4 fL Normal 7.4-10.4 [facility] ([place] Comment on above: Performed By: #### G LU1P, CBC, ADIFF, ANEU #### [place] [address] #### RPR #### [place] [address] RBC 4.27 10 6/mcL Normal 4.20-5.40 [facility] ([place] Comment on above: Performed By: #### G LU1P, CBC, ADIFF, ANEU #### [place] [address] #### RPR #### [place] [address] WBC 10.3 10 3/mcL Normal 4.6-10.8 [facility] ([place] Comment on above: Performed By: #### Ric LU1P, CBC, ADIFF, ANEU #### [place] [address] #### RPR #### [place] [address] CMPon 03-01-2023 Albumin Level 3.3 G/dL Low 3.5-5.0 [facility] ([place] Comment on above: Performed By: #### Ric LU1P, CBC, ADIFF, ANEU #### [place] [address] #### RPR #### [place] [address] Albumin/Globulin [Mass ratio] 0.9 {ratio} Low 1.1-2.5 [facility] ([place] Comment on above: Performed By: #### G LU1P, CBC, ADIFF, ANEU #### [place] [address] #### RPR #### [place] [address] ALP [Catalytic activity/Vol] 92 U/L Normal 40-135 [facility] ([place] Comment on above: Performed By: #### G LU1P, CBC, ADIFF, ANEU #### [address] [address] #### RPR #### [address] [address] ALT [Catalytic activity/Vol] 26 U/L Normal 14-59 [facility] ([place] Comment on above: Performed By: #### G LU1P, CBC, ADIFF, ANEU #### [place] [address] #### RPR #### [address] [address] AST [Catalytic activity/Vol] 21 U/L Normal 10-40 [facility] ([place] Comment on above: Performed By: #### G LU1P, CBC, ADIFF, ANEU #### [place] [address] #### RPR #### [address] [address] Bili Total 0.2 mg/dL Normal 0.2-1.0 [facility] ([place] Comment on above: Result Comment: Use of this assay is not recommended for patients undergoing treatment with eltrombopag due to the potential for falsely elevated results. Performed By: #### G LU1P, CBC, ADIFF, ANEU #### [place] [address] #### RPR #### [place] [address] BUN/Creatinine Ratio 11 ratio Normal 7-27 [facility] ([place] Comment on above: Performed By: #### G LU1P, CBC, ADIFF, ANEU #### [place] [address] #### RPR #### [address] [address] Calcium [Mass/Vol] 9.0 mg/dL Normal 8.4-10.2 [facility] ([place]) Comment on above: Performed By: #### G LU1P, CBC, ADIFF, ANEU #### [address] [address] #### RPR #### [address] [address] Chloride [Moles/Vol] 100 mmol/L Normal 98-107 [facility] ([place]) Comment on above: Performed By: #### G LU1P, CBC, ADIFF, ANEU #### [address] [address] #### RPR #### [address] [address] CO2 [Moles/Vol] 23 mmol/L Normal 22-29 [facility] ([place] Comment on above: Performed By: #### G LU1P, CBC, ADIFF, ANEU #### [address] [address] #### RPR #### [address] [address] Creatinine [Mass/Vol] 0.53 mg/dL Low 0.55-1.02 [facility] ([place]) Comment on above: Performed By: #### G LU1P, CBC, ADIFF, ANEU #### [address] [address] #### RPR #### [address] [address] Electrolyte Balance 13.0 mEq/L Normal 4.0-15.0 [facility] ([place] Comment on above: Performed By: #### G LU1P, CBC, ADIFF, ANEU #### [address] [address] #### RPR #### [address] [address] Globulin 3.7 G/dL Normal [facility] ([place] Comment on above: Performed By: #### G LU1P, CBC, ADIFF, ANEU #### [address] [address] #### RPR #### [address] [address] Glucose [Mass/Vol] 82 mg/dL Normal 70-105 [facility] ([place] Comment on above: Performed By: #### G LU1P, CBC, ADIFF, ANEU #### [address] [address] #### RPR #### [address] [address] Potassium [Moles/Vol] 4.1 mmol/L Normal 3.5-5.1 [facility] ([place]) Comment on above: Performed By: #### G LU1P, CBC, ADIFF, ANEU #### [address] [address] #### RPR #### [address] [address] Sodium [Moles/Vol] 136 mmol/L Normal 136-145 [facility] ([place] Comment on above: Performed By: #### G LU1P, CBC, ADIFF, ANEU #### [address] [address] #### RPR #### [address] [address] Total Protein 7.0 G/dL Normal 6.4-8.2 [facility] ([place] Comment on above: Performed By: #### G LU1P, CBC, ADIFF, ANEU #### [address] [address] #### RPR #### [address] [address] Urea nitrogen [Mass/Vol] 6 mg/dL Low 7-18 [facility] ([place] Comment on above: Performed By: #### G LU1P, CBC, ADIFF, ANEU #### [address] [address] #### RPR #### [address] [address] Gel ABOon 03-01-2023 ABO/Rh Interp Positive Invalid Interpretation Code [facility] ([place] Comment on above: Performed By: #### G LU1P, CBC, ADIFF, ANEU #### [address] [address] #### RPR #### [address] [address] Gel ABSon 03-01-2023 Antibody Screen Gel Negative Normal [facility] ([place] Comment on above: Performed By: #### G CHRISTIANO1P, CBC, ADIFF, ANEU #### [place] [id number] #### RPR #### [place] [address] HBSAGon 03-01-2023 Hep B Surf Ag Non-Reactive Normal Non-Reactiv [facility] ([place] Comment on above: Performed By: #### G CHRISTIANO1P, CBC, ADIFF, ANEU #### [address] [address] #### RPR #### [place] [address] HCVon 03-01-2023 Hep C Ab Non-Reactive Normal Non-[facility] ([place] Comment on above: Performed By: #### G RIKA, CBC, ADIFF, ANEU #### [address] [address] #### RPR #### [place] [address] Hep C Ab Int [facility] ([place]) Comment on above: Result Comment: Nonr eactive: Samples with a value < 0.80 are considered nonreactive (negative) for antibodies to HCV. A negative test result does not exclude the possibility of exposure to or infection with HCV. HCV antibodies may be undetectable in some stages of the infection and in some clinical conditions. See Interp Performed By: #### G CHRISTIANO1P, CBC, ADIFF, ANEU #### [address] [address] #### RPR #### [place] [address] HIVRPon 03-01-2023 HIV p24 Antigen Non-Reactive Normal Non-Reactiv [facility] ([place] Comment on above: Result Comment: Dete ction of p24 may be inhibited by biotin in the sample, causing false negative results in acute infection. Therefore do not test samples from patients who are taking biotin. Performed By: #### G LU1P, CBC, ADIFF, ANEU #### [address] [address] #### RPR #### [place] [address] HIV P24 Int Non-Reactive Invalid Interpretation Code [facility] ([place] Comment on above: Performed By: #### G LU1P, CBC, ADIFF, ANEU #### [place] [address] #### RPR #### [place] [address] Rapid HIV 1/2 Antibody Non-Reactive Normal Non-R eactiv e [facility] ([place] Comment on above: Performed By: #### G LU1P, CBC, ADIFF, ANEU #### [place] [address] #### RPR #### [place] [address] RHIV 1/2 Ab Int Non-Reactive Invalid Interpretation Code [facility] ([place] Comment on above: Performed By: #### G LU1P, CBC, ADIFF, ANEU #### [place] [address] #### RPR #### [place] [address] LABORATORYOrdered By: Alison Griffith on 03-01-2023 ABO/Rh Interp Positive Invalid Interpretation Code AO BB SS Antibody Screen Gel Negative ABSC (03/01/23 10:11 AM) Normal AO BB SS LABORATORYOrdered By: Magdy Vela on 03-01-2023 HIV 1 p24 Ab Ql (S) Non-Reactive 2 (03/01/23 10:11 AM) Normal Non-Reactiv e AO Rapid Testing SS Comment on above: [...] (Unsp spec) Non-Reactive (03/01/23 10:11 AM) Normal Non-Reactiv e AO Rapid Testing SS LABORATORYOrdered By: SYSTEM SYSTEM on 03-01-2023 Albumin BCP dye [Mass/Vol] [...] IA Ql Non-Reactive (03/01/23 10:10 AM) Normal Non-Reactiv e AH ADM SS Hematocrit (Bld) [Volume fraction] [...] 10^3/mcL AO Workflow SS LABORATORYOrdered By: Rashel geeta KamaraFacundo on 03-01-2023 HCV Ab IA Ql Non-Reactive (03/01/23 10:10 AM) Normal Non-Reactiv e AH ADM SS HCV Ab IA Ql Nonreactive: [...] trachomatis Interp Normal See CT Interp N [facility] ([place]) Comment on above: Result Comment: C. t rachomatis DNA not detected. Specimen is presumptive negative for C. trachomatis. A negative result does not preclude C. trachomatis infection because results depend on adequate specimen collection, absence of inhibitors, and sufficient DNA to be detected. See CT Interp N Performed By: #### A DIFF, CBC, ABSGEL, ANEU, ABOGEL #### [place] [address] #### RPR #### [address] [address] C.trachomatis PCR Negative Normal Negative [facility] ([place]) Comment on above: Result Comment: Mole fortunatoar (PCR) assay performed on the Shyam Williams 4800 system. Performed By: #### A DIFF, CBC, ABSGEL, ANEU, ABOGEL #### [address] [address] #### RPR #### [address] [address] Chlam Source Cervix Normal [facility] ([place] Comment on above: Performed By: #### A DIFF, CBC, ABSGEL, ANEU, ABOGEL #### [place] [address] #### RPR #### [address] [address] [id number] 02-24-2023 GC PCR Source Cervix Normal [facility] ([place] Comment on above: Performed By: #### A DIFF, CBC, ABSGEL, ANEU, ABOGEL #### [address] [address] #### RPR #### [address] [address] N. gonorrhoeae (PCR) Negative Normal Negative [facility] ([place]) Comment on above: Result Comment: Mole cular (PCR) assay performed on the Shyam Williams 4800 System. Performed By: #### A DIFF, CBC, ABSGEL, ANEU, ABOGEL #### [address] [address] #### RPR #### [address] [address] N. gonorrhoeae Interp Normal See NG Interp N [facility] ([place] Comment on above: Result Comment: N. g onorrhoeae DNA not detected. Specimen is presumptive negative for N. gonorrhoeae. A negative result does not preclude Neisseria gonorrhoeae infection because results depend on adequate specimen collection, absence of inhibitors, and sufficient DNA to be detected. See NG Interp N Performed By: #### A DIFF, CBC, ABSGEL, ANEU, ABOGEL #### [address] [address] #### RPR #### [address] [address] LABORATORYOrdered By: Loreta Elder on 02-23-2023 C. trachomatis DNA DAHIANA+probe Ql (Unsp spec) Negative 2 (02/23/23 1:54 PM) Normal Negative Auto Viro/Sero SS Comment on above: Interpretive [...] Negative 1 (02/23/23 1:54 PM) Normal Negative Auto Viro/Sero SS Comment on above: Interpretive [...] be detected. Normal See NG Interp N Auto Viro/Sero SS Laboratory - Specimen inform ationOrdered By: Loreta Elder on 02-23-2023 Specimen source Nom (Unsp spec) Cervix (02/23/23 1:54 PM) Normal Auto Viro/Sero SS HCGQon 01-21-2023 hCG, quantitative 812.8 mIU/mL Normal [facility] ([place]) Comment on above: Result Comment: HCG Levels [...] G LU1P, CBC, ADIFF, ANEU #### Kayla [address] [address] #### RPR #### [address] [address] LABORATORYOrdered By: SYSTEM SYSTEM on 01-21-2023 HCG [...] HCGQon 01-18-2023 hCG, quantitative 290.8 mIU/mL Normal [facility] ([place]) Comment on above: Result Comment: HCG Levels [...] G LU1P, CBC, ADIFF, ANEU #### Kayla Mcgreg[address] [place], [place] [address] #### RPR #### [address] [address] LABORATORYOrdered By: SYSTEM SYSTEM on 01-18-2023 HCG [...] mIU/mL HCGQon 11-24-2022 hCG, quantitative <1.0 Normal [facility] ([place] Comment on above: Result Comment: HCG Levels [...] G LU1P, CBC, ADIFF, ANEU #### [place] [address] [place], [place] [address] #### RPR #### [place] [address] LABORATORYOrdered By: Jasiel aNva on 09-01-2022 Fibrin D-dimer DDU (PPP) [Mass/Vol] [...] Mixed growth consistent with normal urogenital wandy. [facility] Work Phone: LABORATORYOrdered By: Viridiana Ring [...] Jan 29 2020 8:40AM EST (Author) Normal [employer] Chlamydia trachomatis PCRon 10-15-2016 Chlamydia trachomatis PCR Name: SONIYA HAYS D.o.b.: 2000 Sex: Rodas# Loc Src Site [id number] DFP GENTF 10/15/16NTIBIOTICS AT COL.:[place] [facility] [address], [place] [address]Uyoeogfop trachomatis PCR FINALC. trachomatis DNA not detected. Specimen is presumptivenegative for C. trachomatis. A negative result does notpreclude C. trachomatis infection because results dependon adequate specimen collection, absence of inhibitors, andsufficient DNA to be detected.OCHOA FOR RESULTS: - NEW RESULTATT.PHYS.: SHIVANI BARROS LOCATION: [facility].DATE: 10/15/16 PATIENT : SONIYA HAYS LEONACROBIOLOGYPRINTED: 10/16/16 06:56 REGULAR 2 PAGE: 2 of 1 1 [facility] Culture Genital Femaleon Culture Genital Female N tres: SONIYA HAYS.o.b.: 2000 Sex: Rodas# [facility] Site [id number] [facility] GENTF 10/15/NTIBIOTICS AT COL.:[place] [facility] PHYSICIAN [address], [place] [address]Dqjmsqo Microscopic FINALTrichomonas: NegativeYeast: NegativeCulture Genital Female FINALTESTING CURRENTLY IN PROGRESS.THIS ORDER FINALIZED DUE TO CONVERSION TO [employer] INFORMATION SYSTEM.TEST WILL BE REORDERED AND RESULTED IN Drone.ioORATORY INFORMATION SYSTEM.PATIENT WILL NOT INCUR DUPLICATE CHARGING.OCHOA FOR RESULTS: - NEW RESULTATT.PHYS.: SHIVANI BARROS LOCATION: [facility].DATE: 10/15/16 PATIENT : SAÚL SONIYA GODFREYOBIOLOGYPRINTED: 10/16/16 17:41 REGULAR 2 PAGE: 2 of 1 1 [facility] N. gonorrhoeae PCRon 017 N. gonorrhoeae PCR Name : SONIYA HAYS.o.b.: 2000 Sex: Rodas# Loc [facility] Site [id number] [facility] GENTF 10/15/17ANTIBIOTICS AT COL.:[place] [facility] [address], [place] [address]Q. gonorrhoeae PCR FINALN. gonorrhoeae DNA not detected. Specimen is presumptivenegative for N. gonorrhoeae. A negative result does notpreclude Neisseria gonorrhoeae infection because resultsdepend on adequate specimen collection, absence ofinhibitors, and sufficient DNA to be detected.OCHOA FOR RESULTS: - NEW RESULTATT.PHYS.: SHIVANI BARROS LOCATION: [facility]--ADM.DATE: 10/15/16 PATIENT : SONIYA HAYS AMICROBIOLOGYPRINTED: 10/16/16 06:57 REGULAR 2 PAGE: 2 of 1 1 Normal [facility] Vital Signs Date Time Vital Sign Value Performing Clinician Facility 01-06-2025 18:48-0400 Body temperature 97.5 [degF] Amanda Roldan VICE PRESIDENT OF SOFTWARE ENGINEERING-C Work Phone: [facility] 01-06-2025 18:48-0400 Diastolic blood pressure 62 mm[Hg] Amanda Roldan VICE PRESIDENT OF SOFTWARE ENGINEERING-C Work Phone: [facility] 01-06-2025 18:48-0400 Heart rate 72 /min [place] Roldan VICE PRESIDENT OF SOFTWARE ENGINEERING-C Work Phone: [facility] 01-06-2025 18:48-0400 Respiratory rate 18 /min [place] Roldan VICE PRESIDENT OF SOFTWARE ENGINEERING-C Work Phone: [facility] 01-06-2025 18:48-0400 SaO2% (BldA) [Mass fraction] 100 % Amanda Roldan VICE PRESIDENT OF SOFTWARE ENGINEERING-C Work Phone: [facility] 01-06-2025 18:48-0400 Systolic blood pressure 98 mm[Hg] Amanda Roldan VICE PRESIDENT OF SOFTWARE ENGINEERING-C Work Phone: [facility] 01-06-2025 15:45-0400 Body height 154.94 cm Amanda Roldan VICE PRESIDENT OF SOFTWARE ENGINEERING-C Work Phone: [facility] 01-06-2025 15:45-0400 Body mass index (BMI) [Ratio] 34.5 kg/m2 Amanda Roldan VICE PRESIDENT OF SOFTWARE ENGINEERING-C Work Phone: [facility] 01-06-2025 15:45-0400 Body weight 83 kg Amanda Roldan VICE PRESIDENT OF SOFTWARE ENGINEERING-C Work Phone: [facility] 11-16-2024 08:13-0400 Body temperature 97.39 [degF] Rupert Mansfield [employer]ICAL PLANT MANAGER Work Phone: [facility] 11-16-2024 08:13-0400 Body weight 79.6 kg Rupert Mansfield [employer]ICAL PLANT MANAGER Work Phone: [facility] 11-16-2024 08:13-0400 Diastolic blood pressure 83 mm[Hg] Rupert Mansfield [employer] W[employer]ER.CHEMICAL PLANT MANAGER Work Phone: [facility] 11-16-2024 08:13-0400 Heart rate 58 /min Rupert Mansfield [employer]MICAL PLANT MANAGER Work Phone: [facility] 11-16-2024 08:13-0400 Respiratory rate 18 /min Rupert Mansfield [employer] W[employer].CHEMICAL PLANT MANAGER Work Phone: [facility] 11-16-2024 08:13-0400 SaO2% (BldA) [Mass fraction] 100 % Rupert Mansfield [employer].CHEMICAL PLANT MANAGER Work Phone: [facility] 11-16-2024 08:13-0400 Systolic blood pressure 119 mm[Hg] Rupert Donal [employer] W[employer].CHEMICAL PLANT MANAGER Work Phone: [facility] 10-27-2024 10:20-0400 Body temperature 98.4 [degF] Krislyn Aberegg PA Work Phone: [facility] 10-27-2024 10:20-0400 Body weight 76.3 kg Krislyn Aberegg PA Work Phone: [facility] 10-27-2024 10:20-0400 Diastolic blood pressure 60 mm[Hg] Krislyn Aberegg PA Work Phone: [facility] 10-27-2024 10:20-0400 Heart rate 87 /min Krislyn Aberegg PA Work Phone: [facility] 10-27-2024 10:20-0400 Respiratory rate 18 /min Krislyn Aberegg PA Work Phone: [facility] 10-27-2024 10:20-0400 SaO2% (BldA) [Mass fraction] 97 % Mara Davis PA Work Phone: [facility] 10-27-2024 10:20-0400 Systolic blood pressure 100 mm[Hg] Mara Davis PA Work Phone: [facility] 02-28-2024 09:35-0500 Body temperature 98.1 [degF] Robby Mcdaniels MD Work Phone: [facility] 02-28-2024 09:35-0500 Body weight 77 kg Robby Mcdaniels MD Work Phone: [facility] 02-28-2024 09:35-0500 Diastolic blood pressure 70 mm[Hg] Robby Mcdaniels MD Work Phone: [facility] 02-28-2024 09:35-0500 Heart rate 80 /min Robby Mcdaniels MD Work Phone: [facility] 02-28-2024 09:35-0500 Respiratory rate 16 /min Robby Mcdaniels MD Work Phone: [facility] 02-28-2024 09:35-0500 SaO2% (BldA) [Mass fraction] 97 % Robby Mcdaniels MD Work Phone: [facility] 02-28-2024 09:35-0500 Systolic blood pressure 122 mm[Hg] Robby Mcdaniels MD Work Phone: [facility] 10-07-2023 20:57-0400 Diastolic Blood Pressure Non-Invasive 61 mm[Hg] DR SARAI MAXWELL MD [facility] 10-07-2023 20:57-0400 Heart rate 54 /min DR SARAI MAXWELL MD [facility] 10-07-2023 20:57-0400 Mean blood pressure 74 mm[Hg] DR SARAI MAXWELL MD [facility] 10-07-2023 20:57-0400 Respiratory rate 16 /min DR SARAI MAXWELL MD [facility] 10-07-2023 20:57-0400 Systolic Blood Pressure Non-Invasive 101 mm[Hg] DR SARAI MAXWELL MD [facility] 10-07-2023 18:29-0400 Body height [address] SARAI MAXWELL MD [facility] 10-07-2023 18:29-0400 Body temperature 97.16 [degF] DR SARAI MAXWELL MD [facility] 10-07-2023 18:29-0400 Body weight 78.[address] SARAI MAXWELL MD [facility] 10-07-2023 18:29-0400 Diastolic Blood Pressure Non-Invasive 74 mm[Hg] DR SARAI MAXWELL MD [facility] 10-07-2023 18:29-0400 Heart rate 74 /min DR SARAI MAXWELL MD [facility] 10-07-2023 18:29-0400 Respiratory rate 18 /min DR SARAI MAXWELL MD [facility] 10-07-2023 18:29-0400 Systolic Blood Pressure Non-Invasive 104 mm[Hg] DR SARAI MAXWELL MD [facility] 09-03-2023 08:41-0400 Body temperature 98.42 [degF] AMANDA GREENWOOD [employer]ER-CNM [facility] 09-03-2023 08:41-0400 Diastolic Blood Pressure Non-Invasive 63 mm[Hg] AMANDA GREENWOOD [employer]-CNM [facility] 09-03-2023 08:41-0400 Heart rate 66 /min AMANDA BEITLER [employer]CN[employer] [facility] 09-03-2023 08:41-0400 Respiratory rate 18 /min AMANDA BEITLER [employer]CN[employer] [facility] 09-03-2023 08:41-0400 Systolic Blood Pressure Non-Invasive 103 mm[Hg] AMANDA BEITLER [employer] [facility] 09-02-2023 23:38-0400 Body temperature 98.06 [degF] AMANDA BEITLER [employer]CN[employer] [facility] 09-02-2023 23:38-0400 Diastolic Blood Pressure Non-Invasive 60 mm[Hg] AMANDA BEITLER [employer] [facility] 09-02-2023 23:38-0400 Heart rate 72 /min AMANDA BEITLER [employer] [facility] 09-02-2023 23:38-0400 Respiratory rate 18 /min AMANDA BEITLER [employer] [facility] 09-02-2023 23:38-0400 Systolic Blood Pressure Non-Invasive 113 mm[Hg] AMANDA BEITLER [employer] [facility] 09-02-2023 18:00-0400 Body temperature 97.7 [degF] AMANDA BEITLER [employer] [facility] 09-02-2023 18:00-0400 Diastolic Blood Pressure Non-Invasive 55 mm[Hg] AMANDA BEITLER [employer] [facility] 09-02-2023 18:00-0400 Respiratory rate 16 /min AMANDA BEITLER [employer] [facility] 09-01-2023 23:22-0400 Body temperature 98.24 [degF] AMANDA BEITLER [employer] [facility] 09-01-2023 18:00-0400 Body temperature 98.06 [degF] AMANDA BEITLER [employer] [facility] 09-01-2023 16:45-0400 Body temperature 97.88 [degF] AMANDA BEITLER [employer] [facility] 09-01-2023 06:01-0400 Reason For Taking VItal Signs AMANDA MARLINITLER [employer] [facility] 09-01-2023 05:56-0400 Body height 155 cm AMANDAPALAK ISAACITLER [employer] [facility] 09-01-2023 05:56-0400 Body weight 89 kg AMANDA BEITLER [employer] [facility] 09-01-2023 05:56-0400 Body weight 37.04 kg/m2 AMANDA BEITLER [employer] [facility] 08-26-2023 12:54-0400 Body temperature 97.88 [degF] AMANDA BEITLER [employer] [facility] 08-26-2023 12:54-0400 Diastolic Blood Pressure Non-Invasive 71 mm[Hg] AMANDA BEITLER [employer] [facility] 08-26-2023 12:54-0400 Heart rate 91 /min AMANDA BEITLER [employer] [facility] 08-26-2023 12:54-0400 Reason For Taking VItal Signs AMANDA BEITLER [employer] [facility] 08-26-2023 12:54-0400 Respiratory rate 16 /min AMANDA BEITLER [employer] [facility] 08-26-2023 12:54-0400 Systolic Blood Pressure Non-Invasive 106 mm[Hg] AMANDA BEITLER [employer] [facility] 08-25-2023 12:55-0400 Body temperature 97.52 [degF] AMANDA BEITLER [employer] [facility] 08-25-2023 12:55-0400 Diastolic Blood Pressure Non-Invasive 79 mm[Hg] AMANDA BEITLER [employer] [facility] 08-25-2023 12:55-0400 Heart rate 99 /min AMANDA BEITLER [employer] [facility] 08-25-2023 12:55-0400 Respiratory rate 18 /min AMANDA BEITLER [employer] [facility] 08-25-2023 12:55-0400 Systolic Blood Pressure Non-Invasive 117 mm[Hg] AMANDA BEITLER [employer] [facility] 08-25-2023 12:03-0400 Body temperature 97.88 [degF] AMANDA BEITLER [employer] [facility] 08-25-2023 12:03-0400 Diastolic Blood Pressure Non-Invasive 77 mm[Hg] AMANDA BEITLER [employer] [facility] 08-25-2023 12:03-0400 Heart rate 96 /min AMANDA BEITLER [employer] [facility] 08-25-2023 12:03-0400 Respiratory rate 16 /min AMANDA BEITLER [employer] [facility] 08-25-2023 12:03-0400 Systolic Blood Pressure Non-Invasive 118 mm[Hg] AMANDA BEITLER [employer] [facility] 08-24-2023 10:59-0400 Body temperature 97.7 [degF] AMANDA BEITLER [employer] [facility] 08-24-2023 10:59-0400 Diastolic Blood Pressure Non-Invasive 70 mm[Hg] AMANDA BEITLER [employer] [facility] 08-24-2023 10:59-0400 Heart rate 89 /min AMANDA BEITLER [employer] [facility] 08-24-2023 10:59-0400 Respiratory rate 16 /min AMANDA BEITLER [employer] [facility] 08-24-2023 10:59-0400 Systolic Blood Pressure Non-Invasive 116 mm[Hg] AMANDA BEITLER [employer] [facility] 08-17-2023 10:17-0400 Body temperature 98.6 [degF] AMANDA BEITLER [employer] [facility] 08-17-2023 10:17-0400 Diastolic Blood Pressure Non-Invasive 66 mm[Hg] AMANDA BEITLER [employer] [facility] 08-17-2023 10:17-0400 Heart rate 89 /min AMANDA BEITLER [employer] [facility] 08-17-2023 10:17-0400 Respiratory rate 16 /min AMANDA BEITLER [employer] [facility] 08-17-2023 10:17-0400 Systolic Blood Pressure Non-Invasive 102 mm[Hg] AMANDA BEITLER [employer] [facility] 08-13-2023 09:40-0400 Body temperature 98.06 [degF] AMANDA BEITLER [employer] [facility] 08-13-2023 09:40-0400 Diastolic Blood Pressure Non-Invasive 63 mm[Hg] AMANDA BEITLER [employer] [facility] 08-13-2023 09:40-0400 Heart rate 100 /min AMANDA BEITLER [employer] [facility] 08-13-2023 09:40-0400 Respiratory rate 14 /min AMANDA BEITLER [employer] [facility] 08-13-2023 09:40-0400 Systolic Blood Pressure Non-Invasive 97 mm[Hg] AMANDA BEITLER [employer] [facility] 08-03-2023 11:26-0400 Body temperature 98.24 [degF] AMANDA BEITLER [employer] [facility] 08-03-2023 11:26-0400 Diastolic Blood Pressure Non-Invasive 62 mm[Hg] AMANDA BEITLER [employer] [facility] 08-03-2023 11:26-0400 Heart rate 101 /min AMANDA BEITLER [employer] [facility] 08-03-2023 11:26-0400 Respiratory rate 18 /min AMANDA BEITLER [employer] [facility] 08-03-2023 11:26-0400 Systolic Blood Pressure Non-Invasive 99 mm[Hg] AMANDA BEITLER [employer] [facility] 07-30-2023 13:10-0400 Body temperature 97.88 [degF] MARYAN PLUNKETT MD [facility] 07-30-2023 13:10-0400 Diastolic Blood Pressure Non-Invasive 61 mm[Hg] MARYAN PLUNKETT MD [facility] 07-30-2023 13:10-0400 Heart rate 91 /min MARYAN PLUNKETT MD [facility] 07-30-2023 13:10-0400 Respiratory rate 16 /min MARYAN PLUNKETT MD [facility] 07-30-2023 13:10-0400 Systolic Blood Pressure Non-Invasive 110 mm[Hg] MARYAN PLUNKETT MD [facility] 07-27-2023 13:35-0400 Body temperature 97.7 [degF] AMANDA BEITLER [employer] [facility] 07-27-2023 13:35-0400 Diastolic Blood Pressure Non-Invasive 55 mm[Hg] AMANDA BEITLER [employer]CN[employer] [facility] 07-27-2023 13:35-0400 Heart rate 78 /min AMANDA BEITLER [employer] [facility] 07-27-2023 13:35-0400 Respiratory rate 16 /min AMANDA BEITLER [employer] [facility] 07-27-2023 13:35-0400 Systolic Blood Pressure Non-Invasive 96 mm[Hg] AMANDA BEITLER [employer] [facility] 07-23-2023 12:40-0400 Body temperature 98.06 [degF] AMANDA BEITLER [employer] [facility] 07-23-2023 12:40-0400 Diastolic Blood Pressure Non-Invasive 61 mm[Hg] AMANDA BEITLER [employer] [facility] 07-23-2023 12:40-0400 Heart rate 98 /min AMANDA BEITLER [employer] [facility] 07-23-2023 12:40-0400 Reason For Taking VItal Signs AMANDA BEITLER [employer] [facility] 07-23-2023 12:40-0400 Respiratory rate 18 /min AMANDA BEITLER [employer] [facility] 07-23-2023 12:40-0400 Systolic Blood Pressure Non-Invasive 100 mm[Hg] AMANDA BEITLER [employer] [facility] 07-20-2023 12:07-0400 Body temperature 98.06 [degF] AMANDA BEITLER [employer] [facility] 07-20-2023 12:07-0400 Diastolic Blood Pressure Non-Invasive 61 mm[Hg] AMANDA BEITLER [employer] [facility] 07-20-2023 12:07-0400 Heart rate 77 /min AMANDA BEITLER [employer] [facility] 07-20-2023 12:07-0400 Reason For Taking VItal Signs AMANDA BEITLER [employer] [facility] 07-20-2023 12:07-0400 Respiratory rate 18 /min AMANDA BEITLER [employer] [facility] 07-20-2023 12:07-0400 Systolic Blood Pressure Non-Invasive 106 mm[Hg] AMANDA BEITLER [employer] [facility] 07-16-2023 16:39-0400 Body temperature 98.6 [degF] MARYAN PLUNKETT MD [facility] 07-16-2023 16:39-0400 Diastolic Blood Pressure Non-Invasive 60 mm[Hg] MARYAN PLUNKETT MD [facility] 07-16-2023 16:39-0400 Heart rate 73 /min MARYAN PLUNKETT MD [facility] 07-16-2023 16:39-0400 Respiratory rate 16 /min MARYAN PLUNKETT MD [facility] 07-16-2023 16:39-0400 Systolic Blood Pressure Non-Invasive 103 mm[Hg] MARYAN PLUNKETT MD [facility] 06-14-2023 09:35-0400 Body temperature 97.9 [degF] Robby Mcdaniels MD Work Phone: [facility] 06-14-2023 09:35-0400 Body weight 82.7 kg Robby Mcdaniels MD Work Phone: [facility] 06-14-2023 09:35-0400 Diastolic blood pressure 82 mm[Hg] Robby Mcdaniels MD Work Phone: [facility] 06-14-2023 09:35-0400 Heart rate 78 /min Robby Mcdaniels MD Work Phone: [facility] 06-14-2023 09:35-0400 Respiratory rate 18 /min Robby Mcdaniels MD Work Phone: [facility] 06-14-2023 09:35-0400 SaO2% (BldA) [Mass fraction] 97 % Robby Mcdaniels MD Work Phone: [facility] 06-14-2023 09:35-0400 Systolic blood pressure 130 mm[Hg] oRbby Mcdaniels MD Work Phone: [facility] 06-02-2023 14:08-0500 Body height 155 cm CINTHYA RUEDA MD [facility] 06-02-2023 14:08-0500 Body temperature 97.88 [degF] CINTHYA RUEDA MD [facility] 06-02-2023 14:08-0500 Body weight 72.7 kg CINTHYA RUEDA MD [facility] 06-02-2023 14:08-0500 Body weight 30.26 kg/m2 CINTHYA RUEDA MD [facility] 06-02-2023 14:08-0500 Diastolic Blood Pressure Non-Invasive 56 mm[Hg] CINTHYA RUEDA MD [facility] 06-02-2023 14:08-0500 Heart rate 74 /min CINTHYA RUEDA MD [facility] 06-02-2023 14:08-0500 Respiratory rate 16 /min CINTHYA RUEDA MD [facility] 06-02-2023 14:08-0500 Systolic Blood Pressure Non-Invasive 107 mm[Hg] CINTHYA RUEDA MD [facility] 01-28-2021 00:47-0400 Body temperature 97.7 [degF] SRI BARRAZA MD [facility] 01-28-2021 00:47-0400 Diastolic blood pressure 61 mm[Hg] SRI BARRAZA MD [facility] 01-28-2021 00:47-0400 Heart rate 82 /min SRI BARRAZA MD [facility] 01-28-2021 00:47-0400 Reason For Taking VItal Signs SRI BARRAZA MD [facility] 01-28-2021 00:47-0400 Respiratory rate 16 /min SRI BARRAZA MD [facility] 01-28-2021 00:47-0400 Systolic blood pressure 98 mm[Hg] SRI BARRAZA MD [facility] 01-27-2021 21:36-0400 Body temperature 98.24 [degF] SRI BARRAZA MD [facility] 01-27-2021 21:36-0400 Diastolic blood pressure 65 mm[Hg] SRI BARRAZA MD [facility] 01-27-2021 21:36-0400 Heart rate 90 /min SRI BARRAZA MD [facility] 01-27-2021 21:36-0400 Reason For Taking VItal Signs SRI BARRAZA MD [facility] 01-27-2021 21:36-0400 Systolic blood pressure 101 mm[Hg] SRI BARRAZA MD [facility] 01-27-2021 16:30-0400 Diastolic blood pressure 67 mm[Hg] SRI BARRAZA MD [facility] 01-27-2021 16:30-0400 Heart rate 85 /min SRI BARRAZA MD [facility] 01-27-2021 16:30-0400 Mean blood pressure 72 mm[Hg] SRI BARRAZA MD [facility] 01-27-2021 16:30-0400 Respiratory rate 18 /min SRI BARRAZA MD [facility] 01-27-2021 16:30-0400 Systolic blood pressure 82 mm[Hg] SRI BARRAZA MD [facility] 01-27-2021 16:15-0400 Mean blood pressure 63 mm[Hg] SRI BARRAZA MD [facility] 01-27-2021 16:15-0400 Respiratory rate 20 /min SRI BARRAZA MD [facility] 01-27-2021 16:00-0400 Mean blood pressure 67 mm[Hg] SRI BARRAZA MD [facility] 01-27-2021 15:00-0400 Body temperature 97.88 [degF] SRI BARRAZA MD [facility] 01-27-2021 13:30-0400 Body temperature 97.7 [degF] SRI BARRAZA MD [facility] 01-27-2021 06:04-0400 Body height 155 cm SRI BARRAZA MD [facility] 01-27-2021 06:04-0400 Body temperature 96.98 [degF] SRI BARRAZA MD [facility] 01-27-2021 06:04-0400 Body weight 85 kg SRI BARRAZA MD [facility] 01-27-2021 06:04-0400 Body weight 35.38 kg/m2 SRI BARRAZA MD [facility] Encounters Encounter Date Encounter Type Care Provider Facility Start: 01-11-2025 End: 01-15-2025 ambulatory SRI BARRAZA MD Facility:[facility] Start: 01-11-2025 End: 01-15-2025 Outreach Lab SRI BARRAZA MD [facility] Start: 01-06-2025 End: 01-06-2025 Emergency department patient visit Amanda WALTERS Work Phone: -Emergency Department Work Phone: Start: 01-02-2025 End: 01-02-2025 ambulatory ZARINATERESA RUSSELL [employer] MANAGER [facility] [facility] Start: 01-02-2025 End: 01-02-2025 Patient encounter procedure 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 [facility] Start: 12-11-2024 End: 12-15-2024 ambulatory 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 Facility:[facility] Start: 12-11-2024 End: 12-15-2024 Outreach Lab 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 [facility] Start: 11-16-2024 End: 11-16-2024 Subsequent hospital visit by physician Xr [facility] Work Phone: Radiology Comment on above: Acute cough [R05.1] Start: 11-16-2024 End: 11-16-2024 Patient encounter procedure Rupert Mansfield [employer]ANT MANAGER Work Phone: [facility] Comment on above: Tooth pain (Primary Dx); Acute cough Start: 11-16-2024 End: 11-16-2024 ambulatory RUPERT MANSFIELD Facility:[facility] Start: 10-27-2024 End: 10-27-2024 Patient encounter procedure Mara Davis PA Work Phone: [facility] Comment on above: Bronchitis (Primary Dx) Start: 10-27-2024 End: 10-27-2024 ambulatory MARA DAVIS Facility:[facility] Start: 08-04-2024 End: 08-04-2024 ambulatory Patricio LUIS Facility:[facility] Start: 07-27-2024 End: 07-31-2024 ambulatory AMANDA ROLDAN [employer] MANAGER Facility:[facility] Start: 07-27-2024 End: 07-31-2024 Outreach Lab AMANDA ROLDAN [employer] MANAGER [facility] Start: 07-27-2024 End: 07-27-2024 ambulatory AMANDA ROLDAN [employer] MANAGER Facility:[facility] Start: 07-27-2024 End: 07-27-2024 Patient encounter procedure AMANDA ROLDAN [employer] MANAGER [facility] Start: 02-28-2024 End: 02-28-2024 Office outpatient visit 25 minutes Robby Mcdaniels MD Work Phone: [facility] Comment on above: Acute otitis media, left (Primary Dx) Start: 02-28-2024 End: 02-28-2024 ambulatory AMANDA Jeannie YULI Facility:[facility] Start: 10-07-2023 End: 10-07-2023 Emergency department patient visit DR SARAI MAXWELL MD [facility] Start: 09-03-2023 ambulatory AMANDA SAL ER [employer] MANAGER Facility:B Start: 09-01-2023 End: 09-03-2023 Evaluation and management of inpatient AMANDA ABDIROHAN [employer] [facility] Start: 08-31-2023 End: 08-31-2023 ambulatory AMANDA S YULI [facility] Start: 08-26-2023 End: 08-26-2023 SAME DAY STAY AMANDACHINA GREENWOOD [employer] [facility] Start: 08-26-2023 End: 08-26-2023 ambulatory MARYAN PLUNKETT MD Facility:[facility] Start: 08-25-2023 End: 08-25-2023 ambulatory AMANDACHINA ISAACITROHAN [employer]CNM Facility:[facility] Start: 08-25-2023 End: 08-25-2023 SAME DAY STAY AMANDACHINA ISAACITROHAN [employer] [facility] Start: 08-24-2023 End: 08-24-2023 SAME DAY STAY AMANDACHINA ISAACITROHAN [employer] [facility] Start: 08-24-2023 End: 08-24-2023 ambulatory AMANDA Ray ISAACITROHAN [employer]CNM Facility:[facility] Start: 08-24-2023 End: 08-24-2023 Patient encounter procedure AMANDACHINA ISAACITROHAN [employer] [facility] Start: 08-19-2023 End: 08-23-2023 ambulatory AMANDA Ray ISAACITLER [employer]CNM Facility:[facility] Start: 08-19-2023 End: 08-23-2023 Outreach Lab AMANDA Ray ISAACITROHAN [employer] [facility] Start: 08-17-2023 End: 08-17-2023 SAME DAY STAY AMANDACHINA ISAACITROHAN [employer] [facility] Start: 08-17-2023 End: 08-17-2023 ambulatory AMANDA ISAACITROHAN [employer]CNM Facility:[facility] Start: 08-17-2023 End: 08-17-2023 Patient encounter procedure AMANDA GREENWOOD [employer]M [facility] Start: 08-13-2023 End: 08-13-2023 ambulatory AMANDA ISAACITROHAN [employer]CNM Facility:[facility] Start: 08-13-2023 End: 08-13-2023 SAME DAY STAY AMANDA ISAACITROHAN [employer] [facility] Start: 08-11-2023 ambulatory AMANDA Dennis WITM ER [employer] MANAGER Facility:[facility] Start: 08-11-2023 End: 09-04-2024 Lab-Standing Order CINTHYA RUEDA MD [facility] Start: 08-10-2023 End: 08-10-2023 ambulatory AMANDA GREENWOOD [employer]-CNM Facility:[facility] Start: 08-10-2023 End: 08-10-2023 Patient encounter procedure AMANDA GREENWOOD [employer]M [facility] Start: 08-05-2023 ambulatory AMANDA S WITM ER [employer] MANAGER Facility:[facility] Start: 08-03-2023 End: 08-03-2023 SAME DAY STAY AMANDA GREENWOOD [employer] [facility] Start: 08-03-2023 End: 08-03-2023 ambulatory AMANDA S YULI [employer] MANAGER Facility:[facility] Start: 08-03-2023 End: 08-03-2023 Patient encounter procedure CINTHYA RUEDA MD [facility] Start: 08-02-2023 End: 08-02-2023 ambulatory JAD CARBAJAL [facility] Start: 07-30-2023 End: 07-30-2023 ambulatory AMANDA ROLDAN [employer] MANAGER Facility:[facility] Start: 07-30-2023 End: 07-30-2023 SAME DAY STAY MARYAN PLUNKETT MD [facility] Start: 07-29-2023 ambulatory AMANDA SAL DEN [employer] MANAGER Facility:[facility] Start: 07-27-2023 End: 07-27-2023 ambulatory AMANDA Bell MARLINITROHAN [employer]CNM Facility:[facility] Start: 07-27-2023 End: 07-27-2023 SAME DAY STAY AMANDA GREENWOOD [employer]CNM [facility] Start: 07-27-2023 End: 07-27-2023 ambulatory AMANDA ROLDAN [employer] MANAGER Facility:[facility] Start: 07-26-2023 End: 07-26-2023 ambulatory 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 Facility:[facility] Start: 07-26-2023 End: 07-26-2023 Patient encounter procedure 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 [facility] Start: 07-23-2023 End: 07-23-2023 ambulatory AMANDA ROLDAN [employer] MANAGER Facility:[facility] Start: 07-23-2023 End: 07-23-2023 SAME DAY STAY AMANDA Bell MARLINMEREDITHROHAN [employer] [facility] Start: 07-22-2023 End: 07-26-2023 ambulatory 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 Facility:[facility] Start: 07-22-2023 End: 07-26-2023 Outreach Lab 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 [facility] Start: 07-20-2023 End: 07-20-2023 SAME DAY STAY AMANDAPALAK ABDIROHAN [employer]M [facility] Start: 07-20-2023 End: 07-20-2023 ambulatory AMANDA ROLDAN [employer] MANAGER Facility:[facility] Start: 07-20-2023 End: 07-20-2023 Patient encounter procedure CINTHYA RUEDA MD [facility] Start: 07-16-2023 End: 07-16-2023 ambulatory AMANDA ROLDAN [employer] MANAGER Facility:[facility] Start: 07-16-2023 End: 07-16-2023 SAME DAY STAY MARYAN PLUNKETT MD [facility] Start: 07-09-2023 End: 07-09-2023 ambulatory AMANDA ROLDAN [employer] MANAGER Facility:[facility] Start: 07-05-2023 End: 07-05-2023 ambulatory ENRIQUE [facility] Start: 06-15-2023 Telephone encounter Mraa LUIS Work Phone: [facility] Comment on above: Results Start: 06-14-2023 End: 06-14-2023 Patient encounter procedure Robby Mcdaniels MD Work Phone: [facility] Comment on above: URI, acute (Primary Dx); Sore throat Start: 06-02-2023 End: 06-02-2023 ambulatory AMANDA ROLDAN [employer] MANAGER Facility:[facility] Start: 06-02-2023 End: 06-02-2023 SAME DAY STAY CINTHYA RUEDA MD [facility] Start: 05-21-2023 ambulatory AMANDA SAL DEN [employer] MANAGER Facility:[facility] Start: 05-05-2023 End: 05-05-2023 ambulatory CINTHYA RUEDA [facility] Start: 04-28-2023 End: 04-28-2023 ambulatory 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 Facility:[facility] Start: 04-28-2023 End: 04-28-[address] KELLEY POLK MD [facility] Start: 04-09-2023 End: 04-09-2023 ambulatory AMANDA Dennis YULI [employer] MANAGER Facility:[facility] Start: 04-09-2023 End: 04-09-2023 Patient encounter procedure AMANDA Ray ISAACITROHAN [employer] [facility] Start: 03-24-2023 End: 03-24-2023 ambulatory CINTHYA E MARYBETH [facility] Start: 03-22-2023 End: 03-26-2023 ambulatory AMANDA Dennis YULI [employer] MANAGER Facility:[facility] Start: 03-22-2023 End: 03-26-2023 Outreach Lab SRI BARRAZA MD [facility] Start: 03-15-2023 End: 03-19-2023 ambulatory AMANDA Dennis YULI [employer] MANAGER Facility:[facility] Start: 03-15-2023 End: 03-19-2023 Outreach Lab 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 [facility] Start: 03-12-2023 End: 03-12-2023 ambulatory AMANDA Ray BEITLER [employer]-CNM Facility:[facility] Start: 03-01-2023 End: 03-01-2023 ambulatory AMANDA S YULI [employer] MANAGER Facility:[facility] Start: 03-01-2023 End: 03-01-2023 Patient encounter procedure AMANDA Bell BEITROHAN [employer]CNM [facility] Start: 02-23-2023 End: 02-27-2023 ambulatory AMANDA R BEITLER [employer]-CNM Facility:[facility] Start: 02-23-2023 End: 02-27-2023 Outreach Lab AMANDA GREENWOOD [employer]CNM [facility] Start: 02-08-2023 End: 02-08-2023 ambulatory AMANDA GREENWOOD [employer]-CNM Facility:[facility] Start: 01-21-2023 End: 01-21-2023 ambulatory SRI BARRAZA MD Facility:[facility] Start: 01-21-2023 End: 01-21-2023 Patient encounter procedure SRI BARRAZA MD [facility] Start: 01-18-2023 End: 01-18-2023 ambulatory SRI BARRAZA MD Facility:[facility] Start: 01-18-2023 End: 01-18-2023 Patient encounter procedure SRI BARRAZA MD [facility] Start: 11-24-2022 End: 11-24-2022 ambulatory AMANDA ROLDAN [employer] MANAGER Facility:[facility] Start: 09-01-2022 End: 09-01-2022 Patient encounter procedure ALEKSANDRA VINES [employer] MANAGER [facility] Start: 03-24-2022 End: 03-24-2022 Patient encounter procedure WANEMILIE ELLIOTT [employer]ANT MANAGER [facility] Start: 02-05-2022 End: 02-05-2022 Patient encounter procedure ZARINA 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 [facility] Start: 11-17-2021 End: 11-21-2021 Outreach Lab SRI BARRAZA MD [facility] Start: 09-04-2021 End: 09-04-2021 Patient encounter procedure AMANDA ROLDAN [employer] PLANT MANAGER [facility] Start: 03-06-2021 End: 03-10-2021 Outreach Lab SRI BARRAZA MD [facility] Start: 01-27-2021 End: 01-28-2021 Evaluation and management of inpatient SRI BARRAZA MD [facility] Start: 01-24-2021 End: 01-24-2021 Patient encounter procedure SRI BARRAZA MD [facility] Start: 01-20-2021 End: 01-20-2021 Patient encounter procedure 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 [facility] Start: 01-13-2021 End: 01-13-2021 Patient encounter procedure 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 [facility] Start: 10-15-2016 Ambulatory SHIVANI Delgado y:[facility] Procedures Date Procedure Procedure Detail Performing Clinician Start: 01-06-2025 CT angiography of ch est with contrast Amanda Roldan NP-C Work Phone: Start: 01-06-2025 Estimated creatinine clearance Amanda Roldan VICE PRESIDENT OF SOFTWARE ENGINEERING-C Work Phone: Start: 01-06-2025 SARS-CoV-2, Influenz a & RSV (PCR) Amanda Roldan VICE PRESIDENT OF SOFTWARE ENGINEERING-C Work Phone: Start: 11-16-2024 Radiologic exam ches t 2 views Rupert Mansfield [employer] PLANT MANAGER Work Phone: Start: 06-14-2023 STREP A MOLECULAR (POC) Robby Mcdaniels MD Work Phone: Start: 04-05-2011 Tonsillectomy ZARNIA PHAN [employer] PLANT MANAGER Plan of Treatment Date Care Activity Detail Author Start: 01-06-2025 [facility] Start: 01-06-2025 [facility] Start: 12-04-2024 Influenza vaccination Influenza Vaccine (#1) [facility] Start: 12-05-2023 Covid-19 Vaccine ( season) Covid-19 Vaccine ( season) [facility] Start: 12-05-2023 Influenza vaccination Influenza Vaccine (#1) [facility] Start: 04-05-2023 Depression Assessment Depression Assessment [facility] Start: 12-04-2022 Covid-19 Vaccine ( season) Covid-19 Vaccine ( season) [facility] Start: 12-04-2022 Influenza vaccination Influenza Vaccine (#1) [facility] Start: 12-22-2020 Urine microalbumin profile DTaP,Tdap,Td Vaccine (6 - Td or Tdap) [facility] Start: 2019 Screening for malignant neoplasm of cervix [facility] Start: 2016 Anxiety Screening Anxiety Screening [facility] Start: 2016 Depression Screening Depression Screening [facility] Start: 2016 Hepatitis C screening Hepatitis C Screening [facility] Start: 2016 HIV screening HIV Screening [facility] Start: 02-18-2016 HPV Vaccine (2 - 3-dose series) HPV Vaccine (2 - 3-dose series) [facility] Start: 2012 Peds To Adult Transition Annual Assessment Peds To Adult Transition Annual Assessment [facility] Start: 2010 Peds To Adult Transition Initial Discussion Peds To Adult Transition Initial Discussion [facility] COVID & INFLUENZA A/ B & RSV NAAT, ROUTINE COVID & INFLUENZA A/B & RSV NAAT, ROUTINE Microbiology Routine URI, acute Sore throat 06/14/2023 10:25 AM EDT [facility] Work Phone: Patient Education ED Dyspnea [facility] Work Phone: Immunizations Immunization Date Immunization Notes Care Provider Estefanía barber 01-21-2016 Human Papillomavirus Quadval ZARINA RUSSELL [employer]-[facility] 01-21-2016 influenza virus vacc ine, unspecified formulation ZARINA MORELKINSON [employer]-[facility] 12-25-2015 meningococcal polysaccharide (groups A, C, Y and W-135) diphtheria toxoid conjugate vaccine (MCV4P) [facility] 12-22-2010 tetanus toxoid, redu shade diphtheria toxoid, and acellular pertussis vaccine, adsorbed [facility] 01-02-2004 measles/mumps/rubell a virus vaccine [facility] 01-02-2004 poliovirus vaccine, inactivated [facility] 12-13-2002 diphtheria, tetanus toxoids and acellular pertussis vaccine, unspecified formulation [facility] 12-13-2002 haemophilus influenz ae type b vaccine, PRP-T conjugate [facility] 12-13-2002 measles/mumps/rubell a virus vaccine [place] [facility] 05-26-1999 diphtheria, tetanus toxoids and acellular pertussis vaccine, unspecified formulation ZARINA RUSSELL [employer]-[facility] 05-26-1999 haemophilus influenz ae type b vaccine, PRP-T conjugate 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 [facility] 05-26-1999 poliovirus vaccine, inactivated ZARINA 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 [facility] 1998 diphtheria, tetanus toxoids and acellular pertussis vaccine, unspecified formulation ZARINA 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 [facility] 1998 haemophilus influenz ae type b vaccine, PRP-T conjugate ZARINA RUSSELL [employer]-[facility] 1998 hepatitis B pediatri c vaccine ZARINA RUSSELL [employer]-[facility] 1998 Human Papillomavirus Quadval ZARINA RUSSELL [employer]-[facility] 1998 poliovirus vaccine, inactivated ZARINA 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 [facility] 1998 diphtheria, tetanus toxoids and acellular pertussis vaccine, unspecified formulation ZARINA 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 [facility] 1998 haemophilus influenz ae type b vaccine, PRP-T conjugate ZARINA RUSSELL [employer]-[facility] 1998 hepatitis B pediatri c vaccine 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 [facility] 1998 Human Papillomavirus Quadval 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 [facility] 1998 poliovirus vaccine, inactivated ZARINA RUSSELL [employer]-[facility] 1998 hepatitis B pediatri c vaccine ZARINA RUSSELL [employer]-[facility] 1998 Human Papillomavirus Quadval 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 [facility] Payers Date Payer Category Payer Self-pay 2022 Unknown [id number] 2018 Medicaid [id number] 2018 Unknown [id number] 1998 Unknown [id number] 2.16. 840.1.441350.3.579.2.479 1998 Unknown [id number] 2.16. 840.1.130754.3.579.2.479 1998 Unknown [id number] 2.16. 840.1.029709.3.579.2.479 1998 Unknown [id number] 2.16. 840.1.519663.3.579.2.479 1998 Unknown [id number] 2.16. 840.1.439662.3.579.2.479 1998 Unknown [id number] 2.16. 840.1.062572.3.579.2.479 1998 Unknown [id number] 2.16. 840.1.185598.3.579.2.479 1998 Unknown [id number] 2.16. 840.1.754674.3.579.2.479 1998 Unknown [id number] 2.16.8 40.1.798526.3.579.2.627 1998 Unknown [id number] 2.16.8 40.1.963127.3.579.2.627 1998 Unknown [id number] 2.16.8 40.1.245965.3.579.2.627 1998 Unknown [id number] 2.16.8 40.1.705755.3.579.2.627 1998 Unknown [id number] 2.16.8 40.1.394668.3.579.2.627 1998 Unknown [id number] 2.16.8 40.1.069977.3.579.2.627 1998 Unknown [id number] 2.16.8 40.1.023249.3.579.2.627 1998 Unknown [id number] 2.16.8 40.1.632424.3.579.2.627 1998 Unknown [id number] 2.16.8 40.1.768107.3.579.2.627 1998 Unknown [id number] 2.16.8 40.1.220493.3.579.2.627 1998 Unknown [id number] 2.16.8 40.1.433136.3.579.2.627 1998 Unknown [id number] 2.16.8 40.1.588341.3.579.2.7 1998 Unknown [id number] 2.16.8 40.1.017197.3.579.2.627 1998 Unknown [id number] 2.16.8 40.1.518292.3.579.2. 1998 Unknown [id number] 2.16.8 40.1.957430.3.579.2.7 1998 Unknown [id number] 2.16.8 40.1.167104.3.579.2. 1998 Unknown [id number] 2.16.8 40.1.561340.3.579.2. 1998 Unknown [id number] 2.16.8 40.1.305492.3.579.2. 1998 Unknown [id number] 2.16.8 40.1.321854.3.579.2. 1998 Unknown [id number] 2.16.8 40.1.226483.3.579.2. 1998 Unknown [id number] 2.16.8 40.1.036975.3.579.2. 1998 Unknown [id number] 2.16.8 40.1.403218.3.579.2. 1998 Unknown [id number] 2.16.8 40.1.767502.3.579.2. 1998 Unknown [id number] 2.16.8 40.1.060760.3.579.2. 1998 Unknown [id number] 2.16.8 40.1.982801.3.579.2. 1998 Unknown [id number] 2.16.8 40.1.698004.3.579.2. 1998 Unknown [id number] 2.16.8 40.1.535001.3.579.2.627 1998 Unknown [id number] 2.16.8 40.1.771391.3.579.2.627 1998 Unknown [id number] 2.16.8 40.1.427960.3.579.2.627 1998 Unknown [id number] 2.16.8 40.1.290152.3.579.2.627 1998 Unknown [id number] 2.16.8 40.1.983364.3.579.2.627 1998 Unknown [id number] 2.16.8 40.1.406937.3.579.2.627 1998 Unknown [id number] 2.16.8 40.1.142868.3.579.2.627 1998 Unknown [id number] 2.16.8 40.1.413756.3.579.2.627 1998 Unknown [id number] 2.16.8 40.1.416476.3.579.2.627 1998 Unknown [id number] 2.16.8 40.1.231646.3.579.2.627 1998 Unknown [id number] 2.16.8 40.1.621130.3.579.2.627 1998 Unknown [id number] 2.16.8 40.1.113084.3.579.2.627 1998 Unknown [id number] 2.16.8 40.1.900538.3.579.2.627 1998 Unknown [id number] 2.16.8 40.1.334000.3.579.2.7 1998 Unknown [id number] 2.16.8 40.1.746693.3.579.2.627 1998 Unknown [id number] 2.16.8 40.1.192349.3.579.2.627 1998 Unknown [id number] 2.16.8 40.1.956231.3.579.2.627 1998 Unknown [id number] 2.16.8 40.1.948884.3.579.2.627 1998 Unknown [id number] 2.16.8 40.1.666911.3.579.2.627 1998 Unknown [id number] 2.16. 840.1.892100.3.579.2.627 1998 Unknown [id number] 2.16. 840.1.480256.3.579.2.627 1998 Unknown [id number] 2.16. 840.1.343512.3.579.2.627 1998 Unknown [id number] 2.16.8 40.1.609873.3.579.2.627 1998 Unknown [id number] 2.16.8 40.1.116734.3.579.2.627 Unknown [id number] 2.16.8 40.1.813739.3.579.2.462 Unknown [id number] 2.16.8 40.1.935730.3.579.2.462 Unknown [id number] 2.16.8 40.1.708733.3.579.2.462 Social History Date Type Detail Facility Start: 08-19-2020 End: 06-14-2023 Ex-smoker (finding) [facility] Sex Assigned At [facility] Start: 11-17-2021 End: 12-11-2024 Tobacco smoking status Light tobacco smoker (finding) [facility] History of tobacco use Current smoker [facility] Start: 06-14-2023 Tobacco use and exposure Smokeless tobacco non-user [facility] Start: 06-14-2023 End: 08-14-2025 Alcohol intake Not Asked [facility] Start: 03-11-2020 End: 06-14-2023 History of Social function [facility] Start: 03-11-2020 End: 06-14-2023 Tobacco use panel [facility] Start: 03-06-2012 National Score (1-100), lower number is lower risk Not on file [facility] Start: 2000 Sex Assigned At Not on file [facility] Start: 08-01-2013 Sex Female (finding) [facility] Start: 01-06-2025 [facility] Start: 2000 Sex Assigned At Female [facility] Functional Status Date Assessment Result Facility 10-07-2023 Functional Status Independent [facility] 09-03-2023 Functional Status Repositions self [facility] 09-03-2023 Functional Status [facility] 09-01-2023 Functional Status 7pm-7am [facility] 08-17-2023 Functional Status Standard Safet y ID band on, Call device within reach, Bed in low position, Wheels locked, Upper/Half-Length side-rails up, Phone within reach, personal items within reach, Non-Slip footwear [facility] 08-13-2023 Functional Status Independent [facility] 07-30-2023 Functional Status Standard Safet y Call device within reach, Bed in low position, Wheels locked [facility] 07-16-2023 Functional Status Independent [facility] 06-02-2023 Functional Status Independent [facility] Mental Status Date Assessment Result Facility 10-07-2023 Mental Status Oriented x 4 [facility] 09-03-2023 Mental Status Oriented x 4 [facility] 08-13-2023 Mental Status Orientation Oriented x 4 [facility] 07-16-2023 Mental Status Orientation Oriented x 4 [facility] Clinical Notes 08-19-2020 to 01-06-2025 Note Date & Type Note Facility 01-06-2025 Discharge summary [facility] 01-06-2025 Radiology Diagnostic study note [facility] Imaging Services [address] [place] [address] CTA Chest W/WO Contrast MR#: [id number] Acct: [id number] Name: SONIYA IGLESIAS CONSTANTINE Rep #: [id number] : 2000 F 24 From: Ramon Miramontes MD PCP: ANGELINA MckeonC Status: REG E R Study:CTA Chest W/WO Contrast Date of Exam: 01/06/25 Exam# [id number] Ordering Dr: Nicole Potts DO PROCEDURE: CTA CHEST W/WO CONTRAST 01/06/2025 REASON FOR EXAM: SOB, HX OF PE TECHNIQUE: Procedure Code: [id number] Modality: CT Procedure: CTA CHEST W/WO CONTRAST Multiplanar Sagittal and Coronal images were obtained. 3D reconstructions CONTRAST: Isovue 370 VOLUME: 100 mL One or more dose reduction techniques were used (e.g., Automated exposure control, adjustment of the mA and/or kV according to patient size, use of iterative reconstruction technique). RADIATION DOSE SUMMARY: . FINDINGS: Normal aortic caliber. No aortic dissection. No coronary artery calcification. No visible pulmonary emboli. No mediastinal mass. No pericardial fluid. The upper abdomen is unremarkable. There is no pericardial effusion. There is no adenopathy. Inspection of the lung parenchyma demonstrates no mass, consolidation or fibrosis. CT/CTA Chest W/WO Contrast IMPRESSION: Negative exam Reading [facility] CC: VICE PRESIDENT OF SOFTWARE ENGINEERING-C Amanda Rodlan; Dr. Cecil Potts DO ~ Flight Simulator Teacher: Signed [facility] 01-06-2025 Discharge summary Note Date/Time January 06, 2025 7:00pm [place] [facility] Medical [facility] Department [address] [place] [address] Emergency Department Summary 01/06/25 MR#: [id number] Acct: [id number] Name: SONIYA IGLESIAS CONSTANTINE Rep #:[id number] : 2000 24 From: [place] PCP: ANGELINA MckeonC Status:DEP E R Location: ED [facility] History of Present Illness Chief Complaint: Shortness of Breath PFSH PFSH Home Medications ?Medication ?Instructions ?Recorded ?Last Taken ?Type enoxaparin 40 mg/0.4 mL 40 mg (0.4 mL) subcut DAILY 30 01/06/25 Unknown Rx subcutaneous syringe (Lovenox) days #12 mL Allergy/AdvReac Type Severity Reaction Status Date / Time No Known Allergies Allergy Verified 01/06/25 15:45 Social History Smoking Status: Current every day smoker tobacco type: cigarettes and e-cigarettes EXAM Physical Exam Const Vital Signs: 01/06/25 15:45 01/06/25 16:28 01/06/25 16:30 Temperature 97.8 F Temperature Source Temporal Pulse Rate 90 75 Respiratory Rate 16 12 Respiratory Effort Normal Non-Labored Respiratory Depth Normal Respiratory Pattern Normal Blood Pressure 147/84 H 97/56 L Blood Pressure Mean 105 68 Pulse Ox 100 100 Oxygen Delivery Method Room Air Room Air 01/06/25 17:00 01/06/25 17:00 01/06/25 18:00 Temperature Temperature Source Pulse Rate 79 84 Respiratory Rate 21 H 14 Respiratory Effort Respiratory Depth Respiratory Pattern Blood Pressure 101/49 L 101/49 L Blood Pressure Mean 64 64 Pulse Ox 100 100 Oxygen Delivery Method 01/06/25 18:48 Temperature 97.5 F L Temperature Source Pulse Rate 72 Respiratory Rate 18 Respiratory Effort Respiratory Depth Respiratory Pattern Blood Pressure 98/62 Blood Pressure Mean 74 Pulse Ox 100 Oxygen Delivery Method MDM MDM MDM Narrative Medical decision making narrative: HISTORY OF PRESENT ILLNESS: Chief complaint: Shortness of breath 24-year-old female (G4, P3) who is approximately 6 weeks who presents with shortness of breath and dizziness for past 2 to 3 days. She notes shortness breath and dizziness is worse when she is at work. She notes symptomsare worse with exertion. She states has a history of a blood clot. She states has been prescribed Lovenox but has not taken it for last several days secondaryto complication with refills. She denies chest pain. No leg swelling. No dizziness currently. Denies vaginal bleeding, passing tissue, leakage of fluid or severe abdominal pain. REVIEW OF SYSTEMS: Pertinent positives: Shortness of breath, dizziness Pertinent negatives: Vomiting, fever, bleeding diathesis PHYSICAL EXAM: Nursing triage notes reviewed, Vital signs reviewed Constitutional: please see [facility] HENT: MMM Eyes: Pupils equal round and reactive to light, Extraocular muscles intact Neck: No stridor, no JVD, full neck ROM Lungs: Clear to auscultation, No wheezing or rales. No increased work of breathing, no conversational dyspnea, no accessory muscle use, no nasal flaring. No respiratory distress noted Heart: Regular rate and rhythm, No murmurs, No rubs and No gallops, 2+ distal pulses (radial, femoral, posterior tibial) in all extremities Abdomen: Soft, there is no tenderness, rigidity, rebound or guarding, no obviousperitoneal signs, no palpable pulsatile abdominal masses, no auscultated abdominal bruit : No CVAT Extremities: No edema Neuro: No n alert and oriented x3, neuro exam at baseline, cranial nerves II through XII are intact. No pain with extraocular muscle movement. There is negative test of skew. 5 of 5 strength in upper and lower extremities in flexion extension. Intact sensation to light touch in upper and lower extremitydermatomes. No truncal or extremity ataxia. No dysdiadochokinesia. Normal gait. 2+ reflexes in upper and lower extremities. No meningeal signs. Negative Babinski. NIH of 0. Skin: No rash or lesions noted MEDICAL DECISION MAKING: Chief Complaint: please see HPI External records reviewed: Reviewed prior imaging studies Factors affecting care: VTE, Social determinants of health: currently History obtained from others: Consults: none [facility] Narrative: The patient was initially hemodynamically stable, afebrile and nontoxic-appearing. Exam without focal cardiopulmonary abnormalities. No focal neurologic deficits. While I considered posterior circulation CVA, cerebral vein thrombosis given report of dizziness the patient's neurologic exam was not consistent with intracranial emergency. I considered the following differential diagnosis: Viral illness, PE, arrhythmia, anemia, electrolyte disturbance, ACS I obtained a broad lab and imaging workup to further determine if the patient was suffering from a life-threatening etiology. ALL IMAGES (IF OBTAINED) HAVE BEEN PERSONALLY REVIEWED AND INTERPRETED BY MYSELF. EKG showed normal sinus rhythm rate of 68, normal axis, normal intervals, no STEMI, no obvious right heart strain, no right bundle branch block, right axis deviation or S1Q3T3. CT of the chest showed no evidence of pneumonia or PE High-sensitivity troponin is negative, no evidence of myocardial ischemia (single troponin should suffice for ruling out ACS given patient's of having symptoms for 2 to 3 days and she had no chest pain) CBC with no leukocytosis, mild anemia, no thrombocytopenia CMP significant Danita abnormalities, no acute kidney injury, slight elevation in ALT and alk phos this is not clinically significant as patient had no upper quad abdominal pain scleral icterus or jaundice noted. The synthesis of the patient's history, physical exam, labs images suggest no acute life-limiting etiology specifically no sign of VTE, viral infection or bacterial infection. The etiology of patient's presentation is unclear however does not appear to be life-threatening. She is appropriate discharge home with close AIRPLANE RENTAL CLERK follow-up. A dose of Lovenox was given here prior to the patient'sdischarge. Prescription for Lovenox was written. She is encouraged to fill this immediately and start taking medicine immediately. The patient and/or family, caregivers express understanding. The patient and/orfamily, caregivers agrees with the plan. Shared decision making: I will have a discussion with the patient and or visitors regarding risk/benefits of further testing or admission. They will be made aware of of the risk/benefits inherent in this decision they will be given the opportunity to voice understanding. Total critical care time today provided was at least 0 minutes. This excludes separately billable procedures. Critical care time (if documented) is secondary to the patient having high probability of clinically significant/life threatening deterioration in the patient's condition which required my urgent intervention. Impression: 1. Dyspnea 2. Dizziness 3. First trimester Dispo: Discharge home This note was generated with [employer] dictation software. It may contain incorrectwords, spelling, and punctuation that were not noted in review of the chart prior to signing. Lab Data Labs: Laboratory Results - last 24 hr 01/06/25 16:02 WBC 11.6 H RBC 4.27 Hgb 12.8 Hct 37.1 MCV 86.9 MCH 30.0 MCHC 34.5 RDW Std Deviation 42.0 RDW Coeff of Maya 13.2 Plt Count 228 MPV 10.7 Immature Gran % (Auto) 0.400 Neut % (Auto) 78.7 H Lymph % (Auto) 14.7 L Chatham % (Auto) 5.6 Eos % (Auto) 0.3 Baso % (Auto) 0.3 Absolute Neuts (auto) 9.1 H Absolute Lymphs (auto) 1.70 Nucleated RBC % 0 Sodium 134 Potassium 3.8 Chloride 104 Carbon Dioxide 17.3 L Anion Gap 13 BUN 10 Creatinine 0.57 L Estim Creat Clear Calc 146.11 Est GFR (MDRD) Non-Af 129 BUN/Creatinine Ratio 17.4 Glucose 94 Calcium 9.1 Total Bilirubin 0.20 AST 32 ALT 53 H Alkaline Phosphatase 113 H Troponin T High Sens < 6 Total Protein 6.5 Albumin 3.9 Globulin 2.6 Albumin/Globulin Ratio 1.5 Radiography Diagnostic Testing: Clinical Impression(s) from Imaging Studies Chest CTA 01/06/25 16:02 IMPRESSION: Negative exam Reading [facility] Discharge Plan Triage Chief Complaint: Shortness of Breath ED Provider: Cecil Potts Dx/Rx/DC Orders Instructions: ED Dyspnea Prescriptions: New enoxaparin [Lovenox] 40 mg/0.4 mL syringe 40 mg subcut DAILY 30 Days Qty: 12 3RF Primary Care Provider: Amanda Roldan NP Referrals: Amanda Roldan NP, VICE PRESIDENT OF SOFTWARE ENGINEERING-C [Primary Care Provider, Family Practice] Activity Restrictions/Additional Instructions: Thank you for trusting us with your care today! Your labs images are reassuring. Please take Tylenol (2 pills, 650 mg) every 6 hours as needed for pain and fevercontrol. Please take Lovenox as prescribed. Please return to the emergency department if your symptoms change or worsen. 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 Print Language: Belarusian Disposition Disposition: Home, Self Care Discharge Date/Time: 01/06/25 19:00 What to do if you have Problems For any increased pain, shortness of breath, bleeding, nausea or vomiting, chestpain, or any unexpected problems, contact your Primary Care Provider. Call [facility] ([phone]) or report to the closest Emergency Room. Call 911 if necessary. 01/07/25 0041 <Electronically signed by Cecil Potts DO> Cosigner Signature (if applicable): CC: VICE PRESIDENT OF SOFTWARE ENGINEERING-C Amanda Roldan ~ Signed [facility] Work Phone: [phone]) 762-844909-09-2025 Note. MICRO - Microbiology PROCEDURE: Urine Culture [...] Locations *1: This test was performed at: [facility], [address] [place] [address], [facility] , [facility]08-14-2025 History of Present illness Narrative* Shravan Ricks Tech - 11/16/2024 8:30 AM EDT Radiology Service Progress Note PATIENT NAME: Soniya Hays DATE OF SERVICE: November 16, 2024 TIME: 8:29 AM PATIENT IDENTITY VERIFICATION COMPLETED USING TWO (2) IDENTIFIERS: Name and Date of confirmedby patient verbally. FALL SCREENING: Has the patient had 2 falls in the last year or 1 fall with injury or currently using an Ambulatory Assistive Device (Walker, Cane, Wheelchair, Crutches, etc.)? No PATIENT GENDER DATA: Assigned female at . status: : No status:NO. PATIENT RELEVANT IMPLANT DATA REVIEWED: Yes PATIENT PRESENTS WITH AN IMPLANTABLE OR ATTACHED RESEARCH PHYSIOLOGIST: No RADIOLOGY DEPARTMENT: General X-ray: Exam(s) Completed: Chest X-Ray PERIPHERAL IV DATA: Not applicable SIGNED BY: Leonardo Khanna November 16, 2024 8:29 AM documented in this encounterUniversity Hospitals Health System08-14-2025 NoteHNO ID: [id number] Author: SHRAVAN RICKS Tech Service: ? Author Type: Taxi Driver Type: Progress Notes Filed: 11/16/2024 08:38 Note [...] PATIENT PRESENTS WITH AN IMPLANTABLE OR ATTACHED RESEARCH PHYSIOLOGIST: No RADIOLOGY DEPARTMENT: General X-ray: Exam(s) Completed: Chest X-Ray PERIPHERAL IV DATA: Not applicable SIGNED BY: Leonardo Khanna November 16, 2024 8:29 [facility]08-14-2025 NoteHNO ID: [id number] Author: RUPERT MANSFIELD APRN.CHEMICAL PLANT MANAGER Service: ? Author Type: Nurse Practitioner Type: Progress Notes Filed: 11/16/2024 10:03 Note Text: [facility] Subjective HPI HPI Soniya [...] Hearing and external ear normal. Mouth/Throat: Lips: [place]. Mouth: Mucous membranes are moist. Pharynx: Oropharynx [...] abnormality. Dictated by : MD Rupert NOEL APRN.CHEMICAL PLANT MANAGER History and Record Review External record(s) reviewed: prior outpatient record. Disposition The patient was discharged. OTC Medications were advised: Otc pain relief. Procedures [1] Social History Tobacco Use Smoking status: Former Smokeless [id number] History of Present illness Narrative* Larisa MansfieldILAN knight.CHEMICAL PLANT MANAGER - 11/16/2024 8:27 AM EDT Images from the original note were not [...] Hearing and external ear normal. Mouth/Throat: Lips: [place]. Mouth: Mucous membranes are moist. Pharynx: Oropharynx [...] abnormality. Dictated by : MD Rupert NOEL APRN.CHEMICAL PLANT MANAGER History and Record Review External record(s) reviewed: prior outpatient record. Disposition The patient was discharged. OTC Medications were advised: Otc pain relief. Procedures [1] Social History Tobacco Use Smoking status: Former Smokeless tobacco: Never documented in this encounterUniversity Hospitals Health System07-25-2025 NoteHNO ID: [id number] Author: MARA DAVIS PA Service: ? Author Type: Physician Elementary Special Education Teacher Type: Progress Notes Filed: 10/27/2024 10:33 Note [...] be considered if no improvement. Recording using [employer] software for draft documentation of the visit was discussed with the patient/authorized billing representative; all questions welcomed and answered. Patient/authorized billing representative agreed to proceed History and Record Review External record(s) reviewed: prior outpatient record. Differential Diagnoses - Bronchitis is more likely for the following reason(s): suggested by HANDP - Pneumonia is less likely for the following reason(s): HANDP not suggestive Disposition The patient was [facility]. [facility] History of Present illness Narrative* Mara Davis PA - 10/27/2024 10:32 AM EDT [facility] Cecilia Hays is a 24 year old female. [...] 76.3 kg (168 lb 3.4 oz) LMP 08/03/2017(Approximate) SpO2 97% Physical Exam Vitals and nursing [...] be considered if no improvement. Recording using [employer] software for draft documentation of the visit was discussed with the patient/authorized billing representative; all questions welcomed and answered. Patient/authorized billing representative agreed to proceed History and Record Review External record(s) reviewed: prior outpatient record. Differential Diagnoses - Bronchitis is more likely for the following reason(s): suggested by H&P - Pneumonia is less likely for the following reason(s): H&P not suggestive Disposition The patient was discharged. Procedures documented in this encounterUniversity Hospitals Health System11-25-2024 NoteHNO ID: [id number] Author: ROBBY MCDANIELS MD Service: ? Author [...] a couple weeks to resolve. Robby Mcdaniels [facility]11-25-2024 History of Present illness Narrative* Robby Mcdaniels MD - 02/28/2024 9:44 AM EST Patient presents with: Ear Pain: bilateral left [...] resolve. Robby Mcdaniels MD documented in this encounterUniversity Hospitals Health System07-04-2024 Hospital Discharge instructions Patient Education 10/07/2023 20:33:22 [...] will help ease pain. You may use bzsw-xwz-vxtqkxj pain medicine such as acetaminophen or ibuprofen to control pain, unless another pain medicine was prescribed. If you have chronic liver or kidney disease, talk with yourhealthcare provider before using these medicines. Also talk [...] suddenly or lasts more than an hour [id number] [employer]. [address] [place] [address]. All rights reserved. This information is not intended as a substitute for professional medical care. Always follow yourhealthcare professional's instructions. Follow Up Care 10/07/2023 18:17:52 With:AMANDA ROLDAN Address: [address] [facility] [place] [phone] Business (1) When:2-4 days Comments:Follow-up with your doctor, use Tylenol, lidocaine patches as needed, warm compresses may be helpful as well, return if any worsening or concerning symptoms as discussed. [facility] 07-04-2024 Note Discharge Instructions Thank you for allowing [facility] to assist you with your healthcare needs. The following is importantdischarge information regarding your hospital visit. Diagnosis from Today's Visit Chest wall hematoma What to Do Next Instructions from Your Care Team No qualifying data available. Post Acute Orders No qualifying data available. You Need to Schedule the Following Appointments Follow Up with AMANDA ROLDAN When:Within 2-4 days Where:[address] [facility] [place] [address]- [phone] Business (1) Additional Information: Follow-up with your doctor, use Tylenol, lidocaine patches as needed, warm compresses may be helpful as well, return if any worsening or concerning symptoms as discussed. Allergies NKA Medications Please ask your primary doctor or pharmacist before taking any other medication not listed, including over the counter drugs, herbal medications, vitamins and or supplements as they may interact withyour home medications. What How Much When Instructions [...] will help ease pain. You may use njne-dob-nzctqej pain medicine such as acetaminophen or ibuprofen to control pain, unless another pain medicine was prescribed. If you have chronic liver or kidney disease, talk with yourhealthcare provider before using these medicines. Also talk [...] suddenly or lasts more than an hour 3920-4004 [employer]. [address] [place] [address]. All rights reserved. This information is not intended as a substitute for professional medical care. Always follow yourhealthcare professional's instructions. Additional Information VACCINATE! IT SAVES LIVES! Members of the community who have not yet received the COVID-19 vaccine and would like to receive it can visit one of [facility] vaccine clinics. There are many vaccine clinic locations within the [facility]. For locations and available times, please visit www.gettheshot.coronavirus.[place].gov/. It is important to note that some COVID mobile vaccine clinics are held outdoors and may be canceled in rainy or stormy conditions. To learn more about pediatric vaccinations (ages 5-11), we invite you to visit the [facility] webpage. https://www.[facility].org/pages/0567-Ajzlp-Jjmwieatpec-Rkdqvgcxhr-Ieneh-Kvp stions.htmlTo learn more about the COVID-19 vaccine, we invite you to visit the CDC website for a list of frequently asked questions. https://www.cdc.gov/coronavirus/2019-ncov/vaccines/faq.html [facility] Patient Portal Access Instructions: Stay connected with your healthcare team and access your personal medical information anytime with the [facility] Patient Portal. If you would like a full copy of your medical records please contact the [facility] Medical Records Department Wednesday through Wednesday between 8a.m. and 4:30p.m. Please follow the directions below to access the portal: 1.Access the email account you provided upon registration to the [facility].2.Look for an invitation email from [facility].3.Open the email and access the invitation link: Accept Invitation to [facility]Magic4.Fill in the required nunes to create your account. Sign into www.[employer] with your username and password that you [...] you will allow to register on the [facility] Patient Portal for access to your information. You can also access the [facility] Patient Portal on the [employer] leta. Simply click on Health Records under [employer] and then click on the [facility] logo. HOW TO SAFELY DISPOSE OF PRESCRIPTION MEDICATIONS Please use one of the following methods to safely dispose of your unused medications. 1.Use a drug disposal kit: the drug disposal pouch allows you to safely discard your old and unuseddrugs. Ask your nurse to give you one when you are discharged.2.Visit a local take-back location: Many local pharmacies and police departments have programs that collect old and unwanted prescriptiondrugs. Call your local pharmacy or go to http://bit.ly/5E9Zy8q to find one close to you.3.Make use of household items: Use cat litter or old coffee grounds to dispose medications if other options arenot available. Mix your drugs with these household products, seal them in an airtight container andthrow it into the garbage. Call [facility]: [phone] to be sure your drugs can be [...] drowsiness, such as benzodiazepines, also known as benzos,including diazepam and alprazolam, muscle relaxants or sleep aids. Never sell or share prescriptionopioids. This is illegal. Store opioids in a secure place and out of reach of others (including children, family, friends and visitors). The last page(s) of this document has been signed and retained as a CHART COPY Signatures Patient Education Materials Chest Wall Contusion Medication Leaflets My discharge plan and instructions have been reviewed and explained to me and I,SONIYA HAYS Aunderstand my current condition and have read and understand these discharge instructions. I have received a written copy of the plan/instructions. If I have questions, I am aware that I should contact my doctor. 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 Delivery normal Meeting all PP goals Late delivery plan dc tomorrow or next pending infant status Orders: acetaminophen(Tylenol), 650 mg= 2 tab(s), Oral, q6h, PRN acetaminophen-hydrocodone(Picacho 325- 5 mg oral tablet), 1 tab(s), Oral, q6h, PRN acetaminophen-hydrocodone(Picacho 325- 5 mg oral tablet), 2 tab(s), [...] PRN hydrocortisone-pramoxine topical(Analpram-HC 2.5%-1% rectal cream), 1 leat, Perineum, q1h, PRN ibuprofen(IBU 600 mg oral [...] DBP < 50 or > 105 mmHg, orurine output < 120 ml per 4 hrs., [...] only), Blood, Once, Nurse Collect, Preferred Lab: [facility], Stop date 09/03/23 5:00:00 EDT Ice for [...] AsDirected, PRN Analpram-HC 2.5%-1% rectal cream, 1 leta, Perineum, q1h, PRN Anusol-HC 25 mg rectal [...] mg= 1 mL, IV Push, AsDirected, PRN Picacho 325- 5 mg oral tablet, 1 tab(s), Oral, q6h, PRN Picacho 325- 5 mg oral tablet, 2 tab(s), [...] by AMANDA GREENWOOD on 09/02/2023 10:38 AM [facility]05-30-2024 Hospital Discharge instructions Patient Education 09/02/2023 07:30:13 [...] baby, as well as his or her suckingor crying, can stimulate the release of milk [...] thumb above your nipple (make the letter Cwith your hand). Make sure your fingers are [...] is still the best way to prevent fussinessfrom swallowing air while . Signs that your [...] to reduce the fullness of your breasts orwhen your baby shows signs of hunger. This is called on demand. Signs that your baby is hungry include: Increased alertness, activity, or restlessness. Movement of the head from side to side. Opening of the mouth when the corner of the mouth or cheek is stroked (rooting). Increased sucking sounds, smacking lips, cooing, sighing, or squeaking. Fsns-ob-mcbkk movements and sucking on fingers or hands. Fussing or crying. Avoid introducing a pacifier to your baby in the first 4-6 weeks after your baby is born. After this time, you may choose to use a pacifier. Research has shown that pacifier use during the first yearof a baby's life decreases the risk of sudden infant syndrome (SIDS). Allow your baby to feed [...] able to be present during feedings. Your enterprise resource planning consultant can help you find a method [...] bra designed especially for nursing. Avoid wearing underwire- style bras or extremely tight bras (sports bras). [...] water-soaked hand towels) just before feeding or pumping.This increases circulation and helps the milk flow. [...] of following these recommendations, contact your health careprovider or a enterprise resource planning consultant. Overall health care recommendations while Eat [...] or tobacco, such as cigarettes and e-cigarettes. Yourbaby may be harmed by chemicals from cigarettes that pass into breast milk and exposure to secondhand smoke. If you need help quitting, ask your health care provider. Avoid alcohol. Do not use illegal drugs or marijuana. Talk with your health care provider before taking any medicines. These include gfsw-bju-crumeud andprescription medicines as well as vitamins and herbal supplements. Some medicines that may be harmful to your baby can pass through breast milk. It is possible to become while . If control is desired, ask your healthcare provider about options that will be safe [...] fever. Summary offers many health benefits for and mothers. Try to breastfeed your when he or she shows early signs [...] Talk with your health care provider or enterprise resource planning consultant if you have questions or you face problems as you breastfeed. This information is not intended to replace advice given to you by your health care provider. Make sure you discuss any questions you have with your health care provider. Document Released: 03/22/2006 Document Revised: 06/16/2018 Document Reviewed: 04/23/2017 [employer]eps[employer] Patient Education 2020 [employer]. 09/02/2023 07:30:00 Vaginal Delivery Vaginal Delivery Vaginal delivery means that you give by pushing your baby out of your canal (vagina). Ateam of health care providers will help you before, during, and after vaginal delivery. experiences are unique for every woman and every , and experiences vary depending on whereyou choose to give . What happens when [...] will be placed on your bare chest (qrku-yy-sarj contact) in an upright position and covered with a warm blanket. Watch your baby for feeding cues, like rooting or sucking, and help the babyto your breast for his or her first feeding. Stage 3 This stage starts immediately after the of your baby and ends after you deliver the placenta. This stage may take anywhere from 5 to 30 minutes. After your baby has been delivered, you will feel contractions as your body expels the placenta andyour uterus contracts to control bleeding. What can [...] 12/29/2008 Document Revised: 04/26/2018 Document Reviewed: 04/26/2018 [employer] Patient Education 2020 [employer] Follow Up Care 09/01/2023 05:43:14 With:AMANDA GREENWOOD APRN-CNM Address: [address] [place] [address] [address] [facility] [place] [address] [phone] When:09/16/2023 [facility] 05-29-2024 Note Labor Details Baby A FHR Baseline:120 bpm FHR Baseline Variability:Moderate variability Membranes Membrane Status:Intact FHR Accelerations:Present Uterine Uterine Contraction Frequency2 Uterine Contraction Monitoring MethodExternal toco Cervical Cervix Dilation4 cm Cervix Dfgkknbmsd31 Station-2 Labor Induction Information Mukherjee bulb out [...] by AMANDA GREENWOOD on 09/01/2023 06:33 PM [facility]05-29-2024 Note Labor Details Baby A FHR Baseline:120 bpm FHR Baseline Variability:Moderate variability Membranes Membrane Status:Intact FHR Accelerations:Present Uterine Uterine Contraction Frequency2 Uterine Contraction Monitoring MethodExternal toco Cervical Cervix Dilation4 cm Cervix Xrmycgljph14 Station-2 Labor Induction Information Mukherjee bulb out [...] by AMANDA GREENWOOD on 09/01/2023 06:33 PM [facility]05-29-2024 Note Labor Details Baby A FHR Baseline:120 bpm FHR Baseline Variability:Moderate variability Membranes Membrane Status:Intact FHR Accelerations:Present Uterine Uterine Contraction Frequency2 Uterine Contraction Monitoring MethodExternal toco Cervical Cervix Dilation4 cm Cervix Drzzodkvrn59 Station-2 Pt and fetus tolerating labor well, mild pain with contractions Remains ambulatory in room Physical Exam Vitals & Measurements T: 36.7 C (Oral) TMIN: 36.4 C (Oral) TMAX: 36.8 C (Oral) HR: 64 (Monitored) RR: 18 BP: 90/44 SpO2: 98% HT: 155 cm WT: 89 kg BMI: 37.04 VE 50/-3 FB placed with ease with 40ml cc [...] by AMANDA GREENWOOD on 09/01/2023 06:30 PM [facility]05-29-2024 Note Chief Complaint stated here for IOL History of Present Illness 23 yo present for IOL. KAMILA 09/23 by LMP and confirmed by 8wk us. 36.5 weeks today. complicated by ho PE, Antiphospholipid syndrome, intrahepatic cholestasis of with last bile acid total count 58, comanaged by MFM, gerd, anxiety and anemia Pt had early and consistent care at [facility] and co-manged by MFM OB History: 2018 3714gm 2020 3110 gm Medical History ho PE migraines gerd anemia Surgical history TA Medications PNV ASA Lovenox 40mg SQ dly SP Celestone 08/24- 08/25 PNL o+, RPR NR Rubella NI, Varcella NI, HepB/C negative, HIV negative, CT/GC negative. NIPt low risk Anatomy complete with MFM Weekly BPPS/NSTs Last growth with MFM 08/30 BLANE 21.6 8/8 3002gms (53) AC 86 Review of Systems all neg despite pruritus Physical Exam Vitals and Measurements T: 36.6 C (Oral) TMIN: 36.4 C (Oral) TMAX: 36.8 C (Oral) HR: 83 (Monitored) RR: 16 BP: 109/60 SpO2:98% HT: 155 cm WT: 89 kg BMI: [...] acute pelvic inflammatory disease Procedure/Surgical History Tonsillectomy: 2011 Medications Home Medications (5) Active Alive Gummies [...] History Alcohol Use: Never., 02/03/2019 Home/Environment Primary Audioprosthologist: Self., 11/01/2019 Nutrition/Health Caffeine intake amount: carbonated [...] by AMANDA GREENWOOD on 09/01/2023 06:23 PM [facility]05-29-2024 Anesthesiology Consult note Patient: SONIYA HAYS Age: 23 years Sex: Female : 2000 Associated Diagnoses: None Author: ROBBIE CASE GASKET WINDER-COAL SCREENER Preoperative Information Anesthesia history Patient's history: negative. [...] gram(s), 100 mL, 300 mL/hr, IV Piggyback, AsDirected,PRN: Other (see order comments) Prescriptions Prescribed Alive [...] [2 munit/min] + LR Premix Diluent 1,000 mL1,000 mL, Intravenous, 6 mL/hr PRN: (12) carboprost [...] list: Medical Abdominal pain / SNOMED CT 53158668 / Confirmed Anemia / SNOMED CT 366696649 / Confirmed Antiphospholipid syndrome / SNOMED CT 70003691 / Confirmed Anxiety / SNOMED CT 29872996 / Confirmed Asthma / SNOMED CT 537012739 / Confirmed Chest pain / SNOMED CT 21600802 / Confirmed Dental abscess / SNOMED CT 872646542 / Confirmed Depression / SNOMED CT 265632520 / Confirmed Learning disability / SNOMED CT 9169588 / Confirmed SOB (shortness of breath) / SNOMED CT 728628610 / Confirmed Elevated liver enzymes / SNOMED CT 7365606144 / Confirmed Fatigue / SNOMED CT 489909926 / Confirmed GERD - Gastro-esophageal reflux disease / SNOMED CT 5653435095 / Confirmed History of pulmonary embolism / SNOMED CT 997599953 / Confirmed Heartburn in / SNOMED CT 32144177 / Confirmed Liver hemangioma / SNOMED CT 426520802 / Confirmed Insomnia / SNOMED CT 736810421 / Confirmed Pruritus / SNOMED CT 3957926696 / Confirmed Migraine without aura / SNOMED CT 87392894 / Confirmed Encounter for supervision of normal in multigravida in second trimester / SNOMED CT 834691733 / Confirmed School physical exam / SNOMED CT 828655318 / Confirmed Well adult exam / SNOMED CT 522770699 / Confirmed Encounter for annual routine gynecological examination / SNOMED CT 099454585 / Confirmed / SNOMED CT 324185943 / Confirmed Sciatica / SNOMED CT 54828732 / Confirmed Tobacco use / SNOMED CT 020785988 / Confirmed, Active Problems (27) Abdominal pain [...] adult exam Histories Past Medical History: Resolved (360039206): Onset on 05/13/2020 at 20 years. Resolved on 01/27/2021 at 20 years. Comments: 03/06/2021 EST 11:15 EST - [place], Tiffanie SMUTTER visit. ([id number]): Onset on 06/29/2017 at 17 years. Resolved in 2019 at 17 years. Acute PID - acute pelvic inflammatory disease ([id number]): Resolved. Family History: COPD - Chronic obstructive pulmonary disease Mother Suicide Brother () Hypertension Grandparent Heart disease Father Mental illness Mother Procedure history: Tonsillectomy (118993741) in 2011 at 11 Years. Social History: Social & Psychosocial Habits Alcohol 07/06/2023 Use: Never Substance Abuse 07/06/2023 Use: Never Tobacco 09/01/2023 Tobacco Use: 5-9 cigarettes (between 1 Type: Cigarettes Exposure to Tobacco Smoke Lives in non-smoking home Home/Environment 07/06/2023 Primary Audioprosthologist: Self Nutrition/Health 07/06/2023 Caffeine intake amount: carbonated [...] Oral36.6 DegC (AUGUST 31 15:23) Heart Rate Oinvknjey06 bpm (AUGUST 31 16:51) SBP95 mmHg (AUGUST [...] Height 155 cm Admission Weight 89 kg [place] Body Weight 47.85 kg BSA Admission 1.87 [...] with support Epidural Placed By ROBBIE CASE Baby A FHR Baseline: 125 bpm FHR [...] Cervix No Vaginal Exam Performed By WILLIAN Kruger Barreto's Score 6 09/01/2023 15:15 EDT Mukherjee Bulb [...] Not Appropriate at this Time (Not Done) [employer] Video Viewed Not Done: Not Appropriate at [...] date/time 09/01/2023 6:45 Provider Notified AMANDA GREENWOOD Ray VERONICA Notification Method Office Information Communicated Nurse communication [...] Position Posterior Vaginal Exam Performed By WILLIAN Jeffries Barreto's Score 4 Station Calculation -3 09/01/2023 6:51 [...] feelings, concerns Skin Temperature Warm Skin Description [facility], Dry Skin Integrity Intact Sensory Perception Ariel [...] Nonreactive Designated Person #1 We May Share MIGDALIA Iglesias Designated Person #1 Relationship Significant other Privacy Restrictions Requested None Height 155 cm Admission Weight 89 kg [place] Body Weight 47.85 kg BSA Admission 1.87 [...] deliveries, Unscarred uterus, Absence of hemorrhage history Feeding Breast milk Anesthesia/Pain Medication During Labor Epidural/Spinal Circumcision Yes Baby For Adoption No Surrogate No Discharge Physician nidhi reyna [facility] Participant Yes Safe Sleep Environment for Baby [...] No Weight Loss No Preferred Spoken Language Belarusian Preferred Written Language Belarusian Teaching Evaluation No further teaching needed Safety Brochure Information Reviewed Yes [facility] Video Viewed Patient refused Chief Complaint stated here for IOL Information Given by Patient, Spouse Emergency Contact Number Danie Iglesias [phone] Mode of Transfer Private vehicle Discharge To, [...] Scanned Follow-up Growth . Assessment and Plan [place] Society of Anesthesiologists (ASA) physical status classification: Class III. Anesthetic Preoperative Plan Anesthetic technique: Epidural. Regional: Epidural. Postoperative pain management: Per surgeon. Risks discussed: nausea, vomiting, headache, hypotension, allergic reaction, serious complications. Informed consent: signed by patient. Digitally Signed by ROBBIE CASE on 09/01/2023 04:55 PM [facility]05-29-2024 Evaluation + Plan noteExtracted from: Title:History and Physical Author:RUBEN GREENWOOD APRN-RO Date:09/01/23 1. Intrahepatic cholestasis of IOL today [...] Appointments Appointment Date:09/07/2023 10:00:00 AM Scheduled Provider: Location:[facility] Appointment Type:US Biophysical Profile Appointment Date:09/08/2023 01:45:00 PM Scheduled Provider:AMANDA GREENWOODCNM Location: [facility] Appointment Type: OV Appointment Date:09/09/2023 [...] 08/13/23 * US OB W/Biophysical Profile 08/20/23 [facility] 05-23-2024 Nurse Progress note patient tolerated injection of celestone without signs or symptoms of a reaction Digitally Signed by Meche Avila RN on 08/26/2023 01:04 PM [facility]05-21-2024 Hospital Discharge instructions Patient Education 08/24/2023 11:22:14 7 - Labor and Delivery Outpatient Instructions (CUSTOM) [facility] OUT[facility]IENT HOME-GOING INSTRUCTIONS _X_ [...] crackers, bananas, Jell-O, cooked carrots, applesauce. ___ Pratt diet. Avoid caffeine, chocolate, alcohol, spiced/greasy foods. [...] the nearest Emergency Room for assistance. Form [id number] D: 03/13 Document Released: 03/22/2006 Document Revised: 03/10/2012 Document Reviewed: 03/22/2006 ExitCare Patient Information 2012 [employer]. Follow Up Care 08/24/2023 10:53:24 With:AMANDA GREENWOOD APRN-DARLENEM Address: [address] [place] [address] [phone] When: Unknown Comments:Follow-up as scheduled [facility] 05-17-2024 Note. MICRO - Microbiology PROCEDURE: [...] Locations *1: This test was performed at: [facility], [address] [place] [address], [phone]- , [facility] ([place]08-17-2023 Hospital Discharge instructions Patient Education 08/17/2023 10:48:38 7 - Labor and Delivery Outpatient Instructions(CUSTOM) [facility] OUT[facility]IENT HOME-GOING INSTRUCTIONS _X_ [...] crackers, bananas, Jell-O, cooked carrots, applesauce. ___ Pratt diet. Avoid caffeine, chocolate, alcohol, spiced/greasy foods. [...] the nearest Emergency Room for assistance. Form [id number] D: 03/13 Document Released: 03/22/2006 Document Revised: 03/10/2012 Document Reviewed: 03/22/2006 ExitCare Patient Information 2012 [employer]. [facility] 05-10-2024 Hospital Discharge instructions Patient Education 08/13/2023 10:14:11 7 - Labor and Delivery Outpatient Instructions (CUSTOM) [facility] OUT[facility]IENT HOME-GOING INSTRUCTIONS _X_ [...] crackers, bananas, Jell-O, cooked carrots, applesauce. ___ Pratt diet. Avoid caffeine, chocolate, alcohol, spiced/greasy foods. [...] the nearest Emergency Room for assistance. Form [id number] D: 03/13 Document Released: 03/22/2006 Document Revised: 03/10/2012 Document Reviewed: 03/22/2006 ExitCare Patient Information 2012 [employer] [facility]. Follow Up Care 08/13/2023 09:47:38 With: SCHEDULED Address:Unknown When: Unknown [facility] 05-02-2024 Evaluation + Plan note Future [...] 08/13/23 * US OB W/Biophysical Profile 08/20/23 [facility] Kaylaquita Pinto 05-01-2024 Evaluation + Plan note Future Appointments [...] Lab Send out (Blood Specimens) 02/23/23 * [facility] [place] Send out (Blood Specimens) 02/23/23 Radiology* [...] 08/13/23 * US OB W/Biophysical Profile 08/20/23 [facility] 04-30-2024 Hospital Discharge instructions Patient Education 08/03/2023 12:14:53 7 - Labor and Delivery Outpatient Instructions (CUSTOM) [facility] OUTPATIENT HOME-GOING INSTRUCTIONS _X_ [...] crackers, bananas, Jell-O, cooked carrots, applesauce. ___ Pratt diet. Avoid caffeine, chocolate, alcohol, spiced/greasy foods. [...] the nearest Emergency Room for assistance. Form [id number] D: 03/13 Document Released: 03/22/2006 Document Revised: 03/10/2012 Document Reviewed: 03/22/2006 ExitCare Patient Information 2012 [employer]. Follow Up Care 08/03/2023 11:19:45 With:AMANDA GREENWOOD Address: [address] [phone] Business (1) When: Unknown [facility] Kayla Pinto 04-26-2024 Hospital Discharge instructions Patient Education 07/30/2023 14:06:44 7 - Labor and Delivery Outpatient Instructions (CUSTOM) [facility] OUT[facility]IENT HOME-GOING INSTRUCTIONS _X_ [...] crackers, bananas, Jell-O, cooked carrots, applesauce. ___ Pratt diet. Avoid caffeine, chocolate, alcohol, spiced/greasy foods. [...] the nearest Emergency Room for assistance. Form [id number] D: 03/13 Document Released: 03/22/2006 Document Revised: 03/10/2012 Document Reviewed: 03/22/2006 [facility] Patient Information 2012 [employer]. Follow Up Care 07/30/2023 12:58:48 With:MARYAN PLUNKETT MD Address: [address] [place] [address] [place] [phone] When: Unknown [facility] 04-23-2024 Hospital Discharge instructions Patient Education 07/27/2023 14:06:05 7 - Labor and Delivery Outpatient Instructions(CUSTOM) [facility] OUT[facility]IENT HOME-GOING INSTRUCTIONS _X_ [...] crackers, bananas, Jell-O, cooked carrots, applesauce. ___ Pratt diet. Avoid caffeine, chocolate, alcohol, spiced/greasy foods. [...] the nearest Emergency Room for assistance. Form [id number] D: 03/13 Document Released: 03/22/2006 Document Revised: 03/10/2012 Document Reviewed: 03/22/2006 [facility] Patient Information 2012 [employer]. Follow Up Care 07/27/2023 13:37:33 With:CINTHYA RUEDA Address: [address] [place] [address] [place] [phone] Business (1) When: Unknown [facility] 04-19-2024 Note. MICRO - Microbiology PROCEDURE: [...] Locations *1: This test was performed at: [facility], [address] [place] [address], [id number]- , [facility] ([place]07-20-2023 Hospital Discharge instructions Patient Education 07/20/2023 13:06:26 7 - Labor and Delivery Outpatient Instructions (CUSTOM) [facility] OUT[facility]IENT HOME-GOING INSTRUCTIONS _X_ [...] crackers, bananas, Jell-O, cooked carrots, applesauce. ___ Pratt diet. Avoid caffeine, chocolate, alcohol, spiced/greasy foods. [...] the nearest Emergency Room for assistance. Form [id number] D: 03/13 Document Released: 03/22/2006 Document Revised: 03/10/2012 Document Reviewed: 03/22/2006 ExitCare Patient Information 2012 [employer]. Follow Up Care 07/20/2023 11:55:43 With:MARYAN PLUNKETT Address: [address] [place] [address] [facility] [address]- [phone] Business (1) When: Unknown [facility] 04-12-2024 Hospital Discharge instructions Patient Education 07/16/2023 17:18:09 7 - Labor and Delivery Outpatient Instructions (CUSTOM) [facility] OUT[facility]IENT HOME-GOING INSTRUCTIONS _X_ [...] crackers, bananas, Jell-O, cooked carrots, applesauce. ___ Pratt diet. Avoid caffeine, chocolate, alcohol, spiced/greasy foods. [...] the nearest Emergency Room for assistance. Form [id number] D: 03/13 Document Released: 03/22/2006 Document Revised: 03/10/2012 Document Reviewed: 03/22/2006 ExitCare Patient Information 2012 [employer]. Follow Up Care 07/16/2023 16:37:29 With:CINTHYA RUEDA MD Address: [address] [place], [place] [address] [place] [phone] When: Unknown Comments:Follow-up as scheduled [facility] 03-12-2024 Miscellaneous Notes* Telephone Encounter - Georgette Figueroa MA - 06/15/2023 7:18 AM EDT Patient given results and verbalized understanding of instructions given. Georgette Figueroa MA * Telephone Encounter - Mara Davis PA - 06/15/2023 7:13 AM EDT Negative for COVID flu RSV documented in [facility]University [facility]24 History of Present illness Narrative* Robby Mcdaniels [...] daily. enoxaparin sodium (LOVENOX SUBCUTANEOUS) Inject subcutaneously. zx90-nmup ps-folate 1 29 mg iron- 1 mg [...] influenza. Robby Mcdaniels MD documented in this [facility]University [facility]-28-[facility]24 Hospital Discharge instructions Patient Education 06/02/2023 14:44:30 [...] crackers, bananas, Jell-O, cooked carrots, applesauce. ___ Pratt diet. Avoid caffeine, chocolate, alcohol, spiced/greasy foods. [...] the nearest Emergency Room for assistance. Form [id number] D: 03/13 Document Released: 03/22/2006 Document Revised: 03/10/2012 Document Reviewed: 03/22/2006 [facility] Patient Information 2012 [employer]. Follow Up Care 06/02/2023 13:54:36 With:CHRISTI ENCISO, SRI Tadeo Address: [address] [place] [address] [place] [phone] When: Unknown Comments:Follow-up as scheduled [facility] 12-20-2023 Note. MICRO - Microbiology PROCEDURE: [...] Locations *1: This test was performed at: [facility], [address] [place] [address], [phone] , [facility] ([place]03-16-2023 Note. MICRO - Microbiology PROCEDURE: Urine Culture [*1] SOURCE: Urine, Clean Catch BODY SITE: COLLECTED DATE/TIME: 03/15/2023 17:22 EST RECEIVED DATE/TIME: 03/15/2023 18:37 EST START DATE/TIME: 03/15/2023 18:37 EST FREE TEXT SOURCE: FINAL REPORTS Final Report [] Verified Date/Time/Personnel: 03/16/2023 14:06 EST 10,000 - 50,000 cfu/ml Mixed growth consistent with normal urogenital wandy. Performing Locations *1: This test was performed at: [facility], [address] [place] [address], [phone]- , [facility] ([place]01-18-2023 Evaluation + Plan note Diagnostic Tests Pending * hCG, quantitative(AO) 01/18/23 Future Scheduled Tests Laboratory* hCG, quantitative(AO) 01/18/23 Radiology* US Abdomen Complete 03/24/22 * XR Chest 2 Views (PA & Lateral) 09/15/22 [facility] 12-20-2022 Evaluation + Plan note Future Scheduled Tests Radiology* US Abdomen Complete 03/24/22 * XR Chest 2 Views (PA & Lateral) 09/15/22 [facility] 08-15-2022 Evaluation + Plan note Future Scheduled Tests Laboratory* Pathology Barber Tool Sharpener Request 11/17/21 * Glucose 1 Hour Challenge 11/28/20 * Thyroid Stimulating Hormone 11/17/21 * Free T4 11/17/21 * Complete Blood Count 11/28/20 * Free T3 11/17/21 Radiology* XR Chest 2 Views (PA & Lateral) 09/04/21 * US OB W/Biophysical Profile 02/03/21 [facility] 08-15-2022 Evaluation + Plan note Future Scheduled Tests Laboratory* Pathology Barber Tool Sharpener Request 11/17/21 * Thyroid Stimulating Hormone 11/17/21 * Free T4 11/17/21 * Free T3 11/17/21 Radiology* US Abdomen Complete 03/24/22 * XR Chest 2 Views (PA & Lateral) 09/04/21 [facility] 10-25-2021 Hospital Discharge instructions Patient Education 01/27/2021 15:56:07 7b- Depression and Blues (01/2020)(CUSTOM) Kayla Depression and Blues All mothers are at [...] psychosis. Often, a screening tool called the [place] Depression Scale is used to diagnose depression [...] music. Avoid alcohol. Ask for help with loading unit operator, cooking, grocery shopping, or running errands as needed. Do nottry to do everything. Talk to people close to you about how you are feeling. Get support from your partner, family members, and friends. Try to stay positive in how you think. Think about the things you are grateful for. Do not spend a lot of time alone. Only take mtwk-gwd-ddhzhao or prescription medicine as directed by your [...] not doing well or get worse. Resource: ExitCare Patient Information 2015 [employer]. This information is not intended to replace [...] Follow these instructions at home: Medicines Take buza-lbz-lracihe and prescription medicines only as told by [...] 07/17/2005 Document Revised: 12/09/2018 Document Reviewed: 03/23/2017 [employer] Patient Education 2020 [employer]. 01/27/2021 15:55:47 Vaginal Delivery, Care After Vaginal [...] Follow these instructions at home: Medicines Take wfag-uqt-jsacqgc and prescription medicines only as told by [...] 03/19/2001 Document Revised: 09/02/2016 Document Reviewed: 04/05/2016 [employer] Interactive Patient Education 2019 [employer]. Follow Up Care 01/27/2021 05:54:32 With:SRI BARRAZA MD Address: [address] [place] [address] [facility] [address] [phone] When: Unknown Comments:Call to schedule appointment for three weeks from delivery [facility] 10-25-2021 Evaluation + Plan noteExtracted from: Title:Clinical Document Author:SRI BARRAZA MD Date:01/27/21 SATIN ADMISSION HISTORY A ND PHYSICIAL CHIEF COMPLAINT: [...] pertinent positives. ACTIVE PROBLEMS: (21) Abdominal pain (17759779) Acute maxillary sinusitis (003431585) Anxiety (13992219) Asthma (019439534) Dental caries (594706883) Dental infection (4583344910) Depo-Provera contraceptive status (655860531) Depression (263794462) Encounter for supervision of normal in multigravida in second trimester (360252317) GERD - Gastro-esophageal reflux disease (5995814986) Heartburn in (88501628) History of pulmonary embolism (680723111) Insomnia (399244025) Learning disability (2574363) Liver hemangioma (588110824) Migraine without aura (97322684) (840841332) Pruritus (3733711398) School physical exam (846375502) Tobacco use (8349204964) Well adult exam (543873926) MEDICATIONS: Active Inpt Meds: None Active PRN [...] toxic habits. Stable home. PHYSICAL EXAM: VITALS: OotcshDwhxGHGnskeRKZpW3CEO3RyrpVx(kg) 01/27 06:0436.195/52530679KY35/25 85.0 24 Hr Tmax: 36.1 at 01/27 [...] RBC3.79L Hgb10.0L Hct29.9L MCV78.7L MCH26.3L MCHC33.4 RDW14.2 Nsqkxaaz648 MPV8.7 Neutrophil %75.4 Lymphocyte %19.6 Monocyte %4.3 [...] Appointments Appointment Date:02/03/2021 02:30:00 AM Scheduled Provider: Location:[facility] Appointment Type:US OB W/Biophysical Profile Appointment Date:02/20/2021 10:00:00 AM Scheduled Provider:SRI BARRAZA MD Location:[facility] Appointment Type: OV Future Scheduled Tests Laboratory* COVID-19 Only (AO) 08/19/20 * Glucose 1 Hour Challenge 11/28/20 * Complete Blood Count 11/28/20 Radiology* US OB W/Biophysical Profile 02/03/21 [facility] 08-26-2021 Evaluation + Plan note Future Scheduled Tests Laboratory* Glucose 1 Hour Challenge 11/28/20 * Complete Blood Count 11/28/20 Radiology* XR Chest 2 Views (PA & Lateral) 09/04/21 * US OB W/Biophysical Profile 02/03/21 [facility] 05-17-2021 Evaluation + Plan note Future Scheduled Tests Laboratory* COVID-19 Only (AO) 08/19/20 * Glucose 1 Hour Challenge 11/28/20 * Complete Blood Count 11/28/20 Radiology* US OB W/Biophysical Profile 02/03/21 [facility] Evaluation + Plan note Future Appointments Appointment Date:01/16/2021 11:30:00 AM Scheduled Provider:SRI BARRAZA MD Location:[facility] Appointment Type: OV OB Routine Follow [...] 11/28/20 Radiology* US OB W/Biophysical Profile 02/03/21 [facility] Evaluation + Plan note Future Appointments Appointment Date:01/23/2021 10:15:00 AM Scheduled Provider:SRI BARRAZA MD Location:[facility] Appointment Type: OV OB Routine Follow Up Appointment Date:01/27/2021 10:30:00 AM Scheduled Provider: Location:[facility] Appointment Type:US OB W/Biophysical Profile Appointment Date:02/03/2021 09:30:00 AM Scheduled Provider: Location:[facility] Appointment Type:US OB W/Biophysical Profile Future Scheduled Tests Laboratory* COVID-19 Only (AO) 08/19/20 * Glucose 1 Hour Challenge 11/28/20 * Complete Blood Count 11/28/20 Radiology* US OB W/Biophysical Profile 02/03/21 [facility] Evaluation + Plan note Future Appointments [...] 11/28/20 Radiology* US OB W/Biophysical Profile 02/03/21 [facility] Evaluation + Plan note Future Appointments Appointment Date:02/17/2022 01:30:00 PM Scheduled Provider:AMANDA ROLDAN APRN-CHEMICAL PLANT MANAGER Location:[facility] Appointment Type:PC OV Follow Up Future Scheduled Tests Laboratory* Pathology Barber Tool Sharpener Request 11/17/21 * Thyroid Stimulating Hormone 11/17/21 * Free T4 11/17/21 * Free T3 11/17/21 Radiology* XR Chest 2 Views (PA & Lateral) 09/04/21 [facility] Evaluation + Plan note Future Appointments Appointment Date:09/15/2022 01:00:00 PM Scheduled Provider:AMANDA ROLDAN APRN-CHEMICAL PLANT MANAGER Location:[facility] Appointment Type:PC OV Follow Up Future Scheduled Tests Laboratory* Pathology Barber Tool Sharpener Request 11/17/21 * Thyroid Stimulating Hormone 11/17/21 * Free T4 11/17/21 * Free T3 11/17/21 Radiology* US Abdomen Complete 03/24/22 * XR Chest 2 Views (PA & Lateral) 09/04/21 [facility] Evaluation + Plan note Future Appointments Appointment Date:03/12/2023 05:00:00 PM Scheduled Provider: Location:[facility] Appointment Type:US OB < 14 weeks Appointment Date:03/23/2023 10:00:00 AM Scheduled Provider:AMANDA GREENWOOD Location:[facility] Appointment Type: OV OB Routine Follow [...] Chest 2 Views (PA & Lateral) 09/15/22 [facility] Evaluation + Plan note Future Appointments Appointment Date:03/12/2023 05:00:00 PM Scheduled Provider: Location:[facility] Appointment Type:US OB < 14 weeks Appointment Date:03/23/2023 10:00:00 AM Scheduled Provider:AMANDA GREENWOOD Location:[facility] Appointment Type: OV OB Routine Follow [...] Chest 2 Views (PA & Lateral) 09/15/22 [facility] Evaluation + Plan note Future Appointments Appointment Date:03/30/2023 08:30:00 AM Scheduled Provider: Location:[facility] Appointment Type:US OB < 14 weeks Appointment Date:04/08/2023 10:15:00 AM Scheduled Provider:SRI BARRAZA MD Location:[facility] Appointment Type: OV OB Routine Follow [...] Chest 2 Views (PA & Lateral) 09/15/22 [facility] Evaluation + Plan note Future Appointments Appointment Date:05/10/2023 10:15:00 AM Scheduled Provider:SRI BARRAZA MD Location:[facility] Appointment Type:[facility] OB Routine Follow Up Future Scheduled Tests Laboratory* Bile Acids, Fractionated LCMS 03/15/23 * Type and Screen (AO) 02/23/23 * HIV 1/2 Ab 02/23/23 * Complete Metabolic Panel 03/15/23 * MISC Lab Send out (Blood Specimens) 02/23/23 * MISC Lab Send out (Blood Specimens) 02/23/23 Radiology* XR Chest 2 Views (PA & Lateral) 09/15/22 [facility] Evaluation + Plan note Future Appointments Appointment Date:05/10/2023 10:15:00 AM Scheduled Provider:SRI BARRAZA MD Location:[facility] Appointment Type: OV OB Routine Follow [...] Chest 2 Views (PA & Lateral) 09/15/22 [facility] Evaluation + Plan note Future Appointments Appointment Date:05/10/2023 10:15:00 AM Scheduled Provider:SRI BARRAZA MD Location:[facility] Appointment Type: OV OB Routine Follow Up Diagnostic Tests Pending * Bile Acids, Fractionated LCMS 04/28/23 Future Scheduled Tests Laboratory* Type and Screen (AO) 02/23/23 * HIV 1/2 Ab 02/23/23 * MISC Lab Send out (Blood Specimens) 02/23/23 * MISC Lab Send out (Blood Specimens) 02/23/23 Radiology* XR Chest 2 Views (PA & Lateral) 09/15/22 [facility] Evaluation + Plan note Future Appointments Appointment Date:06/07/2023 09:15:00 AM Scheduled Provider:SRI BARRAZA MD Location:[facility] Appointment Type: OV OB Routine Follow Up Appointment Date:08/05/2023 09:00:00 AM Scheduled Provider:SRI BARRAZA MD Location:[facility] Appointment Type: OV OB Routine Follow Up Appointment Date:08/10/2023 10:00:00 AM Scheduled Provider: Location:[facility] Appointment Type:US Biophysical Profile Appointment Date:08/12/2023 09:00:00 AM Scheduled Provider:SRI BARRAZA MD Location:[facility] Appointment Type: OV OB Routine Follow Up Appointment Date:08/17/2023 10:00:00 AM Scheduled Provider: Location:[facility] Appointment Type:US Biophysical Profile Appointment Date:08/19/2023 09:00:00 AM Scheduled Provider:SRI BARRAZA MD Location: [...] Profile 08/24/23 * US Biophysical Profile 09/14/23 [facility] Evaluation + Plan note Future Appointments [...] Type:WH OV OB Routine Follow Up Appointment Date:08/17/2023 10:00:00 AM Scheduled Provider: Location:[facility] Appointment Type:US Biophysical Profile Appointment Date:08/19/2023 09:00:00 AM Scheduled Provider:ZARINA RUSSELL Location: [facility] Appointment Type:WH OV OB Routine Follow Up Appointment Date:08/24/2023 [...] 05/18/23 * HIV 1/2 Ab 02/23/23 * [facility] ([facility] Specim[facility]) 02/23/23 * [...] 08/13/23 * US OB W/Biophysical Profile 08/20/23 [facility] Evaluation + Plan note Future Appointments Appointment Date:07/22/2023 10:00:00 AM Scheduled Provider:ZARINA RUSSELL Location: [facility] Appointment Type:WH OV OB Routine Follow Up Appointment Date:07/27/2023 [...] Date:08/19/2023 09:00:00 AM Scheduled Provider:ZARINA RUSSELL Location: [facility] [...] Scheduled Provider:SRI BARRAZA MD Location:[facility] Appointment Type:WH OV OB Routine Follow [...] 08/13/23 * US OB W/Biophysical Profile 08/20/23 [facility] Evaluation + Plan note Future Appointments Appointment Date:07/27/2023 01:00:00 PM Scheduled Provider: Location:[facility] Appointment Type:US OB W/Biophysical Profile Appointment Date:08/03/2023 11:00:00 AM Scheduled Provider: Location:[facility] Appointment Type:US OB W/Biophysical Profile Appointment Date:08/05/2023 09:00:00 AM Scheduled Provider:ZARINA RUSSELL Location:[facility] Appointment Type:WH OV OB Routine Follow Up Appointment Date:08/06/2023 10:15:00 AM Scheduled Provider:CINTHYA RUEDA MD Location:[facility] Appointment Type: OV OB [...] 08/13/23 * US OB W/Biophysical Profile 08/20/23 [facility] Evaluation + Plan note Future Appointments Appointment Date:07/27/2023 01:00:00 PM Scheduled Provider: Location:[facility] Appointment Type:US OB W/Biophysical Profile Appointment Date:08/03/2023 11:00:00 AM Scheduled Provider: Location:[facility] Appointment Type:US OB W/Biophysical Profile Appointment Date:08/05/2023 09:00:00 AM Scheduled Provider:ZARINA RUSSELL Location:[facility] Appointment Type:WH OV OB Routine Follow Up Appointment Date:08/06/2023 10:15:00 AM Scheduled Provider:CINTHYA RUEDA MD Location:[facility] Appointment Type:WH OV OB Routine Follow Up Appointment Date:08/10/2023 10:00:00 AM Scheduled Provider: Location:[facility] Appointment Type:US Biophysical Profile Appointment Date:08/12/2023 09:00:00 AM Scheduled Provider:ZARINA RUSSELL Location:[facility] Appointment Type:WH OV OB Routine Follow Up Appointment Date:08/13/2023 08:00:00 AM Scheduled Provider: Location:[facility] Appointment Type:US OB W/Biophysical Profile Appointment Date:08/17/2023 10:00:00 AM Scheduled Provider: Location:[facility] Appointment Type:US Biophysical Profile Appointment Date:08/19/2023 09:00:00 AM Scheduled Provider:ZARINA RUSSELL Location:[facility] Appointment Type:WH OV OB Routine Follow [...] 08/13/23 * US OB W/Biophysical Profile 08/20/23 [facility] Evaluation + Plan note Future Appointments Appointment Date:08/03/2023 11:00:00 AM Scheduled Provider: Location:[facility] Appointment Type:US OB W/Biophysical Profile Appointment Date:08/05/2023 09:00:00 AM Scheduled Provider:ZARINA RUSSELL Location: [facility] Appointment Type:WH OV OB Routine Follow Up Appointment Date:08/06/2023 10:15:00 AM Scheduled Provider:CINTHYA RUEDA MD Location: [facility] Appointment Type:WH OV OB [...] 08/13/23 * US OB W/Biophysical Profile 08/20/23 [facility] Evaluation + Plan note Future Appointments [...] 08/13/23 * US OB W/Biophysical Profile 08/20/23 [facility] Evaluation + Plan note Future Appointments [...] 08/13/23 * US OB W/Biophysical Profile 08/20/23 [facility] Evaluation + Plan note Future Appointments Appointment Date:08/19/2023 09:00:00 AM Scheduled Provider:ZARINA RUSSELL Location: [facility] Appointment Type: OV OB Routine Follow Up Appointment Date:08/20/2023 08:00:00 AM Scheduled Provider: Location:[facility] Appointment Type:US OB W/Biophysical Profile Appointment Date:08/24/2023 10:00:00 AM Scheduled Provider: Location:[facility] Appointment Type:US Biophysical Profile Appointment Date:08/25/2023 09:30:00 AM Scheduled Provider:AMANDA GREENWOOD Location: [facility] Appointment Type: OV OB Routine Follow Up Appointment Date:08/26/2023 09:00:00 AM Scheduled Provider:ZARINA RUSSELL Location: [facility] Appointment Type: OV OB Routine Follow Up [...] 08/13/23 * US OB W/Biophysical Profile 08/20/23 [facility] Evaluation + Plan note Future Appointments [...] 08/13/23 * US OB W/Biophysical Profile 08/20/23 [facility] Evaluation + Plan note Future Appointments Appointment Date:08/26/2023 01:00:00 PM Scheduled Provider: Location:[facility] Appointment Type:INF Injection - Other (15 min) [...] 02/23/23 * HIV 1/2 Ab 02/23/23 * [facility] Lab Send [facility] (Blood Specimens) 02/23/23 * [...] 08/13/23 * US OB W/Biophysical Profile 08/20/23 [facility] Evaluation + Plan note Future Appointments [...] 02/23/23 * HIV 1/2 Ab 02/23/23 * [facility] Lab Send [facility] (Blood Specimens) 02/23/23 * [...] 08/13/23 * US OB W/Biophysical Profile 08/20/23 [facility] Evaluation + Plan note Future Appointments Appointment Date:11/02/2023 10:30:00 AM Scheduled Provider:AMANDA GREENWOOD Location:[facility] Appointment Type: OV Future Scheduled Tests [...] 08/13/23 * US OB W/Biophysical Profile 08/20/23 [facility] Evaluation + Plan note Future Appointments Appointment Date:03/22/2023 10:45:00 AM Scheduled Provider:SRI BARRAZA MD Location:[facility] Appointment Type: OV OB Routine Follow Up Appointment Date:03/30/2023 08:30:00 AM Scheduled Provider: Location:[facility] Appointment Type:US OB < 14 weeks Future [...] Chest 2 Views (PA & Lateral) 09/15/22 [facility] Evaluation + Plan note Future Appointments Appointment Date:08/23/2024 02:30:00 PM Scheduled Provider:AMANDA ROLDAN Location:[facility] Appointment Type:PC OV Future Scheduled Tests Laboratory* Bile Acids, Fractionated LCMS 08/03/23 * Bile Acids, Fractionated LCMS 08/31/23 Radiology* US Biophysical Profile 09/07/23 * US Biophysical Profile 09/14/23 * US OB W/Biophysical Profile 09/21/23 * US OB W/Biophysical Profile 08/13/23 * US OB W/Biophysical Profile 08/20/23 [facility] Evaluation + Plan note Future Appointments Appointment Date:08/23/2024 02:30:00 PM Scheduled Provider:AMANDA ROLDAN APRN-ROSETTA Location:[facility] Appointment Type:PC OV Diagnostic Tests Pending * Rapid Plasma Reagin Test 07/27/24 Future Scheduled Tests Laboratory* Bile Acids, Fractionated LCMS 08/03/23 * Bile Acids, Fractionated LCMS 08/31/23 Radiology* US OB > 14 weeks 07/30/23 * US Biophysical Profile 09/07/23 * US Biophysical Profile 09/14/23 * US OB W/Biophysical Profile 09/21/23 * US OB W/Biophysical Profile 08/13/23 * US OB W/Biophysical Profile 08/20/23 [facility] Evaluation + Plan note Future Appointments Appointment Date:01/02/2025 11:00:00 AM Scheduled Provider: Location:[facility] Appointment Type:US OB < 14 weeks Appointment Date:01/09/2025 10:00:00 AM Scheduled Provider:AMANDA GREENWOOD Location: [facility] Appointment Type:WH OV OB Routine Follow Up Future Scheduled Tests Radiology* US OB < 14 weeks 01/02/25 [facility] Evaluation + Plan note Future Appointments Appointment Date:01/09/2025 10:00:00 AM Scheduled Provider:AMANDA GREENWOOD Location: [facility] Appointment Type:WH OV OB Routine Follow Up [facility] Evaluation + Plan note Future Appointments Appointment Date:02/01/2025 09:45:00 AM Scheduled Provider:ZARINA RUSSELL Location:[facility] Appointment Type: OV OB Routine Follow Up Future Scheduled Tests Laboratory* ABO/Rh (Gel) 01/11/25 * Antibody Screen (Gel) 01/11/25 * Rapid HIV (AO) 01/11/25 * Hepatitis B Surface Antigen 01/11/25 * Rapid Plasma Reagin(RFX Titer + Confirm) 01/11/25 * Rubella Antibody 01/11/25 * Thyroid Stimulating Hormone 01/11/25 * Complete Blood Count 01/11/25 * Hepatitis C Ab w/reflex to PCR Quant 01/11/25 [facility] Evaluation note* Diagnosis URI, acute- Primary Acute upper respiratory infections of unspecified site Sore throat Acute [facility]itis [facility] Diagnosis Acute otitis media, left- Primary Unspecified otitis media [facility] Diagnosis Bronchitis- Primary Bronchitis, not specified as acute or chronic [facility]* Diagnosis Tooth pain- Primary Unspecified disorder of the teeth and supporting structures Acute cough [facility] noteNo assessment information availableWOur [facility] of [facility] Work Phone: Hospital course Narrative No data available for this section [facility] Discharge instructions No data available for this section [facility] Hospital Discharge instructionsAdditional Instructions Thank you for trusting us with your care today! Your labs images are reassuring. Please take Tylenol (2 pills, 650 mg) every 6 hours as needed for pain and fever control. Please take Lovenox as prescribed. Please return to the emergency department if your symptoms change or worsen. 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 [facility] Work Phone: Progress note No data available for this section [facility] Reason for referral (narrative)No reason for referral information availableWOur [facility] of [facility] Work Phone: Summary Purpose Family History No Family History [...] this section No Family History Records Found Advance Directives No Advanced Directives Records Found Advance Directive Response Recorded Date/ Time Do you have a Healthcare Power of Hemmer Chainstitch? No January 06, 2025 4:28pm Chief Complaint and Reason for Visit Chief Complaint Admit Date SOB January 06, 2025 3: 44pm Additional Source Comments INFORMATION SOURCE (unrecogn ized section and content) DATE CREATED AUTHOR 09/29/2017 [facility] DATE CREATED AUTHOR AUTHOR'S ORGANIZ ATION 01/29/2020 [employer] DATE CREATED AUTHOR AUTHOR'S ORGANIZ ATION 09/01/2023 [facility] DATE CREATED AUTHOR AUTHOR'S ORGANIZ ATION 10/21/2023 [facility] ([place]) DATE CREATED AUTHOR AUTHOR'S ORGANIZ ATION 11/17/2024 [facility] DATE CREATED AUTHOR AUTHOR'S ORGANIZ ATION 01/14/2025 [facility] DATE CREATED AUTHOR AUTHOR'S ORGANIZ ATION 01/20/2025 [facility] Care Team (unrecognized sect ion and content) Document Preparation Specialist Relationship Specialty Start Date End Date Amanda Roldan [address] [place] [address] PCP - General Family Medicine 11/14/14 Document Preparation Specialist Relationship Specialty Start Date End Date Amanda Roldan [address] [place] [phone] PCP - General Family Medicine 11/14/14 Document Preparation Specialist Relationship Specialty Start Date End Date Amanda Roldan CNP [address] [place] [phone] PCP - General Family Medicine 11/14/14 Document Preparation Specialist Relationship Specialty Start Date End Date Amanda Roldan CNP [id number] PCP - General Family Medicine 11/14/14 Document Preparation Specialist Relationship Specialty Start Date End Date Amanda Roldan CNP [address] [place] [address] PCP - General Family Medicine 11/14/14 Document Preparation Specialist Relationship Specialty Start Date End Date Amanda Roldan CNP [address] [place] [address] PCP - General Family Medicine 11/14/14 Team Status: Active Member Role/Relationship Status Dates Amanda Roldan VICE PRESIDENT OF SOFTWARE ENGINEERING, VICE PRESIDENT OF SOFTWARE ENGINEERING-C Primary care physician Active Team Status: Inactive Member Role/Relationship Status Dates Amanda Roldan VICE PRESIDENT OF SOFTWARE ENGINEERING, VICE PRESIDENT OF SOFTWARE ENGINEERING-C Primary care physician Active Start: January 06, 2025 End: January 06, 2025 Dr. Cecil Potts , DO Emergency Depart ent Physician Active Start: January 06, 2025 End: October 4th, 2025 Care Team (unrecognized sect ion and content) Care Team Personnel Name: AMANDA ROLDAN APRN-CHEMICAL PLANT MANAGER Position: P4 Advanced Practice Nurse Med Service: Employed Provider Member Role: Primary Care Physician Address: Address: [address] [place] [id number] Care Team Related Persons Name: MICHELLE HAYS Address: [address] [phone] Name: PRANAY IGLESIAS Address: [address] [phone] Name: MACK IGLESIAS Care Team Personnel Name: AMANDA ROLDAN APRN-CHEMICAL PLANT MANAGER Position: P4 Advanced Practice Nurse Member Role: Primary Care Physician Address: Address: [address] [place] [id number] Care Team Related Persons Name: MICHELLE HAYS Address: [address] [phone] [place] Name: PRANAY IGLESIAS Address: Home [address] [place] [phone] Name: MACK IGLESIAS Care Team Personnel Name: AMANDA ROLDAN GASKET WINDER-CHEMICAL PLANT MANAGER Position: P4 Advanced Practice Nurse Member Role: Primary Care Physician Address: Address: [address] [place] [id number] Care Team Related Persons Name: MICHELLE HAYS Address: [address] [phone] [place] Name: PRANAY IGLESIAS Address: [place] [address] [place] [phone] Name: MACK IGLESIAS Source Comments (unrecognize d section and content) In the event this informatio n is protected by the Federal Confidentiality of Alcohol and Drug Abuse Patient Records regulations: The Federal rules restrict any use of the information to criminally investigate or prosecute any alcohol or drug abuse patient.[facility] SystemIn the event this information is protected by the Federal Confidentiality of Alcohol and Drug Abuse Patient Records regulations: The Federal rules restrict any use of the information to criminally investigate or prosecute any alcohol or drug abuse patient.[facility] SystemIn the event this information is protected by the Federal Confidentiality of Alcohol and Drug Abuse Patient Records regulations: The Federal rules restrict any use of the information to criminally investigate or prosecute any alcohol or drug abuse patient.[facility] SystemIn the event this information is protected by the Federal Confidentiality of Alcohol and Drug Abuse Patient Records regulations: The Federal rules restrict any use of the information to criminally investigate or prosecute any alcohol or drug abuse patient.[facility] SystemIn the event this information is protected by the Federal Confidentiality of Alcohol and Drug Abuse Patient Records regulations: The Federal rules restrict any use of the information to criminally investigate or prosecute any alcohol or drug abuse patient.[facility] SystemIn the event this information is protected by the Federal Confidentiality of Alcohol and Drug Abuse Patient Records regulations: The Federal rules restrict any use of the information to criminally investigate or prosecute any alcohol or drug abuse patient.[facility] Reason for Visit (unrecogniz ed section and content) Reason Comments Cough Cough and ST x 1 day Reason Comments Results Reason Comments Ear Pain bilateral left worse x 3 days Reason Comments Cough Chest congestion, wh eezing x 1 week Reason Comments Dental Problem R lower tooth infect ion x2 days Cough Has not resolved fro m 10/27, finished prednisone Goals (unrecognized section and content) Goals may be documented in a n alternate section FOR RECORDS PERTAINING TO PATIENTS WHO ARE [...] BE BASED ON THE PRIMARY CLINICAL RECORDS. [facility]. provides no warranty or guarantee of the accuracy or completeness of information in this document.
[2025-01-22 09:18] VITALS: BP 157/87; PULSE 79; RESP 16; TEMP 37.1; O2SAT 100
[2025-01-22 10:10] VITALS: BP 112/74; PULSE 71; RESP 16; TEMP 36.3; O2SAT 100
== END 2025-01-22 10:11 | disposition home or self-care (01) ==
PROVIDERS: Emergency Provider Emergency Medicine; PCP Nurse Practitioner Primary Care; Visit Provider Emergency Medicine
DX: O20.0 Threatened abortion (principal); O99.331 Smoking (tobacco) complicating pregnancy, first trimester; F17.210 Nicotine dependence, cigarettes, uncomplicated; F17.290 Nicotine dependence, other tobacco product, uncomplicated; Z3A.10 10 weeks gestation of pregnancy
CPT/HCPCS: 86900; 86901; 99283; A4216